=== PATIENT | female | born 1955 | race Caucasian/White ===

== ENCOUNTER 2016-05-12 09:12 | Day surgery (SDC) | payer MEDICARE ==
[2016-05-12] VITALS (10 sets, daily range): BP systolic 137–169; BP diastolic 61–75
[~2016-05-12] VITALS: Ht 152.4 cm; Wt 77.1 kg
[~2016-05-12 09:12] MED LIST: ALBU8.5H2 IH; ASP81CT GT; ATOR40TA PO; GBPN600T PO; METO-272 PO; NAPR220C11 PO; OMEP40CA36 PO; PRAV40TA PO; PRED10TA PO; TIOT18CA IH
[2016-05-12] MEDS ORDERED: NS IV 1000 ML 1,000 ML ONE (09:24)
[2016-05-12] MEDS ORDERED: LIDOCAINE 1% INJ 20 ML (XYLOCAINE) VIAL ONE (09:24)
[2016-05-12] MEDS ORDERED: HEParin (CATH LAB) 2,000 ML IV ONE (09:24)
[2016-05-12 10:27] LABS: MEAN PLATELET VOLUME 10.2 FL (7.4-10.4); RED BLOOD COUNT 4.83 10^6/uL (4.35-5.85); RED CELL DISTRIBUTION WIDTH 13.6 % (10.0-14.5); WHITE BLOOD COUNT 9.1 10^3/uL (4.3-11.0)
[2016-05-12 10:48] LABS: PROTHROMBIN TIME PATIENT 12.4 SEC (12.2-14.7)
[2016-05-12 10:52] LABS: ALANINE AMINOTRANSFERASE 12 U/L (0-55); ALBUMIN 4.1 G/DL (3.2-4.5); ANION GAP 10 MMOL/L (5-14); ASPARTATE AMINO TRANSFERASE 15 U/L (5-34); BILIRUBIN,TOTAL 0.6 MG/DL (0.1-1.0); BLOOD UREA NITROGEN 20 MG/DL (7-18); BUN/CREATININE RATIO 26; CALCIUM 9.1 MG/DL (8.5-10.1); CARBON DIOXIDE 28 MMOL/L (21-32); CHLORIDE 101 MMOL/L (98-107); CHOLESTEROL 176 MG/DL (< 200); CREATININE SERUM 0.76 MG/DL (0.60-1.30); DIRECT LDL 120 MG/DL (1-129); GFR ESTIMATED > 60; GLUCOSE 98 MG/DL (70-105); POTASSIUM 4.3 MMOL/L (3.6-5.0); SODIUM 139 MMOL/L (135-145); TRIGLYCERIDES 154 MG/DL (<150); VLDL CHOLESTEROL 31 MG/DL (5-40)
[2016-05-12] MEDS ORDERED: GABA800T2 PO (10:54)
[2016-05-12] MEDS ORDERED: ACET-2267 PO (10:54)
[2016-05-12] MEDS ORDERED: ATOR20TA66 PO (10:54)
[2016-05-12] MEDS ORDERED: DULO60CA6 PO (10:54)
[2016-05-12] MEDS ORDERED: TRAM50TA2 PO (10:54)
[2016-05-12] MEDS ORDERED: ASPI-983 PO (10:54)
[2016-05-12] MEDS ORDERED: METO-272 PO (10:54)
[2016-05-12] MEDS ORDERED: AMLO2.5T PO (10:54)
[2016-05-12] MEDS ORDERED: LEVO25TA5 PO (10:54)
[2016-05-12] MEDS ORDERED: NS IV 1000 ML 1,000 ML IV SCH ×2 (11:00→13:23)
--- NOTE | 2016-05-12 12:11 | Cardiac Procedure Note-CS/ASA ---
Pre-Procedure Note Pre-Op Procedure Note H&P Reviewed The H&P was reviewed, patient examined and no changes noted. Date H&P Reviewed: May 12, 2016 Time H&P Reviewed: 12:10 Conscious Sedation Pre-Proced Time Reviewed: 12:10 ASA Class: 3 Airway Mallampati Classification: ([facility] appropriate class) I. II. III, IV Lungs Heart ASA score ASA 1: a normal healthy patient ASA 2: a patient with a mild systemic disease (mid diabetes, controlled hypertension, obesity ASA 3: a patient with a severe systemic disease that limits activity (angina , COPD, prior Myocardial infarction) ASA 4: a patient with an incapacitating disease that is a constant threat to life (CHF, renal failure) ASA 5: a moribund patient not expected to survive 24 hrs. (ruptured aneurysm) ASA 6: a declared brain patient whose organs are being harvested. For emergent operations, add the letter E after the classification Grade 3 Sedation Plan: Analgesia, Amnesia, Plan communicated to team members, Discussed options with patient/fam, Discussed risks with patient/fam Note The patient is an appropriate candidate to undergo the planned procedure, sedation, and anesthesia. The patient immediately re-assessed prior to indication. RADHA GAVIN MD FACP FACC CCDS May 12, 2016 12:11
[2016-05-12] MEDS ORDERED: diphenhydrAMINE 50 MG/ML INJ (BENADRYL) ONE (12:16)
[2016-05-12] MEDS ORDERED: fentaNYL INJECTION 100 MCG/2 ML AMP ONE (12:16)
[2016-05-12] MEDS ORDERED: MIDAZOLAM 5 MG/5 ML (VERSED) VIAL ONE (12:16)
[2016-05-12] MEDS ORDERED: ASPI-999 PO (13:26)
--- NOTE | 2016-05-12 13:27 | Discharge Inst-Post CATH ---
Discharge Inst-CATH Post Cardiac Cath D/C Inst Follow Up/Plan F/u with Dr Draper in 1-2 weeks CARDIAC CATH DISCHARGE INSTRUCTIONS *Hold Metformin for 48 hours post heart cath. ACTIVITY * Go Home directly and rest. * Limit activity of the leg (or wrist if it was used) for 7 days including aerobics, swimming, jogging, bicycling, etc. * Restrict stair-climbing for 7 days if possible, if not, climb up with your non -cath leg, then bring together on the same step. * Avoid lifting, pushing, pulling or excessive movement of the affected extremity for 7 days. * Customary sexual activity may be resumed after 2 days-use caution not to use a position that strains or causes pain to the affected extremity. * No driving for 24 hours. * NO SMOKING. * Avoid straining for bowel movements for 7 days. * Gentle walking on level ground is allowed. * Returning to work will depend on the type of procedure and the results. Your doctor will discuss this with you. CALL YOUR DOCTOR FOR ANY OF THE FOLLOWING: *If bleeding from the puncture site occurs- Apply gentle pressure to site with clean cloth and call your doctor or EMS. * If a knot or lump forms under the skin, increases in size, or causes pain. * If bruising appears to be worsening or moving further down your leg instead of disappearing. * Temperature above 101 F. CARE OF YOUR GROIN INCISION; * Bruising or purple discoloration of the skin near the puncture site is common. * You may shower only, no bathtub bathing for 5 days. Be careful to avoid slipping as your leg may feel stiff. * If a closure device was used on your femoral artery, please see the attached guide regarding care of the device and your leg. * REMOVE the dressing from your groin the next day after your procedure in the shower. CARE OF YOUR WRIST INCISION; * Bruising or purple discoloration of the skin near the puncture site is common. * You may shower. * DO NOT submerge wrist. * Remove dressing in 24 hours. RADHA DRAPER MD [facility] CCDS May 12, 2016 13:27
--- NOTE | 2016-05-12 13:28 | Discharge Inst-Cardiology ---
Discharge Inst-Cardiac Discharge Medications New Medications: Aspirin (Aspirin) 81 Mg Tab.chew 81 MG PO DAILY #90 Ref 3 TAB Continued Medications: Acetaminophen (Tylenol Extra Strength) 500 Mg Tablet 1000 MG PO Q6H TAKES 2 (500MG) TABLETS PRN BACK PAIN TAB Albuterol (Proair Hfa) 8.5 Gm Hfa.aer.ad 2 PUFF IH Q4H PRN COUGH INHALER Amlodipine Besylate (Amlodipine Besylate) 2.5 Mg Tablet 2.5 MG PO DAILY TAB Atorvastatin Calcium (Atorvastatin Calcium) 20 Mg Tablet 20 MG PO HS TAB Duloxetine HCl (Cymbalta) 60 Mg Capsule.dr 60 MG PO BID CAP Gabapentin (Gabapentin) 800 Mg Tablet 400 MG PO HS TAKES 1/2 (800MG) TABLET TAB Levothyroxine Sodium (Levothyroxine Sodium) 25 Mcg Tablet 25 MCG PO DAILY TAB Metoprolol Succinate (Metoprolol Succinate) 50 Mg Tab.er.24h 75 MG PO BID TAKES 1 & 1/2 (50MG) TABLET TAB Omeprazole (Omeprazole) 40 Mg Capsule.dr 40 MG PO DAILY CAP Tiotropium Ramer (Spiriva) 18 Mcg Cap.w.dev 1 CAP IH DAILY EA Tramadol HCl (Tramadol HCl) 50 Mg Tablet 50 MG PO TID PRN BREAKTHROUGH PAIN TAB Discontinued Medications: Aspirin (Aspirin EC) 81 Mg Tablet. 81 MG PO HS TAB RADHA GAVIN MD FACP FAC CCDS May 12, 2016 13:28
[2016-05-12] MEDS ORDERED: PATIENT MAY USE OWN MEDS, ALL PO SCH (13:30)
--- NOTE | 2016-05-14 09:10 | CARDIAC CATHETERIZATION ---
PROCEDURE PHYSICIAN: RADHA GAVIN DATE OF PROCEDURE: 05/12/2016 CARDIAC CATHETERIZATION REPORT: Radha Jameson is a 60-year-old lady who has exertional shortness of breath, slowly progressive. She has been having intermittent chest discomfort. She also has a feeling of occasional palpitations. She has a previous history of a brief (4 beat) run of wide complex tachycardia on an event monitor study of April 2014. Echocardiography has shown at least moderate pulmonary hypertension. Given all of this data, complete heart catheterization was recommended. An informed consent was obtained. PROCEDURE: She is brought to the cardiac catheterization laboratory in a fasting state. The right groin was prepped and draped in usual sterile fashion. 1% lidocaine was used for local anesthesia. Modified Seldinger technique was used to advance a 5-Jamaican sheath in the right femoral artery and a 7-Jamaican sheath in right femoral vein. We used a 7-Jamaican Bethpage-Sydney catheter to carry out right heart catheterization and to measure oxygen saturations in the various right heart chambers. The Bethpage-Sydney catheter was then removed. We then proceeded with the left heart catheterization through the arterial sheath. We used a 5-Jamaican pigtail catheter to carry out left ventricular catheterization and left ventricular angiography. We used a 5-Jamaican JL4 catheter for left coronary angiography and 5-Jamaican JR 4 for the right coronary angiography. We used 5-Jamaican JR4 catheter for angiography of the aortocoronary graft to the left circumflex artery. We used a 5-Jamaican JUAN catheter to carry out angiography of the left internal mammary artery graft of left anterior descending artery. Following removal of diagnostic catheters, angiography of the right femoral artery was carried out through the sheath and Mynx was used to achieve arterial hemostasis and she was transferred to [facility] for manual venous sheath removal. She tolerated the procedure well. HEMODYNAMICS: 1. Pulmonary artery pressure is 51/20 with a mean of 33 mmHg. 2. Mean pulmonary wedge pressure 15 mmHg. 3. Mean right atrial pressure 15 mmHg. 4. Right ventricular pressure is 54/15. 5. Cardiac output by thermodilution is 3.07 and cardiac index by thermodilution is 1.76. 6. Pulmonary vascular resistance is 5.87 Wood units. 7. Left ventricular end diastolic pressure is 15 mmHg. 8. There was no significant pressure gradient on pullback across the aortic valve and ascending aortic pressure was 138/68 with a mean of 80 mmHg. LEFT VENTRICULAR ANGIOGRAPHY: Left ventricular angiography was carried out in the right anterior oblique projection. No regional wall motion abnormalities are seen. There does not appear to be significant mitral regurgitation. Left ventricular ejection fraction of 60 to 65%. CORONARY ANGIOGRAPHY: Diffuse coronary calcification is present. The left main coronary artery has mild mid vessel disease. Left anterior descending artery has diffuse disease. The proximal and mid portions of the left anterior descending artery have multiple stenoses of up to approximately 80%. Left circumflex artery has 50% ostial and proximal stenosis. Right coronary artery is dominant and has a widely patent stent in its midportion and has diffuse mild disease. Right coronary artery is dominant. AORTOCORONARY GRAFT ANGIOGRAPHY: A single aortocoronary graft is identified. There is known to be a radial artery graft to a high obtuse marginal or ramus intermedius. It is widely patent and does not exhibit significant disease. LEFT INTERNAL MAMMARY ARTERY GRAFT ANGIOGRAPHY: Left internal mammary artery graft angiography to the distal left anterior descending artery is widely patent and does not exhibit significant disease. CONCLUSIONS: 1. Coronary disease as detailed above. 2. Widely patent left internal mammary artery graft to the distal left anterior descending artery. 3. Widely patent aortocoronary graft (known to be radial artery graft) to a high obtuse marginal or ramus intermedius. 4. Widely patent stent in the mid right coronary artery. 5. Normal global left ventricular systolic function with an ejection fraction of 60 to 65%. 6. Mild elevation left ventricular end-diastolic pressure. 7. Pulmonary hypertension with a mean pulmonary artery pressure of 33 mmHg and pulmonary vascular resistance of 5.8 Wood units. DISCUSSION AND RECOMMENDATIONS: Based on the results of this study, we are continuing a conservative approach for coronary artery disease and a cardiac management. Close outpatient follow-up is advised. Pulmonary consultation is advised for pulmonary hypertension. Job ID: [id number] Dictated Date: 05/12/2016 13:19:00 Channeling Machine Operator Date: 05/14/2016 08:55:45 / [email or web address]
== END 2016-05-12 16:45 | disposition home or self-care (01) ==
LOC: CATH 09:12 → SURG 13:35 → CATH 16:45
PROVIDERS: ATTEND Internal Medicine Cardiovascular Disease
DX: R07.89 Other chest pain (principal); I25.10 Atherosclerotic heart disease of native coronary artery without angina pectoris; I25.84 Coronary atherosclerosis due to calcified coronary lesion; I27.2 Other secondary pulmonary hypertension; R00.0 Tachycardia, unspecified; I10 Essential (primary) hypertension; E78.5 Hyperlipidemia, unspecified; K21.9 Gastro-esophageal reflux disease without esophagitis; R73.09 Other abnormal glucose; Z79.899 Other long term (current) drug therapy; Z87.891 Personal history of nicotine dependence; Z95.1 Presence of aortocoronary bypass graft; Z95.5 Presence of coronary angioplasty implant and graft
CPT/HCPCS: 36415; 80053; 80061; 85027; 85610; 85730; 87081; 93461

== ENCOUNTER → 2016-06-17 | Outpatient (CLI) | payer MEDICARE ==
[~2016-06-17] MED LIST changes: +ACET-2267 PO; +AMLO2.5T PO; +ASPI-983 PO; +ASPI-999 PO; +ATOR20TA66 PO; +DULO60CA6 PO; +GABA800T2 PO; +LEVO25TA5 PO; +RT-ALBUTEROL SULF 2.5 MG/3 ML PRE-MIX VIAL INH ONE; +TRAM50TA2 PO
--- NOTE | 2016-06-17 14:09 | Diagnostic Imaging Report ---
EXAMINATION: PA and lateral views of the chest. INDICATION: Dyspnea. COMPARISON: 04/06/2011. FINDINGS: The lungs are hyperinflated. Sternotomy wires are seen. There is mild prominence of the interstitial markings with a chronic appearance. No focal airspace consolidation. No effusion or pneumothorax. The heart size is normal. The mediastinum and earl appear unremarkable. IMPRESSION: The lungs are hyperinflated with no focal consolidation. Dictated by: Dictated on workstation # [id number]
== END ==
LOC: RT 08:23
PROVIDERS: ATTEND Internal Medicine Critical Care Medicine
DX: R06.00 Dyspnea, unspecified (principal); I27.2 Other secondary pulmonary hypertension
CPT/HCPCS: 71020; 94060; 94640; 94726; 94729

== ENCOUNTER 2016-06-26 21:03 | Outpatient (CLI) | payer MEDICARE ==
[~2016-06-26 21:03] MED LIST changes: -RT-ALBUTEROL SULF 2.5 MG/3 ML PRE-MIX VIAL INH ONE
== END 2016-06-27 06:12 | disposition home or self-care (01) ==
LOC: SLEEP 21:03
PROVIDERS: ATTEND Internal Medicine Critical Care Medicine
DX: G47.33 Obstructive sleep apnea (adult) (pediatric) (principal); I27.2 Other secondary pulmonary hypertension; R06.00 Dyspnea, unspecified
CPT/HCPCS: 95810

== ENCOUNTER → 2017-08-12 | Outpatient (CLI) | payer MEDICARE ==
[~2017-08-12] MED LIST changes: +METO-370 PO
== END ==
LOC: CARD 12:15
PROVIDERS: ATTEND Internal Medicine Cardiovascular Disease
DX: I27.21 Secondary pulmonary arterial hypertension (principal); R06.09 Other forms of dyspnea; R00.2 Palpitations; I10 Essential (primary) hypertension; E78.5 Hyperlipidemia, unspecified; I08.1 Rheumatic disorders of both mitral and tricuspid valves
CPT/HCPCS: 93306

== ENCOUNTER 2017-08-16 14:02 | Outpatient (RCR) | payer MEDICARE ==
[~2017-08-16] VITALS: Ht 152.4 cm; Wt 76.2 kg
[2017-08-16 14:16] VITALS: BP 143/60
== END 2017-11-14 | disposition home or self-care (01) ==
LOC: PULM 14:02
PROVIDERS: ATTEND Nurse Practitioner Family
DX: J43.9 Emphysema, unspecified (principal); G47.34 Idiopathic sleep related nonobstructive alveolar hypoventilation; R06.09 Other forms of dyspnea

== ENCOUNTER → 2018-07-29 | Outpatient (CLI) | payer MEDICARE, MEDICAID ==
[~2018-07-29] MED LIST changes: -AMLO2.5T PO; +AMLO2.5T4 PO; +GABA800T10 PO; -GABA800T2 PO
[2018-07-29 07:46] LABS: BUN/CREATININE RATIO 19; GFR ESTIMATED > 60
--- NOTE | 2018-07-29 13:08 | Diagnostic Imaging Report ---
PROCEDURE: CT chest with contrast only. TECHNIQUE: Multiple contiguous axial images were obtained through the chest after administration of intravenous contrast. Auto Exposure Controls were utilized during the CT exam to meet ALARA standards for radiation dose reduction. INDICATION: Bronchitis, asthma. FINDINGS: There are no prior CT chest examinations available for comparison. The plain film examination of the chest performed on 06/17/2016 noted sternotomy wires and surgical clips and chronic pulmonary changes but failed to show any sign of an acute abnormality. On this exam, there is no defect within the pulmonary arteries to indicate a pulmonary embolus. The aorta is not abnormally dilated, and there is no sign of a dissection. The heart is mildly enlarged, and there are extensive coronary artery calcifications evident. The sternotomy wires and surgical clips noted previously are again visualized. There are emphysematous changes involving both lungs. There are also patchy alveolar/interstitial infiltrates in the right lung base, the right middle lobe, and in the right upper lobe anteriorly. These findings are probably secondary to pneumonia/atelectasis. In addition, there is a 1.3 x 2.1 cm subcarinal node. There is also a 1.2 x 1.5 cm left hilar node and a 1.2 x 1.4 cm right hilar node. A 1.3 x 1.8 cm pretracheal node is also noted. These nodes are nonspecific, and these could be related to reactive nodes as opposed to nodes involved by neoplasm. Even so, I would recommend that a short-term (4-6 week) followup CT chest exam be performed for further study. The thyroid gland was not visualized in its entirety. Where visualized, the thyroid gland is unremarkable. The sections through the upper abdomen fail to show any sign of an acute abnormality. The liver is of lower density than usually seen, and this does suggest fatty metamorphosis. There is no obvious breast mass. According to our records, the patient has not had a mammogram since 2008. If the patient has had a recent (within the last year) mammogram elsewhere, then no further imaging would be necessary. Otherwise, mammography should be obtained. The bone windows show no sign of a fracture or of a destructive lesion. IMPRESSION: 1. There are patchy alveolar/interstitial infiltrates involving the right lung base and to a lesser extent the right middle lobe. These findings are nonspecific but may be secondary to mild pneumonia/atelectasis. 2. The hilar and mediastinal adenopathy may well be secondary to reactive nodes related to the suspected pneumonia/atelectasis involving the right lung. The possibility that they are neoplastic in nature would be unlikely but cannot be entirely excluded. Recommendations as above. 3. There is no acute cardiopulmonary abnormality noted otherwise. 4. There is mild cardiomegaly, coronary artery disease, and evidence of prior cardiac surgery. 5. There is no obvious breast mass. Recommendations as above. Dictated by: Dictated on workstation # [id number]
== END ==
LOC: RAD 07:16
PROVIDERS: ATTEND Nurse Practitioner Family
DX: I25.10 Atherosclerotic heart disease of native coronary artery without angina pectoris (principal); I51.7 Cardiomegaly; R59.0 Localized enlarged lymph nodes; G47.34 Idiopathic sleep related nonobstructive alveolar hypoventilation; J30.9 Allergic rhinitis, unspecified; J40 Bronchitis, not specified as acute or chronic; J98.4 Other disorders of lung
CPT/HCPCS: 36415; 71260; 82565; 84520

== ENCOUNTER → 2018-08-30 | Outpatient (CLI) | payer MEDICARE, MEDICAID ==
[~2018-08-30] VITALS: Ht 152.4 cm; Wt 77.1 kg
[~2018-08-30] MED LIST changes: +REGADENOSON 0.4 MG/5 ML SYR (LEXISCAN) IV ONE
[2018-08-30] MEDS: CATHETER FLUSH 10 ML SYR IV PRN ×2 (07:10→09:03)
[2018-08-30 09:01] VITALS: BP 208/75
--- NOTE | 2018-08-31 13:52 | STRESS TEST ---
DATE OF SERVICE: 08/30/2018 RESTING AND POST REGADENOSON TECHNETIUM-99M TETROFOSMIN SPECT CT IMAGING ORDERING PHYSICIAN: Marielos Valiente APRN PRIMARY PHYSICIAN: BRANDEN Asif. OTHER PHYSICIAN: Dr. Rogers. CLINICAL DIAGNOSIS: Chest discomfort. Baseline images were carried out after injection of 10.7 mCi technetium-99m Tetrofosmin. This was followed by 0.4 mg regadenoson and 32.2 mCi of technetium-99m Tetrofosmin for stress imaging. The electrocardiogram showed sinus rhythm at baseline. It did not change significantly with the regadenoson infusion. The patient tolerated the procedure well and did not report symptoms. Review of images at rest and following stress indicates a small, predominantly transient anteroapical perfusion defect. Gated images show normal global left ventricular systolic function, normal regional wall motion. Left ventricular ejection fraction is calculated to be 77%. Left ventricular end diastolic volume is 48 mL. TID is absent (0.99). CONCLUSIONS: 1. The study is suggestive of a small amount of anteroapical ischemia. 2. Normal regional wall motion. 3. Normal global left ventricular systolic function with a calculated ejection fraction of 77%. Job ID: [id number] DocumentID: [id number] Dictated Date: 08/31/2018 12:48:22 [employer] Director Date: 08/31/2018 13:51:24 Dictated By: RADHA GAVIN MD, MA, FACP, FACC,
== END ==
LOC: CARD 06:45
PROVIDERS: ATTEND Nurse Practitioner Family
DX: R07.9 Chest pain, unspecified (principal); I25.10 Atherosclerotic heart disease of native coronary artery without angina pectoris; I10 Essential (primary) hypertension; E78.5 Hyperlipidemia, unspecified; I77.89 Other specified disorders of arteries and arterioles; I27.20 Pulmonary hypertension, unspecified; I08.3 Combined rheumatic disorders of mitral, aortic and tricuspid valves
CPT/HCPCS: 78452; 93017; 93306

== ENCOUNTER 2018-09-20 13:37 | Day surgery (SDC) | payer MEDICARE, MEDICAID ==
[~2018-09-20] VITALS: Ht 152.4 cm; Wt 76.7 kg
[2018-09-20] VITALS (10 sets, daily range): BP systolic 142–182; BP diastolic 48–73
[~2018-09-20 13:37] MED LIST changes: -REGADENOSON 0.4 MG/5 ML SYR (LEXISCAN) IV ONE
--- OUTSIDE RECORDS SUMMARY | 2018-09-20 13:40 | XMS REPORT ---
Author Author Migration, Doctor Organization [facility] [place] [facility] Address Unknown Phone Unavailable Care Team Providers Care Student Career Development Specialist Name Role Phone Migration, Doctor Unavailable Unavailable PROBLEMS Type Condition ICD9-CM Code CVR30-VU Code Onset Dates Condition Status SNOMED Code Problem Sciatica, left M54.32 Active 02351410 Problem Sciatica, unspecified laterality M54.30 Active 81654994 Problem Chronic obstructive pulmonary disease, unspecified COPD type J44.9 Active 92862045 Problem DDD (degenerative disc disease), lumbar M51.36 Active 69159003 Problem Sciatica, left side M54.32 Active 26567778 Problem COPD exacerbation J44.1 Active 431336960 Problem Dyspepsia and other specified disorders of function of stomach 536.8 Active 457002157 Problem Essential hypertension I10 Active 36339263 Problem Hypothyroidism, unspecified type E03.9 Active 76401153 Problem Hyperlipidemia, unspecified hyperlipidemia type E78.5 Active 34126065 Problem Atherosclerosis of [place] coronary artery of [place] heart, angina presence unspecified I25.10 Active [id number] ALLERGIES No Information ENCOUNTERS Encounter Location Date Diagnosis [place] [id number] [place] [address] [id number] July, Hypothyroidism, unspecified type E03.9 ; Hyperlipidemia, unspecified hyperlipidemia type E78.5 ; Chronic obstructive pulmonary disease, unspecified COPD type J44.9 ; Essential hypertension I10 and Non-healing skin lesion L98.[address] [id number] [id number] July, Sciatica, left side M54.32 ; Essential hypertension I10 ; Chronic obstructive pulmonary disease, unspecified COPD type J44.9 ; Hypothyroidism, unspecified type E03.9 ; Hyperlipidemia, unspecified hyperlipidemia type E78.5 ; Atherosclerosis of [place] coronary artery of [place] heart, angina presence unspecified I25.10 and DDD (degenerative disc disease), lumbar M51.36 [place] [id number] [id number] July, Sciatica, left M54.32 [facility] [id number] [place] [address], [place] [id number] Jun, COPD exacerbation J44.1 [facility] [address] [id number] [place] [id number] Jun, [facility] [address] [id number] [place] [id number] Jun, Sciatica, left M54.32 [facility] [address] [id number] [place] [id number] May, Chronic obstructive pulmonary disease, unspecified COPD type J44.9 [facility] [address] [id number] [place] [id number] May, Essential hypertension I10 [facility] [id number] [place] [address] [id number] Apr, Sciatica, left M54.32 [facility] [id number] [place] [address] [id number] Mar, Chronic obstructive pulmonary disease, unspecified COPD type J44.9 and Sciatica, left M54.32 [facility] [id number] [place] [address] [id number] Mar, COPD exacerbation J44.1 and Cough R05 [facility] [id number] [place] [address] [id number] Mar, [facility] [id number] [place] [address], [place] [id number] Mar, COPD exacerbation J44.1 ; Wheezing R06.2 ; Cough R05 and Body aches R52 [facility] [id number] [place] [address] [id number] Jan, Sciatica, left M54.32 [facility] [id number] [place] [address] [id number] Nov, Sciatica, left M54.32 [facility] [address] [id number] [place] [id number] Oct, Sciatica, left M54.32 ; Essential hypertension I10 and Chronic obstructive pulmonary disease, unspecified COPD type J44.9 [facility] [id number] [place] [address] [id number] Sep, Sciatica, left M54.32 and DDD (degenerative disc disease), lumbar M51.36 [facility] [id number] [place] [address] Aug, [facility] [id number] [place] [address] [id number] Aug, [facility] [address] [address] Aug, [facility] [id number] [place] [address] [id number] Aug, Localized swelling, mass and lump, neck R22.1 [facility] [id number] [place] [address] [id number] July, [facility] [id number] [place] [phone] July, [facility] [id number] [place] [address] [id number] July, Neck swelling R22.1 ; Lung mass R91.8 and Sciatica, left side M54.32 [facility] [id number] [place] [address] [id number] Jun, Sciatica, left side M54.32 [address] [id number] [place] [address] [id number] May, Abnormal CXR R93.8 [facility] [id number] [place] [address] [id number] May, Abnormal CXR R93.8 [facility] [id number] [place] [address] [id number] May, Abnormal CXR R93.8 [facility] [id number] [place] [phone] Apr, [facility] [id number] [place] [address] [id number] Apr, Abnormal chest xray R93.8 [facility] [id number] [place] [address] [id number] Apr, Sciatica, left side M54.32 [address] [id number] [place] [address] [id number] Mar, Community acquired pneumonia of right lung, unspecified part of lung J18.9 ; Chronic obstructive pulmonary disease, unspecified COPD type J44.9 and Abnormal CXR R93.8 [place] [id number] [place] [address] [id number] Mar, Community acquired pneumonia of right lower lobe of lung J18.1 [facility] [id number] [place] [id number] Mar, Sciatica, left side M54.32 ; Essential hypertension I10 and Community acquired pneumonia of right lung, unspecified part of lung J18.9 [address] [id number] [place] [address] [id number] Mar, Sciatica, left side M54.32 ; Essential hypertension I10 ; Chronic obstructive pulmonary disease, unspecified COPD type J44.9 and Community acquired pneumonia of right lung, unspecified part of lung J18.9 [address] [id number] [place] [address] [id number] Feb, Essential hypertension I10 and Sciatica, left M54.32 [place] [id number] [place] [address] [id number] Jan, Sciatica, left M54.32 [address] [id number] [place] [address] [id number] Dec, Sciatica, left M54.32 ; Essential hypertension I10 ; Chronic obstructive pulmonary disease, unspecified COPD type J44.9 ; Hypothyroidism, unspecified type E03.9 and Encounter for immunization Z23 [place] [id number] [place] [address] [id number] Nov, Sciatica, unspecified laterality M54.30 [address] [place] [id number] [place] [address] [id number] Oct, Hypothyroidism, unspecified type E03.9 [address] [place] [id number] [place] [address] [id number] Oct, Sciatica, unspecified laterality M54.30 and Hypothyroidism, unspecified type E03.9 [facility] [id number] [place] [address] [id number] Oct, [facility] [id number] [place] [address] [id number] Aug, Essential hypertension I10 and Sciatica, unspecified laterality M54.30 [facility] [id number] [place] [address] [id number] Aug, Sciatica, unspecified laterality M54.30 [place] [id number] [place] [address] [id number] Jun, Sciatica, unspecified laterality M54.30 ; Essential hypertension I10 and Chronic obstructive pulmonary disease, unspecified COPD type J44.9 [address] [place] [address] [id number] May, Chronic obstructive pulmonary disease, unspecified COPD type J44.9 ; Essential hypertension I10 ; Sciatica, unspecified laterality M54.30 ; Hypothyroidism, unspecified type E03.9 and Hyperlipidemia, unspecified hyperlipidemia type E78.5 [place] [id number] [place] [address] [id number] May, Essential hypertension I10 [facility] [id number] [place] [address] [id number] Apr, [place] [id number] [place] [address] [id number] Apr, Essential hypertension I10 and Atherosclerosis of [place] coronary artery of [place] heart, angina presence unspecified I25.10 [facility] [id number] [place] [address] [id number] Mar, Essential hypertension I10 and Sciatica, unspecified laterality M54.30 [address] [place] [address] [id number] Jan, [facility] [id number] [place] [address] [id number] Jan, Sciatica, unspecified laterality M54.30 ; Essential hypertension I10 ; Chronic obstructive pulmonary disease, unspecified COPD type J44.9 ; Hypothyroidism, unspecified type E03.9 and Hyperlipidemia, unspecified hyperlipidemia type E78.5 [facility] [id number] [place] [address] [id number] Dec, Sciatica, unspecified laterality M54.30 [facility] [id number] [id number] Dec, Essential hypertension I10 [facility] [id number] [place] [address] [id number] Dec, Essential hypertension I10 ; Sciatica, unspecified laterality M54.30 and Encounter for immunization Z23 [facility] [address] [id number] [address] Nov, [facility] [id number] [place] [address] [id number] Sep, Sciatica, unspecified laterality M54.30 ; Essential hypertension I10 and Chronic obstructive pulmonary disease, unspecified COPD type J44.9 [facility] [id number] [place] [address] [id number] Sep, [facility] [id number] [place] [address] [id number] July, [facility] [id number] [place] [address] [id number] Jun, Sciatica, unspecified laterality M54.30 [facility] [id number] [place] [address] [id number] May, Sciatica, unspecified laterality M54.30 [facility] [id number] [place] [address] [id number] May, [facility] [id number] [place] [address] [id number] Apr, Sciatica, unspecified laterality M54.30 [facility] [id number] [place] [address] [id number] Apr, [facility] [id number] [place] [address] [id number] Mar, Sciatica, left M54.32 [address] [id number] [place] [address] [id number] Jan, Sciatica, left M54.32 and Encounter for immunization Z23 [address] [id number] Dec, Sciatica, left side M54.32 [facility] [address] [id number] Dec, [address] [id number] [place] [address] [id number] Nov, Sciatica 724.3 [facility] [address] [id number] Nov, [address] [id number] [place] [address] [id number] Nov, Sciatica 724.3 and Visual acuity reduced 369.[address] [id number] Oct, Sciatica 724.3 and Nausea 787.02 [address] [id number] [place] [address] [id number] Oct, Coronary atherosclerosis of unspecified type of vessel, [place] or graft 414.00 [address] [id number] [place] [address] [id number] Sep, Sciatica 724.3 and Coronary atherosclerosis of unspecified type of vessel, [place] or graft 414.00 [id number] [place] [address] [id number] Sep, Coronary atherosclerosis of unspecified type of vessel, [place] or graft 414.00 and Unspecified essential hypertension 401.9 [address] [id number] [place] [address] [id number] Aug, Sciatica 724.3 ; Dyspepsia and other specified disorders of function of stomach 536.8 and Other abnormal blood chemistry 790.6 [address] [id number] [place] [address] [id number] Aug, Sciatica 724.3 ; Coronary atherosclerosis of unspecified type of vessel, [place] or graft 414.00 ; Unspecified essential hypertension 401.9 ; Palpitations 785.1 and Other abnormal blood chemistry 790.6 [facility] [id number] [place] [address] [id number] July, Sciatica 724.3 and Other abnormal blood chemistry 790.6 [facility] [id number] [place] [address] [id number] July, [facility] [id number] [place] [address] [id number] July, Hyperlipidemia 272.4 [facility] [id number] [place] [phone] Jun, [facility] [id number] [place] [phone] Jun, [facility] [id number] [place] [phone] May, [facility] [id number] [place] [address] [id number] May, [facility] [id number] [place] [address] [id number] Apr, [facility] [id number] [place] [phone] Apr, [facility] [id number] [place] [address] [id number] Apr, [facility] [id number] [place] [phone] Apr, [facility] [id number] [place] [address] [id number] Apr, [facility] [id number] [place] [phone] Apr, [facility] [id number] [place] [phone] Apr, [facility] [id number] [place] [phone] Apr, [facility] [address] [id number] [place] [id number] Apr, 2014 [facility] [address] [id number] [place] [id number] Apr, 2014 [facility] [address] [id number] [place] [id number] Apr, 2014 [facility] [place] [facility] [address] [facility] [id number], [place] [address] Apr, 2014 [facility] [address] [id number] [place] [id number] Jan, [facility] [place] [facility] [address] [facility] [id number], [place] [address] Jan, [facility] [place] [facility] [address] [id number] [address] Dec, [facility] [address] [id number][place] [id number] Dec, [facility] [address] [id number], [place] [id number] Dec, [facility] [address] [facility] [id number] [place] [id number] Dec, [facility] [place] [facility] [address]00565100[place], [place] [address] Dec, [facility] [place] [facility] [address]00565100[place], [place] [address] Dec, [facility] [place] [facility] [address] [facility] [id number], [place] [address] Nov, [facility] [address] [facility] [id number][place] [id number] Nov, [facility] [place] [facility] [address] [facility] [id number], [place] [address] Nov, [facility] [place] [facility] [address] [facility] [id number], [place] [address] Nov, [facility] [place] [facility] [address]00565100[place], [place] [address] Nov, [facility] [place] [facility] [address] [id number] [place] [address] Nov, [facility] [address] [id number] [place] [id number] Nov, [facility] [place] [facility] [address] [id number] [place] [address] Nov, [facility] [place] [facility] [address] [id number] [place] [address] Sep, [facility] [address] [id number] [place] [id number] Sep, [facility] [place] [facility] [address] [id number] [place] [address] Sep, [facility] [place] [facility] [address] [id number] [place] [address] Sep, [facility] [place] [facility] [address] [id number] [place] [address] Sep, [facility] [place] [facility] [address] [id number] [place] [address] Sep, [facility] [place] [facility] [address] [id number] [place] [address] Sep, [facility] [address] [id number] [id number] Aug, [facility] [place] [facility] [address] [id number] [place] [address] Aug, [facility] [place] [facility] [address] [id number] [place] [address] Aug, [facility] [place] [facility] [address] [id number] [place] [address] Aug, [facility] [address] [id number] [place] [id number] Aug, [facility] [place] [facility] [address] [id number] [place] [address] Aug, [facility] [address] [id number] [place] [id number] July, [facility] [place] [facility] [address] [id number] [place] [address] July, [facility] [address] [facility] [id number][place] [id number] July, [facility] [place] [facility] [address] [facility] [id number], [place] [address] July, [facility] [place] [facility] [address] [facility] [id number], [place] [address] Jun, [facility] [place] [facility] [address] [facility] [id number], [place] [address] Jun, [facility] [place] [facility] [address] [facility] [id number], [place] [address] Jun, [facility] [address] [facility] [id number], [place] [id number] Jun, [facility] [address] [facility] [id number], [place] [id number] Jun, [facility] [place] [facility] [address] [id number], [place] [address] Jun, [facility] [address] [facility] [id number], [place] [id number] Apr, [facility] [place] [facility] [address] [facility] [id number], [place] [address] Apr, [facility] [address] [facility] [id number], [place] [id number] Sep, [facility] [address] [facility] [id number], [place] [id number] May, [facility] [place] [facility] [address] [facility] [id number] [place] [address] Apr, [facility] [place] [facility] [address] [facility] [id number], [place] [address] Jan, [facility] [place] [facility] [address] [facility] [id number], [place] [address] Jan, [facility] [address] [id number][place] 714390064 Sep, [facility] [address] [id number], [place] 180787527 Sep, [facility] [address] [id number], [place] 278391887 Sep, [facility] [id number] [place] [address], [place] [address] Sep, [facility] [address] [id number], [place] [address] Sep, [facility] [address] [id number] [place] [address] Jun, [facility] [address] [id number], [place] 242125239 Jun, [facility] [address] [id number], [place] [id number] 30 May, 2011 [facility] [address] [id number], [place] [id number] May, [facility] [address] [id number], [place] 744819295 May, [facility] [address] [id number], [place] 919424698 May, [facility] [address] [id number], [place] [id number] 24 May, 2011 [facility] [address] [id number], [place] [id number] May, [facility] [address] [id number], [place] [id number] May, [facility] [address] [id number], [place] [id number] 19 May, 2011 [facility] [address] [id number] [place] [id number] 15 May, 2011 [facility] [address] [id number], [place] [id number] 14 May, 2011 [facility] [place] [facility] [address] [id number] [place] [id number] May, [facility] [address] [id number] [place] [address] May, [facility] [address] [id number] [place] [id number] Apr, [facility] [address] [id number] [place] [address] Apr, [facility] [address] [id number] [place] [id number] Mar, [facility] [id number] [place] [address], [place] [address] Feb, [facility] [address] [id number] [place] [address] Feb, [facility] [id number] [place] [address], [place] [address] Feb, [facility] [address] [id number] [place] [address] Feb, [facility] [address] [id number] [place] [address] Feb, [facility] [place] [facility] [address] [facility] [id number] [place] [address] Feb, [facility] [place] [facility] [address] [id number] [place] [address] Jan, [facility] [address] [id number] [place] [address] Feb, [facility] [address] [id number] [place] [address] Feb, [facility] [address] [id number] [place] [address] 16 Feb, 2010 [facility] [address] [id number] [place] [address] Jan, [facility] [id number] [address] Dec, [facility] [id number] [address] Dec, [facility] [address] [id number] [address] Jun, [facility] [id number] [address] Jun, [facility] [id number] [address] Feb, [facility] [id number] [place] [address] Dec, [facility] [id number] [address] July, [facility] [address] [id number] [address] Dec, IMMUNIZATIONS No Known Immunizations SOCIAL HISTORY Never Assessed REASON FOR VISIT EMR-[facility] PLAN OF CARE VITAL SIGNS MEDICATIONS No Known Medications RESULTS No Results PROCEDURES No Known procedures INSTRUCTIONS MEDICATIONS ADMINISTERED No Known Medications MEDICAL (GENERAL) HISTORY Type Description Date Medical History hypertension Medical History hyperlipidemia Medical History CAD w/ coronary stenting Medical History obesity Medical History pulmonary hypertension Medical History carotid artery narrowing Medical History COPD Surgical History partial hysterectomy 1985 Surgical History coronary artery bypass graft-double 03/2011 Surgical History heart cath 03/2011, 2013, 04/2016 Hospitalization History surgeries
--- OUTSIDE RECORDS SUMMARY | 2018-09-20 13:41 | XMS REPORT ---
Author Author Migration, Doctor Organization [facility] Address Unknown Phone Unavailable Care Team Providers Care Grinder Set Up Operator External Name Role Phone Migration, Doctor Unavailable Unavailable PROBLEMS Type Condition ICD9-CM Code [id number] Code Onset Dates Condition Status SNOMED Code Problem Sciatica, left M54.32 Active 45915363 Problem Sciatica, unspecified laterality M54.30 Active 43325812 Problem Chronic obstructive pulmonary disease, unspecified COPD type J44.9 Active 92084332 Problem DDD (degenerative disc disease), lumbar M51.36 Active 76609340 Problem Sciatica, left side M54.32 Active 33450967 Problem COPD exacerbation J44.1 Active 669638795 Problem Dyspepsia and other specified disorders of function of stomach 536.8 Active 736107471 Problem Essential hypertension I10 Active 54344951 Problem Hypothyroidism, unspecified type E03.9 Active 92236877 Problem Hyperlipidemia, unspecified hyperlipidemia type E78.5 Active 51783113 Problem Atherosclerosis of [place] coronary artery of [place] heart, angina presence unspecified I25.10 Active [id number] ALLERGIES No Information ENCOUNTERS Encounter Location Date Diagnosis [id number] [place] [address] [id number] July, Hypothyroidism, unspecified type E03.9 ; Hyperlipidemia, unspecified hyperlipidemia type E78.5 ; Chronic obstructive pulmonary disease, unspecified COPD type J44.9 ; Essential hypertension I10 and Non-healing skin lesion L98.[address] [id number] [id number] July, Sciatica, left side M54.32 ; Essential hypertension I10 ; Chronic obstructive pulmonary disease, unspecified COPD type J44.9 ; Hypothyroidism, unspecified type E03.9 ; Hyperlipidemia, unspecified hyperlipidemia type E78.5 ; Atherosclerosis of [place] coronary artery of [place] heart, angina presence unspecified I25.10 and DDD (degenerative disc disease), lumbar M51.36 [place] [id number] [id number] July, Sciatica, left M54.32 [facility] [id number] [place] [address], [place] [id number] Jun, COPD exacerbation J44.1 [facility] [address] [id number] [place] [id number] Jun, [facility] [address] [id number] [place] [id number] Jun, Sciatica, left M54.32 [facility] [address] [id number] [place] [id number] May, Chronic obstructive pulmonary disease, unspecified COPD type J44.9 [facility] [address] [id number] [place] [id number] May, Essential hypertension I10 [facility] [id number] [place] [address] [id number] Apr, Sciatica, left M54.32 [facility] [id number] [place] [address] [id number] Mar, Chronic obstructive pulmonary disease, unspecified COPD type J44.9 and Sciatica, left M54.32 [facility] [id number] [place] [address] [id number] Mar, COPD exacerbation J44.1 and Cough R05 [facility] [id number] [place] [address] [id number] Mar, [facility] [id number] [place] [address], [place] [id number] Mar, COPD exacerbation J44.1 ; Wheezing R06.2 ; Cough R05 and Body aches R52 [facility] [id number] [place] [address] [id number] Jan, Sciatica, left M54.32 [facility] [id number] [place] [address] [id number] Nov, Sciatica, left M54.32 [facility] [address] [id number] [place] [id number] Oct, Sciatica, left M54.32 ; Essential hypertension I10 and Chronic obstructive pulmonary disease, unspecified COPD type J44.9 [facility] [id number] [place] [address] [id number] Sep, Sciatica, left M54.32 and DDD (degenerative disc disease), lumbar M51.36 [facility] [place] [id number] [place] [address] Aug, [facility] [id number] [place] [address] [id number] Aug, [facility] [place] [address] [address] Aug, [facility] [id number] [place] [address] [id number] Aug, Localized swelling, mass and lump, neck R22.1 [facility] [id number] [place] [address] [id number] July, [facility] [place] [id number] [place] [address] July, [facility] [id number] [place] [address] [id number] July, Neck swelling R22.1 ; Lung mass R91.8 and Sciatica, left side M54.32 [facility] [id number] [place] [address] [id number] Jun, Sciatica, left side M54.32 [place] [id number] [place] [address] [id number] May, Abnormal CXR R93.8 [facility] [id number] [place] [address] [id number] May, Abnormal CXR R93.8 [facility] [id number] [place] [address] [id number] May, Abnormal CXR R93.8 [facility] [place] [id number] [place] [address] Apr, [facility] [id number] [place] [address] [id number] Apr, Abnormal chest xray R93.8 [facility] [id number] [place] [address] [id number] Apr, Sciatica, left side M54.32 [place] [id number] [place] [address] [id number] Mar, Community acquired pneumonia of right lung, unspecified part of lung J18.9 ; Chronic obstructive pulmonary disease, unspecified COPD type J44.9 and Abnormal CXR R93.8 [place] [id number] [place] [address] [id number] Mar, Community acquired pneumonia of right lower lobe of lung J18.1 [facility] [place] [id number] [place] [address] Mar, Sciatica, left side M54.32 ; Essential hypertension I10 and Community acquired pneumonia of right lung, unspecified part of lung J18.9 [place] [id number] [place] [address] [id number] Mar, Sciatica, left side M54.32 ; Essential hypertension I10 ; Chronic obstructive pulmonary disease, unspecified COPD type J44.9 and Community acquired pneumonia of right lung, unspecified part of lung J18.9 [place] [id number] [place] [address] [id number] Feb, Essential hypertension I10 and Sciatica, left M54.32 [place] [id number] [place] [address] [id number] Jan, Sciatica, left M54.32 [place] [id number] [place] [address] [id number] Dec, Sciatica, left M54.32 ; Essential hypertension I10 ; Chronic obstructive pulmonary disease, unspecified COPD type J44.9 ; Hypothyroidism, unspecified type E03.9 and Encounter for immunization Z23 [place] [id number] [place] [address] [id number] Nov, Sciatica, unspecified laterality M54.30 [address] [id number] [place] [address] [id number] Oct, Hypothyroidism, unspecified type E03.9 [place] [id number] [place] [address] [id number] Oct, Sciatica, unspecified laterality M54.30 and Hypothyroidism, unspecified type E03.9 [facility] [id number] [place] [address] [id number] Oct, [facility] [id number] [place] [address] [id number] Aug, Essential hypertension I10 and Sciatica, unspecified laterality M54.30 [facility] [id number] [place] [address] [id number] Aug, Sciatica, unspecified laterality M54.30 [place] [id number] [place] [address] [id number] Jun, Sciatica, unspecified laterality M54.30 ; Essential hypertension I10 and Chronic obstructive pulmonary disease, unspecified COPD type J44.9 [address] [place] [address] [id number] May, Chronic obstructive pulmonary disease, unspecified COPD type J44.9 ; Essential hypertension I10 ; Sciatica, unspecified laterality M54.30 ; Hypothyroidism, unspecified type E03.9 and Hyperlipidemia, unspecified hyperlipidemia type E78.5 [place] [id number] [place] [address] [id number] May, Essential hypertension I10 [facility] [id number] [place] [address] [id number] Apr, [place] [id number] [place] [address] [id number] Apr, Essential hypertension I10 and Atherosclerosis of [place] coronary artery of [place] heart, angina presence unspecified I25.10 [facility] [id number] [place] [address] [id number] Mar, Essential hypertension I10 and Sciatica, unspecified laterality M54.30 [address] [place] [address] [id number] Jan, [facility] [id number] [place] [address] [id number] Jan, Sciatica, unspecified laterality M54.30 ; Essential hypertension I10 ; Chronic obstructive pulmonary disease, unspecified COPD type J44.9 ; Hypothyroidism, unspecified type E03.9 and Hyperlipidemia, unspecified hyperlipidemia type E78.5 [facility] [id number] [place] [address] [id number] Dec, Sciatica, unspecified laterality M54.30 [facility] [facility] [id number] [id number] Dec, Essential hypertension I10 [facility] [id number] [place] [address] [id number] Dec, Essential hypertension I10 ; Sciatica, unspecified laterality M54.30 and Encounter for immunization Z23 [facility], [place] [address] [id number] [address] Nov, [facility] [id number] [place] [address] [id number] Sep, Sciatica, unspecified laterality M54.30 ; Essential hypertension I10 and Chronic obstructive pulmonary disease, unspecified COPD type J44.9 [facility] [id number] [place] [address] [id number] Sep, [facility] [id number] [place] [address] [id number] July, [facility] [id number] [place] [address] [id number] Jun, Sciatica, unspecified laterality M54.30 [facility] [id number] [place] [address] [id number] May, Sciatica, unspecified laterality M54.30 [facility] [id number] [place] [address] [id number] May, [facility] [id number] [place] [address] [id number] Apr, Sciatica, unspecified laterality M54.30 [facility] [id number] [place] [address] [id number] Apr, [facility] [id number] [place] [address] [id number] Mar, Sciatica, left M54.32 [place] [id number] [place] [address] [id number] Jan, Sciatica, left M54.32 and Encounter for immunization Z23 [address] [id number] Dec, Sciatica, left side M54.32 [facility] [address] [id number] Dec, [place] [id number] [place] [address] [id number] Nov, Sciatica 724.3 [facility] [address] [id number] Nov, [place] [id number] [place] [address] [id number] Nov, Sciatica 724.3 and Visual acuity reduced 369.[address] [id number] Oct, Sciatica 724.3 and Nausea 787.02 [place] [id number] [place] [address] [id number] Oct, Coronary atherosclerosis of unspecified type of vessel, [place] or graft 414.00 [place] [id number] [place] [address] [id number] Sep, Sciatica 724.3 and Coronary atherosclerosis of unspecified type of vessel, [place] or graft 414.00 [place] [id number] [place] [address] [id number] Sep, Coronary atherosclerosis of unspecified type of vessel, [place] or graft 414.00 and Unspecified essential hypertension 401.9 [place] [id number] [place] [address] [id number] Aug, Sciatica 724.3 ; Dyspepsia and other specified disorders of function of stomach 536.8 and Other abnormal blood chemistry 790.6 [place] [id number] [place] [address] [id number] Aug, Sciatica 724.3 ; Coronary atherosclerosis of unspecified type of vessel, [place] or graft 414.00 ; Unspecified essential hypertension 401.9 ; Palpitations 785.1 and Other abnormal blood chemistry 790.6 [facility] [id number] [place] [address] [id number] July, Sciatica 724.3 and Other abnormal blood chemistry 790.6 [facility] [id number] [place] [address] [id number] July, [facility] [id number] [place] [address] [id number] July, Hyperlipidemia 272.4 [facility] [place] [id number] [place] [address] Jun, [facility] [place] [id number] [place] [address] Jun, [facility] [place] [id number] [place] [phone] May, [facility] [id number] [place] [address] [id number] May, [facility] [id number] [place] [address] [id number] Apr, [facility] [place] [id number] [place] [address] Apr, [facility] [id number] [place] [address] [id number] Apr, [facility], [place] [id number] [place] [address] Apr, [facility] [id number] [place] [address] [id number] Apr, [facility] [place] [id number] [place] [address] Apr, [facility] [place] [id number] [place] [address] Apr, [facility] [place] [id number] [place] [address] Apr, [facility] [address] [id number] [place] [id number] Apr, 2014 [facility] [address] [id number] [place] [id number] Apr, 2014 [facility] [address] [id number] [place] [id number] Apr, 2014 [facility] [place] [facility] [address] [facility] [id number], [place] [address] Apr, 2014 [facility] [address] [id number] [place] [id number] Jan, [facility] [place] [facility] [address] [facility] [id number], [place] [address] Jan, [facility] [place] [facility] [address] [id number] [address] Dec, [facility] [address] [id number], [place] [id number] Dec, [facility] [address] [id number], [place] [id number] Dec, [facility] [address] [facility] [id number] [place] [id number] Dec, [facility] [place] [facility] [address] [address] Dec, [facility] [place] [facility] [address]005[place] [address] Dec, [facility] [place] [facility] [address] [facility] [id number], [place] [address] Nov, [facility] [address] [facility] [id number], [place] [id number] Nov, [facility] [place] [facility] [address] [facility] [id number], [place] [address] Nov, [facility] [place] [facility] [address] [facility] [id number], [place] [address] Nov, [facility] [place] [facility] [address]005[place] [address] Nov, [facility] [place] [facility] [address] [id number] [place] [address] Nov, [facility] [address] [id number] [place] [id number] Nov, [facility] [place] [facility] [address] [id number] [place] [address] Nov, [facility] [place] [facility] [address] [id number] [place] [address] Sep, [facility] [address] [id number] [place] [id number] Sep, [facility] [place] [facility] [address] [id number] [place] [address] Sep, [facility] [place] [facility] [address] [id number] [place] [address] Sep, [facility] [place] [facility] [address] [id number] [place] [address] Sep, [facility] [place] [facility] [address] [id number] [place] [address] Sep, [facility] [place] [facility] [address] [id number] [place] [address] Sep, [facility] [address] [id number] [id number] Aug, [facility] [place] [facility] [address] [id number] [place] [address] Aug, [facility] [place] [facility] [address] [id number] [place] [address] Aug, [facility] [place] [facility] [address] [id number] [place] [address] Aug, [facility] [address] [id number] [place] [id number] Aug, [facility] [place] [facility] [address] [id number] [place] [address] Aug, [facility] [address] [id number] [place] [id number] July, [facility] [place] [facility] [address] [id number] [place] [address] July, [facility] [address] [facility] [id number][place] [id number] July, [facility] [place] [facility] [address] [facility] [id number], [place] [address] July, [facility] [place] [facility] [address] [facility] [id number], [place] [address] Jun, [facility] [place] [facility] [address] [facility] [id number], [place] [address] Jun, [facility] [place] [facility] [address] [facility] [id number], [place] [address] Jun, [facility] [address] [facility] [id number], [place] [id number] Jun, [facility] [address] [facility] [id number], [place] [id number] Jun, [facility] [place] [facility] [address] [id number] [address] Jun, [facility] [address] [facility] [id number], [place] [id number] Apr, [facility] [place] [facility] [address] [facility] [id number], [place] [address] Apr, [facility] [address] [facility] [id number], [place] [id number] Sep, [facility] [address] [facility] [id number], [place] [id number] May, [facility] [place] [facility] [address] [facility] [id number] [place] [address] Apr, [facility] [place] [facility] [address] [facility] [id number], [place] [address] Jan, [facility] [place] [facility] [address] [facility] [id number], [place] [address] Jan, [facility] [address] [id number][place] [id number] Sep, [facility] [address] [id number], [place] [id number] Sep, [facility] [address] [id number][place] [id number] Sep, [facility] [id number] [place] [address], [place] [address] Sep, [facility] [address] [id number], [place] [address] Sep, [facility] [address] [id number] [place] [address] Jun, [facility] [address] [id number][place] [id number] Jun, [facility] [address] [id number], [place] [id number] 30 May, 2011 [facility] [address] [id number], [place] [id number] May, [facility] [address] [id number], [place] [id number] May, [facility] [address] [id number], [place] [id number] May, [facility] [address] [id number], [place] [id number] 24 May, 2011 [facility] [address] [id number], [place] [id number] May, [facility] [address] [id number], [place] [id number] May, [facility] [address] [id number], [place] [id number] 19 May, 2011 [facility] [address] [id number] [place] [id number] 15 May, 2011 [facility] [address] [id number], [place] [id number] 14 May, 2011 [facility] [place] [facility] [address] [id number] [place] [id number] May, [facility] [address] [id number] [place] [address] May, [facility] [address] [id number] [place] [id number] Apr, [facility] [address] [id number] [place] [address] Apr, [facility] [address] [id number] [place] [id number] Mar, [facility] [id number] [place] [address], [place] [address] Feb, [facility] [address] [id number] [place] [address] Feb, [facility] [address] [id number] [place] [address], [place] [address] Feb, [facility] [address] [id number] [place] [address] Feb, [facility] [address] [id number] [place] [address] Feb, [facility] [address] [facility] [id number] [place] [address] Feb, [facility] [address] [id number] [place] [address] Jan, [facility] [address] [id number] [place] [address] Feb, [facility] [address] [id number] [place] [address] Feb, [facility] [address] [id number] [place] [address] 16 Feb, 2010 [facility] [address] [id number] [place] [address] Jan, [facility] [place] [address] [id number] [address] Dec, [facility] [place] [id number] [address] Dec, [facility] [place] [address] [id number] [address] Jun, [facility] [place] [id number] [address] Jun, [facility] [place] [id number] [address] Feb, [facility] [place] [id number] [address] Dec, [facility] [place] [id number] [address] July, [facility] [place] [address] [id number] [address] Dec, IMMUNIZATIONS No Known Immunizations SOCIAL HISTORY Never Assessed REASON FOR VISIT [facility] PLAN OF CARE VITAL SIGNS MEDICATIONS No [...]
--- OUTSIDE RECORDS SUMMARY | 2018-09-20 13:41 | XMS REPORT ---
Author Author Migration, Doctor Organization [facility] Address Unknown Phone Unavailable Care Team Providers Care Radio Repairer Name Role Phone Migration, Doctor Unavailable Unavailable PROBLEMS Type Condition ICD9-CM Code GIJ50-YE Code Onset Dates Condition Status SNOMED Code Problem Sciatica, left M54.32 Active 61220836 Problem Sciatica, unspecified laterality M54.30 Active 81701954 Problem Chronic obstructive pulmonary disease, unspecified COPD type J44.9 Active 26000545 Problem DDD (degenerative disc disease), lumbar M51.36 Active 83593648 Problem Sciatica, left side M54.32 Active 10828506 Problem COPD exacerbation J44.1 Active 335850970 Problem Dyspepsia and other specified disorders of function of stomach 536.8 Active 492041503 Problem Essential hypertension I10 Active 18146255 Problem Hypothyroidism, unspecified type E03.9 Active 11269269 Problem Hyperlipidemia, unspecified hyperlipidemia type E78.5 Active 66925720 Problem Atherosclerosis of craig coronary artery of craig heart, angina presence unspecified I25.10 Active [id number] ALLERGIES No Information ENCOUNTERS Encounter Location Date Diagnosis [facility] [id number] [place] [address] [id number] Jun, Sciatica, left M54.32 [id number] [place] [address] [id number] May, Chronic obstructive pulmonary disease, unspecified COPD type J44.9 [id number] [place] [address] [id number] May, Essential hypertension I10 [id number] [place] [address] [id number] Apr, Sciatica, left M54.32 [id number] [place] [address] [id number] Mar, Chronic obstructive pulmonary disease, unspecified COPD type J44.9 and Sciatica, left M54.32 [id number] [place] [address] [id number] Mar, COPD exacerbation J44.1 and Cough R05 [address] [id number] Mar, [address] [id number] Mar, COPD exacerbation J44.1 ; Wheezing R06.2 ; Cough R05 and Body aches R52 [address] [id number] Jan, Sciatica, left M54.[address] [id number] Nov, Sciatica, left M54.[address] [id number] Oct, Sciatica, left M54.32 ; Essential hypertension I10 and Chronic obstructive pulmonary disease, unspecified COPD type J44.[address] [id number] Sep, Sciatica, left M54.32 and DDD (degenerative disc disease), lumbar M51.36 [facility] [address] [address] Aug, [id number] [place] [address] [id number] Aug, [facility] [address] [address] Aug, [address] [id number] Aug, Localized swelling, mass and lump, neck R22.[address] [id number] July, [facility] [address] [address] July, [id number] [place] [address] [id number] July, Neck swelling R22.1 ; Lung mass R91.8 and Sciatica, left side M54.32 [facility] [id number] [place] [address] [id number] Jun, Sciatica, left side M54.32 [facility] [id number] [place] [address] [id number] May, Abnormal CXR R93.8 [facility] [id number] [place] [address] [id number] May, Abnormal CXR R93.8 [facility] [id number] [place] [address] [id number] May, Abnormal CXR R93.8 [facility] [address] [address] Apr, [facility] [id number] [place] [address] [id number] Apr, Abnormal chest xray R93.8 [facility] [id number] [place] [address] [id number] Apr, Sciatica, left side M54.32 [facility] [id number] [place] [address] [id number] Mar, Community acquired pneumonia of right lung, unspecified part of lung J18.9 ; Chronic obstructive pulmonary disease, unspecified COPD type J44.9 and Abnormal CXR R93.8 [facility] [id number] [place] [address] [id number] Mar, Community acquired pneumonia of right lower lobe of lung J18.1 [facility] [id number] [place] [address] Mar, Sciatica, left side M54.32 ; Essential hypertension I10 and Community acquired pneumonia of right lung, unspecified part of lung J18.9 [facility] [id number] [place] [address] [id number] Mar, Sciatica, left side M54.32 ; Essential hypertension I10 ; Chronic obstructive pulmonary disease, unspecified COPD type J44.9 and Community acquired pneumonia of right lung, unspecified part of lung J18.9 [id number] [place] [address] [id number] Feb, Essential hypertension I10 and Sciatica, left M54.32 [facility] [id number] [place] [address] [id number] Jan, Sciatica, left M54.32 [facility] [id number] [place] [address], [place] [id number] Dec, Sciatica, left M54.32 ; Essential hypertension I10 ; Chronic obstructive pulmonary disease, unspecified COPD type J44.9 ; Hypothyroidism, unspecified type E03.9 and Encounter for immunization Z23 [facility] [id number] [place] [address], [place] [id number] Nov, Sciatica, unspecified laterality M54.30 [facility] [id number] [place] [address] [id number] Oct, Hypothyroidism, unspecified type E03.9 [place] [id number] [place] [address] [id number] Oct, Sciatica, unspecified laterality M54.30 and Hypothyroidism, unspecified type E03.9 [facility] [id number] [place] [address] [id number] Oct, [facility] [id number] [place] [address] [id number] Aug, Essential hypertension I10 and Sciatica, unspecified laterality M54.30 [id number] [place] [address] [id number] Aug, Sciatica, unspecified laterality M54.30 [facility] [id number] [place] [address] [id number] Jun, Sciatica, unspecified laterality M54.30 ; Essential hypertension I10 and Chronic obstructive pulmonary disease, unspecified COPD type J44.9 [facility] [id number] [place] [address] [id number] May, Chronic obstructive pulmonary disease, unspecified COPD type J44.9 ; Essential hypertension I10 ; Sciatica, unspecified laterality M54.30 ; Hypothyroidism, unspecified type E03.9 and Hyperlipidemia, unspecified hyperlipidemia type E78.5 [facility] [id number] [id number] May, Essential hypertension I10 [facility] [id number][place] [id number] Apr, [facility] [id number] [place] [address] [id number] Apr, Essential hypertension I10 and Atherosclerosis of craig coronary artery of craig heart, angina presence unspecified I25.10 [facility] [id number][place] [id number] Mar, Essential hypertension I10 and Sciatica, unspecified laterality M54.30 [facility] [id number] [place] [address] [id number] Jan, [facility] [id number] [place] [address] [id number] Jan, Sciatica, unspecified laterality M54.30 ; Essential hypertension I10 ; Chronic obstructive pulmonary disease, unspecified COPD type J44.9 ; Hypothyroidism, unspecified type E03.9 and Hyperlipidemia, unspecified hyperlipidemia type E78.5 [facility] [address] [id number] Dec, Sciatica, unspecified laterality M54.30 [id number] [id number] Dec, Essential hypertension I10 [address]100[place] [id number] Dec, Essential hypertension I10 ; Sciatica, unspecified laterality M54.30 and Encounter for immunization Z23 [facility] [address] [facility] [id number] [address] Nov, [address] [place] [address] [id number] Sep, Sciatica, unspecified laterality M54.30 ; Essential hypertension I10 and Chronic obstructive pulmonary disease, unspecified COPD type J44.9 [facility] [address], [place] [id number] Sep, [address] [id number] July, [facility] [place] [id number] [place] [id number] Jun, Sciatica, unspecified laterality M54.30 [facility] [place] [id number] [place] [address] [id number] May, Sciatica, unspecified laterality M54.30 [facility] [place] [id number] [place] [address] [id number] May, [facility] [place] [id number] [place] [address] [id number] Apr, Sciatica, unspecified laterality M54.30 [facility] [place] [id number] [place] [address] [id number] Apr, [facility] [place] [id number] [place] [address] [id number] Mar, Sciatica, left M54.32 [facility] [place] [id number] [place] [address] [id number] Jan, Sciatica, left M54.32 and Encounter for immunization Z23 [facility] [place] [id number] [place] [address] [id number] Dec, Sciatica, left side M54.32 [id number] [place] [address] [id number] Dec, [facility] [place] [id number] [place] [address] [id number] Nov, Sciatica 724.3 [id number] [place] [address] [id number] Nov, [facility] [place] [id number] [place] [address] [id number] Nov, Sciatica 724.3 and Visual acuity reduced 369.9 [facility] [place] [id number] [place] [address] [id number] Oct, Sciatica 724.3 and Nausea 787.02 [facility] [place] [id number] [place] [address] [id number] Oct, Coronary atherosclerosis of unspecified type of vessel, craig or graft 414.00 [address] [id number] Sep, Sciatica 724.3 and Coronary atherosclerosis of unspecified type of vessel, craig or graft 414.00 [id number], [place] [id number] Sep, Coronary atherosclerosis of unspecified type of vessel, craig or graft 414.00 and Unspecified essential hypertension 401.[address] [place] [address] [id number] Aug, Sciatica 724.3 ; Dyspepsia and other specified disorders of function of stomach 536.8 and Other abnormal blood chemistry 790.[address] [place] [address] [id number] Aug, Sciatica 724.3 ; Coronary atherosclerosis of unspecified type of vessel, craig or graft 414.00 ; Unspecified essential hypertension 401.9 ; Palpitations 785.1 and Other abnormal blood chemistry 790.6 [address] [id number] July, Sciatica 724.3 and Other abnormal blood chemistry 790.[address] [place] [address] [id number] July, [address] [place] [address] [id number] July, Hyperlipidemia 272.4 [facility] [address]00565100[place] [address] Jun, [facility] [id number] [place] [address] Jun, [facility] [id number] [place] [address] May, [facility] [address] [id number] May, [facility] [id number] [place] [address] Apr, [facility] [place] [address] [id number] [place] [id number] Apr, 2014 [facility] [place] [address] [id number] [place] [id number] Apr, 2014 [facility] [place] [facility] [address] [facility] [id number] [place] [address] Apr, 2014 [facility] [place] [address] [id number] [place] [id number] Apr, 2014 [facility] [place] [facility] [address] [facility] [id number] [place] [address] Apr, 2014 [facility] [place] [facility] [id number] [place] [address], [place] [address] Apr, 2014 [facility] [place] [facility] [address]00565100[place] [address] Apr, 2014 [facility] [place] [address] [id number], [place] [id number] Apr, 2014 [facility] [place] [address] [facility] [id number][place] [id number] Apr, 2014 [facility] [place] [address] [facility] [id number][place] [id number] Apr, 2014 [facility] [place] [facility] [address]00565100[place] [address] Apr, 2014 [facility] [place] [address] [id number][place] [id number] Jan, [facility] [place] [facility] [address]00565100[place] [address] Jan, [facility] [place] [facility] [address]00565100[place] [address] Dec, [facility] [place] [address] [id number], [place] [id number] Dec, [facility] [place] [address] [id number] [id number] Dec, [facility] [place] [id number], [place] [id number] Dec, [facility] [place] [facility] [address] [id number] [place] [address] Dec, [facility] [place] [facility] [address] [id number] [place] [address] Dec, [facility] [place] [facility] [address] [id number] [place] [address] Nov, [facility] [place] [address] [id number], [place] [id number] Nov, [facility] [place] [facility] [address] [id number] [place] [address] Nov, [facility] [place] [facility] [address] [id number] [place] [address] Nov, [facility] [place] [facility] [address] [facility] [id number] [place] [address] Nov, [facility] [place] [facility] [address] [facility] [id number] [place] [address] Nov, [facility] [place] [address] [facility] [id number], [place] [id number] Nov, [facility] [place] [facility] [address] [facility] [id number] [place] [address] Nov, [facility] [place] [facility] [address] [id number] [place] [address] Sep, [facility] [place] [address] [facility] [id number], [place] [id number] Sep, [facility] [place] [facility] [address] [id number] [place] [address] Sep, [facility] [place] [facility] [address] [id number] [place] [address] Sep, [facility] [place] [facility] [address] [id number] [place] [address] Sep, [facility] [place] [facility] [address] [id number] [place] [address] Sep, [facility] [place] [facility] [address] [id number] [place] [address] Sep, [facility] [place] [address] [id number] [place] [id number] Aug, [facility] [place] [facility] [address] [id number] [place] [address] Aug, [facility] [place] [facility] [address] [facility] [id number] [place] [address] Aug, [facility] [place] [facility] [address] [id number] [place] [address] Aug, [facility] [place] [address] [facility] [id number] [place] [id number] Aug, [facility] [place] [facility] [address] [facility] [id number] [place] [address] Aug, [facility] [place] [address] [facility] [id number] [place] [id number] July, [facility] [place] [facility] [address] [id number] [place] [address] July, [facility] [place] [address] [facility] [id number] [place] [id number] July, [facility] [place] [facility] [address] [facility] [id number] [place] [address] July, [facility] [place] [facility] [address] [facility] [id number] [place] [address] Jun, [facility] [place] [facility] [address] [id number] [place] [address] Jun, [facility] [place] [facility] [address] [id number] [place] [address] Jun, [facility] [place] [address] [id number] [place] [id number] Jun, [facility] [place] [address] [id number] [place] 725245485 Jun, [facility] [place] [facility] [address] [id number] [address] Jun, [facility] [place] [address] [id number] [place] [id number] Apr, [facility] [place] [facility] [address] [facility] [id number] [place] [address] Apr, [facility] [place] [address] [id number] [place] 068957685 Sep, [facility] [place] [address] [id number], [place] [id number] May, [facility] [place] [facility] [address] [id number] [place] [address] Apr, [facility] [place] [facility] [address] [id number] [place] [address] Jan, [facility] [place] [facility] [address] [id number] [place] [address] Jan, [facility] [place] [facility] [address]00565100[place] [id number] Sep, [facility] [place] [address] [id number], [place] [id number] Sep, [facility] [place] [facility] [address]100[place] 584485483 Sep, [facility] [place] [facility] [address] [id number] [place] [address] Sep, [facility] [place] [facility] [address] [id number] [place] [address] Sep, [facility] [place] [facility] [address] [id number] [place] [address] Jun, [facility] [place] [facility] [address] [id number] [place] 839310654 Jun, [facility] [place] [address] [id number], [place] [id number] May, [facility] [place] [facility] [address] [id number] [place] 975680387 May, [facility] [place] [address] [id number] [place] [id number] May, [facility] [place] [address] [id number] [place] [id number] May, [facility] [place] [address] [id number] [place] [id number] May, [facility] [place] [address] [id number] [place] 806249178 May, [facility] [place] [address] [id number] [place] 423086205 May, [facility] [place] [address] [id number] [place] 120307215 May, [facility] [place] [address] [id number] [place] [id number] May, [facility] [place] [address] [id number] [place] [id number] May, [facility] [id number] [place] [address] [id number] May, [facility] [place] [facility] [id number] [place] [address] May, [facility] [id number] [place] [address] [id number] Apr, [facility] [place] [facility] [id number] [place] [address] Apr, [facility] [id number] [place] [address] [id number] Mar, [facility] [place] [facility] [id number] [place] [address] Feb, [facility] [place] [facility] [id number] [place] [address] Feb, [facility] [place] [facility] [id number] [place] [address] Feb, [facility] [place] [facility] [id number] [place] [address] Feb, [facility] [address] [id number] [place] [address] Feb, [facility] [address] [id number] [place] [address] Feb, [facility] [address] [facility] [id number] [place] [address] Jan, [facility] [address] [id number] [place] [address] Feb, [facility] [address] [id number] [place] [address] Feb, [facility] [address] [facility] [id number] [place] [address] Feb, [facility] [address] [facility] [id number] [place] [address] Jan, [facility] [address] [facility] [id number] [place] [address] Dec, [facility] [address] [facility] [id number] [place] [address] Dec, [facility] [address] [facility] [id number] [place] [address] Jun, [facility] [address] [facility] [id number] [place] [address] Jun, [facility] [address] [facility] [id number] [place] [address] Feb, [facility] [address] [facility] [id number] [place] [address] Dec, [facility] [address] [facility] [id number] [place] [address] July, [facility] [address] [facility] [id number] [place] [address] Dec, IMMUNIZATIONS No Known Immunizations SOCIAL HISTORY Never Assessed REASON FOR VISIT [place] [place] CARE VITAL SIGNS MEDICATIONS Unknown Medications RESULTS No Results PROCEDURES No Known [...]
--- OUTSIDE RECORDS SUMMARY | 2018-09-20 13:42 | XMS REPORT ---
Author Author ALEXANDRO BELLE [facility] Address [address] [place] [address] Care Team Providers Care Certified Ethical Hacker Name Role Phone ALEXANDRO BELLE Unavailable PROBLEMS Type Condition ICD9-CM Code GAX42-FZ Code Onset Dates Condition Status SNOMED Code Problem Sciatica, left side M54.32 Active 16610355 Problem Sciatica, unspecified laterality M54.30 Active 32186929 Problem Sciatica, left M54.32 Active 94670024 Problem Dyspepsia and other specified disorders of function of stomach 536.8 Active 624538347 Problem DDD (degenerative disc disease), lumbar M51.36 Active 87655908 Problem Atherosclerosis of levelock coronary artery of levelock heart, angina presence unspecified I25.10 Active 3561535406476 Problem Essential hypertension I10 Active 01783664 Problem Chronic obstructive pulmonary disease, unspecified COPD type J44.9 Active 37971392 Problem Hyperlipidemia, unspecified hyperlipidemia type E78.5 Active 68867676 Problem Hypothyroidism, unspecified type E03.9 Active 07016328 ALLERGIES No Information ENCOUNTERS Encounter Location Date Diagnosis [facility] [id number] [place] [address] [id number] Jan, Sciatica, left M54.32 [place] [id number] [place] [address] [id number] Nov, Sciatica, left M54.32 [address] [place] [address] [id number] Oct, Sciatica, left M54.32 ; Essential hypertension I10 and Chronic obstructive pulmonary disease, unspecified COPD type J44.9 [place] [id number] [place] [address] [id number] Sep, Sciatica, left M54.32 and DDD (degenerative disc disease), lumbar M51.36 [facility] [id number] [place] [address] Aug, [facility] [id number] [place] [id number] Aug, [facility] [id number] [place] [address] Aug, [facility] [id number] [place] [address] [id number] Aug, Localized swelling, mass and lump, neck R22.1 [facility] [id number] [place] [address] [id number] July, [facility] [id number] [place] [address] July, [facility] [id number] [place] [address] [id number] July, Neck swelling R22.1 ; Lung mass R91.8 and Sciatica, left side M54.32 [facility] [id number] [place] [address] [id number] Jun, Sciatica, left side M54.32 [facility] [id number] [place] [address] [id number] May, Abnormal CXR R93.8 [facility] [id number] [place] [address] [id number] May, Abnormal CXR R93.8 [facility] [id number] [place] [address] [id number] May, Abnormal CXR R93.8 [facility] [address]005[address] [address] Apr, [facility] [id number] [place] [address] [id number] Apr, Abnormal chest xray R93.8 [facility] [id number] [place] [address] [id number] Apr, Sciatica, left side M54.32 [facility] [id number] [place] [id number] Mar, Community acquired pneumonia of right lung, unspecified part of lung J18.9 ; Chronic obstructive pulmonary disease, unspecified COPD type J44.9 and Abnormal CXR R93.8 [place] [id number] [place] [address] [id number] Mar, Community acquired pneumonia of right lower lobe of lung J18.1 [facility] [address]65[address] [address] Mar, Sciatica, left side M54.32 ; Essential hypertension I10 and Community acquired pneumonia of right lung, unspecified part of lung J18.9 [address] [place] [address] [id number] Mar, Sciatica, left side M54.32 ; Essential hypertension I10 ; Chronic obstructive pulmonary disease, unspecified COPD type J44.9 and Community acquired pneumonia of right lung, unspecified part of lung J18.9 [place] [id number] [place] [address] [id number] Feb, Essential hypertension I10 and Sciatica, left M54.32 [place] [id number] [place] [address] [id number] Jan, Sciatica, left M54.32 [place] [id number] [place] [address] [id number] Dec, Sciatica, left M54.32 ; Essential hypertension I10 ; Chronic obstructive pulmonary disease, unspecified COPD type J44.9 ; Hypothyroidism, unspecified type E03.9 and Encounter for immunization Z23 [address] [place] [address] [id number] Nov, Sciatica, unspecified laterality M54.30 [place] [id number] [place] [address] [id number] Oct, Hypothyroidism, unspecified type E03.9 [place] [id number] [place] [address] [id number] Oct, Sciatica, unspecified laterality M54.30 and Hypothyroidism, unspecified type E03.9 [place] [id number] [place] [address] [id number] Oct, [id number] [place] [id number] Aug, Essential hypertension I10 and Sciatica, unspecified laterality M54.30 [facility] [id number] [place] [address] [id number] Aug, Sciatica, unspecified laterality M54.30 [place] [id number] [place] [address] [id number] Jun, Sciatica, unspecified laterality M54.30 ; Essential hypertension I10 and Chronic obstructive pulmonary disease, unspecified COPD type J44.9 [facility] [id number] [place] [address] [id number] May, Chronic obstructive pulmonary disease, unspecified COPD type J44.9 ; Essential hypertension I10 ; Sciatica, unspecified laterality M54.30 ; Hypothyroidism, unspecified type E03.9 and Hyperlipidemia, unspecified hyperlipidemia type E78.5 [address] [place] [address] [id number] May, Essential hypertension I10 [facility] [id number] [place] [address] [id number] Apr, [place] [id number] [place] [address] [id number] Apr, Essential hypertension I10 and Atherosclerosis of levelock coronary artery of levelock heart, angina presence unspecified I25.10 [facility] [address] [place] [address] [id number] Mar, Essential hypertension I10 and Sciatica, unspecified laterality M54.30 [facility] [id number] [place] [id number] Jan, [facility] [id number] [place] [address] [id number] Jan, Sciatica, unspecified laterality M54.30 ; Essential hypertension I10 ; Chronic obstructive pulmonary disease, unspecified COPD type J44.9 ; Hypothyroidism, unspecified type E03.9 and Hyperlipidemia, unspecified hyperlipidemia type E78.5 [facility] [id number] [place] [address] [id number] Dec, Sciatica, unspecified laterality M54.30 [place] [id number] [facility] [address] [id number] [id number] Dec, Essential hypertension I10 [facility] [id number] [place] [address] [id number] Dec, Essential hypertension I10 ; Sciatica, unspecified laterality M54.30 and Encounter for immunization Z23 [facility] [address] [address] Nov, [place] [id number] [place] [address] [id number] Sep, Sciatica, unspecified laterality M54.30 ; Essential hypertension I10 and Chronic obstructive pulmonary disease, unspecified COPD type J44.9 [address]00565100[place] [id number] Sep, [facility] [address] [place] [address] [id number] July, [facility] [id number] [place] [address] [id number] Jun, Sciatica, unspecified laterality M54.30 [facility] [id number] [place] [id number] May, Sciatica, unspecified laterality M54.30 [address]00565100[place] [id number] May, [address]100[place] [id number] Apr, Sciatica, unspecified laterality M54.30 [facility] [address]00565100[place] [id number] Apr, [address]65100[place] [id number] Mar, Sciatica, left M54.32 [address] [place] [address] [id number] Jan, Sciatica, left M54.32 and Encounter for immunization Z23 [address]00565100[place] [id number] Dec, Sciatica, left side M54.32 [facility] [id number] [id number] Dec, [address] [place] [address] [id number] Nov, Sciatica 724.3 [facility] [id number][place] [id number] Nov, [place] [id number] [place] [address] [id number] Nov, Sciatica 724.3 and Visual acuity reduced 369.9 [place] [id number] [place] [address] [id number] Oct, Sciatica 724.3 and Nausea 787.02 [place] [id number] [place] [address] [id number] Oct, Coronary atherosclerosis of unspecified type of vessel, levelock or graft 414.00 [place] [id number] [place] [address] [id number] Sep, Sciatica 724.3 and Coronary atherosclerosis of unspecified type of vessel, levelock or graft 414.00 [place] [id number] [place] [address] [id number] Sep, Coronary atherosclerosis of unspecified type of vessel, levelock or graft 414.00 and Unspecified essential hypertension 401.9 [place] [id number] [place] [address] [id number] Aug, Sciatica 724.3 ; Dyspepsia and other specified disorders of function of stomach 536.8 and Other abnormal blood chemistry 790.6 [place] [id number] [place] [address] [id number] Aug, Sciatica 724.3 ; Coronary atherosclerosis of unspecified type of vessel, levelock or graft 414.00 ; Unspecified essential hypertension 401.9 ; Palpitations 785.1 and Other abnormal blood chemistry 790.6 [address] [place] [address] [id number] July, Sciatica 724.3 and Other abnormal blood chemistry 790.[id number] [place] [id number] July, [facility] [id number] [place] [address] [id number] July, Hyperlipidemia 272.4 [facility] [place] [facility] [address], [place] [address] Jun, [facility] [place] [address]65[address], [place] [address] Jun, [facility] [place] [address], [place] [address] May, [facility] [id number] [place] [id number] May, [facility] [place] [address]00565100[place], [place] [address] Apr, [facility] [id number] [place] [id number] Apr, [facility] [id number] [place] [id number] Apr, [facility] [place] [address]65[address], [place] [address] Apr, [facility] [id number] [place] [id number] Apr, [facility] [place] [address], [place] [address] Apr, [facility] [place] [address]65[address], [place] [address] Apr, [facility] [place] [address], [place] [address] Apr, [facility] [address] [id number] [place] [id number] Apr, [facility] [address] [id number] [place] [id number] Apr, [facility] [id number] [place] [id number] Apr, [facility] [place] [facility] [address] [facility] [id number], [place] [address] Apr, [facility] [address] [id number] [place] [id number] Jan, [facility] [place] [facility] [address] [facility] [id number] [place] [address] Jan, [facility] [place] [facility] [address] [facility] [id number], [place] [address] Dec, [facility] [address] [id number] [place] [id number] Dec, [facility] [address] [id number] [place] [id number] Dec, [facility] [address] [facility] [id number] [place] [id number] Dec, [facility] [place] [facility] [address] [facility] [id number], [place] [address] Dec, [facility] [place] [facility] [address] [facility] [id number], [place] [address] Dec, [facility] [place] [facility] [address] [facility] [id number], [place] [address] Nov, [facility] [address] [facility] [id number] [place] [id number] Nov, [facility] [place] [facility] [address] [facility] [id number], [place] [address] Nov, [facility] [place] [facility] [address] [facility] [id number], [place] [address] Nov, [facility] [place] [facility] [address] [facility] [id number], [place] [address] Nov, [facility] [place] [facility] [address] [facility] [id number], [place] [address] Nov, [facility] [address] [facility] [id number] [place] [id number] Nov, [facility] [place] [facility] [address] [id number] [place] [address] Nov, [facility] [place] [facility] [address] [id number] [place] [address] Sep, [facility] [address] [id number] [place] [id number] Sep, [facility] [place] [facility] [address] [id number] [place] [address] Sep, [facility] [place] [facility] [address] [id number] [place] [address] Sep, [facility] [place] [facility] [address] [id number] [place] [address] Sep, [facility] [place] [facility] [address] [facility] [id number] [place] [address] Sep, [facility] [place] [facility] [address] [facility] [id number] [place] [address] Sep, [facility] [address] [facility] [id number] [place] [id number] Aug, [facility] [place] [facility] [address] [facility] [id number] [place] [address] Aug, [facility] [place] [facility] [address] [facility] [id number] [place] [address] Aug, [facility] [place] [facility] [address] [facility] [id number] [place] [address] Aug, [facility] [address] [id number] [place] 896155881 Aug, [facility] [place] [facility] [address] [id number] [place] [address] Aug, [facility] [address] [id number] [place] 157826341 July, [facility] [place] [facility] [address] [id number] [place] [address] July, [facility] [address] [id number] [place] 281662640 July, [facility] [place] [facility] [address] [id number] [place] [address] July, [facility] [place] [facility] [address] [facility] [id number] [place] [address] Jun, [facility] [place] [facility] [address] [id number] [place] [address] Jun, [facility] [place] [facility] [address] [id number] [place] [address] Jun, [facility] [address] [id number] [place] [address] Jun, [facility] [address] [id number] [place] [address]39[address] Jun, [facility] [place] [facility] [address] [id number], [place] [address] Jun, [facility] [address] [id number] [place] 975345932 Apr, [facility] [place] [facility] [address] [id number], [place] [address] Apr, [facility] [address] [id number] [place] 177024052 Sep, [facility] [address] [id number] [place] 181543793 May, [facility] [place] [facility] [address]00565[address], [place] [address] Apr, [facility] [place] [facility] [address] [id number], [place] [address] Jan, [facility] [place] [facility] [address] [id number] [place] [address] Jan, [facility] [place] [facility] [address] [id number] [place] [address] Sep, [facility] [address] [id number] [place] 827577699 Sep, [facility] [place] [facility] [address] [id number], [place] [address] Sep, [facility] [address] [id number] [place] [address] Sep, [facility] [address] [id number] [place] [address] Sep, [facility] [address] [id number], [place] [address] Jun, [facility] [address] [id number], [place] 7249[address]678 Jun, [facility] [address] [id number] [place] [id number] 30 May, 2011 [facility] [address] [id number], [place] 769258694 May, [facility] [address] [id number] [place] [id number] May, [facility] [address] [id number] [place] 297667612 May, [facility] [address] [id number] [place] 222786256 24 May, 2011 [facility] [address] [id number] [place] 253834757 May, [facility] [address] [id number] [place] 440634797 May, [facility] [address] [id number] [place] 151478392 19 May, 2011 [facility] [address] [id number] [place] 114871030 15 May, 2011 [facility] [address] [id number] [place] 229749657 14 May, 2011 [facility] [place] [facility] [address] [id number], [place] 159488399 06 May, 2011 [facility] [place] [facility] [address] [id number], [place] [address] May, [facility] [address] [id number] [place] [id number] 29 Apr, 2011 [facility] [address] [id number] [place] [address] 02 Apr, 2011 [facility] [place] [facility] [address] [id number] [place] [address] Mar, [facility] [place] [facility] [address] [facility] [id number] [place] [address] 30 Feb, 2011 [facility] [place] [facility] [address] [id number] [place] [address] Feb, [facility] [address] [id number] [place] [address] Feb, [facility] [place] [facility] [address] [id number] [place] [address] Feb, [facility] [place] [facility] [address] [facility] [id number] [place] [address] Feb, [facility] [place] [facility] [address] [id number] [place] [address] Feb, [facility] [place] [facility] [address] [id number] [place] [address] Jan, [facility] [place] [facility] [address] [facility] [id number] [place] [address] Feb, [facility] [place] [facility] [address] [id number] [place] [address] 16 Feb, 2010 [facility] [place] [facility] [address] [id number] [place] [address] 16 Feb, 2010 [facility] [place] [facility] [address] [id number] [place] [address] Jan, [facility] [place] [facility] [address] [id number] [place] [address] 29 Dec, 2009 [facility] [place] [facility] [address] [id number] [place] [address] Dec, [facility] [address] [facility] [id number], [place] [address] Jun, [facility] [address] [id number], [place] [address] Jun, [facility] [address] [id number], [place] [address] Feb, [facility] [address] [id number], [place] [address] Dec, [facility] [address] [id number], [place] [address] July, [facility] [address] [id number], [place] [address] Dec, IMMUNIZATIONS No Known Immunizations SOCIAL HISTORY Never Assessed REASON FOR VISIT Controlled Med Refill PLAN OF CARE VITAL SIGNS MEDICATIONS Medication Instructions Dosage Frequency Start Date End Date Duration Status Tramadol HCl 50 mg Orally 3 times a day as needed must last 28 days 1-2 tablet July, 28 days Active RESULTS No Results PROCEDURES No Known procedures [...]
--- OUTSIDE RECORDS SUMMARY | 2018-09-20 13:42 | XMS REPORT ---
Author Author Migration, Doctor Organization [facility] Address Unknown Phone Unavailable Care Team Providers Care Intake Clerk Name Role Phone Migration, Doctor Unavailable Unavailable PROBLEMS Type Condition ICD9-CM Code KBU57-YB Code Onset Dates Condition Status SNOMED Code Problem Sciatica, left M54.32 Active 04850222 Problem Sciatica, unspecified laterality M54.30 Active 96548432 Problem Chronic obstructive pulmonary disease, unspecified COPD type J44.9 Active 25946919 Problem DDD (degenerative disc disease), lumbar M51.36 Active 26322939 Problem Sciatica, left side M54.32 Active 38778593 Problem COPD exacerbation J44.1 Active 166365635 Problem Dyspepsia and other specified disorders of function of stomach 536.8 Active 189185846 Problem Essential hypertension I10 Active 13478535 Problem Hypothyroidism, unspecified type E03.9 Active 93655307 Problem Hyperlipidemia, unspecified hyperlipidemia type E78.5 Active 14958481 Problem Atherosclerosis of kaw coronary artery of kaw heart, angina presence unspecified I25.10 Active [id number] ALLERGIES No Information ENCOUNTERS Encounter Location Date Diagnosis [facility] [id number] [place] [address] [id number] Jun, Sciatica, left M54.32 [id number] [place] [address] [id number] May, Chronic obstructive pulmonary disease, unspecified COPD type J44.9 [id number] [place] [address] [id number] May, Essential hypertension I10 [id number] [place] [address] [id number] Apr, Sciatica, left M54.32 [id number] [place] [address] [id number] Mar, Chronic obstructive pulmonary disease, unspecified COPD type J44.9 and Sciatica, left M54.32 [id number] [place] [address] [id number] Mar, COPD exacerbation J44.1 and Cough R05 [address] [id number] Mar, [address] [id number] Mar, COPD exacerbation J44.1 ; Wheezing R06.2 ; Cough R05 and Body aches R52 [address] [id number] Jan, Sciatica, left M54.[address] [id number] Nov, Sciatica, left M54.[address] [id number] Oct, Sciatica, left M54.32 ; Essential hypertension I10 and Chronic obstructive pulmonary disease, unspecified COPD type J44.[address] [id number] Sep, Sciatica, left M54.32 and DDD (degenerative disc disease), lumbar M51.36 [facility] [address] [address] Aug, [id number] [place] [address] [id number] Aug, [facility] [address] [address] Aug, [address] [id number] Aug, Localized swelling, mass and lump, neck R22.[address] [id number] July, [facility] [address] [address] July, [id number] [place] [address] [id number] July, Neck swelling R22.1 ; Lung mass R91.8 and Sciatica, left side M54.32 [facility] [id number] [place] [address] [id number] Jun, Sciatica, left side M54.32 [facility] [id number] [place] [address] [id number] May, Abnormal CXR R93.8 [facility] [id number] [place] [address] [id number] May, Abnormal CXR R93.8 [facility] [id number] [place] [address] [id number] May, Abnormal CXR R93.8 [facility] [address] [address] Apr, [facility] [id number] [place] [address] [id number] Apr, Abnormal chest xray R93.8 [facility] [id number] [place] [address] [id number] Apr, Sciatica, left side M54.32 [facility] [id number] [place] [address] [id number] Mar, Community acquired pneumonia of right lung, unspecified part of lung J18.9 ; Chronic obstructive pulmonary disease, unspecified COPD type J44.9 and Abnormal CXR R93.8 [facility] [id number] [place] [address] [id number] Mar, Community acquired pneumonia of right lower lobe of lung J18.1 [facility] [id number] [place] [address] Mar, Sciatica, left side M54.32 ; Essential hypertension I10 and Community acquired pneumonia of right lung, unspecified part of lung J18.9 [facility] [id number] [place] [address] [id number] Mar, Sciatica, left side M54.32 ; Essential hypertension I10 ; Chronic obstructive pulmonary disease, unspecified COPD type J44.9 and Community acquired pneumonia of right lung, unspecified part of lung J18.9 [id number] [place] [address] [id number] Feb, Essential hypertension I10 and Sciatica, left M54.32 [facility] [id number] [place] [address] [id number] Jan, Sciatica, left M54.32 [facility] [id number] [place] [address], [place] [id number] Dec, Sciatica, left M54.32 ; Essential hypertension I10 ; Chronic obstructive pulmonary disease, unspecified COPD type J44.9 ; Hypothyroidism, unspecified type E03.9 and Encounter for immunization Z23 [facility] [id number] [place] [address], [place] [id number] Nov, Sciatica, unspecified laterality M54.30 [facility] [id number] [place] [address] [id number] Oct, Hypothyroidism, unspecified type E03.9 [id number] [place] [address] [id number] Oct, Sciatica, unspecified laterality M54.30 and Hypothyroidism, unspecified type E03.9 [facility] [id number] [place] [address] [id number] Oct, [facility] [id number] [place] [address] [id number] Aug, Essential hypertension I10 and Sciatica, unspecified laterality M54.30 [id number] [place] [address] [id number] Aug, Sciatica, unspecified laterality M54.30 [facility] [id number] [place] [address] [id number] Jun, Sciatica, unspecified laterality M54.30 ; Essential hypertension I10 and Chronic obstructive pulmonary disease, unspecified COPD type J44.9 [facility] [id number] [place] [address] [id number] May, Chronic obstructive pulmonary disease, unspecified COPD type J44.9 ; Essential hypertension I10 ; Sciatica, unspecified laterality M54.30 ; Hypothyroidism, unspecified type E03.9 and Hyperlipidemia, unspecified hyperlipidemia type E78.5 [facility] [id number] [id number] May, Essential hypertension I10 [facility] [id number][place] [id number] Apr, [facility] [id number] [place] [address] [id number] Apr, Essential hypertension I10 and Atherosclerosis of kaw coronary artery of kaw heart, angina presence unspecified I25.10 [facility] [id number][place] [id number] Mar, Essential hypertension I10 and Sciatica, unspecified laterality M54.30 [facility] [id number] [place] [address] [id number] Jan, [facility] [id number] [place] [address] [id number] Jan, Sciatica, unspecified laterality M54.30 ; Essential hypertension I10 ; Chronic obstructive pulmonary disease, unspecified COPD type J44.9 ; Hypothyroidism, unspecified type E03.9 and Hyperlipidemia, unspecified hyperlipidemia type E78.5 [facility] [address] [id number] Dec, Sciatica, unspecified laterality M54.30 [id number] [id number] Dec, Essential hypertension I10 [address] [id number] Dec, Essential hypertension I10 ; Sciatica, unspecified laterality M54.30 and Encounter for immunization Z23 [facility] [address] [facility] [id number] [address] Nov, [id number] [place] [address] [id number] Sep, Sciatica, unspecified laterality M54.30 ; Essential hypertension I10 and Chronic obstructive pulmonary disease, unspecified COPD type J44.9 [facility] [address], [place] [id number] Sep, [address] [id number] July, [facility] [place] [id number] [place] [id number] Jun, Sciatica, unspecified laterality M54.30 [facility] [place] [id number] [place] [address] [id number] May, Sciatica, unspecified laterality M54.30 [facility] [place] [id number] [place] [address] [id number] May, [facility] [place] [id number] [place] [address] [id number] Apr, Sciatica, unspecified laterality M54.30 [facility] [place] [id number] [place] [address] [id number] Apr, [facility] [place] [id number] [place] [address] [id number] Mar, Sciatica, left M54.32 [facility] [place] [id number] [place] [address] [id number] Jan, Sciatica, left M54.32 and Encounter for [facility] Z23 [facility] [place] [id number] [place] [address] [id number] Dec, Sciatica, left side M54.32 [id number] [place] [address] [id number] Dec, [facility] [place] [id number] [place] [address] [id number] Nov, Sciatica 724.3 [id number] [place] [address] [id number] Nov, [facility] [place] [id number] [place] [address] [id number] Nov, Sciatica 724.3 and Visual acuity reduced 369.9 [facility] [place] [id number] [place] [address] [id number] Oct, Sciatica 724.3 and Nausea 787.02 [facility] [place] [id number] [place] [address] [id number] Oct, Coronary atherosclerosis of unspecified type of vessel, kaw or graft 414.00 [address], [place] [id number] Sep, Sciatica 724.3 and Coronary atherosclerosis of unspecified type of vessel, kaw or graft 414.00 [id number], [place] [id number] Sep, Coronary atherosclerosis of unspecified type of vessel, kaw or graft 414.00 and Unspecified essential hypertension 401.9 [address] [place] [address] [id number] Aug, Sciatica 724.3 ; Dyspepsia and other specified disorders of function of stomach 536.8 and Other abnormal blood chemistry 790.6 [address] [place] [address] [id number] Aug, Sciatica 724.3 ; Coronary atherosclerosis of unspecified type of vessel, kaw or graft 414.00 ; Unspecified essential hypertension 401.9 ; Palpitations 785.1 and Other abnormal blood chemistry 790.6 [address] [id number] July, Sciatica 724.3 and Other abnormal blood chemistry 790.6 [id number] [place] [address] [id number] July, [id number] [place] [address] [id number] July, Hyperlipidemia 272.4 [facility] [address]00565100[place], [place] [address] Jun, [facility] [id number] [place] [address] Jun, [facility] [id number] [place] [address] May, [facility] [address] [id number] May, [facility] [id number] [place] [address] Apr, [facility] [place] [address] [id number] [place] [id number] Apr, 2014 [facility] [place] [address] [id number] [place] [id number] Apr, 2014 [facility] [place] [facility] [address] [facility] [id number], [place] [address] Apr, 2014 [facility] [place] [address] [id number] [place] [id number] Apr, 2014 [facility] [place] [facility] [address] [facility] [id number][place] [address] Apr, 2014 [facility] [place] [facility] [address] [place] [address], [place] [address] Apr, 2014 [facility] [place] [facility] [address]00565100[place], [place] [address] Apr, 2014 [facility] [place] [address] [id number], [place] [id number] Apr, 2014 [facility] [place] [address] [facility] [id number][place] [id number] Apr, 2014 [facility] [place] [address] [facility] [id number], [place] [id number] Apr, 2014 [facility] [place] [facility] [address]00565100[place], [place] [address] Apr, 2014 [facility] [place] [address] [id number], [place] [id number] Jan, [facility] [place] [facility] [address]00565100[place], [place] [address] Jan, [facility] [place] [facility] [address]00565100[place], [place] [address] Dec, [facility] [place] [address] [id number], [place] [id number] Dec, [facility] [place] [address] [id number], [place] [id number] Dec, [facility] [place] [id number], [place] [id number] Dec, [facility] [place] [facility] [address] [id number] [place] [address] Dec, [facility] [place] [facility] [address] [id number] [place] [address] Dec, [facility] [place] [facility] [address] [id number] [place] [address] Nov, [facility] [place] [address] [id number], [place] [id number] Nov, [facility] [place] [facility] [address] [id number] [place] [address] Nov, [facility] [place] [facility] [address] [id number] [place] [address] Nov, [facility] [place] [facility] [address] [address] [facility] [id number] [place] [address] Nov, [facility] [place] [facility] [address] [facility] [id number] [place] [address] Nov, [facility] [place] [address] [facility] [id number][place] [id number] Nov, [facility] [place] [facility] [address] [facility] [id number] [place] [address] Nov, [facility] [place] [facility] [address] [id number] [place] [address] Sep, [facility] [place] [address] [facility] [id number], [place] [id number] Sep, [facility] [place] [facility] [address] [id number] [place] [address] Sep, [facility] [place] [facility] [address] [id number] [place] [address] Sep, [facility] [place] [facility] [address] [id number] [place] [address] Sep, [facility] [place] [facility] [address] [id number] [place] [address] Sep, [facility] [place] [facility] [address] [id number] [place] [address] Sep, [facility] [place] [address] [id number] [place] [id number] Aug, [facility] [place] [facility] [address] [id number] [place] [address] Aug, [facility] [place] [facility] [address] [facility] [id number] [place] [address] Aug, [facility] [place] [facility] [address] [id number] [place] [address] Aug, [facility] [place] [address] [facility] [id number] [place] [id number] Aug, [facility] [place] [facility] [address] [facility] [id number] [place] [address] Aug, [facility] [place] [address] [facility] [id number] [place] [id number] July, [facility] [place] [facility] [address] [id number] [place] [address] July, [facility] [place] [address] [facility] [id number] [place] [id number] July, [facility] [place] [facility] [address] [facility] [id number] [place] [address] July, [facility] [place] [facility] [address] [facility] [id number] [place] [address] Jun, [facility] [place] [facility] [address] [id number] [place] [address] Jun, [facility] [place] [facility] [address] [id number] [place] [address] Jun, [facility] [place] [address] [id number] [place] [id number] Jun, [facility] [place] [address] [id number] [place] [id number] Jun, [facility] [place] [facility] [address] [id number], [place] [address] Jun, [facility] [place] [address] [id number] [place] [id number] Apr, [facility] [place] [facility] [address] [facility] [id number], [place] [address] Apr, [facility] [place] [address] [id number] [place] [id number] Sep, [facility] [place] [address] [id number], [place] [id number] May, [facility] [place] [facility] [address] [id number] [place] [address] Apr, [facility] [place] [facility] [address] [id number], [place] [address] Jan, [facility] [place] [facility] [address] [id number], [place] [address] Jan, [facility] [place] [facility] [address], [place] 232[address]7916 Sep, [facility] [place] [address] [id number], [place] 089920951 Sep, [facility] [place] [facility] [address]100[place], [place] 267557118 Sep, [facility] [place] [facility] [address] [id number], [place] [address] Sep, [facility] [place] [facility] [address] [id number], [place] [address] Sep, [facility] [place] [facility] [address] [id number], [place] [address] Jun, [facility] [place] [facility] [address] [id number], [place] 413759402 Jun, [facility] [place] [address] [id number], [place] 798255282 May, [facility] [place] [facility] [address] [id number], [place] [id number] May, [facility] [place] [address] [id number] [place] 636368085 May, [facility] [place] [address] [id number] [place] 455143303 May, [facility] [place] [address] [id number] [place] 660883434 May, [facility] [place] [address] [id number] [place] 072[place]49[address] May, [facility] [place] [address] [id number] [place] 015115484 May, [facility] [place] [address] [id number] [place] 801263092 May, [facility] [place] [address] [id number] [place] 3979630[address] May, [facility] [place] [address] [id number] [place] 098768347 May, [facility] [id number] [place] [address] [id number] May, [facility] [place] [facility] [id number] [place] [address] May, [facility] [id number] [place] [address] [id number] Apr, [facility] [place] [facility] [id number] [place] [address] Apr, [facility] [id number] [place] [address] [id number] Mar, [facility] [place] [facility] [id number] [place] [address] Feb, [facility] [place] [facility] [id number] [place] [address] Feb, [facility] [place] [facility] [id number] [place] [address] Feb, [facility] [place] [facility] [id number] [place] [address] Feb, [facility] [address] [id number], [place] [address] Feb, [facility] [address] [id number], [place] [address] Feb, [facility] [address] [facility] [id number], [place] [address] Jan, [facility] [address] [id number], [place] [address] Feb, [facility] [address] [id number] [place] [address] Feb, [facility] [address] [facility] [id number][place] [address] Feb, [facility] [address] [facility] [id number], [place] [address] Jan, [facility] [address] [facility] [id number], [place] [address] Dec, [facility] [address] [facility] [id number], [place] [address] Dec, [facility] [address] [facility] [id number], [place] [address] Jun, [facility] [address] [facility] [id number][place] [address] Jun, [facility] [address] [facility] [id number], [place] [address] Feb, [facility] [address] [facility] [id number][place] [address] Dec, [facility] [address] [facility] [id number][place] [address] July, [facility] [address] [facility] [id number][place] [address] Dec, IMMUNIZATIONS No Known Immunizations SOCIAL HISTORY Never Assessed [place]ASON [place] [place] VITAL SIGNS MEDICATIONS Medication Instructions Dosage Frequency Start Date End Date Duration Status Gabapentin 600 mg 1 Tablet by Oral route 3 times per day Apr, Active Albuterol Sulfate 90 mcg/actuation 2 puffs by Inhalation route every 4 hours as needed PRN cough wheezing sob Dec, Active Omeprazole 40 mg take 1 capsule by Oral route before a meal 1 time per day Apr, Active Pravachol 80 mg 1 tablet by Oral route 1 time per day Jan, Active Aspirin 81 mg chew 1 tablet (81 mg) by oral route once daily May, Active Ibuprofen 800 mg take 1 tablet (800 mg) by oral route 3 times per day with food Apr, Active Parafon Forte DSC 500 mg 1 tablet by Oral route 2 times per day PRN Apr, Active RESULTS No Results PROCEDURES No Known [...]
--- OUTSIDE RECORDS SUMMARY | 2018-09-20 13:43 | XMS REPORT ---
Author Author ALEXANDRO BELLE [facility] Address [address] [place] [address] Care Team Providers Care Wedding Decorator Name Role Phone ALEXANDRO BELLE Unavailable PROBLEMS Type Condition ICD9-CM Code [id number] Code Onset Dates Condition Status SNOMED Code Problem Sciatica, left side M54.32 Active 64047224 Problem Sciatica, unspecified laterality M54.30 Active 80581738 Problem Sciatica, left M54.32 Active 67989470 Problem Dyspepsia and other specified disorders of function of stomach 536.8 Active 327838361 Problem DDD (degenerative disc disease), lumbar M51.36 Active 37691573 Problem Atherosclerosis of [place] coronary artery of [place] heart, angina presence unspecified I25.10 Active 5162781812183 Problem Essential hypertension I10 Active 14055949 Problem Chronic obstructive pulmonary disease, unspecified COPD type J44.9 Active 22608173 Problem Hyperlipidemia, unspecified hyperlipidemia type E78.5 Active 53862217 Problem Hypothyroidism, unspecified type E03.9 Active 87213900 ALLERGIES No Information ENCOUNTERS Encounter Location Date Diagnosis [place] [id number] [place] [address] [id number] Nov, Sciatica, left M54.[address] [id number] Oct, Sciatica, left M54.32 ; Essential hypertension I10 and Chronic obstructive pulmonary disease, unspecified COPD type J44.9 [place] [id number] [place] [address] [id number] Sep, Sciatica, left M54.32 and DDD (degenerative disc disease), lumbar M51.36 [facility] [place] [id number] [place] [address] Aug, [facility] [address] [id number] Aug, [facility] [place] [address]00565[address], [place] [address] Aug, [facility] [address] [id number] [place] [address] [id number] Aug, Localized swelling, mass and lump, neck R22.1 [facility] [id number] [place] [address] [id number] July, [facility] [place] [id number] [place] [address] July, [facility] [id number] [place] [address] [id number] July, Neck swelling R22.1 ; Lung mass R91.8 and Sciatica, left side M54.32 [facility] [id number] [place] [address] [id number] Jun, Sciatica, left side M54.32 [facility] [address] [id number] [place] [address] [id number] May, Abnormal CXR R93.8 [facility] [id number] [place] [address] [id number] May, Abnormal CXR R93.8 [facility] [id number] [place] [address] [id number] May, Abnormal CXR R93.8 [facility] [place] [address], [place] [address] Apr, [facility] [id number] [place] [address] [id number] Apr, Abnormal chest xray R93.8 [facility] [id number] [place] [address] [id number] Apr, Sciatica, left side M54.32 [facility] [id number] [place] [address] [id number] Mar, Community acquired pneumonia of right lung, unspecified part of lung J18.9 ; Chronic obstructive pulmonary disease, unspecified COPD type J44.9 and Abnormal CXR R93.8 [facility] [id number] [id number] Mar, Community acquired pneumonia of right lower lobe of lung J18.1 [facility] [place] [address] [place] [address] Mar, Sciatica, left side M54.32 ; Essential hypertension I10 and Community acquired pneumonia of right lung, unspecified part of lung J18.9 [facility] [id number] [id number] Mar, Sciatica, left side M54.32 ; Essential hypertension I10 ; Chronic obstructive pulmonary disease, unspecified COPD type J44.9 and Community acquired pneumonia of right lung, unspecified part of lung J18.9 [place] [id number][place] [id number] Feb, Essential hypertension I10 and Sciatica, left M54.32 [address]00565[address] [id number] Jan, Sciatica, left M54.32 [facility] [address] [place] [address] [id number] Dec, Sciatica, left M54.32 ; Essential hypertension I10 ; Chronic obstructive pulmonary disease, unspecified COPD type J44.9 ; Hypothyroidism, unspecified type E03.9 and Encounter for immunization Z23 [facility] [address]005[address] [id number] Nov, Sciatica, unspecified laterality M54.30 [address] [place] [address] [id number] Oct, Hypothyroidism, unspecified type E03.9 [address]00565[address] [id number] Oct, Sciatica, unspecified laterality M54.30 and Hypothyroidism, unspecified type E03.9 [address]005[address] [id number] Oct, [address] [id number] Aug, Essential hypertension I10 and Sciatica, unspecified laterality M54.30 [address] [place] [address] [id number] Aug, Sciatica, unspecified laterality M54.30 [place] [id number] [place] [address] [id number] Jun, Sciatica, unspecified laterality M54.30 ; Essential hypertension I10 and Chronic obstructive pulmonary disease, unspecified COPD type J44.9 [place] [id number] [place] [address] [id number] May, Chronic obstructive pulmonary disease, unspecified COPD type J44.9 ; Essential hypertension I10 ; Sciatica, unspecified laterality M54.30 ; Hypothyroidism, unspecified type E03.9 and Hyperlipidemia, unspecified hyperlipidemia type E78.5 [address] [place] [address] [id number] May, Essential hypertension I10 [place] [id number] [place] [address] [id number] Apr, [place] [id number] [place] [address] [id number] Apr, Essential hypertension I10 and Atherosclerosis of [place] coronary artery of [place] heart, angina presence unspecified I25.10 [place] [id number] [place] [address] [id number] Mar, Essential hypertension I10 and Sciatica, unspecified laterality M54.30 [address] [place] [address] [id number] Jan, [place] [id number] [place] [address] [id number] Jan, Sciatica, unspecified laterality M54.30 ; Essential hypertension I10 ; Chronic obstructive pulmonary disease, unspecified COPD type J44.9 ; Hypothyroidism, unspecified type E03.9 and Hyperlipidemia, unspecified hyperlipidemia type E78.5 [address] [place] [address] [id number] Dec, Sciatica, unspecified laterality M54.[address] [id number] [id number] Dec, Essential hypertension I10 [facility] [id number][place] [id number] Dec, Essential hypertension I10 ; Sciatica, unspecified laterality M54.30 and Encounter for immunization Z23 [facility] [address] [id number] [address] Nov, [facility] [id number] [place] [address] [id number] Sep, Sciatica, unspecified laterality M54.30 ; Essential hypertension I10 and Chronic obstructive pulmonary disease, unspecified COPD type J44.9 [facility] [id number] [place] [address] [id number] Sep, [facility] [address] [id number] [place] [address] [id number] July, [facility] [id number] [place] [address] [id number] Jun, Sciatica, unspecified laterality M54.30 [facility] [id number] [place] [address] [id number] May, Sciatica, unspecified laterality M54.30 [facility] [id number], [place] [id number] May, [facility] [address] [id number] [place] [address] [id number] Apr, Sciatica, unspecified laterality M54.30 [facility] [id number], [place] [id number] Apr, [facility] [place] [address] [address] [id number] [place] [address] [id number] Mar, Sciatica, left M54.32 [facility] [id number], [place] [id number] Jan, Sciatica, left M54.32 and Encounter for immunization Z23 [facility] [place] [id number], [place] [id number] Dec, Sciatica, left side M54.32 [facility] [id number][place] [id number] Dec, [facility] 120 [facility] [id number], [place] [id number] Nov, Sciatica 724.3 [facility] [address]00565100[place] [address] Nov, [place] [id number] 707426268 Nov, Sciatica 724.3 and Visual acuity reduced 369.9 [address]00565100[place], [place] [id number] Oct, Sciatica 724.3 and Nausea 787.[address] [place] [address] [id number] Oct, Coronary atherosclerosis of unspecified type of vessel, [place] or graft 414.00 [address]00565100[place] [id number] Sep, Sciatica 724.3 and Coronary atherosclerosis of unspecified type of vessel, [place] or graft 414.00 [address] [id number] Sep, Coronary atherosclerosis of unspecified type of vessel, [place] or graft 414.00 and Unspecified essential hypertension 401.9 [address]00565100[place] [id number] Aug, Sciatica 724.3 ; Dyspepsia and other specified disorders of function of stomach 536.8 and Other abnormal blood chemistry 790.6 [address]00565100[place] [id number] Aug, Sciatica 724.3 ; Coronary atherosclerosis of unspecified type of vessel, [place] or graft 414.00 ; Unspecified essential hypertension 401.9 ; Palpitations 785.1 and Other abnormal blood chemistry 790.6 [address]00565100[place] [id number] July, Sciatica 724.3 and Other abnormal blood chemistry 790.6 [place] [id number] [id number] July, [address]00565100[place], [place] [id number] July, Hyperlipidemia 272.4 [facility] [place] [facility] [address]00565100[place], [place] [address] Jun, [facility] [place] [facility] [address]00565100[place], [place] [address] Jun, [facility] [place] [facility] [address]00565100[place], [place] [address] May, [facility] [id number], [place] [id number] May, [facility] [place] [facility] [address] [place] [address] Apr, [facility] [id number], [place] [id number] Apr, [facility] [id number], [place] [id number] Apr, [facility] [place] [facility] [address]00565100[place], [place] [address] Apr, [facility] [id number], [place] [id number] Apr, [facility] [place] [facility] [address]00565100[place], [place] [address] Apr, [facility] [place] [facility] [address]00565100[place], [place] [address] Apr, [facility] [place] [facility] [address]00565100[place], [place] [address] Apr, [facility] [address] [place] [id number], [place] [id number] Apr, [facility] [id number], [place] 170272437 Apr, [facility] [address] [place] [id number], [place] [id number] Apr, [facility] [place] [facility] [address]00565100[place], [place] [address] Apr, [facility] [address] [id number] [place] [id number] Jan, [facility] [place] [facility] [address] [facility] [id number] [place] [address] Jan, [facility] [place] [facility] [address] [facility] [id number] [place] [address] Dec, [facility] [address] [id number] [place] [id number] Dec, [facility] [address] [id number] [place] [id number] Dec, [facility] [address] [id number] [place] 155722275 Dec, [facility] [place] [facility] [id number], [place] [address] Dec, [facility] [place] [facility] [address] [place] [address] Dec, [facility] [place] [facility] [address] [facility] [id number], [place] [address] Nov, [facility] [address] [facility] [id number] [place] [id number] Nov, [facility] [place] [facility] [address]00565100[place], [place] [address] Nov, [facility] [place] [facility] [address]00565100[place], [place] [address] Nov, [facility] [place] [facility] [address] [facility] [id number], [place] [address] Nov, [facility] [place] [facility] [address] [facility] [id number], [place] [address] Nov, [facility] [address] [facility] [id number], [place] [id number] Nov, [facility] [place] [facility] [address] [facility] [id number], [place] [address] Nov, [facility] [place] [facility] [address] [facility] [id number] [place] [address] Sep, [facility] [address] [facility] [id number], [place] [id number] Sep, [facility] [place] [facility] [address] [facility] [id number] [place] [address] Sep, [facility] [place] [facility] [address] [facility] [id number] [place] [address] Sep, [facility] [place] [facility] [address] [facility] [id number] [place] [address] Sep, [facility] [place] [facility] [address] [facility] [id number] [place] [address] Sep, [facility] [place] [facility] [address] [facility] [id number], [place] [address] Sep, [facility] [address] [facility] [id number], [place] [id number] Aug, [facility] [place] [facility] [address] [facility] [id number], [place] [address] Aug, [facility] [place] [facility] [address] [facility] [id number], [place] [address] Aug, [facility] [place] [facility] [address] [facility] [id number], [place] [address] Aug, [facility] [address] [facility] [id number], [place] [id number] Aug, [facility] [place] [facility] [address] [facility] [id number], [place] [address] Aug, [facility] [address] [facility] [id number], [place] 578211743 July, [facility] [place] [facility] [address] [facility] [id number], [place] [address] July, [facility] [address] [facility] [id number], [place] 100977484 July, [facility] [place] [facility] [address] [facility] [id number], [place] [address] July, [facility] [place] [facility] [address] [id number] [place] [address] Jun, [facility] [place] [facility] [address] [id number], [place] [address] Jun, [facility] [place] [facility] [address] [id number] [place] [address] Jun, [facility] [address] [id number] [place] [id number] Jun, [facility] [address] [id number] [place] 614230016 Jun, [facility] [place] [facility] [address] [id number] [place] [address] Jun, [facility] [address] [id number] [place] [id number] Apr, [facility] [place] [facility] [address] [id number], [place] [address] Apr, [facility] [address] [id number] [place] 501330177 Sep, [facility] [address] [id number] [place] [id number] May, [facility] [place] [facility] [address] [facility] [id number], [place] [address] Apr, [facility] [place] [facility] [address] [facility] [id number], [place] [address] Jan, [facility] [place] [facility] [address] [id number], [place] [address] Jan, [facility] [place] [facility] [address] [id number] [place] 284722691 Sep, [facility] [address] [id number] [place] 914644996 Sep, [facility] [place] [facility] [address] [id number] [place] 014921769 Sep, [facility] [place] [facility] [address] [id number], [place] [address] Sep, [facility] [address] [id number], [place] [address] Sep, [facility] [address] [id number], [place] [address] Jun, [facility] [address] [id number], [place] 447716842 Jun, [facility] [address] [id number], [place] [id number] May, [facility] [id number] [place] [address] [id number] May, [facility] [address] [id number], [place] 282438441 May, [facility] [address] [id number], [place] [id number] May, [facility] [id number] [place] [address] [id number] May, [facility] [address] [id number], [place] 388120194 May, [facility] [address] [id number] [place] [address] [id number] May, [facility] [address] [id number], [place] 730424236 May, [facility] [address] [id number], [place] [id number] 15 May, 2011 [facility] [address] [id number], [place] [id number] 14 May, 2011 [facility] [address] [id number], [place] [id number] May, [facility] [address] [id number], [place] [address] May, [facility] [place] [facility] [address] [id number], [place] [id number] Apr, [facility] [address] [id number] [place] [address] 02 Apr, 2011 [facility] [place] [facility] [address] [id number] [place] 926177084 Mar, [facility] [place] [facility] [address] [id number] [place] [address] Feb, [facility] [address] [id number] [place] [address] Feb, [facility] [place] [facility] [address] [id number] [place] [address] 15 Feb, 2011 [facility] [address] [id number] [place] [address], [place] [address] Feb, [facility] [address] [id number] [place] [address] Feb, [facility] [id number] [place] [address] Feb, [facility] [address] [id number] [place] [address] Jan, [facility] [address] [place] [address] Feb, [facility] [address] [place] [address] Feb, [facility] [address] [id number] [place] [address] Feb, [facility] [place] [facility] [address] [id number], [place] [address] Jan, [facility] [place] [facility] [address] [id number] [place] [address] 29 Dec, 2009 [facility] [place] [facility] [address] [facility] [id number] [place] [address] Dec, [facility] [place] [facility] [address] [place] [address] Jun, [facility] [place] [facility] [address] [facility] [id number] [place] [address] Jun, [facility] [place] [address] [facility] [id number], [place] [address] Feb, [facility] [place] [address] [facility] [id number], [place] [address] Dec, [facility] [place] [address] [facility] [id number], [place] [address] July, [facility] [place] [address] [facility] [id number], [place] [address] Dec, IMMUNIZATIONS No Known Immunizations SOCIAL HISTORY Never Assessed REASON FOR VISIT rX-Tramadol refill PLAN OF CARE VITAL SIGNS MEDICATIONS Medication Instructions Dosage Frequency Start Date End Date Duration Status Tramadol HCl 50 mg Orally 3 times a day as needed must last 28 days 1-2 tablet July, Active RESULTS No Results PROCEDURES No Known [...]
--- OUTSIDE RECORDS SUMMARY | 2018-09-20 13:43 | XMS REPORT ---
Author Author ALEXANDRO BELLE [facility] Address [address] [place] [address] Care Team Providers Care Family Engagement Specialist Name Role Phone ALEXANDRO BELLE Unavailable PROBLEMS Type Condition ICD9-CM Code HXL91-FT Code Onset Dates Condition Status SNOMED Code Problem Sciatica, left side M54.32 Active 66382766 Problem Sciatica, unspecified laterality M54.30 Active 79503425 Problem Sciatica, left M54.32 Active 93508454 Problem Dyspepsia and other specified disorders of function of stomach 536.8 Active 136646119 Problem DDD (degenerative disc disease), lumbar M51.36 Active 67304153 Problem Atherosclerosis of cous[place] coronary artery of cous[place]ta heart, angina presence unspecified I25.10 Active 6155307599563 Problem Essential hypertension I10 Active 34045326 Problem Chronic obstructive pulmonary disease, unspecified COPD type J44.9 Active 64844059 Problem Hyperlipidemia, unspecified hyperlipidemia type E78.5 Active 20277962 Problem Hypothyroidism, unspecified type E03.9 Active 82090093 ALLERGIES Substance Reaction Event Type Date Status Lisinopril cough Drug Allergy Oct, Active ENCOUNTERS Encounter Location Date Diagnosis [facility] [id number] [id number] Oct, Sciatica, left M54.32 ; Essential hypertension I10 and Chronic obstructive pulmonary disease, unspecified COPD type J44.9 [facility] [address] [id number] Sep, Sciatica, left M54.32 and DDD (degenerative disc disease), lumbar M51.36 [facility] [address]00565100[place], [place] [address] Aug, [facility] [address]005[address] [id number] Aug, [facility] [address] [id number], [place] [address] Aug, [facility] [id number] [place] [address] [id number] Aug, Localized swelling, mass and lump, neck R22.1 [facility] [id number] [place] [address] [id number] July, [facility] [address] [address] July, [facility] [id number] [place] [address] [id number] July, Neck swelling R22.1 ; Lung mass R91.8 and Sciatica, left side M54.32 [facility] [id number] [place] [address] [id number] Jun, Sciatica, left side M54.32 [facility] [id number] [place] [address] [id number] May, Abnormal CXR R93.8 [facility] [id number] [place] [address] [id number] May, Abnormal CXR R93.8 [facility] [id number] [place] [address] [id number] May, Abnormal CXR R93.8 [facility] [id number] [place] [address] Apr, [facility] [id number] [place] [address] [id number] Apr, Abnormal chest xray R93.8 [facility] [id number] [place] [address] [id number] Apr, Sciatica, left side M54.32 [facility] [id number] [place] [address] [id number] Mar, Community acquired pneumonia of right lung, unspecified part of lung J18.9 ; Chronic obstructive pulmonary disease, unspecified COPD type J44.9 and Abnormal CXR R93.8 [facility] [id number] [place] [address] [id number] Mar, Community acquired pneumonia of right lower lobe of lung J18.1 [facility] [address] [id number], [place] [address] Mar, Sciatica, left side M54.32 ; Essential hypertension I10 and Community acquired pneumonia of right lung, unspecified part of lung J18.9 [facility] [id number] [place] [address] [id number] Mar, Sciatica, left side M54.32 ; Essential hypertension I10 ; Chronic obstructive pulmonary disease, unspecified COPD type J44.9 and Community acquired pneumonia of right lung, unspecified part of lung J18.9 [id number] [place] [address] [id number] Feb, Essential hypertension I10 and Sciatica, left M54.32 [facility] [id number] [place] [address] [id number] Jan, Sciatica, left M54.32 [id number] [place] [address] [id number] Dec, Sciatica, left M54.32 ; Essential hypertension I10 ; Chronic obstructive pulmonary disease, unspecified COPD type J44.9 ; Hypothyroidism, unspecified type E03.9 and Encounter for immunization Z23 [id number] [place] [address] [id number] Nov, Sciatica, unspecified laterality M54.30 [id number] [place] [address] [id number] Oct, Hypothyroidism, unspecified type E03.9 [facility] [id number] [place] [address] [id number] Oct, Sciatica, unspecified laterality M54.30 and Hypothyroidism, unspecified type E03.9 [id number] [place] [address] [id number] Oct, [facility] [id number] [place] [address] [id number] Aug, Essential hypertension I10 and Sciatica, unspecified laterality M54.30 [id number] [place] [address] [id number] Aug, Sciatica, unspecified laterality M54.30 [address] [place] [address] [id number] Jun, Sciatica, unspecified laterality M54.30 ; Essential hypertension I10 and Chronic obstructive pulmonary disease, unspecified COPD type J44.9 [address] [place] [address] [id number] May, Chronic obstructive pulmonary disease, unspecified COPD type J44.9 ; Essential hypertension I10 ; Sciatica, unspecified laterality M54.30 ; Hypothyroidism, unspecified type E03.9 and Hyperlipidemia, unspecified hyperlipidemia type E78.5 [id number] [place] [address] [id number] May, Essential hypertension I10 [address] [place] [address] [id number] Apr, [address] [place] [address] [id number] Apr, Essential hypertension I10 and Atherosclerosis of coushatta coronary artery of cous[place]ta heart, angina presence unspecified I25.10 [address] [place] [address] [id number] Mar, Essential hypertension I10 and Sciatica, unspecified laterality M54.30 [address] [place] [address] [id number] Jan, [address] [place] [address] [id number] Jan, Sciatica, unspecified laterality M54.30 ; Essential hypertension I10 ; Chronic obstructive pulmonary disease, unspecified COPD type J44.9 ; Hypothyroidism, unspecified type E03.9 and Hyperlipidemia, unspecified hyperlipidemia type E78.5 [address] [place] [address] [id number] Dec, Sciatica, unspecified laterality M54.[address] [id number] [id number] Dec, Essential hypertension I10 [facility] [address] [place] [address] [id number] Dec, Essential hypertension I10 ; Sciatica, unspecified laterality M54.30 and Encounter for immunization Z23 [facility] [address] [id number], [place] [address] Nov, [facility] [id number] [place] [address] [id number] Sep, Sciatica, unspecified laterality M54.30 ; Essential hypertension I10 and Chronic obstructive pulmonary disease, unspecified COPD type J44.9 [facility] [id number] [place] [address] [id number] Sep, [facility] [id number] [place] [address] [id number] July, [facility] [id number] [place] [address] [id number] Jun, Sciatica, unspecified laterality M54.30 [facility] [place] [address] [place] [address] [id number] May, Sciatica, unspecified laterality M54.30 [facility] [id number] [place] [address] [id number] May, [facility] [id number] [place] [address] [id number] Apr, Sciatica, unspecified laterality M54.30 [facility] [place] [id number] [place] [address] [id number] Apr, [facility] [place] [id number] [place] [address] [id number] Mar, Sciatica, left M54.32 [facility] [id number] [place] [address] [id number] Jan, Sciatica, left M54.32 and Encounter for immunization Z23 [facility] [id number] [place] [address] [id number] Dec, Sciatica, left side M54.32 [facility] [id number] [id number] Dec, [facility] [id number] [place] [address] [id number] Nov, Sciatica 724.3 [facility] [address] [id number] [id number] Nov, [address] [place] [address] [id number] Nov, Sciatica 724.3 and Visual acuity reduced 369.9 [facility] [address] [place] [address] [id number] Oct, Sciatica 724.3 and Nausea 787.02 [address] [place] [address] [id number] Oct, Coronary atherosclerosis of unspecified type of vessel, coushatta or graft 414.00 [address] [place] [address] [id number] Sep, Sciatica 724.3 and Coronary atherosclerosis of unspecified type of vessel, cous[place]ta or graft 414.00 [address] [place] [address] [id number] Sep, Coronary atherosclerosis of unspecified type of vessel, coushatta or graft 414.00 and Unspecified essential hypertension 401.9 [address] [place] [address] [id number] Aug, Sciatica 724.3 ; Dyspepsia and other specified disorders of function of stomach 536.8 and Other abnormal blood chemistry 790.6 [address] [id number] Aug, Sciatica 724.3 ; Coronary atherosclerosis of unspecified type of vessel, coushatta or graft 414.00 ; Unspecified essential hypertension 401.9 ; Palpitations 785.1 and Other abnormal blood chemistry 790.6 [address] [place] [address] [id number] July, Sciatica 724.3 and Other abnormal blood chemistry 790.6 [id number] [id number] July, [address] [id number] July, Hyperlipidemia 272.4 [facility] [place] [facility] [address] [facility] [address] [id number], [place] [address] Jun, [facility] [place] [facility] [id number], [place] [address] Jun, [facility] [place] [facility] [address] [id number], [place] [address] May, [facility] [address] [id number] [id number] May, [facility] [place] [facility] [address] [id number], [place] [address] Apr, [facility] [address] [id number][place] [id number] Apr, [facility] [address] [id number] [id number] Apr, [facility] [place] [facility] [address], [place] [address] Apr, [facility] [address] [id number], [place] [id number] Apr, [facility] [place] [facility] [address], [place] [address] Apr, [facility] [place] [facility] [address], [place] [address] Apr, [facility] [place] [facility] [address], [place] [address] Apr, [facility] [address] [id number] [id number] Apr, [facility] [address] [id number], [place] [id number] Apr, [facility] [address] [id number], [place] [id number] Apr, [facility] [place] [facility] [id number], [place] [address] Apr, [facility] [address] [facility] [id number] [place] [id number] Jan, [facility] [place] [facility] [address] [id number] [place] [address] Jan, [facility] [place] [facility] [address] [facility] [address] [id number] [address] Dec, [facility] [address] [id number] [place] [id number] Dec, [facility] [address] [id number] [place] [id number] Dec, [facility] [address] [facility] [id number] [place] 7489[address] Dec, [facility] [place] [facility] [address] [facility] [address] [id number] [place] [address] Dec, [facility] [place] [facility] [address] [facility] [address] [id number] [place] [address] Dec, [facility] [place] [facility] [address] [facility] [address] [id number], [place] [address] Nov, [facility] [address] [facility] [id number] [place] [id number] Nov, [facility] [place] [facility] [address] [facility] [address] [id number], [place] [address] Nov, [facility] [place] [facility] [address] [facility] [address] [id number], [place] [address] Nov, [facility] [place] [facility] [address] [facility] [address] [id number], [place] [address] Nov, [facility] [place] [facility] [address] [facility] [address] [id number] [place] [address] Nov, [facility] [address] [facility] [id number][place] [id number] Nov, [facility] [place] [facility] [address] [facility] [address] [id number] [place] [address] Nov, [facility] [place] [facility] [address] [facility] [address] [id number], [place] [address] Sep, [facility] [address] [id number] [place] [id number] Sep, [facility] [place] [facility] [address] [id number] [place] [address] Sep, [facility] [place] [facility] [address] [id number] [place] [address] Sep, [facility] [place] [facility] [address] [id number] [place] [address] Sep, [facility] [place] [facility] [address] [id number] [place] [address] Sep, [facility] [place] [facility] [address] [id number] [place] [address] Sep, [facility] [address] [facility] [id number], [place] [id number] Aug, [facility] [place] [facility] [address] [id number] [place] [address] Aug, [facility] [place] [facility] [address] [id number] [place] [address] Aug, [facility] [place] [facility] [address] [id number] [place] [address] Aug, [facility] [address] [facility] [id number], [place] [id number] Aug, [facility] [place] [facility] [address] [id number], [place] [address] Aug, [facility] [address] [facility] [id number], [place] [id number] July, [facility] [place] [facility] [address] [id number] [place] [address] July, [facility] [address] [facility] [id number], [place] [id number] July, [facility] [place] [facility] [address] [id number] [place] [address] July, [facility] [place] [facility] [address] [id number], [place] [address] Jun, [facility] [place] [facility] [address] [id number] [place] [address] Jun, [facility] [place] [facility] [address] [id number] [place] [address] Jun, [facility] [address] [id number] [place] [id number] Jun, [facility] [address] [id number] [place] [id number] Jun, [facility] [place] [facility] [address] [id number] [place] [address] Jun, [facility] [address] [id number] [place] [id number] Apr, [facility] [address] [facility] [address] [id number], [place] [address] Apr, [facility] [address] [id number], [place] 464857414 Sep, [facility] [address] [id number] [place] 7396585[address] May, [facility] [place] [facility] [address] [facility] [address] [id number], [place] [address] Apr, [facility] [place] [facility] [address] [facility] [address] [id number], [place] [address] Jan, [facility] [place] [facility] [address] [id number], [place] [address] Jan, [facility] [place] [facility] [address] [id number] [place] [id number] Sep, [facility] [address] [id number] [place] [id number] Sep, [facility] [place] [facility] [address] [id number] [place] 632[place]40[address] Sep, [facility] [place] [facility] [address] [id number] [place] [address] Sep, [facility] [address] [id number], [place] [address] Sep, [facility] [address] [id number] [place] [address] Jun, [facility] [address] [id number], [place] 89[address] Jun, [facility] [address] [id number] [place] [address] 30 May, 2011 [facility] [address] [id number], [place] [id number] May, [facility] [address] [id number] [place] 687284731 May, [facility] [address] [id number] [place] 605605758 May, [facility] [address] [id number] [place] 603605631 24 May, 2011 [facility] [address] [id number] [place] 0521702[address] May, [facility] [address] [id number] [place] 9579[address] May, [facility] [address] [id number] [place] [id number] 19 May, 2011 [facility] [address] [id number], [place] 638228090 15 May, 2011 [facility] [address] [id number], [place] 121954103 14 May, 2011 [facility] [address] [id number], [place] 611976266 May, [facility] [address] [id number], [place] [address] May, [facility] [place] [facility] [address] [id number], [place] [id number] Apr, [facility] [address] [id number], [place] [address] Apr, [facility] [place] [facility] [address] [id number] [place] 201070164 Mar, [facility] [place] [facility] [address] [id number] [place] [address] 30 Feb, 2011 [facility] [place] [facility] [address] [id number] [place] [address] 23 Feb, 2011 [facility] [place] [facility] [address] [id number] [place] [address] 15 Feb, 2011 [facility] [place] [facility] [address] [id number] [place] [address] 06 Feb, 2011 [facility] [place] [facility] [address] [id number] [place] [address] Feb, [facility] [place] [facility] [address] [id number] [place] [address] Feb, [facility] [address] [id number] [place] [address] Jan, [facility] [address] [id number] [place] [address] Feb, [facility] [place] [facility] [address] [id number] [place] [address] Feb, [facility] [place] [facility] [address] [id number] [place] [address] Feb, [facility] [place] [facility] [address] [id number] [place] [address] Jan, [facility] [place] [facility] [address] [id number] [place] [address] 29 Dec, 2009 [facility] [place] [facility] [address] [id number] [place] [address] Dec, [facility] [place] [facility] [address] [id number] [place] [address] Jun, [facility] [place] [facility] [address] [id number] [place] [address] Jun, [facility] [address] [facility] [address] [id number] [place] [address] Feb, [facility] [address] [facility] [address] [id number], [place] [address] Dec, [facility] [address] [facility] [id number], [place] [address] July, [facility] [address] [id number], [place] [address] Dec, IMMUNIZATIONS No Known Immunizations SOCIAL HISTORY Never Assessed REASON FOR VISIT Naproxen is working for back pain, but she is worried that her heart doctor will not be happy that she is taking this. marnie Leger, Following up on "lump" on neck. PLAN OF CARE Activity Details Follow Up 3 Months Reason:htn VITAL SIGNS Height 60 in 2017-10-28 Weight 168.2 lbs 2017-10-28 Temperature 98.2 degrees Fahrenheit 2017-10-28 Heart Rate 78 bpm 2017-10-28 Respiratory Rate 16 2017-10-28 BMI 32.85 kg/m2 2017-10-28 Blood pressure systolic 142 mmHg 2017-10-28 Blood pressure diastolic 74 mmHg 2017-10-28 MEDICATIONS Medication Instructions Dosage Frequency Start Date End Date Duration Status Naproxen 500 mg Orally every 12 hrs 1 tablet with food or milk as needed 12h 05 Sep, 2017 Active Atorvastatin Calcium 20 mg Orally Once a day 1 tablet 24h Active Gabapentin 800 MG Orally 3 times a day 1 capsule 8h Active Tramadol HCl 50 mg Orally 3 times a day as needed must last 28 days 1-2 tablet July, Active Levothyroxine Sodium 25 MCG Orally Once a day 1 tablet on an empty stomach in the morning 24h 0 Active Cymbalta 60 mg Orally 2 times a day TAKE ONE (1) CAPSULE BY MOUTH TWICE DAILY... 12h 30 days Active Spiriva HandiHaler 18 MCG Inhalation Once a day 1 capsule 24h Active Toprol XL 50 mg Orally 2 times a day 1.5 tablet 12h Active Aspirin 81 mg chew 1 tablet (81 mg) by oral route once daily May, Active Montelukast Sodium 10 MG Orally Once a day 1 tablet in the evening 24h Active Breo Ellipta 200-25 MCG/INH Inhalation Once a day 1 puff 24h Active Amlodipine Besylate 2.5 MG Orally Once a day 1 tablet 24h Active Prilosec 40 MG TAKE ONE (1) CAPSULE BY MOUTH ONCE DAILY... Active Albuterol Sulfate 108 (90 Base) mcg/act Inhalation 4 times a day 2 puffs 6h Dec, Active RESULTS No Results PROCEDURES No Known [...]
--- OUTSIDE RECORDS SUMMARY | 2018-09-20 13:44 | XMS REPORT ---
Author Author DAHIANA BOYLE [facility] Address [address] [place] [address] Care Team Providers Care Timber Inspector Name Role Phone DAHIANA BOYLE Unavailable PROBLEMS Type Condition ICD9-CM Code HQY02-RR Code Onset Dates Condition Status SNOMED Code Problem Sciatica, left side M54.32 Active 62324435 Problem Sciatica, unspecified laterality M54.30 Active 67540661 Problem Sciatica, left M54.32 Active 75754451 Problem Dyspepsia and other specified disorders of function of stomach 536.8 Active 295812575 Problem DDD (degenerative disc disease), lumbar M51.36 Active 61314020 Problem Atherosclerosis of [place] coronary artery of [place] heart, angina presence unspecified I25.10 Active 3157556470047 Problem Essential hypertension I10 Active 66362049 Problem Chronic obstructive pulmonary disease, unspecified COPD type J44.9 Active 35653808 Problem Hyperlipidemia, unspecified hyperlipidemia type E78.5 Active 65354206 Problem Hypothyroidism, unspecified type E03.9 Active 85728130 ALLERGIES No Information ENCOUNTERS Encounter Location Date Diagnosis [facility] [id number] [place] [address] [id number] Oct, Sciatica, left M54.32 ; Essential hypertension I10 and Chronic obstructive pulmonary disease, unspecified COPD type J44.9 [facility] [id number] [place] [address] [id number] Sep, Sciatica, left M54.32 and DDD (degenerative disc disease), lumbar M51.36 [facility] [id number] [place] [address] Aug, [facility] [id number] [place] [address] [id number] Aug, [facility] [id number] [place] [address] Aug, [facility] [id number] [place] [id number] Aug, Localized swelling, mass and lump, neck R22.1 [facility] [id number] [place] [address], [place] [id number] July, [facility] [id number] [place] [address] July, [facility] [id number] [place] [address] [id number] July, Neck swelling R22.1 ; Lung mass R91.8 and Sciatica, left side M54.32 [facility] [id number] [place] [address] [id number] Jun, Sciatica, left side M54.32 [facility] [id number] [place] [address] [id number] May, Abnormal CXR R93.8 [facility] [id number] [place] [address] [id number] May, Abnormal CXR R93.8 [facility] [id number] [place] [address], [place] [id number] May, Abnormal CXR R93.8 [facility] [id number] [place] [address] Apr, [facility] [id number] [place] [address] [id number] Apr, Abnormal chest xray R93.8 [facility] [id number] [place] [address] [id number] Apr, Sciatica, left side M54.32 [facility] [id number] [place] [address] [id number] Mar, Community acquired pneumonia of right lung, unspecified part of lung J18.9 ; Chronic obstructive pulmonary disease, unspecified COPD type J44.9 and Abnormal CXR R93.8 [facility] [id number] [place] [address] [id number] Mar, Community acquired pneumonia of right lower lobe of lung J18.1 [facility] [address] [id number] [place] [address] Mar, Sciatica, left side M54.32 ; Essential hypertension I10 and Community acquired pneumonia of right lung, unspecified part of lung J18.9 [facility] [id number] [place] [id number] Mar, Sciatica, left side M54.32 ; Essential hypertension I10 ; Chronic obstructive pulmonary disease, unspecified COPD type J44.9 and Community acquired pneumonia of right lung, unspecified part of lung J18.9 [facility] [id number] [place] [address], [place] [id number] Feb, Essential hypertension I10 and Sciatica, left M54.32 [place] [id number] [place] [address] [id number] Jan, Sciatica, left M54.32 [id number] [place] [address] [id number] Dec, Sciatica, left M54.32 ; Essential hypertension I10 ; Chronic obstructive pulmonary disease, unspecified COPD type J44.9 ; Hypothyroidism, unspecified type E03.9 and Encounter for immunization Z23 [id number] [place] [address] [id number] Nov, Sciatica, unspecified laterality M54.30 [id number] [place] [address] [id number] Oct, Hypothyroidism, unspecified type E03.9 [id number] [place] [address] [id number] Oct, Sciatica, unspecified laterality M54.30 and Hypothyroidism, unspecified type E03.9 [address] [place] [address] [id number] Oct, [place] [id number] [place] [address] [id number] Aug, Essential hypertension I10 and Sciatica, unspecified laterality M54.30 [id number] [place] [address] [id number] Aug, Sciatica, unspecified laterality M54.30 [facility] [id number] [place] [address] Jun, Sciatica, unspecified laterality M54.30 ; Essential hypertension I10 and Chronic obstructive pulmonary disease, unspecified COPD type J44.9 [facility] [id number] [place] [id number] May, Chronic obstructive pulmonary disease, unspecified COPD type J44.9 ; Essential hypertension I10 ; Sciatica, unspecified laterality M54.30 ; Hypothyroidism, unspecified type E03.9 and Hyperlipidemia, unspecified hyperlipidemia type E78.5 [facility] [id number] [place] [id number] May, Essential hypertension I10 [facility] [id number] [place] [address] [id number] Apr, [facility] [id number] [place] [address] [id number] Apr, Essential hypertension I10 and Atherosclerosis of [place] coronary artery of [place] heart, angina presence unspecified I25.10 [facility] [id number] [place] [id number] Mar, Essential hypertension I10 and Sciatica, unspecified laterality M54.30 [place] [id number] [place] [address] Jan, [facility] [id number] [place] [address] Jan, Sciatica, unspecified laterality M54.30 ; Essential hypertension I10 ; Chronic obstructive pulmonary disease, unspecified COPD type J44.9 ; Hypothyroidism, unspecified type E03.9 and Hyperlipidemia, unspecified hyperlipidemia type E78.5 [facility] [address] [facility] [id number] [place] [address] Dec, Sciatica, unspecified laterality M54.[address] [id number] [place] [id number] Dec, Essential hypertension I10 [facility] [id number] [place] [id number] Dec, Essential hypertension I10 ; Sciatica, unspecified laterality M54.30 and Encounter for immunization Z23 [facility] [address]00565100[place] [address] Nov, [facility] [place] [id number] [place] [address] [id number] Sep, Sciatica, unspecified laterality M54.30 ; Essential hypertension I10 and Chronic obstructive pulmonary disease, unspecified COPD type J44.9 [facility] [place] [id number] [place] [address] [id number] Sep, [facility] [place] [id number] [place] [address] [id number] July, [facility] [place] [id number] [place] [address] [id number] Jun, Sciatica, unspecified laterality M54.30 [facility] [place] [id number] [place] [address] [id number] May, Sciatica, unspecified laterality M54.30 [facility] [place] [id number] [place] [address] [id number] May, [facility] [place] [id number] [place] [address] [id number] Apr, Sciatica, unspecified laterality M54.30 [facility] [id number] [place] [address] [id number] Apr, [facility] [id number] [place] [address] [id number] Mar, Sciatica, left M54.32 [facility] [id number] [place] [address] [id number] Jan, Sciatica, left M54.32 and Encounter for immunization Z23 [facility] [place] [id number] [place] [address] [id number] Dec, Sciatica, left side M54.32 [facility] [id number][place] [id number] Dec, [facility] [place] [id number] [place] [address] [id number] Nov, Sciatica 724.3 [facility] [address] [id number] [place] [id number] Nov, [address]005[address]100[place] [id number] Nov, Sciatica 724.3 and Visual acuity reduced 369.9 [address]00565100[place] 1956[address]188 Oct, Sciatica 724.3 and Nausea 787.02 [address]00565100[place] [address] Oct, Coronary atherosclerosis of unspecified type of vessel, [place] or graft 414.00 [address] [place] [address] [id number] Sep, Sciatica 724.3 and Coronary atherosclerosis of unspecified type of vessel, [place] or graft 414.00 [address]00565100[place] 843[address]26[address] Sep, Coronary atherosclerosis of unspecified type of vessel, [place] or graft 414.00 and Unspecified essential hypertension 401.9 [address]00565100[place] [id number] Aug, Sciatica 724.3 ; Dyspepsia and other specified disorders of function of stomach 536.8 and Other abnormal blood chemistry 790.6 [address] [id number] [id number] Aug, Sciatica 724.3 ; Coronary atherosclerosis of unspecified type of vessel, [facility] or graft 414.00 ; Unspecified essential hypertension 401.9 ; Palpitations 785.1 and Other abnormal blood chemistry 790.6 [address]00565100[place] [id number] July, Sciatica 724.3 and Other abnormal blood chemistry 790.6 [address] [id number] [id number] July, [place] [id number] [id number] July, Hyperlipidemia 272.4 [facility] [address]00565100[place], [place] [address] 14 Jun, 2014 [facility] [place] [facility] [address]00565100[place], [place] [address] Jun, [facility] [place] [facility] [address]00565100[place], [place] [address] May, [facility] [id number] [place] [id number] May, [facility] [place] [facility] [address] [place] [address] Apr, [facility] [id number] [place] [id number] Apr, [facility] [id number] [place] [address] [id number] Apr, [facility] [place] [facility] [address]00565100[place], [place] [address] Apr, [facility] [id number] [place] 7054517[address] Apr, [facility] [place] [address]00565100[place], [place] [address] Apr, [facility] [place] [facility] [address]00565100[place], [place] [address] Apr, 2014 [facility] [place] [facility] [address]00565100[place], [place] [address] Apr, 2014 [facility] [id number] [place] [id number] Apr, [facility] [address] [id number] [place] [id number] Apr, [facility] [id number] [place] 025549562 Apr, [facility] [place] [facility] [address] [id number], [place] [address] Apr, [facility] [id number] [place] [id number] Jan, [facility] [place] [facility] [address] [id number], [place] [address] Jan, [facility] [place] [facility] [address] [id number] [place] [address] Dec, [facility] [address] [id number] [place] [id number] Dec, [facility] [address] [id number] [place] 6871739[address] Dec, [facility] [address] [id number] [place] [address]6907380[address] Dec, [facility] [place] [facility] [address] [facility] [id number] [place] [address] Dec, [facility] [place] [facility] [address] [facility] [id number] [place] [address] Dec, [facility] [place] [facility] [address] [facility] [id number], [place] [address] Nov, [facility] [address] [facility] [id number] [place] [id number] Nov, [facility] [place] [facility] [address] [facility] [id number], [place] [address] Nov, [facility] [place] [facility] [address] [facility] [id number], [place] [address] Nov, [facility] [place] [facility] [address] [facility] [id number], [place] [address] Nov, [facility] [place] [facility] [address] [facility] [id number], [place] [address] Nov, [facility] [address] [facility] [id number] [place] 3[address] Nov, [facility] [place] [facility] [address] [facility] [id number], [place] [address] Nov, [facility] [place] [facility] [address] [facility] [id number], [place] [address] Sep, [facility] [address] [id number] [place] [id number] Sep, [facility] [place] [facility] [address] [id number] [place] [address] Sep, [facility] [place] [facility] [address] [facility] [id number] [place] [address] Sep, [facility] [place] [facility] [address] [facility] [id number] [place] [address] Sep, [facility] [place] [facility] [address] [facility] [id number] [place] [address] Sep, [facility] [place] [facility] [address] [facility] [id number] [place] [address] Sep, [facility] [address] [facility] [id number] [place] 264[address] Aug, [facility] [place] [facility] [address] [facility] [id number], [place] [address] Aug, [facility] [place] [facility] [address] [facility] [id number], [place] [address] Aug, [facility] [place] [facility] [address] [facility] [id number], [place] [address] Aug, [facility] [address] [facility] [id number] [place] 4166128[address] Aug, [facility] [place] [facility] [address] [facility] [id number], [place] [address] Aug, [facility] [address] [facility] [id number] [place] [id number] July, [facility] [place] [facility] [address] [facility] [id number], [place] [address] July, [facility] [address] [facility] [id number] [place] 1486[address]750 July, [facility] [place] [facility] [address] [facility] [id number], [place] [address] July, [facility] [place] [facility] [address] [facility] [id number], [place] [address] Jun, [facility] [place] [facility] [address] [id number] [place] [address] Jun, [facility] [place] [facility] [address] [id number] [place] [address] Jun, [facility] [address] [id number] [place] 964969904 Jun, [facility] [address] [id number] [place] [id number] Jun, [facility] [place] [facility] [address] [id number] [place] [address] Jun, [facility] [address] [id number] [place] 09824[address] Apr, [facility] [place] [facility] [address] [id number] [place] [address] Apr, [facility] [address] [id number] [place] 8592936[address] Sep, [facility] [address] [id number] [place] 2244199[address] May, [facility] [place] [facility] [address] [id number], [place] [address] Apr, [facility] [place] [facility] [address] [id number], [place] [address] Jan, [facility] [place] [facility] [address] [id number], [place] [address] Jan, [facility] [place] [facility] [address] [id number] [address] Sep, [facility] [address] [id number] [place] 5375374[address] Sep, [facility] [place] [facility] [address] [id number] [address] Sep, [facility] [place] [facility] [address] [id number], [place] [address] Sep, [facility] [place] [facility] [address] [id number], [place] [address] Sep, [facility] [address] [id number], [place] [address] Jun, [facility] [address] [id number], [place] 44[address]48[address] Jun, [facility] [address] [id number] [place] 313[address]25[address] 30 May, 2011 [facility] [address] [id number], [place] 997487908 May, [facility] [address] [id number] [place] 5581594[address] May, [facility] [address] [id number] [place] 1465780[address] May, [facility] [address] [id number] [place] 644855387 May, [facility] [address] [id number] [place] 745584873 May, [facility] [address] [id number] [place] [address] May, [facility] [address] [id number] [place] 564[address]75[address] 19 May, 2011 [facility] [address] [id number] [place] [id number] 15 May, 2011 [facility] [address] [id number] [place] 549050698 14 May, 2011 [facility] [address] [id number][place] [address] May, [facility] [place] [facility] [address] [id number], [place] [address] May, [facility] [address] [id number], [place] 75[address]36[address] Apr, [facility] [place] [facility] [address] [id number], [place] [address] Apr, [facility] [address] [id number], [place] 816228511 05 Mar, 2011 [facility] [address] [id number] [place] [address] 30 Feb, 2011 [facility] [place] [facility] [address] [id number] [place] [address] 23 Feb, 2011 [facility] [place] [facility] [address] [id number] [place] [address] 15 Feb, 2011 [facility] [place] [facility] [address] [id number] [place] [address] 06 Feb, 2011 [facility] [place] [facility] [address] [id number] [place] [address] Feb, [facility] [place] [facility] [address] [id number] [place] [address] Feb, [facility] [address] [id number] [place] [address] Jan, [facility] [place] [facility] [address] [id number] [place] [address] 27 Feb, 2010 [facility] [place] [facility] [address] [id number] [place] [address] 16 Feb, 2010 [facility] [place] [facility] [address] [id number] [place] [address] 16 Feb, 2010 [facility] [place] [facility] [address] [id number] [place] [address] Jan, [facility] [place] [facility] [address] [id number] [place] [address] 29 Dec, 2009 [facility] [place] [facility] [address] [id number] [place] [address] Dec, [facility] [place] [facility] [address] [id number] [place] [address] 20 Jun, 2009 [facility] [place] [facility] [address] [id number] [place] [address] 12 Jun, 2009 [facility] [place] [facility] [address] [facility] [id number] [place] [address] Feb, [facility] [address] [facility] [id number], [place] [address] Dec, [facility] [address] [facility] [id number] [place] [address] July, [facility] [address] [facility] [id number], [place] [address] Dec, IMMUNIZATIONS No Known Immunizations SOCIAL HISTORY Never Assessed REASON FOR VISIT Eye Exam PLAN OF CARE VITAL SIGNS MEDICATIONS No [...]
--- OUTSIDE RECORDS SUMMARY | 2018-09-20 13:44 | XMS REPORT ---
Author Author ALEXANDRO BELLE [facility] Address [address] [place] [address] Care Team Providers Care Interventional Technologist Name Role Phone ALEXANDRO BELLE Unavailable PROBLEMS Type Condition ICD9-CM Code AVH45-KX Code Onset Dates Condition Status SNOMED Code Problem Sciatica, left side M54.32 Active 28007980 Problem Sciatica, unspecified laterality M54.30 Active 72520746 Problem Sciatica, left M54.32 Active 78579920 Problem Dyspepsia and other specified disorders of function of stomach 536.8 Active 096906371 Problem DDD (degenerative disc disease), lumbar M51.36 Active 82865714 Problem Atherosclerosis of [place] coronary artery of [place] heart, angina presence unspecified I25.10 Active 1293806471834 Problem Essential hypertension I10 Active 56043338 Problem Chronic obstructive pulmonary disease, unspecified COPD type J44.9 Active 68194236 Problem Hyperlipidemia, unspecified hyperlipidemia type E78.5 Active 18228211 Problem Hypothyroidism, unspecified type E03.9 Active 75124426 ALLERGIES Substance Reaction Event Type Date Status Lisinopril cough Drug Allergy Sep, Active ENCOUNTERS Encounter Location Date Diagnosis [facility] [id number] [id number] Oct, Sciatica, left M54.32 ; Essential hypertension I10 and Chronic obstructive pulmonary disease, unspecified COPD type J44.9 [facility] [address] [id number] [id number] Sep, Sciatica, left M54.32 and DDD (degenerative disc disease), lumbar M51.36 [facility] [address]00565[address], [place] [address] Aug, [facility] [id number] [place] [id number] Aug, [facility] [address] [id number], [place] [address] Aug, [facility] [id number] [place] [address] [id number] Aug, Localized swelling, mass and lump, neck R22.1 [facility] [id number] [place] [address] [id number] July, [facility] [address] [address] July, [facility] [id number] [place] [address] [id number] July, Neck swelling R22.1 ; Lung mass R91.8 and Sciatica, left side M54.32 [facility] [id number] [place] [address] [id number] Jun, Sciatica, left side M54.32 [facility] [id number] [place] [address] [id number] May, Abnormal CXR R93.8 [facility] [id number] [place] [address] [id number] May, Abnormal CXR R93.8 [facility] [id number] [place] [address] [id number] May, Abnormal CXR R93.8 [facility] [id number] [place] [address] Apr, [facility] [id number] [place] [address] [id number] Apr, Abnormal chest xray R93.8 [facility] [id number] [place] [address] [id number] Apr, Sciatica, left side M54.32 [facility] [id number] [place] [address] [id number] Mar, Community acquired pneumonia of right lung, unspecified part of lung J18.9 ; Chronic obstructive pulmonary disease, unspecified COPD type J44.9 and Abnormal CXR R93.8 [facility] [id number] [place] [address] [id number] Mar, Community acquired pneumonia of right lower lobe of lung J18.1 [facility] [address] [id number] [address] Mar, Sciatica, left side M54.32 ; Essential hypertension I10 and Community acquired pneumonia of right lung, unspecified part of lung J18.9 [facility] [id number] [place] [address] [id number] Mar, Sciatica, left side M54.32 ; Essential hypertension I10 ; Chronic obstructive pulmonary disease, unspecified COPD type J44.9 and Community acquired pneumonia of right lung, unspecified part of lung J18.9 [id number] [place] [address] [id number] Feb, Essential hypertension I10 and Sciatica, left M54.32 [facility] [id number] [place] [address] [id number] Jan, Sciatica, left M54.32 [id number] [place] [address] [id number] Dec, Sciatica, left M54.32 ; Essential hypertension I10 ; Chronic obstructive pulmonary disease, unspecified COPD type J44.9 ; Hypothyroidism, unspecified type E03.9 and Encounter for immunization Z23 [id number] [place] [address] [id number] Nov, Sciatica, unspecified laterality M54.30 [id number] [place] [address] [id number] Oct, Hypothyroidism, unspecified type E03.9 [facility] [id number] [place] [address] [id number] Oct, Sciatica, unspecified laterality M54.30 and Hypothyroidism, unspecified type E03.9 [id number] [place] [address] [id number] Oct, [facility] [id number] [place] [address] [id number] Aug, Essential hypertension I10 and Sciatica, unspecified laterality M54.30 [id number] [place] [address] [id number] Aug, Sciatica, unspecified laterality M54.30 [address] [place] [address] [id number] Jun, Sciatica, unspecified laterality M54.30 ; Essential hypertension I10 and Chronic obstructive pulmonary disease, unspecified COPD type J44.9 [address] [place] [address] [id number] May, Chronic obstructive pulmonary disease, unspecified COPD type J44.9 ; Essential hypertension I10 ; Sciatica, unspecified laterality M54.30 ; Hypothyroidism, unspecified type E03.9 and Hyperlipidemia, unspecified hyperlipidemia type E78.5 [id number] [place] [address] [id number] May, Essential hypertension I10 [address] [place] [address] [id number] Apr, [id number] [place] [address] [id number] Apr, Essential hypertension I10 and Atherosclerosis of [place] coronary artery of [place] heart, angina presence unspecified I25.[address] [place] [address] [id number] Mar, Essential hypertension I10 and Sciatica, unspecified laterality M54.30 [address] [place] [address] [id number] Jan, [id number] [place] [address] [id number] Jan, Sciatica, unspecified laterality M54.30 ; Essential hypertension I10 ; Chronic obstructive pulmonary disease, unspecified COPD type J44.9 ; Hypothyroidism, unspecified type E03.9 and Hyperlipidemia, unspecified hyperlipidemia type E78.5 [address] [place] [address] [id number] Dec, Sciatica, unspecified laterality M54.[address] [id number] [place] [id number] Dec, Essential hypertension I10 [facility] [address] [place] [address] [id number] Dec, Essential hypertension I10 ; Sciatica, unspecified laterality M54.30 and Encounter for immunization Z23 [facility] [address] [id number], [place] [address] Nov, [facility] [place] [id number] [place] [address] [id number] Sep, Sciatica, unspecified laterality M54.30 ; Essential hypertension I10 and Chronic obstructive pulmonary disease, unspecified COPD type J44.9 [facility] [place] [id number] [place] [address] [id number] Sep, [facility] [place] [id number] [place] [address] [id number] July, [facility] [place] [id number] [place] [address] [id number] Jun, Sciatica, unspecified laterality M54.30 [facility] [place] [id number] [place] [address] [id number] May, Sciatica, unspecified laterality M54.30 [facility] [place] [id number] [place] [address] [id number] May, [facility] [place] [id number] [place] [address] [id number] Apr, Sciatica, unspecified laterality M54.30 [facility] [place] [id number] [place] [address] [id number] Apr, [facility] [place] [id number] [place] [address] [id number] Mar, Sciatica, left M54.32 [facility] [place] [id number] [place] [address] [id number] Jan, Sciatica, left M54.32 and Encounter for immunization Z23 [facility] [place] [id number] [place] [address] [id number] Dec, Sciatica, left side M54.32 [facility] [id number] [id number] Dec, [facility] [place] [id number] [place] [address] [id number] Nov, Sciatica 724.3 [facility] [address] [id number] [id number] Nov, [address] [place] [address] [id number] Nov, Sciatica 724.3 and Visual acuity reduced 369.9 [facility] [address] [place] [address] [id number] Oct, Sciatica 724.3 and Nausea 787.[address] [place] [address] [id number] Oct, Coronary atherosclerosis of unspecified type of vessel, [place] or graft 414.00 [address] [place] [address] [id number] Sep, Sciatica 724.3 and Coronary atherosclerosis of unspecified type of vessel, [place] or graft 414.00 [address] [place] [address] [id number] Sep, Coronary atherosclerosis of unspecified type of vessel, [place] or graft 414.00 and Unspecified essential hypertension 401.[address] [place] [address] [id number] Aug, Sciatica 724.3 ; Dyspepsia and other specified disorders of function of stomach 536.8 and Other abnormal blood chemistry 790.6 [address] [id number] Aug, Sciatica 724.3 ; Coronary atherosclerosis of unspecified type of vessel, [place] or graft 414.00 ; Unspecified essential hypertension 401.9 ; Palpitations 785.1 and Other abnormal blood chemistry 790.6 [address] [place] [address] [id number] July, Sciatica 724.3 and Other abnormal blood chemistry 790.6 [id number] [id number] July, [address] [id number] July, Hyperlipidemia 272.4 [facility] [place] [facility] [address] [facility] [id number], [place] [address] Jun, [facility] [place] [facility] [address] [id number] [address] Jun, [facility] [place] [facility] [address] [id number], [place] [address] May, [facility] [address] [id number] [place] [id number] May, [facility] [place] [facility] [address] [id number], [place] [address] Apr, [facility] [address] [id number] [place]ILL[place] [id number] Apr, [facility] [address] [id number] [place] [id number] Apr, [facility] [place] [facility] [address], [place] [address] Apr, [facility] [address] [id number] [place] [id number] Apr, [facility] [place] [facility] [address], [place] [address] Apr, [facility] [place] [facility] [address], [place] [address] Apr, [facility] [place] [facility] [address], [place] [address] Apr, [facility] [address] [id number] [place] [id number] Apr, [facility] [address] [id number] [place]ILL[place] [id number] Apr, [facility] [address] [id number] [place]ILL[place] [id number] Apr, [facility] [place] [facility] [address] [id number], [place] [address] Apr, [facility] [address] [facility] [id number] [place] [id number] Jan, [facility] [place] [facility] [address] [id number] [place] [address] Jan, [facility] [place] [facility] [address] [facility] [id number] [place] [address] Dec, [facility] [address] [id number] [place] [id number] Dec, [facility] [address] [id number] [place] [id number] Dec, [facility] [address] [facility] [id number] [place] [id number] Dec, [facility] [place] [facility] [address] [facility] [id number] [place] [address] Dec, [facility] [place] [facility] [address] [facility] [id number] [place] [address] Dec, [facility] [place] [facility] [address] [facility] [id number][place] [address] Nov, [facility] [address] [facility] [id number] [place] [id number] Nov, [facility] [place] [facility] [address] [facility] [id number], [place] [address] Nov, [facility] [place] [facility] [address] [facility] [id number], [place] [address] Nov, [facility] [place] [facility] [address] [facility] [id number], [place] [address] Nov, [facility] [place] [facility] [address] [facility] [id number] [place] [address] Nov, [facility] [address] [facility] [id number] [place] [id number] Nov, [facility] [place] [facility] [address] [facility] [id number] [place] [address] Nov, [facility] [place] [facility] [address] [facility] [id number], [place] [address] Sep, [facility] [address] [id number] [place] [id number] Sep, [facility] [place] [facility] [address] [id number] [place] [address] Sep, [facility] [place] [facility] [address] [id number] [place] [address] Sep, [facility] [place] [facility] [address] [id number] [place] [address] Sep, [facility] [place] [facility] [address] [id number] [place] [address] Sep, [facility] [place] [facility] [address] [id number] [place] [address] Sep, [facility] [place] [address] [facility] [id number] [place]ILL[place] [id number] Aug, [facility] [place] [facility] [address] [id number] [place] [address] Aug, [facility] [place] [facility] [address] [id number] [place] [address] Aug, [facility] [place] [facility] [address] [id number] [place] [address] Aug, [facility] [address] [facility] [id number] [place] [id number] Aug, [facility] [place] [facility] [address] [id number], [place] [address] Aug, [facility] [address] [facility] [id number] [place]ILL[place] [id number] July, [facility] [place] [facility] [address] [id number] [place] [address] July, [facility] [address] [facility] [id number] [place]ILL[place] [id number] July, [facility] [place] [facility] [address] [id number] [place] [address] July, [facility] [place] [facility] [address] [id number], [place] [address] Jun, [facility] [place] [facility] [address] [id number] [place] [address] Jun, [facility] [place] [facility] [address] [id number] [place] [address] Jun, [facility] [address] [id number] [place] [id number] Jun, [facility] [address] [id number] [place] [id number] Jun, [facility] [place] [facility] [address] [id number] [place] [address] Jun, [facility] [address] [id number] [place] [id number] Apr, [facility] [address] [facility] [id number], [place] [address] Apr, [facility] [address] [id number] [place]ILL[place] [id number] Sep, [facility] [address] [id number] [place] [id number] May, [facility] [place] [facility] [address] [facility] [id number], [place] [address] Apr, [facility] [place] [facility] [address] [facility] [id number], [place] [address] Jan, [facility] [place] [facility] [address] [id number], [place] [address] Jan, [facility] [place] [facility] [address] [id number] [place] [id number] Sep, [facility] [address] [id number] [place] [id number] Sep, [facility] [place] [facility] [address] [id number] [place] [id number] Sep, [facility] [place] [facility] [address] [id number] [place] [address] Sep, [facility] [address] [id number], [place] [address] Sep, [facility] [address] [id number] [place] [address] Jun, [facility] [address] [id number], [place] [id number] Jun, [facility] [address] [id number] [place] [id number] 30 May, 2011 [facility] [address] [id number], [place] [id number] May, [facility] [address] [id number] [place] [id number] May, [facility] [address] [id number] [place] [id number] May, [facility] [address] [id number] [place] [id number] 24 May, 2011 [facility] [address] [id number] [place] [id number] May, [facility] [address] [id number] [place] [id number] May, [facility] [address] [id number] [place] [id number] 19 May, 2011 [facility] [address] [id number] [place]ILL[place] [id number] 15 May, 2011 [facility] [address] [id number] [place]ILL[place] [id number] 14 May, 2011 [facility] [address] [id number], [place] 7108[address]32 May, [facility] [address] [id number], [place] [address] May, [facility] [place] [facility] [address] [id number], [place] [id number] Apr, [facility] [address] [id number], [place] [address] Apr, [facility] [place] [facility] [address] [id number] [place] [id number] Mar, [facility] [place] [facility] [address] [id number] [place] [address] 30 Feb, 2011 [facility] [place] [facility] [address] [id number] [place] [address] 23 Feb, 2011 [facility] [place] [facility] [address] [id number] [place] [address] 15 Feb, 2011 [facility] [place] [facility] [address] [id number] [place] [address] 06 Feb, 2011 [facility] [place] [facility] [address] [id number] [place] [address] Feb, [facility] [place] [facility] [address] [id number] [place] [address] Feb, [facility] [address] [id number] [place] [address] Jan, [facility] [address] [id number] [place] [address] Feb, [facility] [place] [facility] [address] [id number] [place] [address] Feb, [facility] [place] [facility] [address] [id number] [place] [address] Feb, [facility] [place] [facility] [address] [id number] [place] [address] Jan, [facility] [place] [facility] [address] [id number] [place] [address] 29 Dec, 2009 [facility] [place] [facility] [address] [id number] [place] [address] Dec, [facility] [place] [facility] [address] [id number] [place] [address] Jun, [facility] [place] [facility] [address] [id number] [place] [address] Jun, [facility] [address] [facility] [id number], [place] [address] Feb, [facility] [address] [facility] [id number], [place] [address] Dec, [facility] [address] [facility] [id number], [place] [address] July, [facility] [address] [facility] [id number], [place] [address] Dec, IMMUNIZATIONS No Known Immunizations SOCIAL HISTORY Never Assessed REASON FOR VISIT Ultrasound f/u Brent [facility] PLAN OF CARE Activity Details Follow Up 4 Weeks Reason:back pain VITAL SIGNS Height 60 in 2017-09-30 Weight 171.4 lbs 2017-09-30 Temperature 97.6 degrees Fahrenheit 2017-09-30 Heart Rate 80 bpm 2017-09-30 Respiratory Rate 16 2017-09-30 BMI 33.47 kg/m2 2017-09-30 Blood pressure systolic 138 mmHg 2017-09-30 Blood pressure diastolic 72 mmHg 2017-09-30 MEDICATIONS Medication Instructions Dosage Frequency Start Date End Date Duration Status Cymbalta 60 mg Orally 2 times a day TAKE ONE (1) CAPSULE BY MOUTH TWICE DAILY... 12h 30 days Active Levothyroxine Sodium 25 MCG Orally Once a day 1 tablet on an empty stomach in the morning 24h 0 Active Aspirin 81 mg chew 1 tablet (81 mg) by oral route once daily May, Active Naproxen 500 mg Orally every 12 hrs 1 tablet with food or milk as needed 12h Sep, Active Gabapentin 800 MG Orally 3 times a day 1 capsule 8h Active Spiriva HandiHaler 18 MCG Inhalation Once a day 1 capsule 24h Active Prilosec 40 MG TAKE ONE (1) CAPSULE BY MOUTH ONCE DAILY... Active Atorvastatin Calcium 20 mg Orally Once a day 1 tablet 24h Active Amlodipine Besylate 2.5 MG Orally Once a day 1 tablet 24h Active Toprol XL 50 mg Orally 2 times a day 1.5 tablet 12h Active Albuterol Sulfate 108 (90 Base) mcg/act Inhalation 4 times a day 2 puffs 6h Dec, Active Montelukast Sodium 10 MG Orally Once a day 1 tablet in the evening 24h Active Tramadol HCl 50 mg Orally 3 times a day as needed must last 28 days 1-2 tablet July, Active Breo Ellipta 200-25 MCG/INH Inhalation Once a day 1 puff 24h Active RESULTS No Results PROCEDURES No Known [...]
--- OUTSIDE RECORDS SUMMARY | 2018-09-20 13:44 | XMS REPORT ---
Author Author ALEXANDRO BELLE [facility] Address [address] [place] [address] Care Team Providers Care Applied Behavior Science Specialist Name Role Phone ALEXANDRO BELLE Unavailable PROBLEMS Type Condition ICD9-CM Code FLA46-QE Code Onset Dates Condition Status SNOMED Code Problem Sciatica, left side M54.32 Active 97222981 Problem Sciatica, unspecified laterality M54.30 Active 70014814 Problem Sciatica, left M54.32 Active 49518503 Problem Dyspepsia and other specified disorders of function of stomach 536.8 Active 194597016 Problem DDD (degenerative disc disease), lumbar M51.36 Active 59163059 Problem Atherosclerosis of lower sioux coronary artery of lower sioux heart, angina presence unspecified I25.10 Active 5361793824568 Problem Essential hypertension I10 Active 86223085 Problem Chronic obstructive pulmonary disease, unspecified COPD type J44.9 Active 34253393 Problem Hyperlipidemia, unspecified hyperlipidemia type E78.5 Active 32192443 Problem Hypothyroidism, unspecified type E03.9 Active 65289789 ALLERGIES No Information ENCOUNTERS Encounter Location Date Diagnosis [facility] [id number] [place] [address] [id number] Oct, Sciatica, left M54.32 ; Essential hypertension I10 and Chronic obstructive pulmonary disease, unspecified COPD type J44.9 [facility] [id number] [place] [address] [id number] Sep, Sciatica, left M54.32 and DDD (degenerative disc disease), lumbar M51.36 [address] [id number] [place] [address] Aug, [facility] [id number] [place] [address] [id number], [facility] [id number] [place] [address] Aug, [facility] [id number] [id number] Aug, Localized swelling, mass and lump, neck R22.1 [facility] [id number] [place] [address] [id number] July, [facility] [id number] [place] [address] July, [facility] [id number] [place] [address] [id number] July, Neck swelling R22.1 ; Lung mass R91.8 and Sciatica, left side M54.32 [facility] [id number] [place] [address] [id number] Jun, Sciatica, left side M54.32 [facility] [id number] [place] [address] [id number] May, Abnormal CXR R93.8 [facility] [id number] [place] [address] [id number] May, Abnormal CXR R93.8 [facility] [id number] [place] [address] [id number] May, Abnormal CXR R93.8 [facility] [id number] [place] [address] Apr, [facility] [id number] [place] [address] [id number] Apr, Abnormal chest xray R93.8 [facility] [id number] [place] [address] [id number] Apr, Sciatica, left side M54.32 [facility] [id number] [place] [address] [id number] Mar, Community acquired pneumonia of right lung, unspecified part of lung J18.9 ; Chronic obstructive pulmonary disease, unspecified COPD type J44.9 and Abnormal CXR R93.8 [facility] [id number][place] [id number] Mar, Community acquired pneumonia of right lower lobe of lung J18.1 [facility] [address]005[address]100[place] [address] Mar, Sciatica, left side M54.32 ; Essential hypertension I10 and Community acquired pneumonia of right lung, unspecified part of lung J18.9 [facility] [id number], [place] [id number] Mar, Sciatica, left side M54.32 ; Essential hypertension I10 ; Chronic obstructive pulmonary disease, unspecified COPD type J44.9 and Community acquired pneumonia of right lung, unspecified part of lung J18.9 [facility] [id number] [place] [address], [place] [id number] Feb, Essential hypertension I10 and Sciatica, left M54.32 [facility] [id number] [place] [address] [id number] Jan, Sciatica, left M54.32 [id number] [place] [address] [id number] Dec, Sciatica, left M54.32 ; Essential hypertension I10 ; Chronic obstructive pulmonary disease, unspecified COPD type J44.9 ; Hypothyroidism, unspecified type E03.9 and Encounter for immunization Z23 [address] [id number] [place] [address] [id number] Nov, Sciatica, unspecified laterality M54.30 [address] [address] [place] [address] [id number] Oct, Hypothyroidism, unspecified type E03.9 [place] [address] [place] [address] [id number] Oct, Sciatica, unspecified laterality M54.30 and Hypothyroidism, unspecified type E03.[address] [place] [address] [id number] Oct, [place] [address] [place] [address] [id number] Aug, Essential hypertension I10 and Sciatica, unspecified laterality M54.30 [address] [address] [place] [address] [id number] Aug, Sciatica, unspecified laterality M54.30 [facility] [id number], [place] [id number] Jun, Sciatica, unspecified laterality M54.30 ; Essential hypertension I10 and Chronic obstructive pulmonary disease, unspecified COPD type J44.9 [facility] [id number], [place] [id number] May, Chronic obstructive pulmonary disease, unspecified COPD type J44.9 ; Essential hypertension I10 ; Sciatica, unspecified laterality M54.30 ; Hypothyroidism, unspecified type E03.9 and Hyperlipidemia, unspecified hyperlipidemia type E78.5 [facility] [id number] [place] [address] [id number] May, Essential hypertension I10 [facility] [id number] [place] [address] [id number] Apr, [facility] [id number] [place] [address] [id number] Apr, Essential hypertension I10 and Atherosclerosis of lower sioux coronary artery of lower sioux heart, angina presence unspecified I25.10 [facility] [id number], [place] [id number] Mar, Essential hypertension I10 and Sciatica, unspecified laterality M54.30 [place] [id number], [place] [id number] Jan, [facility] [id number], [place] [id number] Jan, Sciatica, unspecified laterality M54.30 ; Essential hypertension I10 ; Chronic obstructive pulmonary disease, unspecified COPD type J44.9 ; Hypothyroidism, unspecified type E03.9 and Hyperlipidemia, unspecified hyperlipidemia type E78.5 [facility] [address] [facility] [id number][place] [id number] Dec, Sciatica, unspecified laterality M54.[address] [id number] [id number] Dec, Essential hypertension I10 [facility] [id number], [place] [id number] Dec, Essential hypertension I10 ; Sciatica, unspecified laterality M54.30 and Encounter for immunization Z23 [facility] [address]005[address]100[place] [address] Nov, [place] [id number] [place] [address] [id number] Sep, Sciatica, unspecified laterality M54.30 ; Essential hypertension I10 and Chronic obstructive pulmonary disease, unspecified COPD type J44.9 [facility] [id number] [place] [address] [id number] Sep, [facility] [id number] [place] [address] [id number] July, [facility] [id number] [place] [address] [id number] Jun, Sciatica, unspecified laterality M54.30 [facility] [id number] [place] [address] [id number] May, Sciatica, unspecified laterality M54.30 [facility] [id number] [place] [address] [id number] May, [facility] [id number] [place] [address] [id number] Apr, Sciatica, unspecified laterality M54.30 [facility] [id number] [place] [address] [id number] Apr, [place] [id number] [place] [address] [id number] Mar, Sciatica, left M54.32 [place] [id number], [place] [id number] Jan, Encounter for immunization Z23 and Sciatica, left M54.32 [facility] [id number], [place] [id number] Dec, Sciatica, left side M54.32 Karen [place] [address]00565100[place] [id number] Dec, [facility] [id number], [place] [id number] Nov, Sciatica 724.3 [facility] [place] [address] [id number], [place] [id number] Nov, [facility] [place] [id number], [place] [id number] Nov, Sciatica 724.3 and Visual acuity reduced 369.9 [facility] [address]00565100[place] [id number] Oct, Sciatica 724.3 and Nausea 787.02 [address]00565100[place] [id number] Oct, Coronary atherosclerosis of unspecified type of vessel, lower sioux or graft 414.[address] [place] [address] [id number] Sep, Sciatica 724.3 and Coronary atherosclerosis of unspecified type of vessel, lower sioux or graft 414.[address] [place] [address] [id number] Sep, Coronary atherosclerosis of unspecified type of vessel, lower sioux or graft 414.00 and Unspecified essential hypertension 401.9 [address]00565100[place] [id number] Aug, Sciatica 724.3 ; Dyspepsia and other specified disorders of function of stomach 536.8 and Other abnormal blood chemistry 790.6 [address]00565100[place] [id number] Aug, Sciatica 724.3 ; Coronary atherosclerosis of unspecified type of vessel, lower sioux or graft 414.00 ; Unspecified essential hypertension 401.9 ; Palpitations 785.1 and Other abnormal blood chemistry 790.6 [address]00565100[place], [place] [id number] July, Sciatica 724.3 and Other abnormal blood chemistry 790.6 [place] [id number] [id number] July, [place] [id number] [id number] July, Hyperlipidemia 272.4 [facility] [address] [id number] [address] 14 Jun, 2014 [facility] [place] [facility] [address] [facility] [id number] [place] [address] Jun, [facility] [place] [facility] [address] [id number] [address] May, [facility] [address] [id number], [place] [id number] May, [facility] [place] [facility] [address] [id number] [address] Apr, [facility] [address] [facility] [id number], [place] [id number] Apr, [facility] [id number] [place] [address] [id number] Apr, [facility] [place] [facility] [address]00565100[place] [address] Apr, [facility] [id number], [place] [id number] Apr, [facility] [place] [facility] [address]005[address]100[place] [address] Apr, [facility] [place] [facility] [address]005[address]100[place] [address] Apr, 2014 [facility] [place] [facility] [address]00565100[place] [address] Apr, 2014 [facility] [address] [id number], [place] [id number] Apr, [facility] [address] [id number], [place] 945626431 Apr, [facility] [id number], [place] [id number] Apr, [facility] [place] [facility] [address] [id number] [address] Apr, [facility] [id number], [place] [id number] Jan, [facility] [place] [facility] [address] [id number] [place] [address] Jan, [facility] [place] [facility] [address] [id number] [place] [address] Dec, [facility] [address] [id number] [place] [id number] Dec, [facility] [address] [id number] [place] [id number] Dec, [facility] [address] [id number] [place] [id number] Dec, [facility] [place] [facility] [address] [facility] [id number] [place] [address] Dec, [facility] [place] [facility] [address] [facility] [id number] [place] [address] Dec, [facility] [place] [facility] [address] [facility] [id number] [place] [address] Nov, [facility] [address] [facility] [id number], [place] 078808055 Nov, [facility] [place] [facility] [address] [facility] [id number] [address] Nov, [facility] [place] [facility] [address] [facility] [id number] [place] [address] Nov, [facility] [place] [facility] [address] [facility] [id number] [address] Nov, [facility] [place] [facility] [address] [facility] [id number] [address] Nov, [facility] [address] [facility] [id number], [place] [id number] Nov, [facility] [place] [facility] [address] [facility] [id number] [place] [address] Nov, [facility] [place] [facility] [address] [facility] [id number] [address] Sep, [facility] [address] [id number] [place] [id number] Sep, [facility] [place] [facility] [address] [id number] [place] [address] Sep, [facility] [place] [facility] [address] [facility] [id number] [place] [address] Sep, [facility] [place] [facility] [address] [id number] [place] [address] Sep, [facility] [place] [facility] [address] [facility] [id number] [place] [address] Sep, [facility] [place] [facility] [address] [id number] [place] [address] Sep, [facility] [address] [facility] [id number], [place] [id number] Aug, [facility] [place] [facility] [address] [facility] [id number] [place] [address] Aug, [facility] [place] [facility] [address] [facility] [id number] [place] [address] Aug, [facility] [place] [facility] [address] [facility] [id number] [address] Aug, [facility] [address] [facility] [id number], [place] [id number] Aug, [facility] [place] [facility] [address] [facility] [id number] [place] [address] Aug, [facility] [address] [facility] [id number], [place] [id number] July, [facility] [place] [facility] [address] [facility] [id number] [place] [address] July, [facility] [address] [facility] [id number], [place] [id number] July, [facility] [place] [facility] [address] [id number] [place] [address] July, [facility] [place] [facility] [address] [facility] [id number] [place] [address] Jun, [facility] [place] [facility] [address] [id number] [place] [address] Jun, [facility] [place] [facility] [address] [id number] [place] [address] Jun, [facility] [address] [id number] [place] [id number] Jun, [facility] [address] [id number] [place] [id number] Jun, [facility] [place] [facility] [address] [id number] [place] [address] Jun, [facility] [address] [id number] [place] [id number] Apr, [facility] [place] [facility] [address] [id number] [place] [address] Apr, [facility] [address] [id number] [place] 366065582 Sep, [facility] [address] [id number] [place] 613751405 May, [facility] [place] [facility] [address] [id number] [place] [address] Apr, [facility] [place] [facility] [address] [id number] [place] [address] Jan, [facility] [place] [facility] [address] [id number] [place] [address] Jan, [facility] [place] [facility] [address] [id number] 534828883 Sep, [facility] [address] [id number] [place] 333171104 Sep, [facility] [place] [facility] [address] [id number], [place] 8[address] Sep, [facility] [place] [facility] [address] [id number] [place] [address] Sep, [facility] [place] [facility] [address] [id number] [place] [address] Sep, [facility] [address] [id number] [place] [address] Jun, [facility] [place] [facility] [address] [id number] [place] [id number] Jun, [facility] [address] [id number] [place] [id number] 30 May, 2011 [facility] [address] [id number] [place] [id number] May, [facility] [address] [id number] [place] 913280300 May, [facility] [address] [id number] [place] [id number] May, [facility] [address] [id number] [place] 398350342 May, [facility] [address] [id number] [place] 754500400 May, [facility] [address] [id number] [place] 202254298 May, [facility] [address] [id number] [place] 556162404 19 May, 2011 [facility] [address] [id number], [place] [id number] 15 May, 2011 [facility] [address] [id number], [place] [id number] 14 May, 2011 [facility] [place] [facility] [address] [id number] [place] 420573986 May, [facility] [place] [facility] [address] [id number] [place] [address] May, [facility] [place] [facility] [address] [id number] [place] [id number] Apr, [facility] [place] [facility] [address] [id number] [place] [address] Apr, [facility] [address] [id number] [place] [id number] 05 Mar, 2011 [facility] [address] [id number] [place] [address] 30 Feb, 2011 [facility] [place] [facility] [address] [id number] [place] [address] 23 Feb, 2011 [facility] [place] [facility] [address] [id number] [place] [address] 15 Feb, 2011 [facility] [place] [facility] [address] [id number] [place] [address] 06 Feb, 2011 [facility] [place] [facility] [address] [id number] [place] [address] Feb, [facility] [place] [facility] [address] [id number] [place] [address] Feb, [facility] [place] [facility] [address] [id number] [place] [address] Jan, [facility] [place] [facility] [address] [id number] [place] [address] 27 Feb, 2010 [facility] [place] [facility] [address] [id number] [place] [address] 16 Feb, 2010 [facility] [place] [facility] [address] [id number] [place] [address] 16 Feb, 2010 [facility] [place] [facility] [address] [id number] [place] [address] Jan, [facility] [place] [facility] [address] [id number] [place] [address] 29 Dec, 2009 [facility] [place] [facility] [address] [id number] [place] [address] Dec, [facility] [place] [facility] [address] [id number] [place] [address] Jun, [facility] [place] [facility] [address] [id number] [place] [address] 12 Jun, 2009 [facility] [place] [facility] [address] [facility] [id number] [place] [address] Feb, [facility] [address] [facility] [id number] [place] [address] Dec, [facility] [address] [facility] [id number] [place] [address] July, [facility] [address] [facility] [id number] [place] [address] Dec, IMMUNIZATIONS No Known Immunizations SOCIAL HISTORY Never Assessed REASON FOR VISIT ultrasound results PLAN OF CARE VITAL SIGNS MEDICATIONS No [...]
--- OUTSIDE RECORDS SUMMARY | 2018-09-20 13:45 | XMS REPORT ---
Author Author ALEXANDRO BLELE [facility] Address [address] [place] [address] Care Team Providers Care Butcherette Name Role Phone ALEXANDRO BELLE Unavailable PROBLEMS Type Condition ICD9-CM Code [id number] Code Onset Dates Condition Status SNOMED Code Problem Sciatica, left side M54.32 Active 60266043 Problem Sciatica, unspecified laterality M54.30 Active 87972585 Problem Sciatica, left M54.32 Active 79770725 Problem Dyspepsia and other specified disorders of function of stomach 536.8 Active 830641645 Problem DDD (degenerative disc disease), lumbar M51.36 Active 89768928 Problem Atherosclerosis of chehal[place] coronary artery of [place] heart, angina presence unspecified I25.10 Active 0880775537149 Problem Essential hypertension I10 Active 10925201 Problem Chronic obstructive pulmonary disease, unspecified COPD type J44.9 Active 69005966 Problem Hyperlipidemia, unspecified hyperlipidemia type E78.5 Active 34180491 Problem Hypothyroidism, unspecified type E03.9 Active 00507075 ALLERGIES No Information ENCOUNTERS Encounter Location Date Diagnosis [facility] [id number] [place] [address] [id number] Oct, Sciatica, left M54.32 ; Essential hypertension I10 and Chronic obstructive pulmonary disease, unspecified COPD type J44.9 [facility] [id number] [place] [address] [id number] Sep, Sciatica, left M54.32 and DDD (degenerative disc disease), lumbar M51.36 [place] [id number] [place] [address] Aug, [facility] [id number] [place] [address] [id number] Aug, [facility] [id number] [place] [address] Aug, [facility] [id number], [place] [id number] Aug, Localized swelling, mass and lump, neck R22.1 [facility] [id number] [place] [address] [id number] July, [facility] [id number] [place] [address] July, [facility] [id number] [place] [address] [id number] July, Neck swelling R22.1 ; Lung mass R91.8 and Sciatica, left side M54.32 [facility] [id number] [place] [address] [id number] Jun, Sciatica, left side M54.32 [facility] [id number] [place] [address] [id number] May, Abnormal CXR R93.8 [facility] [id number] [place] [address] [id number] May, Abnormal CXR R93.8 [facility] [id number] [place] [address] [id number] May, Abnormal CXR R93.8 [facility] [id number] [place] [address] Apr, [facility] [id number] [place] [address] [id number] Apr, Abnormal chest xray R93.8 [facility] [id number] [place] [address] [id number] Apr, Sciatica, left side M54.32 [facility] [id number] [place] [address] [id number] Mar, Community acquired pneumonia of right lung, unspecified part of lung J18.9 ; Chronic obstructive pulmonary disease, unspecified COPD type J44.9 and Abnormal CXR R93.8 [facility] [id number], [place] [id number] Mar, Community acquired pneumonia of right lower lobe of lung J18.1 [facility] [address]005[address]100[place] [address] Mar, Sciatica, left side M54.32 ; Essential hypertension I10 and Community acquired pneumonia of right lung, unspecified part of lung J18.9 [facility] [id number], [place] [id number] Mar, Sciatica, left side M54.32 ; Essential hypertension I10 ; Chronic obstructive pulmonary disease, unspecified COPD type J44.9 and Community acquired pneumonia of right lung, unspecified part of lung J18.9 [facility] [id number] [place] [address], [place] [id number] Feb, Essential hypertension I10 and Sciatica, left M54.32 [facility] [id number] [place] [address] [id number] Jan, Sciatica, left M54.32 [place] [id number] [place] [address] [id number] Dec, Sciatica, left M54.32 ; Essential hypertension I10 ; Chronic obstructive pulmonary disease, unspecified COPD type J44.9 ; Hypothyroidism, unspecified type E03.9 and Encounter for immunization Z23 [place] [id number] [place] [address] [id number] Nov, Sciatica, unspecified laterality M54.30 [place] [id number] [place] [address] [id number] Oct, Hypothyroidism, unspecified type E03.9 [place] [id number] [place] [address] [id number] Oct, Sciatica, unspecified laterality M54.30 and Hypothyroidism, unspecified type E03.9 [address] [place] [address] [id number] Oct, [place] [id number] [place] [address] [id number] Aug, Essential hypertension I10 and Sciatica, unspecified laterality M54.30 [place] [id number] [place] [address] [id number] Aug, Sciatica, unspecified laterality M54.30 [facility] [id number], [place] [id number] Jun, Sciatica, unspecified laterality M54.30 ; Essential hypertension I10 and Chronic obstructive pulmonary disease, unspecified COPD type J44.9 [facility] [id number], [place] [id number] May, Chronic obstructive pulmonary disease, unspecified COPD type J44.9 ; Essential hypertension I10 ; Sciatica, unspecified laterality M54.30 ; Hypothyroidism, unspecified type E03.9 and Hyperlipidemia, unspecified hyperlipidemia type E78.5 [facility] [id number] [place] [address] [id number] May, Essential hypertension I10 [facility] [id number] [place] [address] [id number] Apr, [facility] [id number] [place] [address] [id number] Apr, Essential hypertension I10 and Atherosclerosis of chehalis coronary artery of chehalis heart, angina presence unspecified I25.10 [facility] [id number], [place] [id number] Mar, Essential hypertension I10 and Sciatica, unspecified laterality M54.30 [place] [id number], [place] [id number] Jan, [facility] [id number], [place] [id number] Jan, Sciatica, unspecified laterality M54.30 ; Essential hypertension I10 ; Chronic obstructive pulmonary disease, unspecified COPD type J44.9 ; Hypothyroidism, unspecified type E03.9 and Hyperlipidemia, unspecified hyperlipidemia type E78.5 [facility] [address] [facility] [id number][place] [id number] Dec, Sciatica, unspecified laterality M54.[address] [id number] [id number] Dec, Essential hypertension I10 [facility] [id number], [place] [id number] Dec, Essential hypertension I10 ; Sciatica, unspecified laterality M54.30 and Encounter for immunization Z23 [facility] [address]00565100[place], [place] [address] Nov, [place] [id number] [place] [address] [id number] Sep, Sciatica, unspecified laterality M54.30 ; Essential hypertension I10 and Chronic obstructive pulmonary disease, unspecified COPD type J44.9 [facility] [id number] [place] [address] [id number] Sep, [facility] [id number] [place] [address] [id number] July, [facility] [id number] [place] [address] [id number] Jun, Sciatica, unspecified laterality M54.30 [facility] [id number] [place] [address] [id number] May, Sciatica, unspecified laterality M54.30 [facility] [id number] [place] [address] [id number] May, [facility] [id number] [place] [address] [id number] Apr, Sciatica, unspecified laterality M54.30 [facility] [id number] [place] [address] [id number] Apr, [place] [id number] [place] [address] [id number] Mar, Sciatica, left M54.32 [place] [id number], [place] [id number] Jan, Encounter for immunization Z23 and Sciatica, left M54.32 [facility] [id number], [place] [id number] Dec, Sciatica, left side M54.32 Karen [facility] [address]00565100[place] [id number] Dec, [facility] [id number], [place] [id number] Nov, Sciatica 724.3 [facility] [address] [id number] [id number] Nov, [facility] [place] [id number], [place] [id number] Nov, Sciatica 724.3 and Visual acuity reduced 369.9 [facility] [place] [address]00565100[place], [place] [id number] Oct, Sciatica 724.3 and Nausea 787.02 [address]00565100[place], [place] [id number] Oct, Coronary atherosclerosis of unspecified type of vessel, chehalis or graft 414.00 [address] [place] [address] [id number] Sep, Sciatica 724.3 and Coronary atherosclerosis of unspecified type of vessel, che[place] or graft 414.00 [address] [place] [address] [id number] Sep, Coronary atherosclerosis of unspecified type of vessel, chehalis or graft 414.00 and Unspecified essential hypertension 401.9 [address]00565100[place], [place] [id number] Aug, Sciatica 724.3 ; Dyspepsia and other specified disorders of function of stomach 536.8 and Other abnormal blood chemistry 790.6 [address]00565100[place], [place] [id number] Aug, Sciatica 724.3 ; Coronary atherosclerosis of unspecified type of vessel, chehalis or graft 414.00 ; Unspecified essential hypertension 401.9 ; Palpitations 785.1 and Other abnormal blood chemistry 790.6 [address]00565100[place], [place] [id number] July, Sciatica 724.3 and Other abnormal blood chemistry 790.6 [place] [id number] [id number] July, [place] [id number] [id number] July, Hyperlipidemia 272.4 [facility] [address] [id number], [place] [address] 14 Jun, 2014 [facility] [place] [facility] [address] [facility] [facility] [id number], [place] [address] Jun, [facility] [place] [facility] [address] [id number], [place] [address] May, [facility] [address] [address] [id number], [place] [id number] May, [facility] [place] [facility] [address] [id number], [place] [address] Apr, [facility] [address] [facility] [id number], [place] [id number] Apr, [facility] [id number] [place] [address] [id number] Apr, [facility] [place] [facility] [address]00565100[place], [place] [address] Apr, [facility] [id number], [place] [id number] Apr, [facility] [place] [facility] [address]00565100[place], [place] [address] Apr, [facility] [place] [facility] [address]00565100[place], [place] [address] Apr, 2014 [facility] [place] [facility] [address]00565100[place], [place] [address] Apr, 2014 [facility] [address] [id number], [place] [id number] Apr, [facility] [address] [id number], [place] 766294569 Apr, [facility] [id number], [place] [id number] Apr, [facility] [place] [facility] [address] [id number], [place] [address] Apr, [facility] [id number], [place] [id number] Jan, [facility] [place] [facility] [address] [id number], [place] [address] Jan, [facility] [place] [facility] [address] [id number] [place] [address] Dec, [facility] [place] [address] [id number] [place] [id number] Dec, [facility] [address] [id number] [place] 862[address] Dec, [facility] [place] [address] [id number] [place] 823703907 Dec, [facility] [place] [facility] [address] [facility] [facility] [id number] [place] [address] Dec, [facility] [place] [facility] [address] [facility] [id number], [place] [address] Dec, [facility] [place] [facility] [address] [facility] [id number][place] [address] Nov, [facility] [address] [facility] [id number], [place] [id number] Nov, [facility] [place] [facility] [address] [facility] [id number], [place] [address] Nov, [facility] [place] [facility] [address] [facility] [id number], [place] [address] Nov, [facility] [place] [facility] [address] [facility] [id number], [place] [address] Nov, [facility] [place] [facility] [address] [facility] [id number], [place] [address] Nov, [facility] [address] [facility] [id number], [place] [id number] Nov, [facility] [place] [facility] [address] [id number], [place] [address] Nov, [facility] [place] [facility] [address] [id number], [place] [address] Sep, [facility] [address] [id number] [place] [id number] Sep, [facility] [place] [facility] [address] [id number] [place] [address] Sep, [facility] [place] [facility] [address] [facility] [id number] [place] [address] Sep, [facility] [place] [facility] [address] [id number] [place] [address] Sep, [facility] [place] [facility] [address] [facility] [id number] [place] [address] Sep, [facility] [place] [facility] [address] [id number] [place] [address] Sep, [facility] [address] [facility] [id number], [place] [id number] Aug, [facility] [place] [facility] [address] [facility] [id number], [place] [address] Aug, [facility] [place] [facility] [address] [facility] [id number], [place] [address] Aug, [facility] [place] [facility] [address] [id number], [place] [address] Aug, [facility] [address] [facility] [id number], [place] 457783190 Aug, [facility] [place] [facility] [address] [id number], [place] [address] Aug, [facility] [address] [facility] [id number], [place] 052173399 July, [facility] [place] [facility] [address] [facility] [id number], [place] [address] July, [facility] [place] 120 [facility] [id number], [place] [id number] July, [facility] [place] [facility] [address] [id number] [place] [address] July, [facility] [place] [facility] [address] [facility] [id number], [place] [address] Jun, [facility] [place] [facility] [address] [id number] [place] [address] Jun, [facility] [place] [facility] [address] [id number] [place] [address] Jun, [facility] [address] [id number] [place] [id number] Jun, [facility] [address] [id number] [place] 021793587 Jun, [facility] [place] [facility] [address] [id number] [place] [address] Jun, [facility] [address] [id number] [place] 015575011 Apr, [facility] [place] [facility] [address] [id number] [place] [address] Apr, [facility] [address] [id number] [place] 235367772 Sep, [facility] [address] [id number] [place] 653627120 May, [facility] [place] [facility] [address] [id number] [place] [address] Apr, [facility] [place] [facility] [address] [id number], [place] [address] Jan, [facility] [place] [facility] [address] [id number], [place] [address] Jan, [facility] [place] [facility] [address] [id number], [place] 594650779 Sep, [facility] [address] [id number] [place] 014788983 Sep, [facility] [place] [facility] [id number] 018137895 Sep, [facility] [place] [facility] [address] [id number] [place] [address] Sep, [facility] [place] [facility] [address] [id number], [place] [address] Sep, [facility] [address] [id number], [place] [address] Jun, [facility] [place] [facility] [address] [id number], [place] 598065936 Jun, [facility] [address] [id number] [place] [id number] 30 May, 2011 [facility] [address] [id number], [place] 335211196 May, [facility] [address] [id number] [place] 451832013 May, [facility] [address] [id number] [place] 572092594 May, [facility] [address] [id number] [place] 052260289 May, [facility] [address] [id number] [place] 472700081 May, [facility] [address] [id number] [place] 637396898 May, [facility] [address] [id number] [place] [id number] 19 May, 2011 [facility] [address] [id number], [place] 821167864 15 May, 2011 [facility] [address] [id number], [place] 6213[address]185 14 May, 2011 [facility] [place] [facility] [address] [id number], [place] 985184472 May, [facility] [place] [facility] [address] [id number], [place] [address] May, [facility] [place] [facility] [address] [id number], [place] 523881306 Apr, [facility] [place] [facility] [address] [id number], [place] [address] Apr, [facility] [address] [id number], [place] [id number] 05 Mar, 2011 [facility] [address] [id number] [place] [address] 30 Feb, 2011 [facility] [place] [facility] [address] [id number] [place] [address] 23 Feb, 2011 [facility] [place] [facility] [address] [id number] [place] [address] 15 Feb, 2011 [facility] [place] [facility] [address] [id number] [place] [address] 06 Feb, 2011 [facility] [place] [facility] [address] [id number] [place] [address] Feb, [facility] [place] [facility] [address] [id number] [place] [address] Feb, [facility] [place] [facility] [address] [id number] [place] [address] Jan, [facility] [place] [facility] [address] [id number] [place] [address] 27 Feb, 2010 [facility] [place] [facility] [address] [id number] [place] [address] 16 Feb, 2010 [facility] [place] [facility] [address] [id number] [place] [address] 16 Feb, 2010 [facility] [place] [facility] [address] [id number] [place] [address] Jan, [facility] [place] [facility] [address] [id number] [place] [address] 29 Dec, 2009 [facility] [place] [facility] [address] [id number] [place] [address] Dec, [facility] [place] [facility] [address] [id number] [place] [address] Jun, [facility] [place] [facility] [address] [id number] [place] [address] 12 Jun, 2009 [facility] [place] [facility] [address] [facility] [id number] [place] [address] Feb, [facility] [address] [facility] [facility] [id number] [place] [address] Dec, [facility] [address] [facility] [id number] [place] [address] July, [facility] [address] [facility] [facility] [id number] [place] [address] Dec, IMMUNIZATIONS No Known Immunizations SOCIAL HISTORY Never Assessed REASON FOR VISIT Spiriva may need to be changed due to insruance PLAN OF CARE VITAL SIGNS MEDICATIONS No [...]
--- OUTSIDE RECORDS SUMMARY | 2018-09-20 13:45 | XMS REPORT ---
Author Author ALEXANDRO BELLE [facility] Address [address] [place] [address] Care Team Providers Care Coil Former Name Role Phone ALEXANDRO BELLE Unavailable PROBLEMS Type Condition ICD9-CM Code ZTU68-LE Code Onset Dates Condition Status SNOMED Code Problem Sciatica, left side M54.32 Active 55450912 Problem Sciatica, unspecified laterality M54.30 Active 63031085 Problem Sciatica, left M54.32 Active 70204498 Problem Dyspepsia and other specified disorders of function of stomach 536.8 Active 771526135 Problem DDD (degenerative disc disease), lumbar M51.36 Active 16251973 Problem Atherosclerosis of [place] coronary artery of [place] heart, angina presence unspecified I25.10 Active 7994930079699 Problem Essential hypertension I10 Active 37824962 Problem Chronic obstructive pulmonary disease, unspecified COPD type J44.9 Active 71123266 Problem Hyperlipidemia, unspecified hyperlipidemia type E78.5 Active 18584876 Problem Hypothyroidism, unspecified type E03.9 Active 19665488 ALLERGIES Substance Reaction Event Type Date Status Lisinopril cough Drug Allergy Aug, Active ENCOUNTERS Encounter Location Date Diagnosis [facility] [id number] [id number] Oct, Sciatica, left M54.32 ; Essential hypertension I10 and Chronic obstructive pulmonary disease, unspecified COPD type J44.9 [facility] [address] [id number] [id number] Sep, Sciatica, left M54.32 and DDD (degenerative disc disease), lumbar M51.36 [facility] [address], [place] [address] Aug, [facility] [id number] [id number] Aug, [facility] [address] [id number], [place] [address] Aug, [facility] [id number] [place] [address] [id number] Aug, Localized swelling, mass and lump, neck R22.1 [facility] [id number] [place] [address] [id number] July, [facility] [address] [address] July, [facility] [id number] [place] [address] [id number] July, Neck swelling R22.1 ; Lung mass R91.8 and Sciatica, left side M54.32 [facility] [id number] [place] [address] [id number] Jun, Sciatica, left side M54.32 [facility] [id number] [place] [address] [id number] May, Abnormal CXR R93.8 [facility] [id number] [place] [address] [id number] May, Abnormal CXR R93.8 [facility] [id number] [place] [address] [id number] May, Abnormal CXR R93.8 [facility] [address] [place] [address] Apr, [facility] [id number] [place] [address] [id number] Apr, Abnormal chest xray R93.8 [facility] [id number] [place] [address] [id number] Apr, Sciatica, left side M54.32 [facility] [id number] [place] [address] [id number] Mar, Community acquired pneumonia of right lung, unspecified part of lung J18.9 ; Chronic obstructive pulmonary disease, unspecified COPD type J44.9 and Abnormal CXR R93.8 [facility] [id number] [place] [address] [id number] Mar, Community acquired pneumonia of right lower lobe of lung J18.1 [facility] [address] [id number], [place] [address] Mar, Sciatica, left side M54.32 ; Essential hypertension I10 and Community acquired pneumonia of right lung, unspecified part of lung J18.9 [facility] [id number] [place] [address] [id number] Mar, Sciatica, left side M54.32 ; Essential hypertension I10 ; Chronic obstructive pulmonary disease, unspecified COPD type J44.9 and Community acquired pneumonia of right lung, unspecified part of lung J18.9 [id number] [place] [address] [id number] Feb, Essential hypertension I10 and Sciatica, left M54.32 [facility] [id number] [place] [address] [id number] Jan, Sciatica, left M54.32 [id number] [place] [address] [id number] Dec, Sciatica, left M54.32 ; Essential hypertension I10 ; Chronic obstructive pulmonary disease, unspecified COPD type J44.9 ; Hypothyroidism, unspecified type E03.9 and Encounter for immunization Z23 [id number] [place] [address] [id number] Nov, Sciatica, unspecified laterality M54.30 [id number] [place] [address] [id number] Oct, Hypothyroidism, unspecified type E03.9 [facility] [id number] [place] [address] [id number] Oct, Sciatica, unspecified laterality M54.30 and Hypothyroidism, unspecified type E03.9 [id number] [place] [address] [id number] Oct, [facility] [id number] [place] [address] [id number] Aug, Essential hypertension I10 and Sciatica, unspecified laterality M54.30 [id number] [place] [address] [id number] Aug, Sciatica, unspecified laterality M54.30 [address] [place] [address] [id number] Jun, Sciatica, unspecified laterality M54.30 ; Essential hypertension I10 and Chronic obstructive pulmonary disease, unspecified COPD type J44.9 [address] [place] [address] [id number] May, Chronic obstructive pulmonary disease, unspecified COPD type J44.9 ; Essential hypertension I10 ; Sciatica, unspecified laterality M54.30 ; Hypothyroidism, unspecified type E03.9 and Hyperlipidemia, unspecified hyperlipidemia type E78.5 [id number] [place] [address] [id number] May, Essential hypertension I10 [address] [place] [address] [id number] Apr, [address] [place] [address] [id number] Apr, Essential hypertension I10 and Atherosclerosis of [place] coronary artery of [place] heart, angina presence unspecified I25.10 [address] [place] [address] [id number] Mar, Essential hypertension I10 and Sciatica, unspecified laterality M54.30 [address] [place] [address] [id number] Jan, [address] [place] [address] [id number] Jan, Sciatica, unspecified laterality M54.30 ; Essential hypertension I10 ; Chronic obstructive pulmonary disease, unspecified COPD type J44.9 ; Hypothyroidism, unspecified type E03.9 and Hyperlipidemia, unspecified hyperlipidemia type E78.5 [address] [place] [address] [id number] Dec, Sciatica, unspecified laterality M54.[address] [id number] [id number] Dec, Essential hypertension I10 [facility] [address] [place] [address] [id number] Dec, Essential hypertension I10 ; Sciatica, unspecified laterality M54.30 and Encounter for immunization Z23 [facility] [address] [id number], [place] [address] Nov, [facility] [id number] [place] [address] [id number] Sep, Sciatica, unspecified laterality M54.30 ; Essential hypertension I10 and Chronic obstructive pulmonary disease, unspecified COPD type J44.9 [facility] [id number] [place] [address] [id number] Sep, [facility] [id number] [place] [address] [id number] July, [facility] [id number] [place] [address] [id number] Jun, Sciatica, unspecified laterality M54.30 [address] [id number] [place] [address] [id number] May, Sciatica, unspecified laterality M54.30 [facility] [id number] [place] [address] [id number] May, [facility] [id number] [place] [address] [id number] Apr, Sciatica, unspecified laterality M54.30 [facility] [id number] [place] [address] [id number] Apr, [place] [id number] [place] [address] [id number] Mar, Sciatica, left M54.32 [facility] [id number] [place] [address] [id number] Jan, Encounter for immunization Z23 and Sciatica, left M54.32 [id number] [place] [address] [id number] Dec, Sciatica, left side M54.32 [facility] [id number] [id number] Dec, [facility] [id number] [place] [address] [id number] Nov, Sciatica 724.3 [facility] [address] [id number] [id number] Nov, [address] [place] [address] [id number] Nov, Sciatica 724.3 and Visual acuity reduced 369.9 [facility] [address] [place] [address] [id number] Oct, Sciatica 724.3 and Nausea 787.[address] [place] [address] [id number] Oct, Coronary atherosclerosis of unspecified type of vessel, [place] or graft 414.[address] [place] [address] [id number] Sep, Sciatica 724.3 and Coronary atherosclerosis of unspecified type of vessel, [place] or graft 414.00 [address] [place] [address] [id number] Sep, Coronary atherosclerosis of unspecified type of vessel, [place] or graft 414.00 and Unspecified essential hypertension 401.[address] [place] [address] [id number] Aug, Sciatica 724.3 ; Dyspepsia and other specified disorders of function of stomach 536.8 and Other abnormal blood chemistry 790.6 [address] [id number] Aug, Sciatica 724.3 ; Coronary atherosclerosis of unspecified type of vessel, [place] or graft 414.00 ; Unspecified essential hypertension 401.9 ; Palpitations 785.1 and Other abnormal blood chemistry 790.[address] [place] [address] [id number] July, Sciatica 724.3 and Other abnormal blood chemistry 790.6 [id number] [id number] July, [address] [id number] July, Hyperlipidemia 272.4 [facility] [place] [facility] [address] [facility] [id number], [place] [address] Jun, [facility] [place] [facility] [id number], [place] [address] Jun, [facility] [place] [facility] [id number], [place] [address] May, [facility] [address] [id number][place] [id number] May, [facility] [place] [facility] [address] [id number], [place] [address] Apr, [facility] [address] [id number][place] [id number] Apr, [facility] [address] [id number] [id number] Apr, [facility] [place] [facility] [address], [place] [address] Apr, [facility] [address] [id number] [id number] Apr, [facility] [place] [facility] [address], [place] [address] Apr, [facility] [place] [facility] [address], [place] [address] Apr, [facility] [place] [facility] [address], [place] [address] Apr, [facility] [address] [id number], [place] [id number] Apr, [facility] [address] [id number], [place] [id number] Apr, [facility] [address] [id number][place] [id number] Apr, [facility] [place] [facility] [address] [id number], [place] [address] Apr, [facility] [address] [facility] [id number] [place] [id number] Jan, [facility] [place] [facility] [address] [id number] [place] [address] Jan, [facility] [place] [facility] [address] [facility] [id number] [place] [address] Dec, [facility] [address] [id number] [place] [id number] Dec, [facility] [address] [id number] [place] [id number] Dec, [facility] [address] [facility] [id number] [place] [id number] Dec, [facility] [place] [facility] [address] [facility] [id number] [place] [address] Dec, [facility] [place] [facility] [address] [facility] [id number] [place] [address] Dec, [facility] [place] [facility] [address] [facility] [id number], [place] [address] Nov, [facility] [address] [facility] [id number] [place] [id number] Nov, [facility] [place] [facility] [address] [facility] [id number], [place] [address] Nov, [facility] [place] [facility] [address] [facility] [id number], [place] [address] Nov, [facility] [place] [facility] [address] [facility] [id number], [place] [address] Nov, [facility] [place] [facility] [address] [facility] [id number] [place] [address] Nov, [facility] [address] [facility] [id number][place] [id number] Nov, [facility] [place] [facility] [address] [facility] [id number] [place] [address] Nov, [facility] [place] [facility] [address] [facility] [id number], [place] [address] Sep, [facility] [address] [id number] [place] [id number] Sep, [facility] [place] [facility] [address] [id number] [place] [address] Sep, [facility] [place] [facility] [address] [id number] [place] [address] Sep, [facility] [place] [facility] [address] [id number] [place] [address] Sep, [facility] [place] [facility] [address] [id number] [place] [address] Sep, [facility] [place] [facility] [address] [id number] [place] [address] Sep, [facility] [address] [facility] [id number][place] [id number] Aug, [facility] [place] [facility] [address] [id number] [place] [address] Aug, [facility] [place] [facility] [address] [id number] [place] [address] Aug, [facility] [place] [facility] [address] [id number] [place] [address] Aug, [facility] [address] [facility] [id number], [place] 2009[address] Aug, [facility] [place] [facility] [address] [id number], [place] [address] Aug, [facility] [address] [facility] [id number], [place] [id number] July, [facility] [place] [facility] [address] [id number] [place] [address] July, [facility] [address] [facility] [id number][place] [address] July, [facility] [place] [facility] [address] [id number] [place] [address] July, [facility] [place] [facility] [address] [id number], [place] [address] Jun, [facility] [place] [facility] [address] [id number] [place] [address] Jun, [facility] [place] [facility] [address] [id number] [place] [address] Jun, [facility] [address] [id number] [place] [id number] Jun, [facility] [address] [id number] [place] [id number] Jun, [facility] [place] [facility] [address] [id number] [place] [address] Jun, [facility] [address] [id number] [place] [id number] Apr, [facility] [address] [facility] [id number], [place] [address] Apr, [facility] [address] [id number], [place] [id number] Sep, [facility] [address] [id number] [place] [id number] May, [facility] [place] [facility] [address] [facility] [id number], [place] [address] Apr, [facility] [place] [facility] [address] [facility] [id number], [place] [address] Jan, [facility] [place] [facility] [address] [id number], [place] [address] Jan, [facility] [place] [facility] [address] [id number] [place] [address] Sep, [facility] [address] [id number] [place] [id number] Sep, [facility] [place] [facility] [address] [id number] [place] [id number] Sep, [facility] [place] [facility] [address] [id number] [place] [address] Sep, [facility] [address] [id number], [place] [address] Sep, [facility] [address] [id number] [place] [address] Jun, [facility] [address] [id number], [place] [id number] Jun, [facility] [address] [id number] [place] [id number] 30 May, 2011 [facility] [address] [id number], [place] [address] May, [facility] [address] [id number] [place] [id number] May, [facility] [address] [id number] [place] [id number] May, [facility] [address] [id number] [place] [id number] 24 May, 2011 [facility] [address] [id number] [place] [id number] May, [facility] [address] [id number] [place] [id number] May, [facility] [address] [id number] [place] [id number] 19 May, 2011 [facility] [address] [id number], [place] [id number] 15 May, 2011 [facility] [address] [id number], [place] [id number] 14 May, 2011 [facility] [address] [id number], [place] [address] May, [facility] [address] [id number], [place] [address] May, [facility] [place] [facility] [address] [id number], [place] 0834[address]171 Apr, [facility] [address] [id number], [place] [address] Apr, [facility] [place] [facility] [address] [id number] [place] [id number] Mar, [facility] [place] [facility] [address] [id number] [place] [address] 30 Feb, 2011 [facility] [place] [facility] [address] [id number] [place] [address] 23 Feb, 2011 [facility] [place] [facility] [address] [id number] [place] [address] 15 Feb, 2011 [facility] [place] [facility] [address] [id number] [place] [address] 06 Feb, 2011 [facility] [place] [facility] [address] [id number] [place] [address] Feb, [facility] [place] [facility] [address] [id number] [place] [address] Feb, [facility] [address] [id number] [place] [address] Jan, [facility] [address] [id number] [place] [address] Feb, [facility] [place] [facility] [address] [id number] [place] [address] Feb, [facility] [place] [facility] [address] [id number] [place] [address] Feb, [facility] [place] [facility] [address] [id number] [place] [address] Jan, [facility] [place] [facility] [address] [id number] [place] [address] 29 Dec, 2009 [facility] [place] [facility] [address] [id number] [place] [address] Dec, [facility] [place] [facility] [address] [id number] [place] [address] Jun, [facility] [place] [facility] [address] [id number] [place] [address] Jun, [facility] [address] [facility] [id number], [place] [address] Feb, [facility] [address] [facility] [id number], [place] [address] Dec, [facility] [address] [facility] [id number][place] [address] July, [facility] [address] [facility] [id number], [place] [address] Dec, IMMUNIZATIONS No Known Immunizations SOCIAL HISTORY Never Assessed REASON FOR VISIT CHM- PET scan f/u Brent [facility] PLAN OF CARE Activity Details Follow Up prn after us Reason:neck swelling VITAL SIGNS Height 60 in 2017-09-01 Weight 168 lbs 2017-09-01 Temperature 98.3 degrees Fahrenheit 2017-09-01 Heart Rate 68 bpm 2017-09-01 Respiratory Rate 16 2017-09-01 BMI 32.81 kg/m2 2017-09-01 Blood pressure systolic 120 mmHg 2017-09-01 Blood pressure diastolic 68 mmHg 2017-09-01 MEDICATIONS Medication Instructions Dosage Frequency Start Date End Date Duration Status Aspirin 81 mg chew 1 tablet (81 mg) by oral route once daily May, Active Toprol XL 50 mg Orally 2 times a day 1.5 tablet 12h Active Atorvastatin Calcium 20 mg Orally Once a day 1 tablet 24h Active Montelukast Sodium 10 MG Orally Once a day 1 tablet in the evening 24h Active Levothyroxine Sodium 25 MCG Orally Once a day 1 tablet on an empty stomach in the morning 24h 0 Active Cymbalta 60 mg Orally 2 times a day TAKE ONE (1) CAPSULE BY MOUTH TWICE DAILY... 12h 30 days Active Celebrex 200 mg Orally Once a day 1 capsule 24h Active Albuterol Sulfate 108 (90 Base) mcg/act Inhalation 4 times a day 2 puffs 6h Dec, Active Spiriva HandiHaler 18 MCG Inhalation Once a day 1 capsule 24h Active Breo Ellipta 200-25 MCG/INH Inhalation Once a day 1 puff 24h Active Gabapentin 800 MG Orally 3 times a day 1 capsule 8h Active Amlodipine Besylate 2.5 MG Orally Once a day 1 tablet 24h Active Prilosec 40 MG TAKE ONE (1) CAPSULE BY MOUTH ONCE DAILY... Active Tramadol HCl 50 mg Orally 3 times a day as needed must last 28 days 1-2 tablet July, Active RESULTS Name Result Date Reference Range Ultrasound : Neck 2017-09-13 PROCEDURES No Known procedures INSTRUCTIONS MEDICATIONS ADMINISTERED [...]
--- OUTSIDE RECORDS SUMMARY | 2018-09-20 13:46 | XMS REPORT ---
Author Author ALEXANDRO BELLE [facility] Address [address] [place] [address] Care Team Providers Care Sustainable Agriculture Specialist Name Role Phone ALEXANDRO BELLE Unavailable PROBLEMS Type Condition ICD9-CM Code CDL87-XO Code Onset Dates Condition Status SNOMED Code Problem Sciatica, left side M54.32 Active 11482032 Problem Sciatica, unspecified laterality M54.30 Active 78592739 Problem Sciatica, left M54.32 Active 63309990 Problem Dyspepsia and other specified disorders of function of stomach 536.8 Active 465939156 Problem DDD (degenerative disc disease), lumbar M51.36 Active 67505799 Problem Atherosclerosis of [place] coronary artery of [place] heart, angina presence unspecified I25.10 Active 1858136532078 Problem Essential hypertension I10 Active 98234732 Problem Chronic obstructive pulmonary disease, unspecified COPD type J44.9 Active 48737308 Problem Hyperlipidemia, unspecified hyperlipidemia type E78.5 Active 19387995 Problem Hypothyroidism, unspecified type E03.9 Active 34857544 ALLERGIES No Information ENCOUNTERS Encounter Location Date Diagnosis [facility] [id number] [place] [address] [id number] Oct, Sciatica, left M54.32 ; Essential hypertension I10 and Chronic obstructive pulmonary disease, unspecified COPD type J44.9 [facility] [id number] [place] [address] [id number] Sep, Sciatica, left M54.32 and DDD (degenerative disc disease), lumbar M51.36 [place] [id number] [place] [address] Aug, [facility] [id number] [place] [address] [id number] Aug, [facility] [id number] [place] [address] Aug, [facility] [id number], [place] [id number] Aug, Localized swelling, mass and lump, neck R22.1 [facility] [id number] [place] [address] [id number] July, [facility] [id number] [place] [address] July, [facility] [id number] [place] [address] [id number] July, Neck swelling R22.1 ; Lung mass R91.8 and Sciatica, left side M54.32 [facility] [id number] [place] [address] [id number] Jun, Sciatica, left side M54.32 [facility] [id number] [place] [address] [id number] May, Abnormal CXR R93.8 [facility] [id number] [place] [address] [id number] May, Abnormal CXR R93.8 [facility] [id number] [place] [address] [id number] May, Abnormal CXR R93.8 [facility] [id number] [place] [address] Apr, [facility] [id number] [place] [address] [id number] Apr, Abnormal chest xray R93.8 [facility] [id number] [place] [address] [id number] Apr, Sciatica, left side M54.32 [facility] [id number] [place] [address] [id number] Mar, Community acquired pneumonia of right lung, unspecified part of lung J18.9 ; Chronic obstructive pulmonary disease, unspecified COPD type J44.9 and Abnormal CXR R93.8 [facility] [id number][place] [id number] Mar, Community acquired pneumonia of right lower lobe of lung J18.1 [facility] [address]005[address] [address] Mar, Sciatica, left side M54.32 ; Essential hypertension I10 and Community acquired pneumonia of right lung, unspecified part of lung J18.9 [facility] [id number], [place] [id number] Mar, Sciatica, left side M54.32 ; Essential hypertension I10 ; Chronic obstructive pulmonary disease, unspecified COPD type J44.9 and Community acquired pneumonia of right lung, unspecified part of lung J18.9 [facility] [id number] [place] [address], [place] [id number] Feb, Essential hypertension I10 and Sciatica, left M54.32 [facility] [id number] [place] [address] [id number] Jan, Sciatica, left M54.32 [address] [place] [id number] [place] [address] [id number] Dec, Sciatica, left M54.32 ; Essential hypertension I10 ; Chronic obstructive pulmonary disease, unspecified COPD type J44.9 ; Hypothyroidism, unspecified type E03.9 and Encounter for immunization Z23 [place] [id number] [place] [address] [id number] Nov, Sciatica, unspecified laterality M54.30 [address] [id number] [place] [address] [id number] Oct, Hypothyroidism, unspecified type E03.9 [place] [id number] [place] [address] [id number] Oct, Sciatica, unspecified laterality M54.30 and Hypothyroidism, unspecified type E03.9 [address] [place] [address] [id number] Oct, [place] [id number] [place] [address] [id number] Aug, Essential hypertension I10 and Sciatica, unspecified laterality M54.30 [place] [id number] [place] [address] [id number] Aug, Sciatica, unspecified laterality M54.30 [facility] [id number], [place] [id number] Jun, Sciatica, unspecified laterality M54.30 ; Essential hypertension I10 and Chronic obstructive pulmonary disease, unspecified COPD type J44.9 [facility] [id number], [place] [id number] May, Chronic obstructive pulmonary disease, unspecified COPD type J44.9 ; Essential hypertension I10 ; Sciatica, unspecified laterality M54.30 ; Hypothyroidism, unspecified type E03.9 and Hyperlipidemia, unspecified hyperlipidemia type E78.5 [facility] [id number] [place] [address] [id number] May, Essential hypertension I10 [facility] [id number] [place] [address] [id number] Apr, [facility] [id number] [place] [address] [id number] Apr, Essential hypertension I10 and Atherosclerosis of [place] coronary artery of [place] heart, angina presence unspecified I25.10 [facility] [id number], [place] [id number] Mar, Essential hypertension I10 and Sciatica, unspecified laterality M54.30 [place] [id number], [place] [id number] Jan, [facility] [id number], [place] [id number] Jan, Sciatica, unspecified laterality M54.30 ; Essential hypertension I10 ; Chronic obstructive pulmonary disease, unspecified COPD type J44.9 ; Hypothyroidism, unspecified type E03.9 and Hyperlipidemia, unspecified hyperlipidemia type E78.5 [facility] [address] [facility] [id number], [place] [id number] Dec, Sciatica, unspecified laterality M54.[address] [id number] [id number] Dec, Essential hypertension I10 [facility] [id number], [place] [id number] Dec, Essential hypertension I10 ; Sciatica, unspecified laterality M54.30 and Encounter for immunization Z23 [facility] [address]00565100[place] [address] Nov, [facility] [id number] [place] [address] [id number] Sep, Sciatica, unspecified laterality M54.30 ; Essential hypertension I10 and Chronic obstructive pulmonary disease, unspecified COPD type J44.9 [facility] [id number] [place] [address] [id number] Sep, [facility] [id number] [place] [address] [id number] July, [facility] [id number] [place] [address] [id number] Jun, Sciatica, unspecified laterality M54.30 [facility] [id number] [place] [address] [id number] May, Sciatica, unspecified laterality M54.30 [facility] [id number] [place] [address] [id number] May, [facility] [id number] [place] [address] [id number] Apr, Sciatica, unspecified laterality M54.30 [facility] [id number], [place] [id number] Apr, [facility] [id number], [place] [id number] Mar, Sciatica, left M54.32 [facility] [id number], [place] [id number] Jan, Sciatica, left M54.32 and Encounter for immunization Z23 [facility] [id number] [place] [address] [id number] Dec, Sciatica, left side M54.32 [facility] [id number][place] [id number] Dec, [facility] [id number], [place] [id number] Nov, Sciatica 724.3 [facility] [address] [id number], [place] [id number] Nov, [facility] [place] [id number], [place] [id number] Nov, Sciatica 724.3 and Visual acuity reduced 369.9 [facility] [address]00565100[place] [id number] Oct, Sciatica 724.3 and Nausea 787.02 [address]00565100[place], [place] [id number] Oct, Coronary atherosclerosis of unspecified type of vessel, point [place] or graft 414.[address] [place] [address] [id number] Sep, Sciatica 724.3 and Coronary atherosclerosis of unspecified type of vessel, point [place] or graft 414.00 [address] [place] [address] [id number] Sep, Coronary atherosclerosis of unspecified type of vessel, point [place] or graft 414.00 and Unspecified essential hypertension 401.9 [address]00565100[place], [place] [id number] Aug, Sciatica 724.3 ; Dyspepsia and other specified disorders of function of stomach 536.8 and Other abnormal blood chemistry 790.6 [address]00565100[place], [place] 9[address] Aug, Sciatica 724.3 ; Coronary atherosclerosis of unspecified type of vessel, [place] or graft 414.00 ; Unspecified essential hypertension 401.9 ; Palpitations 785.1 and Other abnormal blood chemistry 790.6 [address]00565100[place], [place] [address]47[address] July, Sciatica 724.3 and Other abnormal blood chemistry 790.6 [place] [id number] [id number] July, [place] [id number] 13355[address]35 July, Hyperlipidemia 272.4 [facility] [address] [id number], [place] [address] 14 Jun, 2014 [facility] [place] [facility] [address] [facility] [id number] [address] Jun, [facility] [place] [facility] [address] [id number], [place] [address] May, [facility] [address] [id number], [place] [id number] May, [facility] [place] [facility] [address] [id number], [place] [address] Apr, [facility] [address] [facility] [id number], [place] 979348031 Apr, [facility] [id number] [place] [address] [id number] Apr, [facility] [place] [facility] [address]00565100[place], [place] [address] Apr, [facility] [id number], [place] [id number] Apr, [facility] [place] [facility] [address]00565100[place], [place] [address] Apr, [facility] [place] [facility] [address]00565100[place], [place] [address] Apr, 2014 [facility] [place] [facility] [address]00565100[place], [place] [address] Apr, 2014 [facility] [address] [id number], [place] [id number] Apr, [facility] [address] [id number], [place] [id number] Apr, [facility] [id number], [place] [id number] Apr, [facility] [place] [facility] [address] [id number], [place] [address] Apr, [facility] [id number], [place] [id number] Jan, [facility] [place] [facility] [address] [id number], [place] [address] Jan, [facility] [place] [facility] [address] [id number] [place] [address] Dec, [facility] [address] [id number] [place] [id number] Dec, [facility] [address] [id number] [place] [id number] Dec, [facility] [address] [id number] [place] [id number] Dec, [facility] [place] [facility] [address] [facility] [id number] [place] [address] Dec, [facility] [place] [facility] [address] [facility] [id number][place] [address] Dec, [facility] [place] [facility] [address] [facility] [id number][place] [address] Nov, [facility] [address] [facility] [id number], [place] [id number] Nov, [facility] [place] [facility] [address] [facility] [id number], [place] [address] Nov, [facility] [place] [facility] [address] [facility] [id number][place] [address] Nov, [facility] [place] [facility] [address] [facility] [id number][place] [address] Nov, [facility] [place] [facility] [address] [facility] [id number], [place] [address] Nov, [facility] [address] [facility] [id number], [place] [id number] Nov, [facility] [place] [facility] [address] [facility] [id number][place] [address] Nov, [facility] [place] [facility] [address] [facility] [id number][place] [address] Sep, [facility] [address] [id number] [place] [id number] Sep, [facility] [place] [facility] [address] [id number] [place] [address] Sep, [facility] [place] [facility] [address] [facility] [id number] [place] [address] Sep, [facility] [place] [facility] [address] [id number] [place] [address] Sep, [facility] [place] [facility] [address] [facility] [id number] [place] [address] Sep, [facility] [place] [facility] [address] [id number] [place] [address] Sep, [facility] [address] [facility] [id number], [place] 608103952 Aug, [facility] [place] [facility] [address] [facility] [id number], [place] [address] Aug, [facility] [place] [facility] [address] [facility] [id number][place] [address] Aug, [facility] [place] [facility] [address] [facility] [id number], [place] [address] Aug, [facility] [address] [facility] [id number], [place] [id number] Aug, [facility] [place] [facility] [address] [facility] [id number], [place] [address] Aug, [facility] [address] [facility] [id number], [place] 874600024 July, [facility] [place] [facility] [address] [facility] [id number], [place] [address] July, [facility] [address] [facility] [id number], [place] [id number] July, [facility] [place] [facility] [address] [id number] [place] [address] July, [facility] [place] [facility] [address] [facility] [id number][place] [address] Jun, [facility] [place] [facility] [address] [id number] [place] [address] Jun, [facility] [place] [facility] [address] [id number] [place] [address] Jun, [facility] [address] [id number] [place] [id number] Jun, [facility] [address] [id number] [place] [id number] Jun, [facility] [place] [facility] [address] [id number] [place] [address] Jun, [facility] [address] [id number] [place] 895949535 Apr, [facility] [place] [facility] [address] [id number] [place] [address] Apr, [facility] [address] [id number] [place] 787631634 Sep, [facility] [address] [id number] [place] [id number] May, [facility] [place] [facility] [address] [id number] [place] [address] Apr, [facility] [place] [facility] [address] [id number], [place] [address] Jan, [facility] [place] [facility] [address] [id number], [place] [address] Jan, [facility] [place] [facility] [address] [id number] 22[address]3428 Sep, [facility] [address] [id number] [place] 507119825 Sep, [facility] [place] [facility] [address] [id number] [place] [id number] Sep, [facility] [place] [facility] [address] [id number] [place] [address] Sep, [facility] [place] [facility] [address] [id number], [place] [address] Sep, [facility] [address] [id number], [place] [address] Jun, [facility] [place] [facility] [address] [id number], [place] 936761825 Jun, [facility] [address] [id number] [place] [id number] 30 May, 2011 [facility] [address] [id number], [place] 441178707 May, [facility] [address] [id number] [place] [id number] May, [facility] [address] [id number] [place] [id number] May, [facility] [address] [id number] [place] [id number] May, [facility] [address] [id number] [place] [id number] May, [facility] [address] [id number] [place] [id number] May, [facility] [address] [id number] [place] [id number] 19 May, 2011 [facility] [address] [id number], [place] [id number] 15 May, 2011 [facility] [address] [id number], [place] [id number] 14 May, 2011 [facility] [place] [facility] [address] [id number], [place] 546907244 May, [facility] [place] [facility] [address] [id number], [place] [address] May, [facility] [place] [facility] [address] [id number], [place] 546429470 Apr, [facility] [place] [facility] [address] [id number][place] [address] Apr, [facility] [address] [id number], [place] [id number] 05 Mar, 2011 [facility] [address] [id number] [place] [address] 30 Feb, 2011 [facility] [place] [facility] [address] [id number] [place] [address] 23 Feb, 2011 [facility] [place] [facility] [address] [id number] [place] [address] 15 Feb, 2011 [facility] [place] [facility] [address] [id number] [place] [address] 06 Feb, 2011 [facility] [place] [facility] [address] [id number] [place] [address] Feb, [facility] [place] [facility] [address] [id number] [place] [address] Feb, [facility] [place] [facility] [address] [id number] [place] [address] Jan, [facility] [place] [facility] [address] [id number] [place] [address] 27 Feb, 2010 [facility] [place] [facility] [address] [id number] [place] [address] 16 Feb, 2010 [facility] [place] [facility] [address] [id number] [place] [address] 16 Feb, 2010 [facility] [place] [facility] [address] [id number] [place] [address] Jan, [facility] [place] [facility] [address] [id number] [place] [address] 29 Dec, 2009 [facility] [place] [facility] [address] [id number] [place] [address] Dec, [facility] [place] [facility] [address] [id number] [place] [address] Jun, [facility] [place] [facility] [address] [id number] [place] [address] 12 Jun, 2009 [facility] [place] [facility] [address] [facility] [id number] [place] [address] Feb, [facility] [address] [facility] [id number] [place] [address] Dec, [facility] [address] [facility] [id number] [place] [address] July, [facility] [address] [facility] [id number] [place] [address] Dec, IMMUNIZATIONS No Known Immunizations SOCIAL HISTORY Never Assessed REASON FOR VISIT Requests return call PLAN OF CARE VITAL SIGNS MEDICATIONS No [...]
--- OUTSIDE RECORDS SUMMARY | 2018-09-20 13:46 | XMS REPORT ---
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, angina presence unspecified I25.10 Active 2276910364262 Problem Essential hypertension I10 Active 08540257 Problem Chronic obstructive pulmonary disease, unspecified COPD type J44.9 Active 32632849 Problem Hyperlipidemia, unspecified hyperlipidemia type E78.5 Active 42024500 Problem Hypothyroidism, unspecified type E03.9 Active 56984687 ALLERGIES No Information ENCOUNTERS Encounter Location Date Diagnosis [facility] [id number] [place] [address] [id number] Oct, Sciatica, left M54.32 ; Essential hypertension I10 and Chronic obstructive pulmonary disease, unspecified COPD type J44.9 [facility] [id number] [place] [address] [id number] Sep, Sciatica, left M54.32 and DDD (degenerative disc disease), lumbar M51.36 [place] [id number] [place] [address] Aug, [facility] [id number] [place] [address] [id number] Aug, [facility] [id number] [place] [address] Aug, [facility] [id number] [place] [id number] Aug, Localized swelling, mass and lump, neck R22.1 [facility] [id number] [place] [address] [id number] July, [facility] [id number] [place] [address] July, [facility] [id number] [place] [address] [id number] July, Neck swelling R22.1 ; Lung mass R91.8 and Sciatica, left side M54.32 [facility] [id number] [place] [address] [id number] Jun, Sciatica, left side M54.32 [facility] [id number] [place] [address] [id number] May, Abnormal CXR R93.8 [facility] [id number] [place] [address] [id number] May, Abnormal CXR R93.8 [facility] [id number] [place] [address] [id number] May, Abnormal CXR R93.8 [facility] [id number] [place] [address] Apr, [facility] [id number] [place] [address] [id number] Apr, Abnormal chest xray R93.8 [facility] [id number] [place] [address] [id number] Apr, Sciatica, left side M54.32 [facility] [id number] [place] [address] [id number] Mar, Community acquired pneumonia of right lung, unspecified part of lung J18.9 ; Chronic obstructive pulmonary disease, unspecified COPD type J44.9 and Abnormal CXR R93.8 [facility] [id number] [place] [id number] Mar, Community acquired pneumonia of right lower lobe of lung J18.1 [facility] [address] [address] Mar, Sciatica, left side M54.32 ; Essential hypertension I10 and Community acquired pneumonia of right lung, unspecified part of lung J18.9 [facility] [id number] AIR [place] [id number] Mar, Sciatica, left side M54.32 ; Essential hypertension I10 ; Chronic obstructive pulmonary disease, unspecified COPD type J44.9 and Community acquired pneumonia of right lung, unspecified part of lung J18.9 [facility] [id number] [place] [address], [place] [id number] Feb, Essential hypertension I10 and Sciatica, left M54.32 [facility] [id number] [place] [address] [id number] Jan, Sciatica, left M54.32 [id number] [place] [address] [id number] Dec, Sciatica, left M54.32 ; Essential hypertension I10 ; Chronic obstructive pulmonary disease, unspecified COPD type J44.9 ; Hypothyroidism, unspecified type E03.9 and Encounter for immunization Z23 [id number] [place] [address] [id number] Nov, Sciatica, unspecified laterality M54.30 [address] [id number] [place] [address] [id number] Oct, Hypothyroidism, unspecified type E03.9 [address] [id number] [place] [address] [id number] Oct, Sciatica, unspecified laterality M54.30 and Hypothyroidism, unspecified type E03.9 [address] [place] [address] [id number] Oct, [place] [id number] [place] [address] [id number] Aug, Essential hypertension I10 and Sciatica, unspecified laterality M54.30 [id number] [place] [address] [id number] Aug, Sciatica, unspecified laterality M54.30 [facility] [id number] AIR [place] [id number] Jun, Sciatica, unspecified laterality M54.30 ; Essential hypertension I10 and Chronic obstructive pulmonary disease, unspecified COPD type J44.9 [facility] [id number] AIR [place] [id number] May, Chronic obstructive pulmonary disease, unspecified COPD type J44.9 ; Essential hypertension I10 ; Sciatica, unspecified laterality M54.30 ; Hypothyroidism, unspecified type E03.9 and Hyperlipidemia, unspecified hyperlipidemia type E78.5 [facility] [id number] [place] [address] [id number] May, Essential hypertension I10 [facility] [id number] [place] [address] [id number] Apr, [facility] [id number] [place] [address] [id number] Apr, Essential hypertension I10 and Atherosclerosis 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 heart, angina presence unspecified I25.10 [facility] [id number] AIR [place] [id number] Mar, Essential hypertension I10 and Sciatica, unspecified laterality M54.30 [place] [id number] AIR [place] [id number] Jan, [facility] [id number] [place] [id number] Jan, Sciatica, unspecified laterality M54.30 ; Essential hypertension I10 ; Chronic obstructive pulmonary disease, unspecified COPD type J44.9 ; Hypothyroidism, unspecified type E03.9 and Hyperlipidemia, unspecified hyperlipidemia type E78.5 [facility] [address] [facility] [id number] [place] [id number] Dec, Sciatica, unspecified laterality M54.[address] [id number] [id number] Dec, Essential hypertension I10 [facility] [id number] [place] [id number] Dec, Essential hypertension I10 ; Sciatica, unspecified laterality M54.30 and Encounter for immunization Z23 [facility] [place] [address] [address] Nov, [facility] [place] [id number] [place] [address] [id number] Sep, Sciatica, unspecified laterality M54.30 ; Essential hypertension I10 and Chronic obstructive pulmonary disease, unspecified COPD type J44.9 [facility] [place] [id number] [place] [address] [id number] Sep, [facility] [id number] [place] [address] [id number] July, [facility] [id number] [place] [address] [id number] Jun, Sciatica, unspecified laterality M54.30 [facility] [id number] [place] [address] [id number] May, Sciatica, unspecified laterality M54.30 [facility] [id number] [place] [address] [id number] May, [facility] [id number] [place] [address] [id number] Apr, Sciatica, unspecified laterality M54.30 [facility] [place] [id number] [place] [id number] Apr, [facility] [place] [id number] AIR [place] [id number] Mar, Sciatica, left M54.32 [facility] [place] [id number] [place] [id number] Jan, Sciatica, left M54.32 and Encounter for immunization Z23 [facility] [id number] [place] [address] [id number] Dec, Sciatica, left side M54.32 [facility] [id number] [place] [id number] Dec, [facility] [id number] AIR [place] [id number] Nov, Sciatica 724.3 [facility] [address] [id number] [place] [id number] Nov, [facility] [place] [id number] [place] [id number] Nov, Sciatica 724.3 and Visual acuity reduced 369.9 [facility] [place] [address]00565100[place] [id number] Oct, Sciatica 724.3 and Nausea 787.02 [address]00565100[place] [id number] Oct, Coronary atherosclerosis of unspecified type of vessel, standing rock or graft 414.00 [address] [place] [address] [id number] Sep, Sciatica 724.3 and Coronary atherosclerosis of unspecified type of vessel, standing rock or graft 414.00 [address] [place] [address] [id number] Sep, Coronary atherosclerosis of unspecified type of vessel, standing rock or graft 414.00 and Unspecified essential hypertension 401.9 [address]00565100[place] [id number] Aug, Sciatica 724.3 ; Dyspepsia and other specified disorders of function of stomach 536.8 and Other abnormal blood chemistry 790.6 [address]00565100[place] 697[address] Aug, Sciatica 724.3 ; Coronary atherosclerosis of unspecified type of vessel, standing rock or graft 414.00 ; Unspecified essential hypertension 401.9 ; Palpitations 785.1 and Other abnormal blood chemistry 790.6 [address]00565100[place] [id number] July, Sciatica 724.3 and Other abnormal blood chemistry 790.6 [place] [id number] [id number] July, [place] [id number] [id number] July, Hyperlipidemia 272.4 [facility] [id number], [place] [address] 14 Jun, 2014 [facility] [place] [facility] [address] [facility] [id number], [place] [address] Jun, [facility] [place] [facility] [address] [id number], [place] [address] May, [facility] [address] [id number] [place] [id number] May, [facility] [place] [facility] [address] [id number], [place] [address] Apr, [facility] [address] [facility] [id number] AIR [place] [id number] Apr, [facility] [id number] [place] [address] [id number] Apr, [facility] [place] [facility] [address]00565100[place], [place] [address] Apr, [facility] [id number] AIR [place] [id number] Apr, [facility] [place] [facility] [address]100[place], [place] [address] Apr, [facility] [place] [facility] [address]100[place], [place] [address] Apr, 2014 [facility] [place] [facility] [address]100[place], [place] [address] Apr, 2014 [facility] [address] [id number] [place] [id number] Apr, [facility] [address] [id number] [place] [address] Apr, [facility] [id number] [place] [address]498[address] Apr, [facility] [place] [facility] [address] [id number], [place] [address] Apr, [facility] [id number] [place] [id number] Jan, [facility] [place] [facility] [address] [id number], [place] [address] Jan, [facility] [place] [facility] [address] [id number] [place] [address] Dec, [facility] [address] [id number] [place] [id number] Dec, [facility] [address] [id number] [place] [id number] Dec, [facility] [address] [id number] [place] [id number] Dec, [facility] [place] [facility] [address] [facility] [id number] [place] [address] Dec, [facility] [place] [facility] [address] [facility] [id number], [place] [address] Dec, [facility] [place] [facility] [address] [facility] [id number], [place] [address] Nov, [facility] [address] [facility] [id number] AIR [place] [id number] Nov, [facility] [place] [facility] [address] [facility] [id number], [place] [address] Nov, [facility] [place] [facility] [address] [facility] [id number], [place] [address] Nov, [facility] [place] [facility] [address] [facility] [id number], [place] [address] Nov, [facility] [place] [facility] [address] [facility] [id number], [place] [address] Nov, [facility] [address] [facility] [id number] [place] 693802[address] Nov, [facility] [place] [facility] [address] [facility] [id number], [place] [address] Nov, [facility] [place] [facility] [address] [facility] [id number], [place] [address] Sep, [facility] [address] [id number] [place] [address] Sep, [facility] [place] [facility] [address] [id number] [place] [address] Sep, [facility] [place] [facility] [address] [facility] [id number] [place] [address] Sep, [facility] [place] [facility] [address] [id number] [place] [address] Sep, [facility] [place] [facility] [address] [facility] [id number] [place] [address] Sep, [facility] [place] [facility] [address] [id number] [place] [address] Sep, [facility] [address] [facility] [id number] [place] [id number] Aug, [facility] [place] [facility] [address] [facility] [id number], [place] [address] Aug, [facility] [place] [facility] [address] [facility] [id number], [place] [address] Aug, [facility] [place] [facility] [address] [facility] [id number], [place] [address] Aug, [facility] [address] [facility] [id number] [place] [address]3333[address] Aug, [facility] [place] [facility] [address] [facility] [id number], [place] [address] Aug, [facility] [address] [facility] [id number] [place] 067217885 July, [facility] [place] [facility] [address] [facility] [id number], [place] [address] July, [facility] [address] [facility] [id number] [place] [id number] July, [facility] [place] [facility] [address] [id number] [address] July, [facility] [place] [facility] [address] [facility] [id number], [place] [address] Jun, [facility] [place] [facility] [address] [id number] [place] [address] Jun, [facility] [place] [facility] [address] [id number] [place] [address] Jun, [facility] [address] [id number] [place] 6025[address] Jun, [facility] [address] [id number] [place] 8052569[address] Jun, [facility] [place] [facility] [address] [id number] [place] [address] Jun, [facility] [address] [id number] [place] 8064[address]338 Apr, [facility] [place] [facility] [address] [id number] [place] [address] Apr, [facility] [address] [id number] [place] 980784[address] Sep, [facility] [address] [id number] [place] 49[address] May, [facility] [place] [facility] [address] [id number] [place] [address] Apr, [facility] [place] [facility] [address] [id number], [place] [address] Jan, [facility] [place] [facility] [address] [id number], [place] [address] Jan, [facility] [place] [facility] [address] [id number], [place] [address]16[address] Sep, [facility] [address] [id number] [place] 16[address] Sep, [facility] [place] [facility] [address] [id number] [place] [address]697 Sep, [facility] [place] [facility] [address] [id number] [place] [address] Sep, [facility] [place] [facility] [address] [id number], [place] [address] Sep, [facility] [address] [id number], [place] [address] Jun, [facility] [place] [facility] [address] [id number], [place] 539[address]859 Jun, [facility] [address] [id number] [place] [id number] 30 May, 2011 [facility] [address] [id number], [place] 7[address] May, [facility] [address] [id number] [place] 30[address]389 May, [facility] [address] [id number] [place] [address] May, [facility] [address] [id number] [place] 174[address]59[address] May, [facility] [address] [id number] [place] 0072560[address] May, [facility] [address] [id number] [place] 259148194 May, [facility] [address] [id number] [place] [address] 19 May, 2011 [facility] [address] [id number] [place] 610066879 15 May, 2011 [facility] [address] [id number] [place] 733463747 14 May, 2011 [facility] [place] [facility] [address] [id number], [place] 47[address]505[address] May, [facility] [place] [facility] [address] [id number], [place] [address] May, [facility] [place] [facility] [address] [id number], [place] 804711257 Apr, [facility] [place] [facility] [address] [id number], [place] [address] Apr, [facility] [address] [id number], [place] [id number] 05 Mar, 2011 [facility] [address] [id number] [place] [address] 30 Feb, 2011 [facility] [place] [facility] [address] [id number] [place] [address] 23 Feb, 2011 [facility] [place] [facility] [address] [id number] [place] [address] 15 Feb, 2011 [facility] [place] [facility] [address] [id number] [place] [address] 06 Feb, 2011 [facility] [place] [facility] [address] [id number] [place] [address] Feb, [facility] [place] [facility] [address] [id number] [place] [address] Feb, [facility] [place] [facility] [address] [id number] [place] [address] Jan, [facility] [place] [facility] [address] [id number] [place] [address] 27 Feb, 2010 [facility] [place] [facility] [address] [id number] [place] [address] 16 Feb, 2010 [facility] [place] [facility] [address] [id number] [place] [address] 16 Feb, 2010 [facility] [place] [facility] [address] [id number] [place] [address] Jan, [facility] [place] [facility] [address] [id number] [place] [address] 29 Dec, 2009 [facility] [place] [facility] [address] [id number] [place] [address] Dec, [facility] [place] [facility] [address] [id number] [place] [address] Jun, [facility] [place] [facility] [address] [id number] [place] [address] 12 Jun, 2009 [facility] [place] [facility] [address] [facility] [id number] [place] [address] Feb, [facility] [address] [facility] [id number] [place] [address] Dec, [facility] [address] [facility] [id number] [place] [address] July, [facility] [address] [facility] [id number] [place] [address] Dec, IMMUNIZATIONS No Known Immunizations SOCIAL HISTORY Never Assessed REASON FOR VISIT PA Pet Scan PLAN OF CARE VITAL SIGNS MEDICATIONS No [...]
--- OUTSIDE RECORDS SUMMARY | 2018-09-20 13:47 | XMS REPORT ---
Author Author ALEXANDRO BELLE [facility] Address [address] [place] [address] Care Team Providers Care Field Service Analyst Name Role Phone ALEXANDRO BELLE Unavailable PROBLEMS Type Condition ICD9-CM Code PSO46-IV Code Onset Dates Condition Status SNOMED Code Problem Sciatica, left side M54.32 Active 49528765 Problem Sciatica, unspecified laterality M54.30 Active 65588885 Problem Sciatica, left M54.32 Active 52530301 Problem Dyspepsia and other specified disorders of function of stomach 536.8 Active 564139404 Problem DDD (degenerative disc disease), lumbar M51.36 Active 57155655 Problem Atherosclerosis of shoalwater coronary artery of shoalwater heart, angina presence unspecified I25.10 Active 3561233790135 Problem Essential hypertension I10 Active 89983397 Problem Chronic obstructive pulmonary disease, unspecified COPD type J44.9 Active 15434474 Problem Hyperlipidemia, unspecified hyperlipidemia type E78.5 Active 59355322 Problem Hypothyroidism, unspecified type E03.9 Active 55592079 ALLERGIES No Information ENCOUNTERS Encounter Location Date Diagnosis [facility] [id number] [place] [id number] Oct, [address] [id number] Sep, Sciatica, left M54.32 and DDD (degenerative disc disease), lumbar M51.36 [facility] [id number] [place] [address] Aug, [address] [id number] Aug, [facility] [id number] [place] [address] Aug, [id number] [place] [address] [id number] Aug, Localized swelling, mass and lump, neck R22.1 [facility] [id number] [place] [address] [id number] July, [facility] [id number] [place] [address] July, [facility] [id number] [place] [address] [id number] July, Neck swelling R22.1 ; Lung mass R91.8 and Sciatica, left side M54.32 [facility] [id number] [place] [address] [id number] Jun, Sciatica, left side M54.32 [facility] [address] [id number] May, Abnormal CXR R93.8 [facility] [id number] [place] [address] [id number] May, Abnormal CXR R93.8 [facility] [id number] [place] [address] [id number] May, Abnormal CXR R93.8 [facility] [id number] [place] [address] Apr, [facility] [id number] [place] [address] [id number] Apr, Abnormal chest xray R93.8 [id number] [place] [address] [id number] Apr, Sciatica, left side M54.32 [facility] [id number] [place] [address] [id number] Mar, Community acquired pneumonia of right lung, unspecified part of lung J18.9 ; Chronic obstructive pulmonary disease, unspecified COPD type J44.9 and Abnormal CXR R93.8 [facility] [id number] [place] [address] [id number] Mar, Community acquired pneumonia of right lower lobe of lung J18.1 [facility] [id number] [place] [address] Mar, Sciatica, left side M54.32 ; Essential hypertension I10 and Community acquired pneumonia of right lung, unspecified part of lung J18.9 [facility] [id number] [place] [address], [place] [id number] Mar, Sciatica, left side M54.32 ; Essential hypertension I10 ; Chronic obstructive pulmonary disease, unspecified COPD type J44.9 and Community acquired pneumonia of right lung, unspecified part of lung J18.9 [facility] [id number] [place] [address], [place] [id number] Feb, Essential hypertension I10 and Sciatica, left M54.32 [facility] [id number] [place] [address], [place] [id number] Jan, Sciatica, left M54.32 [facility] [id number] [place] [address], [place] [id number] Dec, Sciatica, left M54.32 ; Essential hypertension I10 ; Chronic obstructive pulmonary disease, unspecified COPD type J44.9 ; Hypothyroidism, unspecified type E03.9 and Encounter for immunization Z23 [facility] [id number] [place] [address], [place] [id number] Nov, Sciatica, unspecified laterality M54.30 [facility] [id number] [place] [address], [place] [id number] Oct, Hypothyroidism, unspecified type E03.9 [facility] [id number] [place] [address], [place] [id number] Oct, Sciatica, unspecified laterality M54.30 and Hypothyroidism, unspecified type E03.9 [facility] [id number] [place] [address], [place] [id number] Oct, [facility] [id number] [place] [address], [place] [id number] Aug, Essential hypertension I10 and Sciatica, unspecified laterality M54.30 [facility] [id number] [place] [address], [place] [id number] Aug, Sciatica, unspecified laterality M54.30 [facility] [id number] [place] [address], [place] [id number] Jun, Sciatica, unspecified laterality M54.30 ; Essential hypertension I10 and Chronic obstructive pulmonary disease, unspecified COPD type J44.9 [address] [place] [address] [id number] May, Chronic obstructive pulmonary disease, unspecified COPD type J44.9 ; Essential hypertension I10 ; Sciatica, unspecified laterality M54.30 ; Hypothyroidism, unspecified type E03.9 and Hyperlipidemia, unspecified hyperlipidemia type E78.5 [facility] [id number] [id number] May, Essential hypertension I10 [facility] [address] [place] [address] [id number] Apr, [id number] [place] [address] [id number] Apr, Essential hypertension I10 and Atherosclerosis of shoalwater coronary artery of shoalwater heart, angina presence unspecified I25.10 [facility] [address] [place] [address] [id number] Mar, Essential hypertension I10 and Sciatica, unspecified laterality M54.30 [facility] [address] [id number] Jan, [id number] [place] [address] [id number] Jan, Sciatica, unspecified laterality M54.30 ; Essential hypertension I10 ; Chronic obstructive pulmonary disease, unspecified COPD type J44.9 ; Hypothyroidism, unspecified type E03.9 and Hyperlipidemia, unspecified hyperlipidemia type E78.5 [facility] [address] [id number] Dec, Sciatica, unspecified laterality M54.30 [facility] [address] [id number] Dec, Essential hypertension I10 [facility] [address] [id number] Dec, Essential hypertension I10 ; Sciatica, unspecified laterality M54.30 and Encounter for immunization Z23 [facility] [address] [address] Nov, [facility] [id number] [place] [address] [id number] Sep, Sciatica, unspecified laterality M54.30 ; Essential hypertension I10 and Chronic obstructive pulmonary disease, unspecified COPD type J44.9 [facility] [id number] [place] [address] [id number] Sep, [facility] [address] [id number] July, [facility] [id number] [place] [address] [id number] Jun, Sciatica, unspecified laterality M54.30 [facility] [id number] [place] [address] [id number] May, Sciatica, unspecified laterality M54.30 [facility] [id number] [place] [address] [id number] May, [facility] [id number] [place] [address] [id number] Apr, Sciatica, unspecified laterality M54.30 [facility] [id number] [place] [address] [id number] Apr, [facility] [id number] [place] [address] [id number] Mar, Sciatica, left M54.32 [facility] [id number] [place] [address] [id number] Jan, Sciatica, left M54.32 and Encounter for immunization Z23 [facility] [id number] [place] [address] [id number] Dec, Sciatica, left side M54.32 [facility] [id number] [place] [address] [id number] Dec, [facility] [id number] [place] [address] [id number] Nov, Sciatica 724.3 [facility] [id number] [place] [address] [id number] Nov, [address] [id number] Nov, Sciatica 724.3 and Visual acuity reduced 369.9 [address] [id number] Oct, Sciatica 724.3 and Nausea 787.[address] [place] [address] [id number] Oct, Coronary atherosclerosis of unspecified type of vessel, shoalwater or graft 414.[address] [place] [address] [id number] Sep, Sciatica 724.3 and Coronary atherosclerosis of unspecified type of vessel, shoalwater or graft 414.00 [id number] [place] [address] [id number] Sep, Coronary atherosclerosis of unspecified type of vessel, shoalwater or graft 414.00 and Unspecified essential hypertension 401.[address] [place] [address] [id number] Aug, Sciatica 724.3 ; Dyspepsia and other specified disorders of function of stomach 536.8 and Other abnormal blood chemistry 790.[address] [place] [address] [id number] Aug, Sciatica 724.3 ; Coronary atherosclerosis of unspecified type of vessel, shoalwater or graft 414.00 ; Unspecified essential hypertension 401.9 ; Palpitations 785.1 and Other abnormal blood chemistry 790.6 [address] [id number] July, Sciatica 724.3 and Other abnormal blood chemistry 790.6 [id number] [place] [address] [id number] July, [address] [place] [address] [id number] July, Hyperlipidemia 272.4 [facility] [address] [place] [address] Jun, [facility] [address] [address] Jun, [facility] [place] [facility] [address] [facility] [id number] [address] May, [facility] [address] [facility] [id number] [id number] May, [facility] [place] [facility] [address] [address] Apr, [facility] [address] [facility] [id number][place] [id number] Apr, [facility] [address] [facility] [id number][place] [id number] Apr, [facility] [place] [facility] [id number] [address] Apr, [facility] [id number] [id number] Apr, [facility] [place] [facility] [address]005[address] [address] Apr, [facility] [place] [facility] [address] [address] Apr, [facility] [place] [facility] [address] [address] Apr, [facility] [address] [id number] [id number] Apr, [facility] [address] [id number] [id number] Apr, [facility] [address] [facility] [id number][place] [id number] Apr, [facility] [place] [facility] [address] [address] Apr, [facility] [address] [id number] [id number] Jan, [facility] [place] [facility] [address]00565[address] [address] Jan, [facility] [place] [facility] [address] [id number] [place] [address] Dec, [facility] [address] [id number] [place] [id number] Dec, [facility] [address] [id number] [place] [id number] Dec, [facility] [address] [id number] [place] [id number] Dec, [facility] [place] [facility] [address] [facility] [id number] [place] [address] Dec, [facility] [place] [facility] [address] [facility] [id number] [place] [address] Dec, [facility] [place] [facility] [address] [facility] [id number] [place] [address] Nov, [facility] [address] [facility] [id number] [place] [id number] Nov, [facility] [place] [facility] [address] [facility] [id number] [place] [address] Nov, [facility] [place] [facility] [address] [facility] [id number] [place] [address] Nov, [facility] [place] [facility] [address] [facility] [id number] [address] Nov, [facility] [place] [facility] [address] [facility] [id number] [place] [address] Nov, [facility] [address] [facility] [id number][place] [id number] Nov, [facility] [place] [facility] [address] [facility] [id number] [place] [address] Nov, [facility] [place] [facility] [address] [facility] [id number] [place] [address] Sep, [facility] [address] [facility] [id number] [place] [id number] Sep, [facility] [place] [facility] [address] [facility] [id number] [place] [address] Sep, [facility] [place] [facility] [address] [id number] [place] [address] Sep, [facility] [place] [facility] [address] [facility] [id number] [address] Sep, [facility] [place] [facility] [address] [facility] [id number] [place] [address] Sep, [facility] [place] [facility] [address] [facility] [id number] [place] [address] Sep, [facility] [address] [facility] [id number], [place] [id number] Aug, [facility] [place] [facility] [address] [facility] [id number] [place] [address] Aug, [facility] [place] [facility] [address] [facility] [id number] [place] [address] Aug, [facility] [place] [facility] [address] [facility] [id number] [address] Aug, [facility] [address] [facility] [id number], [place] [id number] Aug, [facility] [place] [facility] [address] [facility] [id number] [place] [address] Aug, [facility] [address] [facility] [id number], [place] [id number] July, [facility] [place] [facility] [address] [facility] [id number] [place] [address] July, [facility] [address] [facility] [id number], [place] 856118919 July, [facility] [place] [facility] [address] [facility] [id number] [place] [address] July, [facility] [place] [facility] [address] [facility] [id number] [place] [address] Jun, [facility] [place] [facility] [address] [facility] [id number] [address] Jun, [facility] [place] [facility] [address] [id number] [place] [address] Jun, [facility] [address] [id number] [place] [id number] Jun, [facility] [address] [id number] [place] 096334856 Jun, [facility] [place] [facility] [address] [id number] [place] [address] Jun, [facility] [address] [id number] [place] 8335[address] Apr, [facility] [place] [facility] [address] [id number] [place] [address] Apr, [facility] [address] [id number] [place] [id number] Sep, [facility] [address] [id number] [place] [id number] May, [facility] [place] [facility] [address] [id number] [place] [address] Apr, [facility] [place] [facility] [address] [place] [address] Jan, [facility] [place] [facility] [address] [id number] [address] Jan, [facility] [place] [facility] [address]005[address] 180389547 Sep, [facility] [address] [id number] [place] [id number] Sep, [facility] [place] [facility] [address] [id number] 7337[address] Sep, [facility] [place] [facility] [address] [id number] [place] [address] Sep, [facility] [place] [facility] [address] [id number] [place] [address] Sep, [facility] [place] [facility] [address] [id number] [place] [address] Jun, [facility] [address] [id number] [place] 145209151 Jun, [facility] [address] [id number] [place] [id number] 30 May, 2011 [facility] [address] [id number] [place] [id number] May, [facility] [address] [id number] [place] 1366103[address] May, [facility] [address] [id number] [place] 056203842 May, [facility] [address] [id number] [place] 006684579 24 May, 2011 [facility] [address] [id number] [place] [id number] May, [facility] [address] [id number] [place] 014500193 May, [facility] [address] [id number] [place] [id number] 19 May, 2011 [facility] [address] [id number] [place] [id number] 15 May, 2011 [facility] [address] [id number] [place] [id number] 14 May, 2011 [facility] [address] [id number] [place] 723624318 May, [facility] [address] [id number] [place] [address] May, [facility] [address] [id number] [place] [id number] Apr, [facility] [address] [id number] [place] [address] Apr, [facility] [address] [id number] [place] [id number] Mar, [facility] [address] [id number] [place] [address] 30 Feb, 2011 [facility] [address] [id number] [place] [address] 23 Feb, 2011 [facility] [place] [facility] [address] [id number] [place] [address] 15 Feb, 2011 [facility] [address] [id number] [place] [address] 06 Feb, 2011 [facility] [place] [facility] [address] [id number] [place] [address] 02 Feb, 2011 [facility] [place] [facility] [address] [id number] [place] [address] Feb, [facility] [place] [facility] [address] [id number] [place] [address] Jan, [facility] [address] [id number] [place] [address] 27 Feb, 2010 [facility] [place] [facility] [address] [id number] [place] [address] 16 Feb, 2010 [facility] [place] [facility] [address] [id number] [place] [address] 16 Feb, 2010 [facility] [place] [facility] [address] [facility] [id number] [place] [address] Jan, [facility] [place] [facility] [address] [id number] [place] [address] 29 Dec, 2009 [facility] [place] [facility] [address] [id number] [place] [address] Dec, [facility] [place] [facility] [address] [id number] [place] [address] 20 Jun, 2009 [facility] [place] [facility] [address] [id number] [place] [address] 12 Jun, 2009 [facility] [place] [facility] [address] [facility] [id number] [place] [address] 07 Feb, 2009 [facility] [place] [facility] [address] [facility] [id number] [place] [address] Dec, [facility] [address] [facility] [id number] [address] July, [facility] [address] [facility] [id number] [place] [address] Dec, IMMUNIZATIONS No Known Immunizations SOCIAL HISTORY Never Assessed REASON FOR VISIT RX-Tramadol refill PLAN OF CARE VITAL SIGNS MEDICATIONS [...]
--- OUTSIDE RECORDS SUMMARY | 2018-09-20 13:47 | XMS REPORT ---
Author Author ALEXANDRO BELLE [facility] Address [address] [place] [address] Care Team Providers Care Glass Belt Sander Name Role Phone ALEXANDRO BELLE Unavailable PROBLEMS Type Condition ICD9-CM Code QPH92-WE Code Onset Dates Condition Status SNOMED Code Problem Sciatica, left side M54.32 Active 78083151 Problem Sciatica, unspecified laterality M54.30 Active 51884046 Problem Sciatica, left M54.32 Active 49059832 Problem Dyspepsia and other specified disorders of function of stomach 536.8 Active 731014176 Problem DDD (degenerative disc disease), lumbar M51.36 Active 31997576 Problem Atherosclerosis of [place] coronary artery of [place] heart, angina presence unspecified I25.10 Active 5432338731027 Problem Essential hypertension I10 Active 67803450 Problem Chronic obstructive pulmonary disease, unspecified COPD type J44.9 Active 01063461 Problem Hyperlipidemia, unspecified hyperlipidemia type E78.5 Active 33096851 Problem Hypothyroidism, unspecified type E03.9 Active 06695175 ALLERGIES Substance Reaction Event Type Date Status Lisinopril cough Drug Allergy July, Active ENCOUNTERS Encounter Location Date Diagnosis [facility] [id number] [id number] Oct, Sciatica, left M54.32 ; Essential hypertension I10 and Chronic obstructive pulmonary disease, unspecified COPD type J44.9 [facility] [address] [id number] [id number] Sep, Sciatica, left M54.32 and DDD (degenerative disc disease), lumbar M51.36 [facility] [address]00565[address], [place] [address] Aug, [facility] [address]005[address] [id number] Aug, [facility] [address] [id number], [place] [address] Aug, [facility] [id number] [place] [address] [id number] Aug, Localized swelling, mass and lump, neck R22.1 [facility] [id number] [place] [address] [id number] July, [facility] [address] [address] July, [facility] [id number] [place] [address] [id number] July, Neck swelling R22.1 ; Lung mass R91.8 and Sciatica, left side M54.32 [facility] [id number] [place] [address] [id number] Jun, Sciatica, left side M54.32 [facility] [id number] [place] [address] [id number] May, Abnormal CXR R93.8 [facility] [id number] [place] [address] [id number] May, Abnormal CXR R93.8 [facility] [id number] [place] [address] [id number] May, Abnormal CXR R93.8 [facility] [id number] [place] [address] Apr, [facility] [id number] [place] [address] [id number] Apr, Abnormal chest xray R93.8 [facility] [id number] [place] [address] [id number] Apr, Sciatica, left side M54.32 [facility] [id number] [place] [address] [id number] Mar, Community acquired pneumonia of right lung, unspecified part of lung J18.9 ; Chronic obstructive pulmonary disease, unspecified COPD type J44.9 and Abnormal CXR R93.8 [facility] [id number] [place] [address] [id number] Mar, Community acquired pneumonia of right lower lobe of lung J18.1 [facility] [address] [id number], [place] [address] Mar, Sciatica, left side M54.32 ; Essential hypertension I10 and Community acquired pneumonia of right lung, unspecified part of lung J18.9 [facility] [id number] [place] [address] [id number] Mar, Sciatica, left side M54.32 ; Essential hypertension I10 ; Chronic obstructive pulmonary disease, unspecified COPD type J44.9 and Community acquired pneumonia of right lung, unspecified part of lung J18.9 [id number] [place] [address] [id number] Feb, Essential hypertension I10 and Sciatica, left M54.32 [facility] [id number] [place] [address] [id number] Jan, Sciatica, left M54.32 [id number] [place] [address] [id number] Dec, Sciatica, left M54.32 ; Essential hypertension I10 ; Chronic obstructive pulmonary disease, unspecified COPD type J44.9 ; Hypothyroidism, unspecified type E03.9 and Encounter for immunization Z23 [id number] [place] [address] [id number] Nov, Sciatica, unspecified laterality M54.30 [id number] [place] [address] [id number] Oct, Hypothyroidism, unspecified type E03.9 [facility] [id number] [place] [address] [id number] Oct, Sciatica, unspecified laterality M54.30 and Hypothyroidism, unspecified type E03.9 [id number] [place] [address] [id number] Oct, [facility] [id number] [place] [address] [id number] Aug, Essential hypertension I10 and Sciatica, unspecified laterality M54.30 [id number] [place] [address] [id number] Aug, Sciatica, unspecified laterality M54.30 [address] [place] [address] [id number] Jun, Sciatica, unspecified laterality M54.30 ; Essential hypertension I10 and Chronic obstructive pulmonary disease, unspecified COPD type J44.9 [address] [place] [address] [id number] May, Chronic obstructive pulmonary disease, unspecified COPD type J44.9 ; Essential hypertension I10 ; Sciatica, unspecified laterality M54.30 ; Hypothyroidism, unspecified type E03.9 and Hyperlipidemia, unspecified hyperlipidemia type E78.5 [id number] [place] [address] [id number] May, Essential hypertension I10 [address] [place] [address] [id number] Apr, [address] [id number] [place] [address] [id number] Apr, Essential hypertension I10 and Atherosclerosis of [place] coronary artery of [place] heart, angina presence unspecified I25.10 [address] [place] [address] [id number] Mar, Essential hypertension I10 and Sciatica, unspecified laterality M54.30 [address] [place] [address] [id number] Jan, [id number] [place] [address] [id number] Jan, Sciatica, unspecified laterality M54.30 ; Essential hypertension I10 ; Chronic obstructive pulmonary disease, unspecified COPD type J44.9 ; Hypothyroidism, unspecified type E03.9 and Hyperlipidemia, unspecified hyperlipidemia type E78.5 [address] [place] [address] [id number] Dec, Sciatica, unspecified laterality M54.[address] [id number] [id number] Dec, Essential hypertension I10 [facility] [address] [place] [address] [id number] Dec, Essential hypertension I10 ; Sciatica, unspecified laterality M54.30 and Encounter for immunization Z23 [facility] [address] [id number], [place] [address] Nov, [facility] [id number] [place] [address] [id number] Sep, Sciatica, unspecified laterality M54.30 ; Essential hypertension I10 and Chronic obstructive pulmonary disease, unspecified COPD type J44.9 [facility] [id number] [place] [address] [id number] Sep, [facility] [id number] [place] [address] [id number] July, [facility] [id number] [place] [address] [id number] Jun, Sciatica, unspecified laterality M54.30 [place] [id number] [place] [address] [id number] May, Sciatica, unspecified laterality M54.30 [facility] [id number] [place] [address] [id number] May, [facility] [id number] [place] [address] [id number] Apr, Sciatica, unspecified laterality M54.30 [facility] [id number] [place] [address] [id number] Apr, [place] [id number] [place] [address] [id number] Mar, Sciatica, left M54.32 [facility] [id number] [place] [address] [id number] Jan, Encounter for immunization Z23 and Sciatica, left M54.32 [id number] [place] [address] [id number] Dec, Sciatica, left side M54.32 [facility] [id number] [id number] Dec, [facility] [id number] [place] [address] [id number] Nov, Sciatica 724.3 [facility] [address] [id number] [id number] Nov, [address] [place] [address] [id number] Nov, Sciatica 724.3 and Visual acuity reduced 369.9 [facility] [address] [place] [address] [id number] Oct, Sciatica 724.3 and Nausea 787.02 [address] [place] [address] [id number] Oct, Coronary atherosclerosis of unspecified type of vessel, [place] or graft 414.00 [address] [place] [address] [id number] Sep, Sciatica 724.3 and Coronary atherosclerosis of unspecified type of vessel, [place] or graft 414.00 [address] [place] [address] [id number] Sep, Coronary atherosclerosis of unspecified type of vessel, [place] or graft 414.00 and Unspecified essential hypertension 401.9 [address] [place] [address] [id number] Aug, Sciatica 724.3 ; Dyspepsia and other specified disorders of function of stomach 536.8 and Other abnormal blood chemistry 790.6 [address] [id number] Aug, Sciatica 724.3 ; Coronary atherosclerosis of unspecified type of vessel, [place] or graft 414.00 ; Unspecified essential hypertension 401.9 ; Palpitations 785.1 and Other abnormal blood chemistry 790.6 [address] [place] [address] [id number] July, Sciatica 724.3 and Other abnormal blood chemistry 790.6 [id number] [id number] July, [address] [id number] July, Hyperlipidemia 272.4 [facility] [place] [facility] [address] [facility] [id number], [place] [address] Jun, [facility] [place] [facility] [address] [id number], [place] [address] Jun, [facility] [place] [facility] [address] [id number], [place] [address] May, [facility] [address] [id number] [id number] May, [facility] [place] [facility] [address] [id number], [place] [address] Apr, [facility] [address] [id number] [id number] Apr, [facility] [address] [id number] [id number] Apr, [facility] [place] [facility] [address]00565100[place], [place] [address] Apr, [facility] [address] [id number] [id number] Apr, [facility] [place] [facility] [address]00565100[place], [place] [address] Apr, [facility] [place] [facility] [address]00565100[place], [place] [address] Apr, [facility] [place] [facility] [address]00565100[place], [place] [address] Apr, [facility] [address] [id number] [id number] Apr, [facility] [address] [id number] [id number] Apr, [facility] [address] [id number] [id number] Apr, [facility] [place] [facility] [address] [id number], [place] [address] Apr, [facility] [address] [facility] [id number] [place] [id number] Jan, [facility] [place] [facility] [address] [id number] [place] [address] Jan, [facility] [place] [facility] [address] [facility] [id number] [place] [address] Dec, [facility] [address] [id number] [place] [id number] Dec, [facility] [address] [id number] [place] [id number] Dec, [facility] [address] [facility] [id number] [place] [id number] Dec, [facility] [place] [facility] [address] [facility] [id number] [place] [address] Dec, [facility] [place] [facility] [address] [facility] [id number] [place] [address] Dec, [facility] [place] [facility] [address] [facility] [id number], [place] [address] Nov, [facility] [address] [facility] [id number] [place] [id number] Nov, [facility] [place] [facility] [address] [facility] [id number], [place] [address] Nov, [facility] [place] [facility] [address] [facility] [id number], [place] [address] Nov, [facility] [place] [facility] [address] [facility] [id number], [place] [address] Nov, [facility] [place] [facility] [address] [facility] [id number] [place] [address] Nov, [facility] [address] [facility] [id number] [id number] Nov, [facility] [place] [facility] [address] [facility] [id number] [place] [address] Nov, [facility] [place] [facility] [address] [facility] [id number], [place] [address] Sep, [facility] [address] [id number] [place] [id number] Sep, [facility] [place] [facility] [address] [id number] [place] [address] Sep, [facility] [place] [facility] [address] [id number] [place] [address] Sep, [facility] [place] [facility] [address] [id number] [place] [address] Sep, [facility] [place] [facility] [address] [id number] [place] [address] Sep, [facility] [place] [facility] [address] [id number] [place] [address] Sep, [facility] [address] [facility] [id number] [id number] Aug, [facility] [place] [facility] [address] [id number] [place] [address] Aug, [facility] [place] [facility] [address] [id number] [place] [address] Aug, [facility] [place] [facility] [address] [id number] [place] [address] Aug, [facility] [address] [facility] [id number] [place] [id number] Aug, [facility] [place] [facility] [address] [id number], [place] [address] Aug, [facility] [address] [facility] [id number] [place] [id number] July, [facility] [place] [facility] [address] [id number] [place] [address] July, [facility] [address] [facility] [id number] [place] [id number] July, [facility] [place] [facility] [address] [id number] [place] [address] July, [facility] [place] [facility] [address] [id number], [place] [address] Jun, [facility] [place] [facility] [address] [id number] [place] [address] Jun, [facility] [place] [facility] [address] [id number] [place] [address] Jun, [facility] [address] [id number] [place] [id number] Jun, [facility] [address] [id number] [place] [id number] Jun, [facility] [place] [facility] [address] [id number] [place] [address] Jun, [facility] [address] [id number] [place] [id number] Apr, [facility] [address] [facility] [id number], [place] [address] Apr, [facility] [address] [id number] [id number] Sep, [facility] [address] [id number] [place] [id number] May, [facility] [place] [facility] [address] [facility] [id number], [place] [address] Apr, [facility] [place] [facility] [address] [facility] [id number], [place] [address] Jan, [facility] [place] [facility] [address] [id number], [place] [address] Jan, [facility] [place] [facility] [address] [id number] [place] [id number] Sep, [facility] [address] [id number] [place] [id number] Sep, [facility] [place] [facility] [address] [id number] [place] [id number] Sep, [facility] [place] [facility] [address] [id number] [place] [address] Sep, [facility] [address] [id number], [place] [address] Sep, [facility] [address] [id number] [place] [address] Jun, [facility] [address] [id number], [place] [id number] Jun, [facility] [address] [id number] [place] [id number] 30 May, 2011 [facility] [address] [id number], [place] [id number] May, [facility] [address] [id number] [place] [id number] May, [facility] [address] [id number] [place] [id number] May, [facility] [address] [id number] [place] [id number] 24 May, 2011 [facility] [address] [id number] [place] [id number] May, [facility] [address] [id number] [place] [id number] May, [facility] [address] [id number] [place] [id number] 19 May, 2011 [facility] [address] [id number] [id number] 15 May, 2011 [facility] [address] [id number] [place] [id number] 14 May, 2011 [facility] [address] [id number], [place] [id number] May, [facility] [address] [id number], [place] [address] May, [facility] [place] [facility] [address] [id number], [place] [id number] Apr, [facility] [address] [id number], [place] [address] Apr, [facility] [place] [facility] [address] [id number] [place] [id number] Mar, [facility] [place] [facility] [address] [id number] [place] [address] 30 Feb, 2011 [facility] [place] [facility] [address] [id number] [place] [address] 23 Feb, 2011 [facility] [place] [facility] [address] [id number] [place] [address] 15 Feb, 2011 [facility] [place] [facility] [address] [id number] [place] [address] 06 Feb, 2011 [facility] [place] [facility] [address] [id number] [place] [address] Feb, [facility] [place] [facility] [address] [id number] [place] [address] Feb, [facility] [address] [id number] [place] [address] Jan, [facility] [address] [id number] [place] [address] Feb, [facility] [place] [facility] [address] [id number] [place] [address] Feb, [facility] [place] [facility] [address] [id number] [place] [address] Feb, [facility] [place] [facility] [address] [id number] [place] [address] Jan, [facility] [place] [facility] [address] [id number] [place] [address] 29 Dec, 2009 [facility] [place] [facility] [address] [id number] [place] [address] Dec, [facility] [place] [facility] [address] [id number] [place] [address] Jun, [facility] [place] [facility] [address] [id number] [place] [address] Jun, [facility] [address] [facility] [id number], [place] [address] Feb, [facility] [address] [facility] [id number], [place] [address] Dec, [facility] [address] [facility] [id number], [place] [address] July, [facility] [address] [facility] [id number], [place] [address] Dec, IMMUNIZATIONS No Known Immunizations SOCIAL HISTORY Never Assessed REASON FOR VISIT Swelling(neck) on right side, wants CT of lung results---DON jean baptiste PLAN OF CARE Activity Details Follow Up prn Reason:after pet scan VITAL SIGNS Height 60 in 2017-08-17 Weight 170.2 lbs 2017-08-17 Temperature 98.2 degrees Fahrenheit 2017-08-17 Heart Rate 68 bpm 2017-08-17 Respiratory Rate 18 2017-08-17 BMI 33.24 kg/m2 2017-08-17 Blood pressure systolic 112 mmHg 2017-08-17 Blood pressure diastolic 64 mmHg 2017-08-17 MEDICATIONS Medication Instructions Dosage Frequency Start Date End Date Duration Status Celebrex 200 mg Orally Once a day 1 capsule 24h Active Toprol XL 50 mg Orally 2 times a day 1.5 tablet 12h Active Aspirin 81 mg chew 1 tablet (81 mg) by oral route once daily May, Active Amlodipine Besylate 2.5 MG Orally Once a day 1 tablet 24h Active Atorvastatin Calcium 20 mg Orally Once a day 1 tablet 24h Active Prilosec 40 MG TAKE ONE (1) CAPSULE BY MOUTH ONCE DAILY... Active Spiriva HandiHaler 18 MCG Inhalation Once a day 1 capsule 24h Active Montelukast Sodium 10 MG Orally Once a day 1 tablet in the evening 24h Active Albuterol Sulfate 108 (90 Base) mcg/act Inhalation 4 times a day 2 puffs 6h Dec, Active Levothyroxine Sodium 25 MCG Orally Once a day 1 tablet on an empty stomach in the morning 24h 0 Active Gabapentin 800 MG Orally 3 times a day 1 capsule 8h Active Lipitor 20 MG TAKE ONE (1) TABLET BY MOUTH ONCE DAILY. Active Omeprazole 40 MG TAKE ONE (1) CAPSULE BY MOUTH ONCE DAILY... Active Tramadol HCl 50 mg Orally 3 times a day as needed must last 28 days 1-2 tablet July, Active Breo Ellipta 200-25 MCG/INH Inhalation Once a day 1 puff 24h Active Cymbalta 60 mg Orally 2 times a day TAKE ONE (1) CAPSULE BY MOUTH TWICE DAILY... 12h 30 days Active Norvasc 2.5 MG TAKE ONE (1) TABLET BY MOUTH ONCE DAILY. Active RESULTS Name Result Date Reference Range PET Scan, LTD Area 2017-08-25 PROCEDURES No Known procedures INSTRUCTIONS MEDICATIONS ADMINISTERED [...]
--- OUTSIDE RECORDS SUMMARY | 2018-09-20 13:48 | XMS REPORT ---
Author Author ALEXANDRO BELLE [facility], [place] eClinicalWorks Address Unknown Phone Unavailable Care Team Providers Care Government Relations Manager Name Role Phone ALEXANDRO BELLE CP Unavailable Allergies, Adverse Reactions, Alerts Substance Reaction Event Type N.K.D.A. Info Not Available Non Drug Allergy Problems Problem Type Condition Code Onset Dates Condition Status Problem Elevated blood pressure reading without diagnosis of hypertension 796.2 Active Problem Chronic airway obstruction, not elsewhere classified 496 Active Problem Coronary atherosclerosis of unspecified type of vessel, minto or graft 414.00 Active Problem Sciatica, left side M54.32 Active Problem Nausea 787.02 Active Problem Sciatica, left M54.32 Active Problem Acute upper respiratory infections of unspecified site 465.9 Active Problem Heartburn 787.1 Active Problem Sciatica 724.3 Active Problem Palpitations 785.1 Active Assessment Encounter for immunization Z23 Active Assessment Sciatica, left M54.32 Active Problem Unspecified essential hypertension 401.9 Active Problem Chest pain, unspecified 786.50 Active Problem Other abnormal blood chemistry 790.6 Active Problem Acute bronchitis 466.0 Active Problem Dyspepsia and other specified disorders of function of stomach 536.8 Active Problem Other abnormal glucose 790.29 Active Medications Medication Code System Code Instructions Start Date End Date Status Dosage Albuterol Sulfate [facility] [address]-42 90 mcg/actuation Jan 17, 2014 2 puffs by Inhalation route every 4 hours as needed PRN cough wheezing sob Naproxen Sodium [facility] [address]-26 550 MG Orally Twice a day Jan 01, 2015 1 tablet Toprol XL [facility] [address]-47 50 MG Orally 2 times a day 1 tablet Omeprazole [facility] [address]-83 40 MG Orally Once a day September 18, 2014 1 capsule Aspirin [facility] [address]-36 81 mg June 10, 2011 chew 1 tablet (81 mg) by oral route once daily Tramadol HCl [facility] [address]-99 50 MG Orally 3 times a day as needed must last 1 m August 21, 2014 1 tablet as needed Cymbalta [facility] [address]-33 60 MG Orally Twice a day Nov 29, 2014 1 capsule Spiriva HandiHaler [facility] [address]-03 18 MCG Inhalation Once a day 1 capsule Flonase [facility] [address]-45 50 MCG/ACT Nasally Once a day Nov 29, 2014 1 spray in each nostril Procedures Procedure Coding System Code Date FLUARIX QUAD (3 & UP)-[facility]-2014 CPT-4 90217 Jan 31, 2015 SINGLE IMMUNIZATION ADMIN CPT-4 31525 Jan 31, 2015 Office Visit, Est Pt., Level 3 CPT-4 26972 Jan 31, 2015 Vital Signs Date/Time: Jan 31, 2015 Temperature 97.4 F Weight 162 lbs Height 60 in BMI 31.64 Index Blood Pressure Diastolic 70 mmHg Blood Pressure Systolic 124 mmHg Cardiac Monitoring Heart Rate 72 bpm Results No Known Results Immunizations Vaccine Administration Date FLUARIX QUAD (3 & UP)-[employer]-2014Jan 31, 2015 Summary Purpose eClinicalWorks Submission
--- OUTSIDE RECORDS SUMMARY | 2018-09-20 13:48 | XMS REPORT ---
Author Author ALEXANDRO BELLE [facility] Address [address] [place] [address] Care Team Providers Care Geotechnical Intern Name Role Phone ALEXANDRO BELLE Unavailable PROBLEMS Type Condition ICD9-CM Code VRS80-OC Code Onset Dates Condition Status SNOMED Code Problem Sciatica, left side M54.32 Active 74640044 Problem Sciatica, unspecified laterality M54.30 Active 14325834 Problem Sciatica, left M54.32 Active 20631757 Problem Dyspepsia and other specified disorders of function of stomach 536.8 Active 074939612 Problem DDD (degenerative disc disease), lumbar M51.36 Active 58105221 Problem Atherosclerosis of [place] coronary artery of [place] heart, angina presence unspecified I25.10 Active 0291766708487 Problem Essential hypertension I10 Active 38819368 Problem Chronic obstructive pulmonary disease, unspecified COPD type J44.9 Active 03909614 Problem Hyperlipidemia, unspecified hyperlipidemia type E78.5 Active 08259427 Problem Hypothyroidism, unspecified type E03.9 Active 65364104 ALLERGIES No Information ENCOUNTERS Encounter Location Date Diagnosis [facility] [id number] [place] [id number] Oct, [address] [id number] Sep, Sciatica, left M54.32 and DDD (degenerative disc disease), lumbar M51.36 [facility] [id number] [place] [address] Aug, [address] [id number] Aug, [facility] [id number] [place] [address] Aug, [id number] [place] [address] [id number] Aug, Localized swelling, mass and lump, neck R22.1 [facility] [id number] [place] [address] [id number] July, [facility] [id number] [place] [address] July, [facility] [id number] [place] [address] [id number] July, Neck swelling R22.1 ; Lung mass R91.8 and Sciatica, left side M54.32 [facility] [id number] [place] [address] [id number] Jun, Sciatica, left side M54.32 [facility] [address] [id number] May, Abnormal CXR R93.8 [facility] [id number] [place] [address] [id number] May, Abnormal CXR R93.8 [facility] [id number] [place] [address] [id number] May, Abnormal CXR R93.8 [facility] [id number] [place] [address] Apr, [facility] [id number] [place] [address] [id number] Apr, Abnormal chest xray R93.8 [id number] [place] [address] [id number] Apr, Sciatica, left side M54.32 [facility] [id number] [place] [address] [id number] Mar, Community acquired pneumonia of right lung, unspecified part of lung J18.9 ; Chronic obstructive pulmonary disease, unspecified COPD type J44.9 and Abnormal CXR R93.8 [facility] [id number] [place] [address] [id number] Mar, Community acquired pneumonia of right lower lobe of lung J18.1 [facility] [id number] [place] [address] Mar, Sciatica, left side M54.32 ; Essential hypertension I10 and Community acquired pneumonia of right lung, unspecified part of lung J18.9 [facility] [id number] [place] [address], [place] [id number] Mar, Sciatica, left side M54.32 ; Essential hypertension I10 ; Chronic obstructive pulmonary disease, unspecified COPD type J44.9 and Community acquired pneumonia of right lung, unspecified part of lung J18.9 [facility] [id number] [place] [address], [place] [id number] Feb, Essential hypertension I10 and Sciatica, left M54.32 [facility] [id number] [place] [address], [place] [id number] Jan, Sciatica, left M54.32 [facility] [id number] [place] [address], [place] [id number] Dec, Sciatica, left M54.32 ; Essential hypertension I10 ; Chronic obstructive pulmonary disease, unspecified COPD type J44.9 ; Hypothyroidism, unspecified type E03.9 and Encounter for immunization Z23 [facility] [id number] [place] [address], [place] [id number] Nov, Sciatica, unspecified laterality M54.30 [facility] [id number] [place] [address], [place] [id number] Oct, Hypothyroidism, unspecified type E03.9 [facility] [id number] [place] [address], [place] [id number] Oct, Sciatica, unspecified laterality M54.30 and Hypothyroidism, unspecified type E03.9 [facility] [id number] [place] [address], [place] [id number] Oct, [facility] [id number] [place] [address], [place] [id number] Aug, Essential hypertension I10 and Sciatica, unspecified laterality M54.30 [facility] [id number] [place] [address], [place] [id number] Aug, Sciatica, unspecified laterality M54.30 [facility] [id number] [place] [address], [place] [id number] Jun, Sciatica, unspecified laterality M54.30 ; Essential hypertension I10 and Chronic obstructive pulmonary disease, unspecified COPD type J44.9 [address] [place] [address] [id number] May, Chronic obstructive pulmonary disease, unspecified COPD type J44.9 ; Essential hypertension I10 ; Sciatica, unspecified laterality M54.30 ; Hypothyroidism, unspecified type E03.9 and Hyperlipidemia, unspecified hyperlipidemia type E78.5 [facility] [id number] [id number] May, Essential hypertension I10 [facility] [address] [place] [address] [id number] Apr, [id number] [place] [address] [id number] Apr, Essential hypertension I10 and Atherosclerosis of egegik coronary artery of egegik heart, angina presence unspecified I25.10 [facility] [address] [place] [address] [id number] Mar, Essential hypertension I10 and Sciatica, unspecified laterality M54.30 [facility] [address] [id number] Jan, [id number] [place] [address] [id number] Jan, Sciatica, unspecified laterality M54.30 ; Essential hypertension I10 ; Chronic obstructive pulmonary disease, unspecified COPD type J44.9 ; Hypothyroidism, unspecified type E03.9 and Hyperlipidemia, unspecified hyperlipidemia type E78.5 [facility] [address] [id number] Dec, Sciatica, unspecified laterality M54.30 [facility] [id number] [id number] Dec, Essential hypertension I10 [facility] [address] [id number] Dec, Essential hypertension I10 ; Sciatica, unspecified laterality M54.30 and Encounter for immunization Z23 [facility] [address], [place] [address] Nov, [facility] [id number] [place] [address] [id number] Sep, Sciatica, unspecified laterality M54.30 ; Essential hypertension I10 and Chronic obstructive pulmonary disease, unspecified COPD type J44.9 [facility] [id number] [place] [address] [id number] Sep, [facility] [address] [id number] July, [facility] [id number] [place] [address] [id number] Jun, Sciatica, unspecified laterality M54.30 [facility] [id number] [place] [address] [id number] May, Sciatica, unspecified laterality M54.30 [facility] [id number] [place] [address] [id number] May, [facility] [id number] [place] [address] [id number] Apr, Sciatica, unspecified laterality M54.30 [facility] [id number] [place] [address] [id number] Apr, [facility] [id number] [place] [address] [id number] Mar, Sciatica, left M54.32 [facility] [id number] [place] [address] [id number] Jan, Sciatica, left M54.32 and Encounter for immunization Z23 [facility] [id number] [place] [address] [id number] Dec, Sciatica, left side M54.32 [facility] [id number] [place] [address] [id number] Dec, [facility] [id number] [place] [address] [id number] Nov, Sciatica 724.3 [facility] [id number] [place] [address] [id number] Nov, [address] [id number] Nov, Sciatica 724.3 and Visual acuity reduced 369.9 [address] [id number] Oct, Sciatica 724.3 and Nausea 787.02 [address] [place] [address] [id number] Oct, Coronary atherosclerosis of unspecified type of vessel, e[place] or graft 414.00 [address] [place] [address] [id number] Sep, Sciatica 724.3 and Coronary atherosclerosis of unspecified type of vessel, [place] or graft 414.00 [id number] [place] [address] [id number] Sep, Coronary atherosclerosis of unspecified type of vessel, e[place] or graft 414.00 and Unspecified essential hypertension 401.9 [address] [place] [address] [id number] Aug, Sciatica 724.3 ; Dyspepsia and other specified disorders of function of stomach 536.8 and Other abnormal blood chemistry 790.6 [address] [place] [address] [id number] Aug, Sciatica 724.3 ; Coronary atherosclerosis of unspecified type of vessel, [place] or graft 414.00 ; Unspecified essential hypertension 401.9 ; Palpitations 785.1 and Other abnormal blood chemistry 790.6 [address] [id number] July, Sciatica 724.3 and Other abnormal blood chemistry 790.6 [id number] [place] [address] [id number] July, [address] [place] [address] [id number] July, Hyperlipidemia 272.4 [facility] [address] [place] [address] Jun, [facility] [address], [place] [address] Jun, [facility] [place] [facility] [address] [facility] [id number], [place] [address] May, [facility] [address] [facility] [id number] [id number] May, [facility] [place] [facility] [address], [place] [address] Apr, [facility] [address] [facility] [id number][place] [id number] Apr, [facility] [address] [facility] [id number][place] [id number] Apr, [facility] [place] [facility] [address] [id number], [place] [address] Apr, [facility] [id number] [id number] Apr, [facility] [place] [facility] [address], [place] [address] Apr, [facility] [place] [facility] [address], [place] [address] Apr, [facility] [place] [facility] [address], [place] [address] Apr, [facility] [address] [id number] [id number] Apr, [facility] [address] [id number] [id number] Apr, [facility] [address] [facility] [id number] [id number] Apr, [facility] [place] [facility] [address], [place] [address] Apr, [facility] [address] [id number] [id number] Jan, [facility] [place] [facility] [address], [place] [address] Jan, [facility] [place] [facility] [address] [id number] [place] [address] Dec, [facility] [address] [id number] [place] [id number] Dec, [facility] [address] [id number] [place] [id number] Dec, [facility] [address] [id number] [place] [id number] Dec, [facility] [place] [facility] [address] [facility] [id number] [place] [address] Dec, [facility] [place] [facility] [address] [facility] [id number] [place] [address] Dec, [facility] [place] [facility] [address] [facility] [id number] [place] [address] Nov, [facility] [address] [facility] [id number] [place] [id number] Nov, [facility] [place] [facility] [address] [facility] [id number] [place] [address] Nov, [facility] [place] [facility] [address] [facility] [id number] [place] [address] Nov, [facility] [place] [facility] [address] [facility] [id number], [place] [address] Nov, [facility] [place] [facility] [address] [facility] [id number] [place] [address] Nov, [facility] [address] [facility] [id number][place] [id number] Nov, [facility] [place] [facility] [address] [facility] [id number] [place] [address] Nov, [facility] [place] [facility] [address] [facility] [id number] [place] [address] Sep, [facility] [address] [facility] [id number] [place] [id number] Sep, [facility] [place] [facility] [address] [facility] [id number], [place] [address] Sep, [facility] [place] [facility] [address] [id number] [place] [address] Sep, [facility] [place] [facility] [address] [facility] [id number], [place] [address] Sep, [facility] [place] [facility] [address] [facility] [id number], [place] [address] Sep, [facility] [place] [facility] [address] [facility] [id number] [place] [address] Sep, [facility] [address] [facility] [id number][place] [id number] Aug, [facility] [place] [facility] [address] [facility] [id number], [place] [address] Aug, [facility] [place] [facility] [address] [facility] [id number], [place] [address] Aug, [facility] [place] [facility] [address] [facility] [id number], [place] [address] Aug, [facility] [address] [facility] [id number], [place] [id number] Aug, [facility] [place] [facility] [address] [facility] [id number], [place] [address] Aug, [facility] [address] [facility] [id number][place] [id number] July, [facility] [place] [facility] [address] [facility] [id number], [place] [address] July, [facility] [address] [facility] [id number], [place] [id number] July, [facility] [place] [facility] [address] [facility] [id number], [place] [address] July, [facility] [place] [facility] [address] [facility] [id number], [place] [address] Jun, [facility] [place] [facility] [address] [facility] [id number], [place] [address] Jun, [facility] [place] [facility] [address] [id number] [place] [address] Jun, [facility] [address] [id number] [place] [id number] Jun, [facility] [address] [id number] [place] [id number] Jun, [facility] [place] [facility] [address] [id number] [place] [address] Jun, [facility] [address] [id number] [place] [id number] Apr, [facility] [place] [facility] [address] [id number] [place] [address] Apr, [facility] [address] [id number] [place] [id number] Sep, [facility] [address] [id number] [place] [id number] May, [facility] [place] [facility] [address] [id number] [place] [address] Apr, [facility] [place] [facility] [address] [address] Jan, [facility] [place] [facility] [address] [id number], [place] [address] Jan, [facility] [place] [facility] [address], [place] [id number] Sep, [facility] [address] [id number] [place] [id number] Sep, [facility] [place] [facility] [id number] [id number] Sep, [facility] [place] [facility] [address] [id number] [place] [address] Sep, [facility] [place] [facility] [address] [id number], [place] [address] Sep, [facility] [place] [facility] [address] [id number], [place] [address] Jun, [facility] [address] [id number], [place] [id number] Jun, [facility] [address] [id number] [place] [id number] 30 May, 2011 [facility] [address] [id number], [place] [id number] May, [facility] [address] [id number] [place] [id number] May, [facility] [address] [id number] [place] [id number] May, [facility] [address] [id number] [place] [id number] 24 May, 2011 [facility] [address] [id number] [place] [id number] May, [facility] [address] [id number] [place] [id number] May, [facility] [address] [id number] [place] [id number] 19 May, 2011 [facility] [address] [id number] [place] [id number] 15 May, 2011 [facility] [address] [id number] [place] [id number] 14 May, 2011 [facility] [address] [id number], [place] [id number] May, [facility] [address] [id number], [place] [address] May, [facility] [address] [id number], [place] 077844213 Apr, [facility] [address] [id number], [place] [address] Apr, [facility] [address] [id number], [place] [id number] Mar, [facility] [address] [id number] [place] [address] 30 Feb, 2011 [facility] [address] [id number] [place] [address] 23 Feb, 2011 [facility] [place] [facility] [address] [id number] [place] [address] 15 Feb, 2011 [facility] [address] [id number] [place] [address] 06 Feb, 2011 [facility] [place] [facility] [address] [id number] [place] [address] 02 Feb, 2011 [facility] [place] [facility] [address] [id number] [place] [address] Feb, [facility] [place] [facility] [address] [id number] [place] [address] Jan, [facility] [address] [id number] [place] [address] 27 Feb, 2010 [facility] [place] [facility] [address] [id number] [place] [address] 16 Feb, 2010 [facility] [place] [facility] [address] [id number] [place] [address] 16 Feb, 2010 [facility] [place] [facility] [address] [facility] [id number] [place] [address] Jan, [facility] [place] [facility] [address] [id number] [place] [address] 29 Dec, 2009 [facility] [place] [facility] [address] [id number] [place] [address] Dec, [facility] [place] [facility] [address] [id number] [place] [address] 20 Jun, 2009 [facility] [place] [facility] [address] [id number] [place] [address] 12 Jun, 2009 [facility] [place] [facility] [address] [facility] [id number] [place] [address] 07 Feb, 2009 [facility] [place] [facility] [address] [facility] [id number] [place] [address] Dec, [facility] [address] [facility] [id number], [place] [address] July, [facility] [address] [facility] [id number] [place] [address] Dec, IMMUNIZATIONS No Known Immunizations SOCIAL HISTORY Never Assessed REASON FOR VISIT lab Haile [facility] PLAN OF CARE Activity Details Pending Test CREATININE, SERUM VITAL SIGNS MEDICATIONS Unknown Medications RESULTS No Results PROCEDURES Procedure Date Ordered Result Body Site BASIC METABOLIC PANEL May 31, 2017 ASSAY OF CREATININE May 31, 2017 VENIPUNCT, ROUTINE* May 31, 2017 INSTRUCTIONS MEDICATIONS ADMINISTERED No Known Medications MEDICAL [...]
--- OUTSIDE RECORDS SUMMARY | 2018-09-20 13:48 | XMS REPORT ---
Author Author ALEXANDRO BELLE [facility] Address [address] [place] [address] Care Team Providers Care Desk Monitor Name Role Phone ALEXANDRO BELLE Unavailable PROBLEMS Type Condition ICD9-CM Code CZH17-ZU Code Onset Dates Condition Status SNOMED Code Problem Sciatica, left side M54.32 Active 65321710 Problem Sciatica, unspecified laterality M54.30 Active 12550091 Problem Sciatica, left M54.32 Active 07433640 Problem Dyspepsia and other specified disorders of function of stomach 536.8 Active 341197500 Problem DDD (degenerative disc disease), lumbar M51.36 Active 18848091 Problem Atherosclerosis of [place] coronary artery of [place] heart, angina presence unspecified I25.10 Active 6403461273069 Problem Essential hypertension I10 Active 75871871 Problem Chronic obstructive pulmonary disease, unspecified COPD type J44.9 Active 53586796 Problem Hyperlipidemia, unspecified hyperlipidemia type E78.5 Active 81701498 Problem Hypothyroidism, unspecified type E03.9 Active 54274391 ALLERGIES No Information ENCOUNTERS Encounter Location Date Diagnosis [facility] [id number] [place] [id number] Oct, [address] [id number] Sep, Sciatica, left M54.32 and DDD (degenerative disc disease), lumbar M51.36 [facility] [id number] [place] [address] Aug, [address] [id number] Aug, [facility] [id number] [place] [address] Aug, [id number] [place] [address] [id number] Aug, Localized swelling, mass and lump, neck R22.1 [facility] [id number] [place] [address] [id number] July, [facility] [id number] [place] [address] July, [facility] [id number] [place] [address] [id number] July, Neck swelling R22.1 ; Lung mass R91.8 and Sciatica, left side M54.32 [facility] [id number] [place] [address] [id number] Jun, Sciatica, left side M54.32 [facility] [address] [id number] May, Abnormal CXR R93.8 [facility] [id number] [place] [address] [id number] May, Abnormal CXR R93.8 [facility] [id number] [place] [address] [id number] May, Abnormal CXR R93.8 [facility] [id number] [place] [address] Apr, [facility] [id number] [place] [address] [id number] Apr, Abnormal chest xray R93.8 [id number] [place] [address] [id number] Apr, Sciatica, left side M54.32 [facility] [id number] [place] [address] [id number] Mar, Community acquired pneumonia of right lung, unspecified part of lung J18.9 ; Chronic obstructive pulmonary disease, unspecified COPD type J44.9 and Abnormal CXR R93.8 [facility] [id number] [place] [address] [id number] Mar, Community acquired pneumonia of right lower lobe of lung J18.1 [facility] [id number] [place] [address] Mar, Sciatica, left side M54.32 ; Essential hypertension I10 and Community acquired pneumonia of right lung, unspecified part of lung J18.9 [facility] [place] [id number] [place] [address], [place] [id number] Mar, Sciatica, left side M54.32 ; Essential hypertension I10 ; Chronic obstructive pulmonary disease, unspecified COPD type J44.9 and Community acquired pneumonia of right lung, unspecified part of lung J18.9 [facility] [place] [id number] [place] [address], [place] [id number] Feb, Essential hypertension I10 and Sciatica, left M54.32 [facility] [place] [id number] [place] [address], [place] [id number] Jan, Sciatica, left M54.32 [facility] [place] [id number] [place] [address], [place] [phone] Dec, Sciatica, left M54.32 ; Essential hypertension I10 ; Chronic obstructive pulmonary disease, unspecified COPD type J44.9 ; Hypothyroidism, unspecified type E03.9 and Encounter for immunization Z23 [facility] [id number] [place] [address], [place] [id number] Nov, Sciatica, unspecified laterality M54.30 [facility] [place] [id number] [place] [address], [place] [id number] Oct, Hypothyroidism, unspecified type E03.9 [facility] [id number] [place] [address], [place] [id number] Oct, Sciatica, unspecified laterality M54.30 and Hypothyroidism, unspecified type E03.9 [facility] [place] [id number] [place] [address], [place] [id number] Oct, [facility] [place] [id number] [place] [address], [place] [id number] Aug, Essential hypertension I10 and Sciatica, unspecified laterality M54.30 [facility] [place] [id number] [place] [address], [place] [id number] Aug, Sciatica, unspecified laterality M54.30 [facility] [place] [id number] [place] [address], [place] [phone] Jun, Sciatica, unspecified laterality M54.30 ; Essential hypertension I10 and Chronic obstructive pulmonary disease, unspecified COPD type J44.9 [address] [place] [address] [id number] May, Chronic obstructive pulmonary disease, unspecified COPD type J44.9 ; Essential hypertension I10 ; Sciatica, unspecified laterality M54.30 ; Hypothyroidism, unspecified type E03.9 and Hyperlipidemia, unspecified hyperlipidemia type E78.5 [facility] [id number] [id number] May, Essential hypertension I10 [facility] [address] [place] [address] [id number] Apr, [id number] [place] [address] [id number] Apr, Essential hypertension I10 and Atherosclerosis of [place] coronary artery of [place] heart, angina presence unspecified I25.10 [facility] [address] [place] [address] [id number] Mar, Essential hypertension I10 and Sciatica, unspecified laterality M54.30 [facility] [address] [id number] Jan, [id number] [place] [address] [id number] Jan, Sciatica, unspecified laterality M54.30 ; Essential hypertension I10 ; Chronic obstructive pulmonary disease, unspecified COPD type J44.9 ; Hypothyroidism, unspecified type E03.9 and Hyperlipidemia, unspecified hyperlipidemia type E78.5 [facility] [address] [id number] Dec, Sciatica, unspecified laterality M54.30 [facility] [place] [address] [id number] Dec, Essential hypertension I10 [facility] [address] [id number] Dec, Essential hypertension I10 ; Sciatica, unspecified laterality M54.30 and Encounter for immunization Z23 [facility] [address]005[address], [place] [address] Nov, [facility] [place] [id number] [place] [address] [id number] Sep, Sciatica, unspecified laterality M54.30 ; Essential hypertension I10 and Chronic obstructive pulmonary disease, unspecified COPD type J44.9 [facility] [place] [id number] [place] [address] [id number] Sep, [facility] [place] [address] [id number] July, [facility] [id number] [place] [address] [id number] Jun, Sciatica, unspecified laterality M54.30 [facility] [place] [id number] [place] [address] [id number] May, Sciatica, unspecified laterality M54.30 [facility] [place] [id number] [place] [address] [id number] May, [facility] [place] [id number] [place] [address] [id number] Apr, Sciatica, unspecified laterality M54.30 [facility] [place] [id number] [place] [address] [id number] Apr, [facility] [place] [id number] [place] [address] [id number] Mar, Sciatica, left M54.32 [facility] [address] [id number] [place] [address] [id number] Jan, Encounter for immunization Z23 and Sciatica, left M54.32 [facility] [place] [id number] [place] [address] [id number] Dec, Sciatica, left side M54.32 [facility] [id number] [place] [address] [id number] Dec, [facility] [place] [id number] [place] [address] [id number] Nov, [facility]24.3 [facility] [id number] [place] [address] [id number] Nov, [address] [id number] Nov, Sciatica 724.3 and Visual acuity reduced 369.9 [address] [id number] Oct, Sciatica 724.3 and Nausea 787.02 [address] [place] [address] [id number] Oct, Coronary atherosclerosis of unspecified type of vessel, [place] or graft 414.00 [address] [place] [address] [id number] Sep, Sciatica 724.3 and Coronary atherosclerosis of unspecified type of vessel, [place] or graft 414.00 [id number] [place] [address] [id number] Sep, Coronary atherosclerosis of unspecified type of vessel, [place] or graft 414.00 and Unspecified essential hypertension 401.9 [address] [place] [address] [id number] Aug, Sciatica 724.3 ; Dyspepsia and other specified disorders of function of stomach 536.8 and Other abnormal blood chemistry 790.6 [address] [place] [address] [id number] Aug, Sciatica 724.3 ; Coronary atherosclerosis of unspecified type of vessel, [place] or graft 414.00 ; Unspecified essential hypertension 401.9 ; Palpitations 785.1 and Other abnormal blood chemistry 790.6 [address] [id number] July, Sciatica 724.3 and Other abnormal blood chemistry 790.6 [address] [id number] [place] [address] [id number] July, [address] [place] [address] [id number] July, Hyperlipidemia 272.4 [facility] [id number] [place] [address] Jun, [facility] [address]00565[address], [place] [address] Jun, [facility] [place] [facility] [address] [facility] [id number], [place] [address] May, [facility] [address] [facility] [id number] [place] [id number] May, [facility] [place] [facility] [address]00565100[place], [place] [address] Apr, [facility] [address] [facility] [id number] [place] [id number] Apr, [facility] [address] [facility] [id number] [place] [id number] Apr, [facility] [place] [facility] [address] [id number] [address] Apr, [facility] [id number] [place] [id number] Apr, [facility] [place] [facility] [address]65[address], [place] [address] Apr, [facility] [place] [facility] [address]65[address], [place] [address] Apr, [facility] [place] [facility] [address]65[address], [place] [address] Apr, [facility] [address] [id number] [place] [id number] Apr, [facility] [address] [id number] [place] [id number] Apr, [facility] [address] [facility] [id number] [place]REEK[place] [id number] Apr, [facility] [place] [facility] [address]00565100[place], [place] [address] Apr, [facility] [address] [id number] [place] [id number] Jan, [facility] [place] [facility] [address]65100[place], [place] [address] Jan, [facility] [place] [facility] [address] [id number] [place] [address] Dec, [facility] [address] [id number] [place] [id number] Dec, [facility] [address] [id number] [place] [id number] Dec, [facility] [address] [id number] [place] [id number] Dec, [facility] [place] [facility] [address] [facility] [id number] [place] [address] Dec, [facility] [place] [facility] [address] [facility] [id number] [place] [address] Dec, [facility] [place] [facility] [address] [facility] [id number] [place] [address] Nov, [facility] [address] [facility] [id number] [place] [id number] Nov, [facility] [place] [facility] [address] [facility] [id number] [place] [address] Nov, [facility] [place] [facility] [address] [facility] [id number] [place] [address] Nov, [facility] [place] [facility] [address] [facility] [id number], [place] [address] Nov, [facility] [place] [facility] [address] [facility] [id number] [place] [address] Nov, [facility] [address] [facility] [id number] [place]REEK[place] [id number] Nov, [facility] [place] [facility] [address] [facility] [id number] [place] [address] Nov, [facility] [place] [facility] [address] [facility] [id number] [place] [address] Sep, [facility] [address] [facility] [id number] [place] [id number] Sep, [facility] [place] [facility] [address] [facility] [id number], [place] [address] Sep, [facility] [place] [facility] [address] [id number] [place] [address] Sep, [facility] [place] [facility] [address] [facility] [id number], [place] [address] Sep, [facility] [place] [facility] [address] [facility] [id number], [place] [address] Sep, [facility] [place] [facility] [address] [facility] [id number] [place] [address] Sep, [facility] [address] [facility] [id number] [place]REEK[place] [id number] Aug, [facility] [place] [facility] [address] [facility] [id number], [place] [address] Aug, [facility] [place] [facility] [address] [facility] [id number], [place] [address] Aug, [facility] [place] [facility] [address] [facility] [id number], [place] [address] Aug, [facility] [address] [facility] [id number] [place] [id number] Aug, [facility] [place] [facility] [address] [facility] [id number], [place] [address] Aug, [facility] [address] [facility] [id number] [place] [address] July, [facility] [place] [facility] [address] [facility] [id number], [place] [address] July, [facility] [address] [facility] [id number] [place] [id number] July, [facility] [place] [facility] [address] [facility] [id number], [place] [address] July, [facility] [place] [facility] [address] [facility] [id number], [place] [address] Jun, [facility] [place] [facility] [address] [facility] [id number], [place] [address] Jun, [facility] [place] [facility] [address] [id number] [place] [address] Jun, [facility] [address] [id number] [place] [id number] Jun, [facility] [address] [id number] [place] 510038682 Jun, [facility] [place] [facility] [address] [id number] [place] [address] Jun, [facility] [address] [id number] [place] [id number] Apr, [facility] [place] [facility] [address] [id number] [place] [address] Apr, [facility] [address] [id number] [place] [id number] Sep, [facility] [address] [id number] [place] [id number] May, [facility] [place] [facility] [address] [id number] [place] [address] Apr, [facility] [place] [facility] [address] [address] Jan, [facility] [place] [facility] [address] [id number], [place] [address] Jan, [facility] [place] [facility] [address]005[address] [id number] Sep, [facility] [address] [id number] [place] [id number] Sep, [facility] [place] [facility] [id number] 15[address]18[address] Sep, [facility] [place] [facility] [address] [id number] [place] [address] Sep, [facility] [place] [facility] [address] [id number], [place] [address] Sep, [facility] [place] [facility] [address] [id number], [place] [address] Jun, [facility] [address] [id number], [place] [id number] Jun, [facility] [address] [id number] [place] [id number] 30 May, 2011 [facility] [address] [id number], [place] 840585955 May, [facility] [address] [id number] [place] [id number] May, [facility] [address] [id number] [place] 140284009 May, [facility] [address] [id number] [place] 848459006 24 May, 2011 [facility] [address] [id number] [place] 867251749 May, [facility] [address] [id number] [place] 305786602 May, [facility] [address] [id number] [place] [id number] 19 May, 2011 [facility] [address] [id number] [place] [id number] 15 May, 2011 [facility] [address] [id number] [place] [id number] 14 May, 2011 [facility] [address] [id number], [place] [id number] May, [facility] [address] [id number], [place] [address] May, [facility] [address] [id number], [place] 750058996 Apr, [facility] [address] [id number], [place] [address] Apr, [facility] [address] [id number], [place] 948125725 Mar, [facility] [address] [id number] [place] [address] 30 Feb, 2011 [facility] [address] [id number] [place] [address] 23 Feb, 2011 [facility] [place] [facility] [address] [id number] [place] [address] 15 Feb, 2011 [facility] [address] [id number] [place] [address] 06 Feb, 2011 [facility] [place] [facility] [address] [id number] [place] [address] 02 Feb, 2011 [facility] [place] [facility] [address] [id number] [place] [address] Feb, [facility] [place] [facility] [address] [id number] [place] [address] Jan, [facility] [address] [id number] [place] [address] 27 Feb, 2010 [facility] [place] [facility] [address] [id number] [place] [address] 16 Feb, 2010 [facility] [place] [facility] [address] [id number] [place] [address] 16 Feb, 2010 [facility] [place] [facility] [address] [facility] [id number] [place] [address] Jan, [facility] [place] [facility] [address] [id number] [place] [address] 29 Dec, 2009 [facility] [place] [facility] [address] [id number] [place] [address] Dec, [facility] [place] [facility] [address] [id number] [place] [address] 20 Jun, 2009 [facility] [place] [facility] [address] [id number] [place] [address] 12 Jun, 2009 [facility] [place] [facility] [address] [facility] [id number] [place] [address] 07 Feb, 2009 [facility] [place] [facility] [address] [facility] [id number] [place] [address] Dec, [facility] [address] [facility] [id number], [place] [address] July, [facility] [address] [facility] [id number] [place] [address] Dec, IMMUNIZATIONS No Known Immunizations SOCIAL HISTORY Never Assessed REASON FOR VISIT 06/02/17-new order PLAN OF CARE VITAL SIGNS MEDICATIONS Unknown Medications RESULTS Name Result Date Reference Range CT Scan : Chest w/o Contrast PROCEDURES No Known procedures INSTRUCTIONS MEDICATIONS ADMINISTERED [...]
--- OUTSIDE RECORDS SUMMARY | 2018-09-20 13:48 | XMS REPORT ---
Author Author ALEXANDRO BELLE [facility] eClinicalWorks Address Unknown Phone Unavailable Care Team Providers Care [employer] Shearer Name Role Phone ALEXANDRO BELLE CP Unavailable Allergies, Adverse Reactions, Alerts Substance Reaction Event Type N.K.D.A. Info Not Available Non Drug Allergy Problems Problem Type Condition ICD-9 Code Onset Dates Condition Status Problem Acute bronchitis 466.0 Active Problem Elevated blood pressure reading without diagnosis of hypertension 796.2 Active Problem Other abnormal glucose 790.29 Active Problem Sciatica 724.3 Active Problem Palpitations 785.1 Active Problem Nausea 787.02 Active Problem Chronic airway obstruction, not elsewhere classified 496 Active Problem Coronary atherosclerosis of unspecified type of vessel, [place] or graft 414.00 Active Problem Acute upper respiratory infections of unspecified site 465.9 Active Problem Heartburn 787.1 Active Problem Other abnormal blood chemistry 790.6 Active Problem Dyspepsia and other specified disorders of function of stomach 536.8 Active Assessment Visual acuity reduced 369.9 Active Problem Unspecified essential hypertension 401.9 Active Assessment Sciatica 724.3 Active Problem Chest pain, unspecified 786.50 Active Medications Medication Code System Code Instructions Start Date End Date Status Dosage Cymbalta [facility] [address]-40 30 MG Orally Twice a day Nov 29, 2014 1 capsule Lipitor [facility] [address]-95 20 MG Orally Once a day 1 tablet Spiriva HandiHaler [facility] [address]-54 18 MCG Inhalation Once a day 1 capsule Aspirin [facility] [address]-61 81 mg June 10, 2011 chew 1 tablet (81 mg) by oral route once daily Parafon Forte DSC [facility] [address]-84 500 MG Orally Once a day at Nov 15, 2014 1 tablet Tramadol HCl [facility] [address]-26 50 MG Orally 3 times a day as needed August 21, 2014 1 tablet as needed Albuterol Sulfate [facility] [address]-93 90 mcg/actuation Jan 17, 2014 2 puffs by Inhalation route every 4 hours as needed PRN cough wheezing sob Toprol XL [facility] [address]-61 50 MG Orally 2 times a day 1 tablet Omeprazole [facility] [address]-03 40 MG Orally Once a day September 18, 2014 1 capsule Gabapentin [facility] [address]-19 600 MG Orally Three times a day 1 tab am /noon 2 tab hs October 18, 2014 1-2 tablet Procedures Procedure Coding System Code Date Office Visit, Est Pt., Level 3 CPT-4 53510 Nov 29, 2014 VISUAL ACUITY SCREEN CPT-4 47635 Nov 29, 2014 Vital Signs Date/Time: Nov 29, 2014 Temperature 98.2 F Weight 164 lbs Height 60 in BMI 32.03 Index Blood Pressure Diastolic 76 mmHg Blood Pressure Systolic 126 mmHg Cardiac Monitoring Heart Rate 66 bpm Results No Known Results Summary Purpose eClinicalWorks Submission
--- OUTSIDE RECORDS SUMMARY | 2018-09-20 13:49 | XMS REPORT ---
Author Author ALEXANDRO BELLE [facility] eClinicalWorks Address Unknown Phone Unavailable Care Team Providers Care [employer] Name Role Phone ALEXANDRO BELLE CP Unavailable [...] Coronary atherosclerosis of unspecified type of vessel, [place] or graft 414.00 Active Problem Acute upper respiratory infections of unspecified site 465.9 Active Problem Heartburn 787.1 Active Problem Other abnormal blood chemistry 790.6 Active Problem Dyspepsia and other specified disorders of function of stomach 536.8 Active Assessment Nausea 787.02 Active Problem Unspecified essential hypertension 401.9 Active Assessment Sciatica 724.3 Active Problem Chest pain, unspecified 786.50 Active Medications Medication Code System Code Instructions Start Date End Date Status Dosage Albuterol Sulfate [facility] [address]-71 90 mcg/actuation Jan 17, 2014 2 puffs by Inhalation route every 4 hours as needed PRN cough wheezing sob Toprol XL [facility] [address]-78 50 MG Orally 2 times a day 1 tablet Parafon Forte DSC [facility] [address]-04 500 MG Orally Once a day at hs Nov 15, 2014 1 tablet Aspirin [facility] [address]-24 81 mg June 10, 2011 chew 1 tablet (81 mg) by oral route once daily Omeprazole [facility] [address]-33 40 MG Orally Once a day September 18, 2014 1 capsule Spiriva HandiHaler [facility] [address]-69 18 MCG Inhalation Once a day 1 capsule Gabapentin [facility] [address]-71 600 MG Orally Three times a day 1 tab am /noon 2 tab hs October 18, 2014 1-2 tablet Tramadol HCl [facility] [address]-52 50 MG Orally 3 times a day as needed August 21, 2014 1 tablet as needed Lipitor [facility] [address]-84 20 MG Orally Once a day 1 tablet Procedures Procedure Coding System Code Date Office Visit, Est Pt., Level 3 CPT-4 45714 Nov 15, 2014 Vital Signs Date/Time: Nov 15, 2014 Cardiac Monitoring Heart Rate 68 bpm Weight 168 lbs Height 60 in BMI 32.81 Index Blood Pressure Diastolic 68 mmHg Blood Pressure Systolic 124 mmHg Results No Known Results Summary Purpose eClinicalWorks Submission
--- OUTSIDE RECORDS SUMMARY | 2018-09-20 13:49 | XMS REPORT ---
Author Author ALEXANDRO BELLE [facility] Address [address] [place] [address] Care Team Providers Care Intervention Teacher Name Role Phone ALEXANDRO BELLE Unavailable PROBLEMS Type Condition ICD9-CM Code UIL98-UN Code Onset Dates Condition Status SNOMED Code Problem Dyspepsia and other specified disorders of function of stomach 536.8 Active 537183436 Problem Sciatica, left M54.32 Active 96929473 Problem Sciatica, left side M54.32 Active 44571588 Problem Atherosclerosis of [place] coronary artery of [place] heart, angina presence unspecified I25.10 Active 0204956127223 Problem Hyperlipidemia, unspecified hyperlipidemia type E78.5 Active 17604240 Problem Chronic obstructive pulmonary disease, unspecified COPD type J44.9 Active 81766493 Problem Sciatica, unspecified laterality M54.30 Active 77712307 Problem Hypothyroidism, unspecified type E03.9 Active 39319030 Problem Essential hypertension I10 Active 61247248 ALLERGIES No Information ENCOUNTERS Encounter Location Date Diagnosis [facility] [address] [address] Aug, [address] [id number] Aug, Localized swelling, mass and lump, neck R22.[address] [id number] July, [facility] [address] [address] July, [address] [id number] July, Neck swelling R22.1 ; Lung mass R91.8 and Sciatica, left side M54.[address] [id number] Jun, Sciatica, left side M54.32 [facility] [id number][place] [id number] May, Abnormal CXR R93.8 [facility] [id number] [place] [address] [id number] May, Abnormal CXR R93.8 [facility] [id number] [place] [address] [id number] May, Abnormal CXR R93.8 [facility] [id number] [place] [address] Apr, [facility] [id number] [place] [address] [id number] Apr, Abnormal chest xray R93.8 [facility] [id number] [place] [address] [id number] Apr, Sciatica, left side M54.32 [place] [id number] [place] [address] [id number] Mar, Community acquired pneumonia of right lung, unspecified part of lung J18.9 ; Chronic obstructive pulmonary disease, unspecified COPD type J44.9 and Abnormal CXR R93.8 [facility] [id number] [place] [address] [id number] Mar, Community acquired pneumonia of right lower lobe of lung J18.1 [place] [id number] [place] [address] Mar, Sciatica, left side M54.32 ; Essential hypertension I10 and Community acquired pneumonia of right lung, unspecified part of lung J18.9 [facility] [address] [id number] [id number] Mar, Sciatica, left side M54.32 ; Essential hypertension I10 ; Chronic obstructive pulmonary disease, unspecified COPD type J44.9 and Community acquired pneumonia of right lung, unspecified part of lung J18.9 [facility] [id number], [place] [id number] Feb, Essential hypertension I10 and Sciatica, left M54.32 [facility] [place] [id number] [place] [id number] 14 Jan, 2017 Sciatica, left M54.32 [facility] [place] [id number] [place] [address], [place] [id number] Dec, Sciatica, left M54.32 ; Essential hypertension I10 ; Chronic obstructive pulmonary disease, unspecified COPD type J44.9 ; Hypothyroidism, unspecified type E03.9 and Encounter for immunization Z23 [facility] [id number] [place] [address], [place] [id number] Nov, Sciatica, unspecified laterality M54.30 [facility] [place] [id number] [place] [address], [place] [id number] Oct, Hypothyroidism, unspecified type E03.9 [facility] [id number] [place] [address], [place] [id number] Oct, Sciatica, unspecified laterality M54.30 and Hypothyroidism, unspecified type E03.9 [facility] [id number] [place] [address] [id number] Oct, [facility] [place] [id number] [place] [address], [place] [id number] Aug, Essential hypertension I10 and Sciatica, unspecified laterality M54.30 [facility] [id number] [place] [id number] Aug, Sciatica, unspecified laterality M54.30 [place] [id number] [place] [address] [id number] Jun, Sciatica, unspecified laterality M54.30 ; Essential hypertension I10 and Chronic obstructive pulmonary disease, unspecified COPD type J44.9 [facility] [id number] [place] [address] [id number] May, Chronic obstructive pulmonary disease, unspecified COPD type J44.9 ; Essential hypertension I10 ; Sciatica, unspecified laterality M54.30 ; Hypothyroidism, unspecified type E03.9 and Hyperlipidemia, unspecified hyperlipidemia type E78.5 [facility] [place] [id number] [place] [address] [id number] May, Essential hypertension I10 [facility] [address] [id number] [id number] Apr, [facility] [id number] [place] [address] [id number] Apr, Essential hypertension I10 and Atherosclerosis of [place] coronary artery of [place] heart, angina presence unspecified I25.10 [facility] [address] [id number] Mar, Essential hypertension I10 and Sciatica, unspecified laterality M54.30 [address] [place] [address] [id number] Jan, [place] [id number] [place] [address] [id number] Jan, Sciatica, unspecified laterality M54.30 ; Essential hypertension I10 ; Chronic obstructive pulmonary disease, unspecified COPD type J44.9 ; Hypothyroidism, unspecified type E03.9 and Hyperlipidemia, unspecified hyperlipidemia type E78.5 [address] [place] [address] [id number] Dec, Sciatica, unspecified laterality M54.30 [address]00565[address] [id number] Dec, Essential hypertension I10 [address] [place] [address] [id number] Dec, Essential hypertension I10 ; Sciatica, unspecified laterality M54.30 and Encounter for immunization Z23 [facility] [address]00565100[place], [place] [address] Nov, [address] [place] [address] [id number] Sep, Sciatica, unspecified laterality M54.30 ; Essential hypertension I10 and Chronic obstructive pulmonary disease, unspecified COPD type J44.9 [address] [place] [address] [id number] Sep, [address] [place] [address] [id number] July, [place] [id number] [place] [address] [id number] Jun, Sciatica, unspecified laterality M54.30 [facility] [place] [id number] [id number] May, Sciatica, unspecified laterality M54.30 [facility] [place] [id number] [place] [address] [id number] May, [facility] [place] [id number] [place] [address] [id number] Apr, Sciatica, unspecified laterality M54.30 [facility] [place] [id number] [place] [address] [id number] Apr, [facility] [place] [id number] [place] [address] [id number] Mar, Sciatica, left M54.32 [facility] [place] [id number] [place] [address] [id number] Jan, Encounter for immunization Z23 and Sciatica, left M54.32 [facility] [place] [id number] [place] [address] [id number] Dec, Sciatica, left side M54.32 [facility] [id number] [place] [address] [id number] Dec, [facility] [place] [id number] [place] [address] [id number] Nov, Sciatica 724.3 [facility] [id number] [place] [address] [id number] Nov, [facility] [address] [place] [address] [id number] Nov, Sciatica 724.3 and Visual acuity reduced 369.9 [facility] [address] [place] [address] [id number] Oct, Sciatica 724.3 and Nausea 787.02 [facility] [place] [id number] [place] [address] [id number] Oct, Coronary atherosclerosis of unspecified type of vessel, [place] or graft 414.00 [facility] [place] [address] [place] [address] [id number] Sep, Sciatica 724.3 and Coronary atherosclerosis of unspecified type of vessel, [place] or graft 414.00 [address] [id number] Sep, Coronary atherosclerosis of unspecified type of vessel, [place] or graft 414.00 and Unspecified essential hypertension 401.9 [address] [id number] Aug, Sciatica 724.3 ; Dyspepsia and other specified disorders of function of stomach 536.8 and Other abnormal blood chemistry 790.6 [address] [place] [address] [id number] Aug, Sciatica 724.3 ; Coronary atherosclerosis of unspecified type of vessel, [place] or graft 414.00 ; Unspecified essential hypertension 401.9 ; Palpitations 785.1 and Other abnormal blood chemistry 790.6 [place] [id number] [place] [address] [id number] July, Sciatica 724.3 and Other abnormal blood chemistry 790.6 [address] [place] [address] [id number] July, [place] [id number] [place] [address] [id number] July, Hyperlipidemia 272.4 [facility] [id number] [place] [address] Jun, [facility] [id number] [place] [address] Jun, [facility] [id number] [place] [address] May, [address] [place] [address] [id number] May, [facility] [id number] [place] [address] Apr, [address] [place] [address] [id number] Apr, [place] [id number] Apr, 2014 [facility] [place] [facility] [address] [facility] [id number], [place] [address] Apr, 2014 [facility] [place] [address] [facility] [id number] [place] [id number] Apr, 2014 [facility] [place] [facility] [address] [facility] [id number], [place] [address] Apr, 2014 [facility] [place] [facility] [address] [facility] [id number], [place] [address] Apr, 2014 [facility] [place] [facility] [address] [facility] [id number], [place] [address] Apr, 2014 [facility] [place] [address] [facility] [id number], [place] [id number] Apr, 2014 [facility] [place] [address] [facility] [id number], [place] [id number] Apr, 2014 [facility] [place] [address] [facility] [id number], [place] [id number] Apr, 2014 [facility] [place] [facility] [address] [facility] [id number], [place] [address] Apr, 2014 [facility] [place] [address] [facility] [id number], [place] [id number] Jan, [facility] [place] [facility] [address] [facility] [id number], [place] [address] Jan, [facility] [place] [facility] [address] [facility] [id number], [place] [address] Dec, [facility] [place] [address] [facility] [id number], [place] [id number] Dec, [facility] [place] [address] [facility] [id number], [place] [id number] Dec, [facility] [place] [address] [facility] [id number], [place] [id number] Dec, [facility] [place] [facility] [address] [id number], [place] [address] Dec, [facility] [place] [facility] [address] [id number] [place] [address] Dec, [facility] [place] [facility] [address] [id number] [place] [address] Nov, [facility] [place] [address] [facility] [id number] [place] [id number] Nov, [facility] [place] [facility] [address] [id number] [place] [address] Nov, [facility] [place] [facility] [address] [id number] [place] [address] Nov, [facility] [place] [facility] [address] [id number] [place] [address] Nov, [facility] [place] [facility] [address] [id number] [place] [address] Nov, [facility] [place] [address] [facility] [id number][place] [id number] Nov, [facility] [place] [facility] [address] [id number] [place] [address] Nov, [facility] [place] [facility] [address] [id number] [place] [address] Sep, [facility] [place] [address] [facility] [id number], [place] [id number] Sep, [facility] [place] [facility] [address] [id number] [place] [address] Sep, [facility] [place] [facility] [address] [id number] [place] [address] Sep, [facility] [place] [facility] [address] [id number] [place] [address] Sep, [facility] [place] [facility] [address] [id number] [place] [address] Sep, [facility] [place] [facility] [address] [id number] [place] [address] Sep, [facility] [place] [address] [facility] [id number] [place] [id number] Aug, [facility] [place] [facility] [address] [facility] [id number] [place] [address] Aug, [facility] [place] [facility] [address] [facility] [id number] [place] [address] Aug, [facility] [place] [facility] [address] [facility] [id number] [place] [address] Aug, [facility] [place] [address] [facility] [id number] [place] [id number] Aug, [facility] [place] [facility] [address] [facility] [id number] [place] [address] Aug, [facility] [place] [address] [facility] [id number] [place] [id number] July, [facility] [place] [facility] [address] [facility] [id number], [place] [address] July, [facility] [place] [address] [facility] [id number], [place] [id number] July, [facility] [place] [facility] [address] [facility] [id number] [place] [address] July, [facility] [place] [facility] [address] [facility] [id number], [place] [address] Jun, [facility] [place] [facility] [address] [facility] [id number], [place] [address] Jun, [facility] [place] [facility] [address] [facility] [id number], [place] [address] Jun, [facility] [place] [address] [facility] [id number] [place] [id number] Jun, [facility] [place] [address] [facility] [id number] [place] [id number] Jun, [facility] [place] [facility] [address] [facility] [id number] [place] [address] Jun, [facility] [place] [address] [facility] [id number] [place] 2385635[address] Apr, [facility] [address] [id number], [place] [address] Apr, [facility] [place] [address] [id number], [place] [id number] Sep, [facility] [place] [address] [id number], [place] [id number] May, [facility] [address] [id number], [place] [address] Apr, [facility] [address] [id number] [place] [address] Jan, [facility] [place] [facility] [address] [id number] [place] [address] Jan, [facility] [address] [id number], [place] 955539288 Sep, [facility] [place] [address] [id number], [place] [id number] Sep, [facility] [address] [id number], [place] [id number] Sep, [facility] [place] [facility] [address] [id number], [place] [address] Sep, [facility] [address] [id number], [place] [address] Sep, [facility] [place] [facility] [address] [id number], [place] [address] Jun, [facility] [place] [facility] [address] [id number], [place] [id number] Jun, [facility] [place] [address] [id number], [place] [id number] May, [facility] [place] [facility] [address] [id number], [place] [id number] May, [facility] [place] [address] [id number], [place] [id number] May, [facility] [place] [address] [id number] [place] [id number] 27 May, 2011 [facility] [place] [address] [id number] [place] [id number] 24 May, 2011 [facility] [place] [address] [id number] [place] [id number] May, [facility] [place] [address] [id number] [place] [id number] May, [facility] [place] [address] [id number] [place] [id number] 19 May, 2011 [facility] [place] [address] [id number] [place] [id number] 15 May, 2011 [facility] [place] [address] [id number] [place] [id number] May, [facility] [place] [facility] [address]00565100[place], [place] [id number] May, [facility] [place] [facility] [address]005[address]100[place], [place] [address] May, [facility] [place] [facility] [address]00565100[place], [place] [id number] Apr, [facility] [place] [facility] [id number] [place] [address] Apr, [facility] [place] [facility] [address]005[address]100[place], [place] [address]87[address]156 Mar, [facility] [place] [facility] [address]00565100[place], [place] [address] Feb, [facility] [place] [facility] [address]00565100[place], [place] [address] Feb, [facility] [place] [facility] [id number] [place] [address] Feb, [facility] [place] [facility] [address]005[address]100[place], [place] [address] Feb, [facility] [place] [facility] [address]00565100[place], [place] [address] Feb, [facility] [place] [facility] [address] [facility] [id number], [place] [address] Feb, [facility] [address] [facility] [id number], [place] [address] Jan, [facility] [address] [facility] [id number], [place] [address] Feb, [facility] [address] [facility] [id number], [place] [address] Feb, [facility] [address] [facility] [id number], [place] [address] Feb, [facility] [address] [facility] [id number], [place] [address] Jan, [facility] [address] [facility] [id number], [place] [address] Dec, [facility] [address], [place] [address] Dec, [facility] [address]00565100[place], [place] [address] Jun, [facility] [address]100[place], [place] [address] Jun, [facility] [address] [id number], [place] [address] Feb, [facility] [address] [id number], [place] [address] Dec, [facility] [address] [id number], [place] [address] July, [facility] [address] [id number], [place] [address] Dec, IMMUNIZATIONS No Known Immunizations SOCIAL HISTORY Never Assessed REASON FOR VISIT med refills PLAN OF CARE VITAL SIGNS MEDICATIONS Medication Instructions Dosage Frequency Start Date End Date Duration Status Celebrex 200 mg Orally Once a day 1 capsule 24h Active Toprol XL 50 mg Orally 2 times a day 1.5 tablet 12h Active RESULTS No Results PROCEDURES No Known [...]
--- OUTSIDE RECORDS SUMMARY | 2018-09-20 13:49 | XMS REPORT ---
Author Author ALEXANDRO BELLE Organization [employer] Address Unknown Phone Unavailable Care Team Providers Care [employer] Manager Architect Name Role Phone ALEXANDRO BELLE CP Unavailable Allergies No Known Allergies Problems Problem Type Condition ICD-9 Code Onset Dates Condition Status Problem Acute bronchitis 466.0 Active Problem Elevated blood pressure reading without diagnosis of hypertension 796.2 Active Problem Other abnormal glucose 790.29 Active Problem Sciatica 724.3 Active Problem Palpitations 785.1 Active Problem Nausea 787.02 Active Problem Chronic airway obstruction, not elsewhere classified 496 Active Problem Coronary atherosclerosis of unspecified type of vessel, redding or graft 414.00 Active Problem Acute upper respiratory infections of unspecified site 465.9 Active Problem Heartburn 787.1 Active Problem Other abnormal blood chemistry 790.6 Active Problem Dyspepsia and other specified disorders of function of stomach 536.8 Active Problem Unspecified essential hypertension 401.9 Active Problem Chest pain, unspecified 786.50 Active Medications Medication Code System Code Instructions Start Date End Date Status Dosage Flonase [facility] [address]-19 50 MCG/ACT Nasally Once a day Nov 29, 2014 1 spray in each nostril Augmentin [facility] [address]-44 875-125 MG Orally every 12 hrs Nov 29, 2014 Dec 09, 2014 1 tablet Results No Known Results Summary Purpose [employer] Submission
--- OUTSIDE RECORDS SUMMARY | 2018-09-20 13:49 | XMS REPORT ---
Author Author ALEXANDRO BELLE Organization [employer] Address Unknown Phone Unavailable Care Team Providers Care Rn Ent Name Role Phone ALEXANDRO BELLE CP Unavailable Allergies No Known Allergies Problems Problem Type Condition Code Onset Dates Condition Status Problem Unspecified essential hypertension 401.9 Active Problem Coronary atherosclerosis of unspecified type of vessel, port gamble or graft 414.00 Active Problem Other abnormal glucose 790.29 Active Assessment Essential hypertension I10 Active Problem Dyspepsia and other specified disorders of function of stomach 536.8 Active Problem Chronic obstructive pulmonary disease, unspecified COPD type J44.9 Active Problem Sciatica, unspecified laterality M54.30 Active Problem Essential hypertension I10 Active Problem Palpitations 785.1 Active Problem Chronic airway obstruction, not elsewhere classified 496 Active Problem Sciatica, left M54.32 Active Problem Sciatica, left side M54.32 Active Medications No Known Medications Procedures Procedure Coding System Code Date VENIPUNCT, ROUTINE* CPT-4 58398 Jan 15, 2016 LAB NOT BILLED BY [facility] CPT-4 NOBLL Jan 15, 2016 Results Name Result Date Reference Range Unit Abnormality Flag ROUTINE VENIPUNCTURE Summary Purpose [employer] Submission
--- OUTSIDE RECORDS SUMMARY | 2018-09-20 13:49 | XMS REPORT ---
Author Author ALEXANDRO BELLE Organization [employer] Address Unknown Phone Unavailable Care Team Providers Care Aoc Operations Intelligence Chief Name Role Phone ALEXANDRO BELLE CP Unavailable Allergies No Known Allergies Problems Problem Type Condition Code Onset Dates Condition Status Problem Unspecified essential hypertension 401.9 Active Problem Coronary atherosclerosis of unspecified type of vessel, [place] or graft 414.00 Active Problem Other abnormal glucose 790.29 Active Assessment Sciatica, unspecified laterality M54.30 Active Problem Dyspepsia and other specified disorders of function of stomach 536.8 Active Problem Chronic obstructive pulmonary disease, unspecified COPD type J44.9 Active Problem Sciatica, unspecified laterality M54.30 Active Problem Essential hypertension I10 Active Problem Palpitations 785.1 Active Problem Chronic airway obstruction, not elsewhere classified 496 Active Problem Sciatica, left M54.32 Active Problem Sciatica, left side M54.32 Active Medications No Known Medications Results No Known Results Summary Purpose [employer] Submission
--- OUTSIDE RECORDS SUMMARY | 2018-09-20 13:49 | XMS REPORT ---
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 Army Helicopter Pilot Name Role Phone ALEXANDRO BELLE Unavailable PROBLEMS Type Condition ICD9-CM Code DFW51-VU Code Onset Dates Condition Status SNOMED Code Problem Dyspepsia and other specified disorders of function of stomach 536.8 Active 586493157 Problem Sciatica, left M54.32 Active 84906474 Problem Sciatica, left side M54.32 Active 66366938 Problem Atherosclerosis of [place] coronary artery of [place] heart, angina presence unspecified I25.10 Active 4331276425019 Problem Hyperlipidemia, unspecified hyperlipidemia type E78.5 Active 62576021 Problem Chronic obstructive pulmonary disease, unspecified COPD type J44.9 Active 27612689 Problem Sciatica, unspecified laterality M54.30 Active 65801350 Problem Hypothyroidism, unspecified type E03.9 Active 45285700 Problem Essential hypertension I10 Active 81698528 ALLERGIES Unknown Allergies SOCIAL HISTORY No smoking Hx information available PLAN OF CARE VITAL SIGNS MEDICATIONS Medication Instructions Dosage Frequency Start Date End Date Duration Status Tramadol HCl 50 mg Orally 3 times a day as needed must last 1 m. 1 tablet July, Active RESULTS No Results PROCEDURES No Known procedures IMMUNIZATIONS No Known Immunizations
--- OUTSIDE RECORDS SUMMARY | 2018-09-20 13:50 | XMS REPORT ---
Author Author ALEXANDRO BELLE 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.8 Active 835989171 Problem Sciatica, left M54.32 Active 99758091 Problem Sciatica, left side M54.32 Active 36289612 Problem Atherosclerosis of [place] coronary artery of [place] heart, angina presence unspecified I25.10 Active 6694002769563 Problem Hyperlipidemia, unspecified hyperlipidemia type E78.5 Active 27607929 Problem Chronic obstructive pulmonary disease, unspecified COPD type J44.9 Active 86488758 Problem Sciatica, unspecified laterality M54.30 Active 25027699 Problem Hypothyroidism, unspecified type E03.9 Active 06332397 Problem Essential hypertension I10 Active 03224175 ALLERGIES No Information ENCOUNTERS Encounter Location Date Diagnosis [facility] [address] [address] Aug, [address] [id number] Aug, Localized swelling, mass and lump, neck R22.[address] [id number] July, [facility] [address] [address] July, [address] [id number] July, Neck swelling R22.1 ; Lung mass R91.8 and Sciatica, left side M54.[address] [id number] Jun, Sciatica, left side M54.32 [facility] [id number] [id number] May, Abnormal CXR R93.8 [facility] [id number] [place] [address] [id number] May, Abnormal CXR R93.8 [facility] [id number] [place] [address] [id number] May, Abnormal CXR R93.8 [facility] [id number] [place] [address] Apr, [facility] [id number] [place] [address] [id number] Apr, Abnormal chest xray R93.8 [facility] [id number] [place] [address] [id number] Apr, Sciatica, left side M54.32 [place] [id number] [place] [address] [id number] Mar, Community acquired pneumonia of right lung, unspecified part of lung J18.9 ; Chronic obstructive pulmonary disease, unspecified COPD type J44.9 and Abnormal CXR R93.8 [facility] [id number] [place] [address] [id number] Mar, Community acquired pneumonia of right lower lobe of lung J18.1 [place] [id number] [place] [address] Mar, Sciatica, left side M54.32 ; Essential hypertension I10 and Community acquired pneumonia of right lung, unspecified part of lung J18.9 [facility] [address] [id number] [id number] Mar, Sciatica, left side M54.32 ; Essential hypertension I10 ; Chronic obstructive pulmonary disease, unspecified COPD type J44.9 and Community acquired pneumonia of right lung, unspecified part of lung J18.9 [facility] [id number][place] [id number] Feb, Essential hypertension I10 and Sciatica, left M54.32 [facility] [id number] [place] [id number] 14 Jan, 2017 Sciatica, left M54.32 [facility] [place] [id number] [place] [address], [place] [id number] Dec, Sciatica, left M54.32 ; Essential hypertension I10 ; Chronic obstructive pulmonary disease, unspecified COPD type J44.9 ; Hypothyroidism, unspecified type E03.9 and Encounter for immunization Z23 [facility] [id number] [place] [address], [place] [id number] Nov, Sciatica, unspecified laterality M54.30 [facility] [place] [id number] [place] [address], [place] [id number] Oct, Hypothyroidism, unspecified type E03.9 [facility] [id number] [place] [address], [place] [id number] Oct, Sciatica, unspecified laterality M54.30 and Hypothyroidism, unspecified type E03.9 [facility] [id number] [place] [address] [id number] Oct, [facility] [place] [id number] [place] [address], [place] [id number] Aug, Essential hypertension I10 and Sciatica, unspecified laterality M54.30 [facility] [id number] [place] [id number] Aug, Sciatica, unspecified laterality M54.30 [place] [id number] [place] [address] [id number] Jun, Sciatica, unspecified laterality M54.30 ; Essential hypertension I10 and Chronic obstructive pulmonary disease, unspecified COPD type J44.9 [facility] [id number] [place] [address] [id number] May, Chronic obstructive pulmonary disease, unspecified COPD type J44.9 ; Essential hypertension I10 ; Sciatica, unspecified laterality M54.30 ; Hypothyroidism, unspecified type E03.9 and Hyperlipidemia, unspecified hyperlipidemia type E78.5 [facility] [place] [id number] [place] [address] [id number] May, Essential hypertension I10 [facility] [address] [id number] [id number] Apr, [facility] [id number] [place] [address] [id number] Apr, Essential hypertension I10 and Atherosclerosis of [place] coronary artery of [place] heart, angina presence unspecified I25.10 [facility] [address] [id number] Mar, Essential hypertension I10 and Sciatica, unspecified laterality M54.30 [address] [place] [address] [id number] Jan, [place] [id number] [place] [address] [id number] Jan, Sciatica, unspecified laterality M54.30 ; Essential hypertension I10 ; Chronic obstructive pulmonary disease, unspecified COPD type J44.9 ; Hypothyroidism, unspecified type E03.9 and Hyperlipidemia, unspecified hyperlipidemia type E78.5 [address] [place] [address] [id number] Dec, Sciatica, unspecified laterality M54.30 [address] [id number] Dec, Essential hypertension I10 [address] [place] [address] [id number] Dec, Essential hypertension I10 ; Sciatica, unspecified laterality M54.30 and Encounter for immunization Z23 [facility] [address]005[address], [place] [address] Nov, [address] [place] [address] [id number] Sep, Sciatica, unspecified laterality M54.30 ; Essential hypertension I10 and Chronic obstructive pulmonary disease, unspecified COPD type J44.9 [address] [place] [address] [id number] Sep, [address] [place] [address] [id number] July, [place] [id number] [place] [address] [id number] Jun, Sciatica, unspecified laterality M54.30 [facility] [place] [address]005[address]100[place] [id number] May, Sciatica, unspecified laterality M54.30 [facility] [place] [id number] [place] [address] [id number] May, [facility] [place] [id number] [place] [address] [id number] Apr, Sciatica, unspecified laterality M54.30 [facility] [place] [id number] [place] [address] [id number] Apr, [facility] [place] [address] [id number] [place] [address] [id number] Mar, Sciatica, left M54.32 [facility] [place] [address] [id number] [place] [address] [id number] Jan, Sciatica, left M54.32 and Encounter for immunization Z23 [facility] [id number] [place] [address] [id number] Dec, Sciatica, left side M54.32 [facility] [id number] [place] [address] [id number] Dec, [facility] [place] [address] [id number] [place] [address] [id number] Nov, Sciatica 724.3 [place] [id number] [place] [address] [id number] Nov, [facility] [address] [place] [address] [id number] Nov, Sciatica 724.3 and Visual acuity reduced 369.9 [facility] [place] [id number] [place] [address] [id number] Oct, Sciatica 724.3 and Nausea 787.02 [facility] [place] [id number] [place] [address] [id number] Oct, Coronary atherosclerosis of unspecified type of vessel, [place] or graft 414.00 [address] [id number] [place] [address] [id number] Sep, Sciatica 724.3 and Coronary atherosclerosis of unspecified type of vessel, [place] or graft 414.00 [address]100[place] [id number] Sep, Coronary atherosclerosis of unspecified type of vessel, [place] or graft 414.00 and Unspecified essential hypertension 401.9 [address]00565100[place], [place] [id number] Aug, Sciatica 724.3 ; Dyspepsia and other specified disorders of function of stomach 536.8 and Other abnormal blood chemistry 790.6 [address] [place] [address] [id number] Aug, Sciatica 724.3 ; Coronary atherosclerosis of unspecified type of vessel, [place] or graft 414.00 ; Unspecified essential hypertension 401.9 ; Palpitations 785.1 and Other abnormal blood chemistry 790.6 [id number] [place] [address] [id number] July, Sciatica 724.3 and Other abnormal blood chemistry 790.6 [address] [place] [address] [id number] July, [place] [id number] [place] [address] [id number] July, Hyperlipidemia 272.4 [facility] [id number] [place] [address] Jun, [facility] [id number] [place] [address] Jun, [facility] [id number] [place] [address] May, [address] [place] [address] [id number] May, [facility] [id number] [place] [address] Apr, [address] [place] [address] [id number] Apr, [place] [id number] [id number] Apr, 2014 [facility] [place] [facility] [address] [facility] [id number] [address] Apr, 2014 [facility] [place] [address] [facility] [id number] [place] [id number] Apr, 2014 [facility] [place] [facility] [address] [facility] [id number][place] [address] Apr, 2014 [facility] [place] [facility] [address] [facility] [id number][place] [address] Apr, 2014 [facility] [place] [facility] [address] [facility] [id number][place] [address] Apr, 2014 [facility] [place] [address] [facility] [id number], [place] [id number] Apr, 2014 [facility] [place] [address] [facility] [id number], [place] [id number] Apr, 2014 [facility] [place] [address] [facility] [id number], [place] [id number] Apr, 2014 [facility] [place] [facility] [address] [facility] [id number][place] [address] Apr, 2014 [facility] [place] [address] [facility] [id number][place] [id number] Jan, [facility] [place] [facility] [address] [facility] [id number][place] [address] Jan, [facility] [place] [facility] [address] [facility] [id number][place] [address] Dec, [facility] [place] [address] [facility] [id number], [place] [id number] Dec, [facility] [place] [address] [facility] [id number], [place] [id number] Dec, [facility] [place] [address] [facility] [id number], [place] [id number] Dec, [facility] [place] [facility] [address] [id number], [place] [address] Dec, [facility] [place] [facility] [address] [id number] [place] [address] Dec, [facility] [place] [facility] [address] [id number] [place] [address] Nov, [facility] [place] [address] [facility] [id number] [place] [id number] Nov, [facility] [place] [facility] [address] [id number] [place] [address] Nov, [facility] [place] [facility] [address] [id number] [place] [address] Nov, [facility] [place] [facility] [address] [id number] [place] [address] Nov, [facility] [place] [facility] [address] [id number] [place] [address] Nov, [facility] [place] [address] [facility] [id number], [place] [id number] Nov, [facility] [place] [facility] [address] [id number] [place] [address] Nov, [facility] [place] [facility] [address] [id number] [place] [address] Sep, [facility] [place] [address] [facility] [id number], [place] [id number] Sep, [facility] [place] [facility] [address] [id number] [place] [address] Sep, [facility] [place] [facility] [address] [id number] [place] [address] Sep, [facility] [place] [facility] [address] [id number] [place] [address] Sep, [facility] [place] [facility] [address] [id number] [place] [address] Sep, [facility] [place] [facility] [address] [id number] [place] [address] Sep, [facility] [place] [address] [facility] [id number] [place] [id number] Aug, [facility] [place] [facility] [address] [facility] [id number] [place] [address] Aug, [facility] [place] [facility] [address] [facility] [id number] [place] [address] Aug, [facility] [place] [facility] [address] [facility] [id number] [place] [address] Aug, [facility] [place] [address] [facility] [id number] [place] [id number] Aug, [facility] [place] [facility] [address] [facility] [id number] [place] [address] Aug, [facility] [place] [address] [facility] [id number] [place] [id number] July, [facility] [place] [facility] [address] [facility] [id number], [place] [address] July, [facility] [place] [address] [facility] [id number], [place] 585507229 July, [facility] [place] [facility] [address] [facility] [id number] [place] [address] July, [facility] [place] [facility] [address] [facility] [id number][place] [address] Jun, [facility] [place] [facility] [address] [facility] [id number][place] [address] Jun, [facility] [place] [facility] [address] [facility] [id number], [place] [address] Jun, [facility] [place] [address] [facility] [id number] [place] 4[address] Jun, [facility] [place] [address] [facility] [id number] [place] [id number] Jun, [facility] [place] [facility] [address] [facility] [id number] [place] [address] Jun, [facility] [place] [address] [facility] [id number] [place] [address] Apr, [facility] [address] [id number], [place] [address] Apr, [facility] [place] [address] [id number], [place] 785096466 Sep, [facility] [place] [address] [id number], [place] [id number] May, [facility] [address] [id number], [place] [address] Apr, [facility] [address] [id number] [place] [address] Jan, [facility] [place] [facility] [address] [id number] [place] [address] Jan, [facility] [address] [id number][place] 15[address]644 Sep, [facility] [place] [address] [id number], [place] 05[address]35[address] Sep, [facility] [address] [id number], [place] 65[address]312[address] Sep, [facility] [place] [facility] [address] [id number], [place] [address] Sep, [facility] [address] [id number], [place] [address] Sep, [facility] [place] [facility] [address] [id number], [place] [address] Jun, [facility] [place] [facility] [address] [id number], [place] [id number] Jun, [facility] [place] [address] [id number], [place] 450566404 May, [facility] [place] [facility] [address] [id number], [place] 077296744 May, [facility] [place] [address] [id number], [place] 803365345 May, [facility] [place] [address] [id number] [place] [id number] 27 May, 2011 [facility] [place] [address] [id number] [place] [id number] 24 May, 2011 [facility] [place] [address] [id number] [place] [id number] May, [facility] [place] [address] [id number] [place] 0278998[address] May, [facility] [place] [address] [id number] [place] [id number] 19 May, 2011 [facility] [place] [address] [id number] [place] [id number] 15 May, 2011 [facility] [place] [address] [id number] [place] 969486233 May, [facility] [place] [facility] [address], [place] [id number] May, [facility] [place] [facility] [address], [place] [address] May, [facility] [place] [facility] [address], [place] [address] Apr, [facility] [place] [facility] [id number] [place] [address] Apr, [facility] [place] [facility] [address], [place] [address] Mar, [facility] [place] [facility] [address]005[address], [place] [address] Feb, [facility] [place] [facility] [address]005[address]100[place], [place] [address] Feb, [facility] [place] [facility] [id number] [place] [address] Feb, [facility] [place] [facility] [address]005[address]100[place], [place] [address] Feb, [facility] [place] [facility] [address], [place] [address] Feb, [facility] [place] [facility] [address] [facility] [id number], [place] [address] Feb, [facility] [address] [facility] [id number], [place] [address] Jan, [facility] [address] [facility] [id number], [place] [address] Feb, [facility] [address] [facility] [id number], [place] [address] Feb, [facility] [address] [facility] [id number], [place] [address] Feb, [facility] [address]00565100[place] [address] Jan, [facility] [address] [id number] [address] Dec, [facility] [address]00565100[place] [address] Dec, [facility] [address]00565100[place] [address] Jun, [facility] [address] [address] Jun, [facility] [address] [id number] [address] Feb, [facility] [address] [id number] [address] Dec, [facility] [address] [id number], [place] [address] July, [facility] [address] [id number], [place] [address] Dec, IMMUNIZATIONS No Known Immunizations SOCIAL HISTORY Never Assessed REASON FOR VISIT Refill request PLAN OF CARE VITAL SIGNS MEDICATIONS Medication Instructions Dosage Frequency Start Date End Date Duration Status Gabapentin 800 MG Orally 3 times a day 1 capsule 8h Active Levaquin 500 mg Orally Once a day 1 tablet 24h Mar, 10 day(s) Active Medrol (Felipe) 4 MG as directed Mar, Active Cymbalta 60 mg Orally 2 times a day TAKE ONE (1) CAPSULE BY MOUTH TWICE DAILY... 12h 30 days Active Levothyroxine Sodium 25 MCG Orally Once a day 1 tablet on an empty stomach in the morning 24h 0 Active RESULTS No Results PROCEDURES No Known [...]
--- OUTSIDE RECORDS SUMMARY | 2018-09-20 13:50 | XMS REPORT ---
Author Author ALEXANDRO BELLE [facility] Address [address] [place] [address] Care Team Providers Care Program Analyst Name Role Phone ALEXANDRO BELLE Unavailable PROBLEMS Type Condition ICD9-CM Code [id number] Code Onset Dates Condition Status SNOMED Code Problem Dyspepsia and other specified disorders of function of stomach 536.8 Active 250790377 Problem Sciatica, left M54.32 Active 71689474 Problem Sciatica, left side M54.32 Active 89968519 Problem Atherosclerosis of swinom[place] coronary artery of swinom[place] heart, angina presence unspecified I25.10 Active 0816831267514 Problem Hyperlipidemia, unspecified hyperlipidemia type E78.5 Active 99560505 Problem Chronic obstructive pulmonary disease, unspecified COPD type J44.9 Active 39627472 Problem Sciatica, unspecified laterality M54.30 Active 19711122 Problem Hypothyroidism, unspecified type E03.9 Active 32149757 Problem Essential hypertension I10 Active 70053691 ALLERGIES No Information ENCOUNTERS Encounter Location Date Diagnosis [facility] [id number] [place] [address] [id number] Jun, Sciatica, left side M54.32 [facility] [id number] [place] [address] [id number] May, Abnormal CXR R93.8 [facility] [id number] [place] [address] [id number] May, Abnormal CXR R93.8 [facility] [id number] [place] [address] [id number] May, Abnormal CXR R93.8 [facility] [address], [place] [address] Apr, [facility] [id number] [place] [address] [id number] Apr, Abnormal chest xray R93.8 [address] [place] [address] [id number] Apr, Sciatica, left side M54.32 [address] [id number] [place] [address] [id number] Mar, Community acquired pneumonia of right lung, unspecified part of lung J18.9 ; Chronic obstructive pulmonary disease, unspecified COPD type J44.9 and Abnormal CXR R93.8 [id number] [place] [address] [id number] Mar, Community acquired pneumonia of right lower lobe of lung J18.1 [facility] [id number] [place] [address] Mar, Sciatica, left side M54.32 ; Essential hypertension I10 and Community acquired pneumonia of right lung, unspecified part of lung J18.9 [id number] [place] [address] [id number] Mar, Sciatica, left side M54.32 ; Essential hypertension I10 ; Chronic obstructive pulmonary disease, unspecified COPD type J44.9 and Community acquired pneumonia of right lung, unspecified part of lung J18.9 [id number] [place] [address] [id number] Feb, Essential hypertension I10 and Sciatica, left M54.32 [id number] [place] [address] [id number] Jan, Sciatica, left M54.32 [id number] [place] [address] [id number] Dec, Sciatica, left M54.32 ; Essential hypertension I10 ; Chronic obstructive pulmonary disease, unspecified COPD type J44.9 ; Hypothyroidism, unspecified type E03.9 and Encounter for immunization Z23 [id number] [place] [address] [id number] Nov, Sciatica, unspecified laterality M54.30 [id number] [place] [address] [id number] Oct, Hypothyroidism, unspecified type E03.9 [address] [id number] [place] [address] [id number] Oct, Sciatica, unspecified laterality M54.30 and Hypothyroidism, unspecified type E03.9 [facility] [id number] [place] [address] [id number] Oct, [facility] [id number] [place] [address] [id number] Aug, Essential hypertension I10 and Sciatica, unspecified laterality M54.30 [facility] [id number] [place] [address] [id number] Aug, Sciatica, unspecified laterality M54.30 [facility] [id number] [place] [address] [id number] Jun, Sciatica, unspecified laterality M54.30 ; Essential hypertension I10 and Chronic obstructive pulmonary disease, unspecified COPD type J44.9 [facility] [id number] [place] [address] [id number] May, Chronic obstructive pulmonary disease, unspecified COPD type J44.9 ; Essential hypertension I10 ; Sciatica, unspecified laterality M54.30 ; Hypothyroidism, unspecified type E03.9 and Hyperlipidemia, unspecified hyperlipidemia type E78.5 [facility] [id number] [place] [address] [id number] May, Essential hypertension I10 [facility] [id number] [place] [address] [id number] Apr, [facility] [id number] [place] [address] [id number] Apr, Essential hypertension I10 and Atherosclerosis of swinom[place] coronary artery of swinomish heart, angina presence unspecified I25.10 [facility] [id number] [place] [address] [id number] Mar, Essential hypertension I10 and Sciatica, unspecified laterality M54.30 [facility] [id number] [place] [address] [id number] Jan, [facility] [id number] [place] [address] [id number] Jan, Sciatica, unspecified laterality M54.30 ; Essential hypertension I10 ; Chronic obstructive pulmonary disease, unspecified COPD type J44.9 ; Hypothyroidism, unspecified type E03.9 and Hyperlipidemia, unspecified hyperlipidemia type E78.5 [facility] [id number] [place] [address] [id number] Dec, Sciatica, unspecified laterality M54.30 [facility] [address] [facility] [id number] [id number] Dec, Essential hypertension I10 [facility] [id number] [place] [address] [id number] Dec, Essential hypertension I10 ; Sciatica, unspecified laterality M54.30 and Encounter for immunization Z23 [facility] [id number] [address] Nov, [facility] [id number] [place] [address] [id number] Sep, Sciatica, unspecified laterality M54.30 ; Essential hypertension I10 and Chronic obstructive pulmonary disease, unspecified COPD type J44.9 [facility] [id number] [place] [address] [id number] Sep, [facility] [address] [place] [address] [id number] July, [facility] [address] [place] [address] [id number] Jun, Sciatica, unspecified laterality M54.30 [facility] [address] [place] [address] [id number] May, Sciatica, unspecified laterality M54.30 [facility] [address] [place] [address] [id number] May, [facility] [address] [place] [address] [id number] Apr, Sciatica, unspecified laterality M54.30 [facility] [address] [place] [address] [id number] Apr, [facility] [id number] [place] [address] [id number] Mar, Sciatica, left M54.32 [id number] [place] [address] [id number] Jan, Sciatica, left M54.32 and Encounter for immunization Z23 [address] [id number] Dec, Sciatica, left side M54.32 [place] [address] [id number] Dec, [address] [id number] Nov, Sciatica 724.3 [place] [address] [id number] Nov, [address] [id number] Nov, Sciatica 724.3 and Visual acuity reduced 369.[address] [id number] Oct, Sciatica 724.3 and Nausea 787.[address] [id number] Oct, Coronary atherosclerosis of unspecified type of vessel, swinom[place] or graft 414.00 [id number] [place] [address] [id number] Sep, Sciatica 724.3 and Coronary atherosclerosis of unspecified type of vessel, sw[place] or graft 414.[address] [id number] Sep, Coronary atherosclerosis of unspecified type of vessel, sw[place] or graft 414.00 and Unspecified essential hypertension 401.9 [id number] [place] [address] [id number] Aug, Sciatica 724.3 ; Dyspepsia and other specified disorders of function of stomach 536.8 and Other abnormal blood chemistry 790.6 [address] [id number] [place] [address] [id number] Aug, Sciatica 724.3 ; Coronary atherosclerosis of unspecified type of vessel, swin[place] or graft 414.00 ; Unspecified essential hypertension 401.9 ; Palpitations 785.1 and Other abnormal blood chemistry 790.6 [facility] [place] [place] [id number] [place] [address] [id number] July, Sciatica 724.3 and Other abnormal blood chemistry 790.6 [facility] [place] [id number] [place] [address] [id number] July, [facility] [place] [place] [id number] [place] [address] [id number] July, Hyperlipidemia 272.4 [facility] [id number] [place] [address] Jun, [facility] [id number] [place] [address] Jun, [facility] [id number] [place] [address] May, [facility] [id number] [place] [address] [id number] May, [facility] [place] [id number] [place] [address] [id number] Apr, [facility] [id number] [place] [address] Apr, [facility] [id number] [place] [address] [id number] Apr, [facility] [id number] [place] [address] Apr, [facility] [address] [place] [address] [id number] Apr, [facility] [id number] [place] [address] Apr, [facility] [id number] [place] [address] Apr, [facility] [id number] [place] [address] Apr, [facility] [address] [id number] [place] [id number] Apr, 2014 [facility] [address] [id number] [place] [id number] Apr, 2014 [facility] [address] [id number] [place] [id number] Apr, [facility] [place] [facility] [address] [facility] [id number], [place] [address] Apr, 2014 [facility] [address] [id number] [place] [id number] Jan, [facility] [place] [facility] [address], [place] [address] Jan, [facility] [place] [facility] [address], [place] [address] Dec, [facility] [address] [id number][place] [id number] Dec, [facility] [address] [facility] [id number][place] [id number] Dec, [facility] [address] [facility] [id number][place] [id number] Dec, [facility] [place] [facility] [address], [place] [address] Dec, [facility] [place] [facility] [address], [place] [address] Dec, [facility] [place] [facility] [address], [place] [address] Nov, [facility] [address] [facility] [id number][place] [address] Nov, [facility] [place] [facility] [address] [facility] [id number], [place] [address] Nov, [facility] [place] [facility] [address] [facility] [id number], [place] [address] Nov, [facility] [place] [facility] [address], [place] [address] Nov, [facility] [place] [facility] [address] [id number] [place] [address] Nov, [facility] [address] [id number] [place] [id number] Nov, [facility] [place] [facility] [address] [id number] [place] [address] Nov, [facility] [place] [facility] [address] [id number] [place] [address] Sep, [facility] [address] [facility] [id number] [place] [id number] Sep, [facility] [place] [facility] [address] [id number] [place] [address] Sep, [facility] [place] [facility] [address] [facility] [id number] [place] [address] Sep, [facility] [place] [facility] [address] [id number] [place] [address] Sep, [facility] [place] [facility] [address] [id number] [place] [address] Sep, [facility] [place] [facility] [address] [id number] [place] [address] Sep, [facility] [address] [facility] [id number] [place] [id number] Aug, [facility] [place] [facility] [address] [id number], [place] [address] Aug, [facility] [place] [facility] [address] [id number], [place] [address] Aug, [facility] [place] [facility] [address] [id number] [place] [address] Aug, [facility] [address] [facility] [id number] [place] [id number] Aug, [facility] [place] [facility] [address] [id number] [place] [address] Aug, [facility] [address] [facility] [id number] [place] [id number] July, [facility] [address] [facility] [id number], [place] [address] July, [facility] [address] [facility] [id number][place] [id number] July, [facility] [place] [facility] [address], [place] [address] July, [facility] [place] [facility] [address] [facility] [id number], [place] [address] Jun, [facility] [place] [facility] [address], [place] [address] Jun, [facility] [place] [facility] [address], [place] [address] Jun, [facility] [id number][place] [address] Jun, [facility] [address] [id number] [id number] Jun, [facility] [place] [facility] [address], [place] [address] Jun, [facility] [address] [id number] [address] Apr, [facility] [place] [facility] [address], [place] [address] Apr, [facility] [address] [facility] [id number][place] [id number] Sep, [facility] [address] [facility] [id number][place] [address] May, [facility] [place] [facility] [address] [facility] [id number], [place] [address] Apr, [facility] [place] [facility] [address], [place] [address] Jan, [facility] [place] [facility] [address], [place] [address] Jan, [facility] [place] [facility] [address] [id number], [place] [address] Sep, [facility] [address] [id number][place] [address] Sep, [facility] [address] [id number], [place] [address] Sep, [facility] [address] [id number], [place] [address] Sep, [facility] [address] [id number] [place] [address] Sep, [facility] [address] [id number] [place] [address] Jun, [facility] [address] [id number], [place] [address] Jun, [facility] [address] [id number][place] [address] 30 May, 2011 [facility] [address] [id number][place] [address] May, [facility] [address] [id number], [place] 813[address]83 May, [facility] [address] [id number][place] [address] May, [facility] [address] [id number][place] [id number] 24 May, 2011 [facility] [address] [id number], [place] 705874[address] May, [facility] [address] [id number], [place] 374[address] May, [facility] [address] [id number], [place] [id number] 19 May, 2011 [facility] [address] [id number] [place] [address] 15 May, 2011 [facility] [address] [id number][place] [id number] 14 May, 2011 [facility] [place] [facility] [address] [id number] [place] [address] May, [facility] [address] [id number] [place] [address] May, [facility] [place] [facility] [address] [id number] [place] [id number] Apr, [facility] [address] [id number] [place] [address] Apr, [facility] [place] [facility] [address] [id number] [place] [id number] Mar, [facility] [address] [id number] [place] [address] Feb, [facility] [address] [id number] [place] [address] Feb, [facility] [address] [id number] [place] [address] Feb, [facility] [address] [id number] [place] [address] Feb, [facility] [address] [id number] [place] [address] Feb, [facility] [address] [facility] [id number] [place] [address] Feb, [facility] [address] [id number] [place] [address] Jan, [facility] [place] [facility] [address] [id number] [place] [address] Feb, [facility] [place] [facility] [address] [id number] [place] [address] Feb, [facility] [place] [facility] [address] [id number] [place] [address] Feb, [facility] [place] [facility] [address] [id number] [place] [address] Jan, [facility] [id number], [place] [address] Dec, [facility] [address], [place] [address] Dec, [facility] [address], [place] [address] Jun, [facility] [address], [place] [address] Jun, [facility] [address], [place] [address] Feb, [facility] [address], [place] [address] Dec, [facility] [address], [place] [address] July, [facility] [address], [place] [address] Dec, IMMUNIZATIONS No Known Immunizations SOCIAL HISTORY [...]
--- OUTSIDE RECORDS SUMMARY | 2018-09-20 13:50 | XMS REPORT ---
Author Author ALEXANDRO BELLE [facility] Address [address] [place] [address] Care Team Providers Care Supervisor Production Managing Name Role Phone ALEXANDRO BELLE Unavailable PROBLEMS Type Condition ICD9-CM Code EIB25-YQ Code Onset Dates Condition Status SNOMED Code Problem Dyspepsia and other specified disorders of function of stomach 536.8 Active 827548729 Problem Sciatica, left M54.32 Active 06798964 Problem Sciatica, left side M54.32 Active 10329488 Problem Atherosclerosis of chilkat coronary artery of chilkat heart, angina presence unspecified I25.10 Active 1901157817592 Problem Hyperlipidemia, unspecified hyperlipidemia type E78.5 Active 66493051 Problem Chronic obstructive pulmonary disease, unspecified COPD type J44.9 Active 27357818 Problem Sciatica, unspecified laterality M54.30 Active 93339291 Problem Hypothyroidism, unspecified type E03.9 Active 94900219 Problem Essential hypertension I10 Active 34425377 ALLERGIES Substance Reaction Event Type Date Status N.K.D.A. Unknown Non Drug Allergy Mar, Unknown SOCIAL HISTORY No smoking Hx information available PLAN OF CARE Activity Details Follow Up 4 Weeks Reason:htn VITAL SIGNS Height 60 in 2016-03-31 Weight 166.8 lbs 2016-03-31 Temperature 99.0 degrees Fahrenheit 2016-03-31 Heart Rate 62 bpm 2016-03-31 Respiratory Rate 18 2016-03-31 BMI 32.57 kg/m2 2016-03-31 Blood pressure systolic 132 mmHg 2016-03-31 Blood pressure diastolic 68 mmHg 2016-03-31 MEDICATIONS Medication Instructions Dosage Frequency Start Date End Date Duration Status Toprol XL 50 mg Orally 2 times a day 1.5 tablet 12h Active Gabapentin 800 MG Orally 3 times a day 1 capsule 8h 12 Mar, 2015 Active Omeprazole 40 MG TAKE ONE (1) CAPSULE BY MOUTH ONCE DAILY... Active Spiriva HandiHaler 18 MCG Inhalation Once a day 1 capsule 24h Active Aspirin 81 mg chew 1 tablet (81 mg) by oral route once daily May, Active Naproxen Sodium 550 MG Orally Twice a day, 1 tablet Dec, Active Tramadol HCl 50 mg Orally 3 times a day as needed must last 1 m. 1 tablet July, Active Atorvastatin Calcium 20 mg Orally Once a day 1 tablet 24h Jan, Active Cymbalta 60 mg Orally Twice a day 1 capsule 12h Nov, Active Levothyroxine Sodium 25 MCG Orally Once a day 1 tablet on an empty stomach in the morning 24h Jan, Active Albuterol Sulfate 90 mcg/actuation 2 puffs by Inhalation route every 4 hours as needed PRN cough wheezing sob Dec, Active RESULTS No Results PROCEDURES Procedure Date Ordered Related Diagnosis Body Site [facility] VISIT ESTABLISHED PATIENT Mar 31, 2016 Office Visit, Est Pt., Level 3 Mar 31, 2016 IMMUNIZATIONS No Known Immunizations
--- OUTSIDE RECORDS SUMMARY | 2018-09-20 13:51 | XMS REPORT ---
Author Author ALEXANDRO BELLE Organization [employer] Address Unknown Phone Unavailable Care Team Providers Care Rn Compliance Name Role Phone ALEXANDRO BELLE CP Unavailable Allergies No Known Allergies Problems Problem Type Condition Code Onset Dates Condition Status Problem Coronary atherosclerosis of unspecified type of vessel, [place] or graft 414.00 Active Problem Heartburn 787.1 Active Problem Chronic airway obstruction, not elsewhere classified 496 Active Problem Sciatica, left M54.32 Active Problem Sciatica, left side M54.32 Active Problem Sciatica, unspecified laterality M54.30 Active Problem Palpitations 785.1 Active Problem Acute upper respiratory infections of unspecified site 465.9 Active Problem Nausea 787.02 Active Problem Sciatica 724.3 Active Problem Other abnormal blood chemistry 790.6 Active Problem Chest pain, unspecified 786.50 Active Problem Acute bronchitis 466.0 Active Problem Dyspepsia and other specified disorders of function of stomach 536.8 Active Problem Other abnormal glucose 790.29 Active Problem Unspecified essential hypertension 401.9 Active Problem Elevated blood pressure reading without diagnosis of hypertension 796.2 Active Medications Medication Code System Code Instructions Start Date End Date Status Dosage Naproxen Sodium [facility] [place] [address]-03 550 MG Orally Twice a day, NEEDS APPT BEFORE ANY FURTHER REFILLS Jan 01, 2015 1 tablet Tramadol HCl [facility] [place] [address]-55 50 mg Orally 3 times a day as needed must last 1 m. NEEDS APPT BEFORE ANY FURTHER REFILLS August 21, 2014 1 tablet Results No Known Results Summary Purpose [employer] Submission
--- OUTSIDE RECORDS SUMMARY | 2018-09-20 13:51 | XMS REPORT ---
Author Author ALEXANDRO BELLE [facility] Address [address] [place] [address] Care Team Providers Care Metal Tank Erector Name Role Phone ALEXANDRO BELLE Unavailable PROBLEMS Type Condition ICD9-CM Code LHE72-BD Code Onset Dates Condition Status SNOMED Code Problem Dyspepsia and other specified disorders of function of stomach 536.8 Active 748182571 Problem Sciatica, left M54.32 Active 27299893 Problem Sciatica, left side M54.32 Active 44576291 Problem Atherosclerosis of washoe coronary artery of washoe heart, angina presence unspecified I25.10 Active 6583980174399 Problem Hyperlipidemia, unspecified hyperlipidemia type E78.5 Active 84911717 Problem Chronic obstructive pulmonary disease, unspecified COPD type J44.9 Active 71998042 Problem Sciatica, unspecified laterality M54.30 Active 18675250 Problem Hypothyroidism, unspecified type E03.9 Active 93954185 Problem Essential hypertension I10 Active 81914190 ALLERGIES No Information ENCOUNTERS Encounter Location Date Diagnosis [address] [address] [id number] [place] [address] [id number] May, Abnormal CXR R93.8 [facility] [id number] [place] [address] [id number] May, Abnormal CXR R93.8 [id number] [place] [address] [id number] May, Abnormal CXR R93.8 [facility] [id number] [place] [address] Apr, [address] [id number] [place] [address] [id number] Apr, Abnormal chest xray R93.8 [address] [id number] [place] [address] [id number] Apr, Sciatica, left side M54.32 [address]005[address]100[place] [id number] Mar, Community acquired pneumonia of right lung, unspecified part of lung J18.9 ; Chronic obstructive pulmonary disease, unspecified COPD type J44.9 and Abnormal CXR R93.8 [address] [place] [address] [id number] Mar, Community acquired pneumonia of right lower lobe of lung J18.1 [facility] [id number] [address] Mar, Sciatica, left side M54.32 ; Essential hypertension I10 and Community acquired pneumonia of right lung, unspecified part of lung J18.9 [address] [id number] [place] [address] [id number] Mar, Sciatica, left side M54.32 ; Essential hypertension I10 ; Chronic obstructive pulmonary disease, unspecified COPD type J44.9 and Community acquired pneumonia of right lung, unspecified part of lung J18.9 [address] [place] [id number] [place] [address] [id number] Feb, Essential hypertension I10 and Sciatica, left M54.32 [address] [place] [id number] [place] [address] [id number] Jan, Sciatica, left M54.32 [address] [id number] [place] [address] [id number] Dec, Sciatica, left M54.32 ; Essential hypertension I10 ; Chronic obstructive pulmonary disease, unspecified COPD type J44.9 ; Hypothyroidism, unspecified type E03.9 and Encounter for immunization Z23 [address] [place] [address] [id number] Nov, Sciatica, unspecified laterality M54.30 [address] [place] [id number] [place] [address] [id number] Oct, Hypothyroidism, unspecified type E03.9 [address] [place] [address] [id number] Oct, Sciatica, unspecified laterality M54.30 and Hypothyroidism, unspecified type E03.9 [facility] [id number] [id number] Oct, [facility] [id number] [place] [address] [id number] Aug, Essential hypertension I10 and Sciatica, unspecified laterality M54.30 [facility] [id number] [place] [address] [id number] Aug, Sciatica, unspecified laterality M54.30 [place] [id number] [place] [address] [id number] Jun, Sciatica, unspecified laterality M54.30 ; Essential hypertension I10 and Chronic obstructive pulmonary disease, unspecified COPD type J44.9 [place] [id number] [place] [address] [id number] May, Chronic obstructive pulmonary disease, unspecified COPD type J44.9 ; Essential hypertension I10 ; Sciatica, unspecified laterality M54.30 ; Hypothyroidism, unspecified type E03.9 and Hyperlipidemia, unspecified hyperlipidemia type E78.5 [facility] [id number] [place] [address] [id number] May, Essential hypertension I10 [address] [id number] [place] [address] [id number] Apr, [address] [id number] [place] [address] [id number] Apr, Essential hypertension I10 and Atherosclerosis of washoe coronary artery of washoe heart, angina presence unspecified I25.10 [address] [place] [address] [id number] Mar, Essential hypertension I10 and Sciatica, unspecified laterality M54.30 [address] [place] [address] [id number] Jan, [address] [place] [id number] [place] [address] [id number] Jan, Sciatica, unspecified laterality M54.30 ; Essential hypertension I10 ; Chronic obstructive pulmonary disease, unspecified COPD type J44.9 ; Hypothyroidism, unspecified type E03.9 and Hyperlipidemia, unspecified hyperlipidemia type E78.5 [facility] [id number] [id number] Dec, Sciatica, unspecified laterality M54.30 [facility] [place] [id number], [place] [id number] Dec, Essential hypertension I10 [facility] [place] [id number] [id number] Dec, Essential hypertension I10 ; Sciatica, unspecified laterality M54.30 and Encounter for immunization Z23 [facility] [address] [address] Nov, [facility] [id number] [place] [address] [id number] Sep, Sciatica, unspecified laterality M54.30 ; Essential hypertension I10 and Chronic obstructive pulmonary disease, unspecified COPD type J44.9 [facility] [id number] [place] [id number] Sep, [facility] [place] [id number] [place] [address] [id number] July, [facility] [id number] [place] [id number] Jun, Sciatica, unspecified laterality M54.30 [facility] [place] [id number] [place] [id number] May, Sciatica, unspecified laterality M54.30 [facility] [address]005[address]100[place] [id number] May, [facility] [place] [id number] [place] [address] [id number] Apr, Sciatica, unspecified laterality M54.30 [facility] [place] [id number] [id number] Apr, [facility] [id number] [place] [address] [id number] Mar, Sciatica, left M54.32 [facility] [address] [id number] Jan, Encounter for immunization Z23 and Sciatica, left M54.32 [address]100[place] [id number] Dec, Sciatica, left side M54.32 [address]00565100[place] [id number] Dec, [place] [id number] [place] [address] [id number] Nov, Sciatica 724.[address] [place] [address] [id number] Nov, [place] [id number] [place] [address] [id number] Nov, Sciatica 724.3 and Visual acuity reduced 369.9 [address] [place] [id number] [place] [address] [id number] Oct, Sciatica 724.3 and Nausea 787.02 [address] [address] [place] [address] [id number] Oct, Coronary atherosclerosis of unspecified type of vessel, washoe or graft 414.00 [address] [address] [place] [address] [id number] Sep, Sciatica 724.3 and Coronary atherosclerosis of unspecified type of vessel, washoe or graft 414.00 [place] [address] [place] [address] [id number] Sep, Coronary atherosclerosis of unspecified type of vessel, washoe or graft 414.00 and Unspecified essential hypertension 401.9 [address] [id number] [place] [address] [id number] Aug, Sciatica 724.3 ; Dyspepsia and other specified disorders of function of stomach 536.8 and Other abnormal blood chemistry 790.6 [place] [id number] [place] [address] [id number] Aug, Sciatica 724.3 ; Coronary atherosclerosis of unspecified type of vessel, washoe or graft 414.00 ; Unspecified essential hypertension 401.9 ; Palpitations 785.1 and Other abnormal blood chemistry 790.6 [place] [id number] [id number] July, Sciatica 724.3 and Other abnormal blood chemistry 790.6 [facility] [place] [id number] [place] [address] [id number] July, [facility] [place] [id number] [place] [address] [id number] July, Hyperlipidemia 272.4 [facility] [id number] [place] [address] Jun, [facility] [id number] [place] [address] Jun, [facility] [id number] [place] [address] May, [facility] [id number] [place] [id number] May, [facility] [id number] [place] [address] Apr, [facility] [id number] [place] [id number] Apr, [facility] [id number] [place] [address] [id number] Apr, [facility] [address]100[place] [address] Apr, [facility] [id number] [id number] Apr, [facility] [address] [address] Apr, [facility] [address] [place] [address] Apr, [facility] [place] [facility] [address]100[place] [address] Apr, [facility] [id number] [place] [id number] Apr, [facility] [place] [address] [id number] [id number] Apr, 2014 [facility] [place] [address] [id number] [place] [id number] Apr, 2014 [facility] [place] [facility] [address] [facility] [id number], [place] [address] Apr, 2014 [facility] [place] [address] [facility] [id number] [place] [id number] Jan, [facility] [place] [facility] [address] [facility] [id number], [place] [address] Jan, [facility] [place] [facility] [address] [facility] [id number] [place] [address] Dec, [facility] [place] [address] [facility] [id number] [place] [id number] Dec, [facility] [place] [address] [facility] [id number] [place] [id number] Dec, [facility] [place] [address] [facility] [id number] [place] [id number] Dec, [facility] [place] [facility] [address] [facility] [id number] [address] Dec, [facility] [place] [facility] [address], [place] [address] Dec, [facility] [place] [facility] [address] [facility] [id number], [place] [address] Nov, [facility] [place] [address] [facility] [id number] [place] [id number] Nov, [facility] [place] [facility] [address] [facility] [id number], [place] [address] Nov, [facility] [place] [facility] [address] [facility] [id number] [place] [address] Nov, [facility] [place] [facility] [address] [facility] [id number] [address] Nov, [facility] [place] [facility] [address]005[address]100[place] [address] Nov, [facility] [place] [address] [id number] [place] [id number] Nov, [facility] [place] [facility] [address] [id number] [place] [address] Nov, [facility] [place] [facility] [address] [id number] [place] [address] Sep, [facility] [place] [address] [id number] [place] [id number] Sep, [facility] [place] [facility] [address] [id number] [place] [address] Sep, [facility] [place] [facility] [address] [id number] [place] [address] Sep, [facility] [place] [facility] [address] [facility] [id number] [place] [address] Sep, [facility] [place] [facility] [address] [facility] [id number] [place] [address] Sep, [facility] [place] [facility] [address] [facility] [id number] [place] [address] Sep, [facility] [place] [address] [facility] [id number] [place] [id number] Aug, [facility] [place] [facility] [address] [facility] [id number] [place] [address] Aug, [facility] [place] [facility] [address] [facility] [id number] [place] [address] Aug, [facility] [place] [facility] [address] [facility] [id number] [place] [address] Aug, [facility] [place] [address] [id number] [place] [id number] Aug, [facility] [place] [facility] [address] [id number] [place] [address] Aug, [facility] [place] [address] [facility] [id number] [place] [id number] July, [facility] [place] [facility] [address] [facility] [id number] [place] [address] July, [facility] [address] [facility] [id number] [place] [id number] July, [facility] [place] [facility] [id number] [address] July, [facility] [place] [facility] [address] [id number] [place] [address] Jun, [facility] [place] [facility] [address] [facility] [id number] [place] [address] Jun, [facility] [place] [facility] [address] [facility] [id number] [place] [address] Jun, [facility] [address] [facility] [id number] [place] [id number] Jun, [facility] [place] [address] [id number] [place] [id number] Jun, [facility] [place] [facility] [id number] [address] Jun, [facility] [place] [address] [facility] [id number] [place] [id number] Apr, [facility] [place] [facility] [address]005[address]100[place], [place] [address] Apr, [facility] [place] [address] [id number] [id number] Sep, [facility] [address] [facility] [id number] [place] [id number] May, [facility] [place] [facility] [address] [id number] [address] Apr, [facility] [place] [facility] [address] [place] [address] Jan, [facility] [place] [facility] [address] [facility] [id number] [place] [address] Jan, [facility] [place] [facility] [id number] [id number] Sep, [facility] [place] [address] [id number] [place] [address] Sep, [facility] [address] [id number] [id number] Sep, [facility] [place] [facility] [address] [id number] [place] [address] Sep, [facility] [id number] [place] [address], [place] [address] Sep, [facility] [address] [id number] [place] [address] Jun, [facility] [address] [id number] [id number] Jun, [facility] [place] [address] [id number] [place] [id number] May, [facility] [address] [id number] [address] May, [facility] [place] [address] [id number] [place] [id number] May, [facility] [place] [address] [id number] [place] [address] May, [facility] [place] [address] [id number] [place] [id number] 24 May, 2011 [facility] [place] [address] [id number] [place] [address] May, [facility] [address] [id number] [place] [id number] May, [facility] [address] [id number] [place] [id number] 19 May, 2011 [facility] [place] [address] [id number] [place] [id number] 15 May, 2011 [facility] [address] [id number] [place] [id number] 14 May, 2011 [facility] [address] [id number][place] [id number] 06 May, 2011 [facility] [address] [id number] [place] [address] May, [facility] [address] [id number] [place] [id number] Apr, [facility] [address] [id number] [place] [address] Apr, [facility] [address] [id number] [place] [id number] Mar, [facility] [address] [id number] [place] [address] Feb, [facility] [address] [id number] [place] [address] Feb, [facility] [address] [id number] [place] [address] Feb, [facility] [address] [facility] [id number] [place] [address] Feb, [facility] [address] [facility] [id number] [place] [address] Feb, [facility] [address] [facility] [id number] [place] [address] Feb, [facility] [address] [facility] [id number] [place] [address] Jan, [facility] [address] [id number] [place] [address] Feb, [facility] [address] [id number] [place] [address] Feb, [facility] [address] [id number] [place] [address] Feb, [facility] [address] [facility] [id number] [place] [address] Jan, [facility] [address] [id number] [place] [address] Dec, [facility] [address] [id number] [address] Dec, [facility] [address] [id number] [address] Jun, [facility] [address] [id number] [address] Jun, [facility] [address]100[place] [address] Feb, [facility] [address] [id number] [address] Dec, [facility] [address]100[place], [place] [address] July, [facility] [address]00565100[place], [place] [address] Dec, IMMUNIZATIONS No Known Immunizations SOCIAL HISTORY Never Assessed REASON FOR VISIT med refills PLAN OF CARE VITAL SIGNS MEDICATIONS Medication Instructions Dosage Frequency Start Date End Date Duration Status Tramadol HCl 50 mg Orally 3 times a day as needed must last 1 m. 1 tablet July, Active Levothyroxine Sodium 25 MCG Orally Once a day 1 tablet on an empty stomach in the morning 24h Jan, Active RESULTS No Results PROCEDURES No Known procedures INSTRUCTIONS MEDICATIONS ADMINISTERED No Known Medications MEDICAL (GENERAL) HISTORY Type Description Date Medical History hypertension Medical History hyperlipidemia Medical History CAD w/ coronary stenting Medical History obesity Medical History pulmonary hypertension Medical History carotid artery narrowing Medical History COPD Surgical History partial hysterectomy 1986 Surgical History coronary artery bypass graft-double 03/2011 Surgical History heart cath 03/2011, 2013, 04/2016 Hospitalization History surgeries
--- OUTSIDE RECORDS SUMMARY | 2018-09-20 13:51 | XMS REPORT ---
Author Author ALEXANDRO BELLE [facility] Address [address] [place] [address] Care Team Providers Care Hide Cooking Operator Name Role Phone ALEXANDRO BELLE Unavailable PROBLEMS Type Condition ICD9-CM Code [id number] Code Onset Dates Condition Status SNOMED Code Problem Dyspepsia and other specified disorders of function of stomach 536.8 Active 897709648 Problem Sciatica, left M54.32 Active 48016627 Problem Sciatica, left side M54.32 Active 04564919 Problem Atherosclerosis of mcgrath coronary artery of mcgrath heart, angina presence unspecified I25.10 Active 1611649669069 Problem Hyperlipidemia, unspecified hyperlipidemia type E78.5 Active 38810454 Problem Chronic obstructive pulmonary disease, unspecified COPD type J44.9 Active 58814898 Problem Sciatica, unspecified laterality M54.30 Active 70660654 Problem Hypothyroidism, unspecified type E03.9 Active 15396978 Problem Essential hypertension I10 Active 15875144 ALLERGIES Substance Reaction Event Type Date Status Lisinopril cough Drug Allergy May, Active SOCIAL HISTORY Never Assessed PLAN OF CARE Activity Details Follow Up 4 Weeks Reason:copd VITAL SIGNS Height 60 in 2016-06-10 Weight 167.8 lbs 2016-06-10 Temperature 98.0 degrees Fahrenheit 2016-06-10 Heart Rate 63 bpm 2016-06-10 Respiratory Rate 18 2016-06-10 BMI 32.77 kg/m2 2016-06-10 Blood pressure systolic 128 mmHg 2016-06-10 Blood pressure diastolic 66 mmHg 2016-06-10 MEDICATIONS Medication Instructions Dosage Frequency Start Date End Date Duration Status Spiriva HandiHaler 18 MCG Inhalation Once a day 1 capsule 24h Active Celebrex 200 mg Orally Once a day 1 capsule with food 24h May, Active Cymbalta 60 mg Orally Twice a day 1 capsule 12h Nov, Active Gabapentin 800 MG Orally 3 times a day 1 capsule 8h Mar, Active Albuterol Sulfate 90 mcg/actuation Inhalation 4 times a day 2 puffs 6h Dec, Active Amlodipine Besylate 2.5 MG Orally Once a day 1 tablet 24h Active Tylenol Extra Strength 500 MG Orally every 6 hrs 2 tablets as needed 6h Active Aspirin 81 mg chew 1 tablet (81 mg) by oral route once daily May, Active Omeprazole 40 MG TAKE ONE (1) CAPSULE BY MOUTH ONCE DAILY... Active Atorvastatin Calcium 20 mg Orally Once a day 1 tablet 24h Jan, Active Levothyroxine Sodium 25 MCG Orally Once a day 1 tablet on an empty stomach in the morning 24h Jan, Active Tramadol HCl 50 mg Orally 3 times a day as needed must last 1 m. 1 tablet July, Active Toprol XL 50 mg Orally 2 times a day 1.5 tablet 12h Active RESULTS No Results PROCEDURES Procedure Date Ordered Result Body Site [facility] VISIT ESTABLISHED PATIENT June 10, 2016 IMMUNIZATIONS No Known Immunizations MEDICAL (GENERAL) HISTORY Type Description Date Medical History hypertension Medical History hyperlipidemia Medical History CAD w/ coronary stenting Medical History obesity Medical History pulmonary hypertension Medical History carotid artery narrowing Surgical History partial hysterectomy 1985 Surgical History coronary artery bypass graft-double 03/2011 Surgical History heart cath 03/2011, 2013, 04/2016 Hospitalization History surgeries
--- OUTSIDE RECORDS SUMMARY | 2018-09-20 13:51 | XMS REPORT ---
Author Author ALEXANDRO BELLE [facility] Address [address] [place] [address] Care Team Providers Care Regulatory Compliance Officer Name Role Phone ALEXANDRO BELLE Unavailable PROBLEMS Type Condition ICD9-CM Code CYX55-TX Code Onset Dates Condition Status SNOMED Code Problem Dyspepsia and other specified disorders of function of stomach 536.8 Active 650187211 Problem Sciatica, left M54.32 Active 54087888 Problem Sciatica, left side M54.32 Active 08876004 Problem Atherosclerosis of [place] coronary artery of [place] heart, angina presence unspecified I25.10 Active 4831195926912 Problem Hyperlipidemia, unspecified hyperlipidemia type E78.5 Active 73110176 Problem Chronic obstructive pulmonary disease, unspecified COPD type J44.9 Active 13318813 Problem Sciatica, unspecified laterality M54.30 Active 82225943 Problem Hypothyroidism, unspecified type E03.9 Active 43338378 Problem Essential hypertension I10 Active 53365977 ALLERGIES Substance Reaction Event Type Date Status Lisinopril cough Drug Allergy Jun, Active SOCIAL HISTORY Never Assessed PLAN OF CARE Activity Details Follow Up 2 Months Reason:htn VITAL SIGNS Height 60 in 2016-07-17 Weight 166.4 lbs 2016-07-17 Temperature 98.0 degrees Fahrenheit 2016-07-17 Heart Rate 60 bpm 2016-07-17 Respiratory Rate 18 2016-07-17 Oximetry 97 % 2016-07-17 BMI 32.49 kg/m2 2016-07-17 Blood pressure systolic 122 mmHg 2016-07-17 Blood pressure diastolic 64 mmHg 2016-07-17 MEDICATIONS Medication Instructions Dosage Frequency Start Date End Date Duration Status Tramadol HCl 50 mg Orally 3 times a day as needed must last 1 m. 1 tablet July, Active Amlodipine Besylate 2.5 MG Orally Once a day 1 tablet 24h Active Levothyroxine Sodium 25 MCG Orally Once a day 1 tablet on an empty stomach in the morning 24h Jan, Active Cymbalta 60 mg Orally Twice a day 1 capsule 12h Nov, Active Gabapentin 800 MG 1 capsule 3 times a day Orally Active Breo Ellipta 200-25 MCG/INH Inhalation Once a day 1 puff 24h Active Mucinex 600 MG Orally every 12 hrs 1 tablet as needed 12h Active Spiriva HandiHaler 18 MCG Inhalation Once a day 1 capsule 24h Active Toprol XL 50 mg Orally 2 times a day 1.5 tablet 12h Active Albuterol Sulfate 90 mcg/actuation Inhalation 4 times a day 2 puffs 6h Dec, Active Tylenol Extra Strength 500 MG Orally every 6 hrs 2 tablets as needed 6h Active PredniSONE 10 MG (21) Active Atorvastatin Calcium 20 mg Orally Once a day 1 tablet 24h Jan, Active Aspirin 81 mg chew 1 tablet (81 mg) by oral route once daily May, Active Celebrex 200 mg Orally Once a day 1 capsule with food 24h Active Omeprazole 40 MG TAKE ONE (1) CAPSULE BY MOUTH ONCE DAILY... Active Montelukast Sodium 10 MG Orally Once a day 1 tablet in the evening 24h Active RESULTS No Results PROCEDURES Procedure Date Ordered Result Body Site MEASURE BLOOD OXYGEN LEVEL July 17, 2016 [facility] VISIT ESTABLISHED PATIENT July 17, 2016 IMMUNIZATIONS No Known Immunizations MEDICAL (GENERAL) [...]
--- OUTSIDE RECORDS SUMMARY | 2018-09-20 13:51 | XMS REPORT ---
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 Active 129308665 Problem Sciatica, left M54.32 Active 65058024 Problem Sciatica, left side M54.32 Active 34746006 Problem Atherosclerosis of [place] coronary artery of [place] heart, angina presence unspecified I25.10 Active 3323498561092 Problem Hyperlipidemia, unspecified hyperlipidemia type E78.5 Active 68442936 Problem Chronic obstructive pulmonary disease, unspecified COPD type J44.9 Active 65719403 Problem Sciatica, unspecified laterality M54.30 Active 27078385 Problem Hypothyroidism, unspecified type E03.9 Active 12054289 Problem Essential hypertension I10 Active 75017499 ALLERGIES No Information ENCOUNTERS Encounter Location Date Diagnosis [facility] [id number] [place] [address] [id number] Jun, Sciatica, left side M54.32 [facility] [id number] [place] [address] [id number] May, Abnormal CXR R93.8 [facility] [id number] [place] [address] [id number] May, Abnormal CXR R93.8 [facility] [id number] [place] [address] [id number] May, Abnormal CXR R93.8 [facility] [address]005[address], [place] [address] Apr, [facility] [id number] [place] [address] [id number] Apr, Abnormal chest xray R93.8 [id number] [place] [address] [id number] Apr, Sciatica, left side M54.32 [id number] [place] [address] [id number] Mar, Community acquired pneumonia of right lung, unspecified part of lung J18.9 ; Chronic obstructive pulmonary disease, unspecified COPD type J44.9 and Abnormal CXR R93.8 [id number] [place] [address] [id number] Mar, Community acquired pneumonia of right lower lobe of lung J18.1 [facility] [id number] [place] [address] Mar, Sciatica, left side M54.32 ; Essential hypertension I10 and Community acquired pneumonia of right lung, unspecified part of lung J18.9 [address] [id number] [place] [address] [id number] Mar, Sciatica, left side M54.32 ; Essential hypertension I10 ; Chronic obstructive pulmonary disease, unspecified COPD type J44.9 and Community acquired pneumonia of right lung, unspecified part of lung J18.9 [id number] [place] [address] [id number] Feb, Essential hypertension I10 and Sciatica, left M54.32 [address] [place] [id number] [place] [address] [id number] Jan, Sciatica, left M54.32 [address] [id number] [place] [address] [id number] Dec, Sciatica, left M54.32 ; Essential hypertension I10 ; Chronic obstructive pulmonary disease, unspecified COPD type J44.9 ; Hypothyroidism, unspecified type E03.9 and Encounter for immunization Z23 [address] [id number] [place] [address] [id number] Nov, Sciatica, unspecified laterality M54.30 [id number] [place] [address] [id number] Oct, Hypothyroidism, unspecified type E03.9 [id number] [place] [address] [id number] Oct, Sciatica, unspecified laterality M54.30 and Hypothyroidism, unspecified type E03.9 [facility] [id number] [place] [address] [id number] Oct, [facility] [id number] [place] [address] [id number] Aug, Essential hypertension I10 and Sciatica, unspecified laterality M54.30 [facility] [id number] [place] [address] [id number] Aug, Sciatica, unspecified laterality M54.30 [facility] [id number] [place] [address] [id number] Jun, Sciatica, unspecified laterality M54.30 ; Essential hypertension I10 and Chronic obstructive pulmonary disease, unspecified COPD type J44.9 [facility] [id number] [place] [address] [id number] May, Chronic obstructive pulmonary disease, unspecified COPD type J44.9 ; Essential hypertension I10 ; Sciatica, unspecified laterality M54.30 ; Hypothyroidism, unspecified type E03.9 and Hyperlipidemia, unspecified hyperlipidemia type E78.5 [facility] [id number] [place] [address] [id number] May, Essential hypertension I10 [facility] [id number] [place] [address] [id number] Apr, [facility] [id number] [place] [address] [id number] Apr, Essential hypertension I10 and Atherosclerosis of [place] coronary artery of [place] heart, angina presence unspecified I25.10 [facility] [id number] [place] [address] [id number] Mar, Essential hypertension I10 and Sciatica, unspecified laterality M54.30 [facility] [id number] [place] [address] [id number] Jan, [facility] [id number] [place] [address] [id number] Jan, Sciatica, unspecified laterality M54.30 ; Essential hypertension I10 ; Chronic obstructive pulmonary disease, unspecified COPD type J44.9 ; Hypothyroidism, unspecified type E03.9 and Hyperlipidemia, unspecified hyperlipidemia type E78.5 [facility] [id number] [place] [address] [id number] Dec, Sciatica, unspecified laterality M54.30 [facility] [place] [id number] [facility] [id number] [id number] Dec, Essential hypertension I10 [facility] [id number] [place] [address] [id number] Dec, Essential hypertension I10 ; Sciatica, unspecified laterality M54.30 and Encounter for immunization Z23 [facility] [id number] [address] Nov, [facility] [id number] [place] [address] [id number] Sep, Sciatica, unspecified laterality M54.30 ; Essential hypertension I10 and Chronic obstructive pulmonary disease, unspecified COPD type J44.9 [facility] [id number] [place] [address] [id number] Sep, [facility] [id number] [place] [address] [id number] July, [facility] [id number] [place] [address] [id number] Jun, Sciatica, unspecified laterality M54.30 [facility] [id number] [place] [address] [id number] May, Sciatica, unspecified laterality M54.30 [facility] [id number] [place] [address] [id number] May, [facility] [id number] [place] [address] [id number] Apr, Sciatica, unspecified laterality M54.30 [facility] [id number] [place] [address] [id number] Apr, [facility] [id number] [place] [address] [id number] Mar, Sciatica, left M54.32 [address] [id number] [place] [address] [id number] Jan, Sciatica, left M54.32 and Encounter for immunization Z23 [address] [id number] Dec, Sciatica, left side M54.32 [place] [address] [id number] Dec, [address] [id number] Nov, Sciatica 724.3 [place] [address] [id number] Nov, [address] [id number] Nov, Sciatica 724.3 and Visual acuity reduced 369.[address] [id number] Oct, Sciatica 724.3 and Nausea 787.[address] [id number] Oct, Coronary atherosclerosis of unspecified type of vessel, [place] or graft 414.00 [place] [id number] [place] [address] [id number] Sep, Sciatica 724.3 and Coronary atherosclerosis of unspecified type of vessel, [place] or graft 414.[address] [id number] Sep, Coronary atherosclerosis of unspecified type of vessel, [place] or graft 414.00 and Unspecified essential hypertension 401.9 [place] [id number] [place] [address] [id number] Aug, Sciatica 724.3 ; Dyspepsia and other specified disorders of function of stomach 536.8 and Other abnormal blood chemistry 790.6 [place] [id number] [place] [address] [id number] Aug, Sciatica 724.3 ; Coronary atherosclerosis of unspecified type of vessel, [place] or graft 414.00 ; Unspecified essential hypertension 401.9 ; Palpitations 785.1 and Other abnormal blood chemistry 790.[address] [facility] [id number] [place] [address] [id number] July, Sciatica 724.3 and Other abnormal blood chemistry 790.6 [facility] [id number] [place] [address] [id number] July, [facility] [id number] [place] [address] [id number] July, Hyperlipidemia 272.4 [facility] [id number] [place] [address] Jun, [facility] [address] [address] Jun, [facility] [id number] [place] [address] May, [facility] [id number] [place] [address] [id number] May, [facility] [id number] [place] [address] Apr, [facility] [id number] [place] [address] [id number] Apr, [facility] [address] [place] [address] [id number] Apr, [facility] [id number] [place] [address] Apr, [facility] [id number] [place] [address] [id number] Apr, [facility] [id number] [place] [phone] Apr, [facility] [id number] [place] [address] Apr, [facility] [id number] [place] [address] Apr, [facility] [address] [id number] [place] [id number] Apr, 2014 [facility] [address] [id number] [place] [id number] Apr, 2014 [facility] [address] [id number] [place] [id number] Apr, [facility] [place] [facility] [address] [facility] [id number] [address] Apr, 2014 [facility] [address] [id number] [place] [id number] Jan, [facility] [place] [facility] [address], [place] [address] Jan, [facility] [place] [facility] [address], [place] [address] Dec, [facility] [address] [id number] [place] [id number] Dec, [facility] [address] [facility] [id number] [place] [id number] Dec, [facility] [address] [facility] [id number] [place] [id number] Dec, [facility] [place] [facility] [address], [place] [address] Dec, [facility] [place] [facility] [address], [place] [address] Dec, [facility] [place] [facility] [address], [place] [address] Nov, [facility] [address] [facility] [id number] [place] [id number] Nov, [facility] [place] [facility] [address] [facility] [id number], [place] [address] Nov, [facility] [place] [facility] [address] [facility] [id number], [place] [address] Nov, [facility] [place] [facility] [address], [place] [address] Nov, [facility] [place] [facility] [address] [id number] [place] [address] Nov, [facility] [address] [id number] [place] [id number] Nov, [facility] [place] [facility] [address] [id number] [place] [address] Nov, [facility] [place] [facility] [address] [id number] [place] [address] Sep, [facility] [address] [facility] [id number] [place] [id number] Sep, [facility] [place] [facility] [address] [id number] [place] [address] Sep, [facility] [place] [facility] [address] [facility] [id number] [place] [address] Sep, [facility] [place] [facility] [address] [id number] [place] [address] Sep, [facility] [place] [facility] [address] [id number] [place] [address] Sep, [facility] [place] [facility] [address] [id number] [place] [address] Sep, [facility] [address] [facility] [id number] [place] [id number] Aug, [facility] [place] [facility] [address] [id number], [place] [address] Aug, [facility] [place] [facility] [address] [id number], [place] [address] Aug, [facility] [place] [facility] [address] [id number] [place] [address] Aug, [facility] [address] [facility] [id number] [place] [id number] Aug, [facility] [place] [facility] [address] [id number] [place] [address] Aug, [facility] [address] [facility] [id number] [place] [id number] July, [facility] [address] [facility] [id number], [place] [address] July, [facility] [address] [facility] [id number] [place] [id number] July, [facility] [place] [facility] [address], [place] [address] July, [facility] [place] [facility] [address] [facility] [id number], [place] [address] Jun, [facility] [place] [facility] [address], [place] [address] Jun, [facility] [place] [facility] [address], [place] [address] Jun, [facility] [id number] [place] [id number] Jun, [facility] [address] [id number] [id number] Jun, [facility] [place] [facility] [address], [place] [address] Jun, [facility] [address] [id number] [id number] Apr, [facility] [place] [facility] [address], [place] [address] Apr, [facility] [address] [facility] [id number] [place] [id number] Sep, [facility] [address] [facility] [id number] [place] [id number] May, [facility] [place] [facility] [address] [facility] [id number], [place] [address] Apr, [facility] [place] [facility] [address], [place] [address] Jan, [facility] [place] [facility] [address], [place] [address] Jan, [facility] [place] [facility] [address] [id number] [id number] Sep, [facility] [address] [id number] [place] [id number] Sep, [facility] [address] [id number] [address] Sep, [facility] [address] [id number], [place] [address] Sep, [facility] [address] [id number] [place] [address] Sep, [facility] [address] [id number] [place] [address] Jun, [facility] [address] [id number] [id number] Jun, [facility] [address] [id number] [place] [id number] 30 May, 2011 [facility] [address] [id number][place] [id number] May, [facility] [address] [id number] [place] [id number] May, [facility] [address] [id number] [place] [address] May, [facility] [address] [id number] [place] [id number] 24 May, 2011 [facility] [address] [id number] [place] [address] May, [facility] [address] [id number] [place] [id number] May, [facility] [address] [id number] [place] [id number] 19 May, 2011 [facility] [address] [id number] [place] [id number] 15 May, 2011 [facility] [address] [id number] [place] [id number] 14 May, 2011 [facility] [place] [facility] [address] [id number] [place] [id number] May, [facility] [address] [id number] [place] [address] May, [facility] [place] [facility] [address] [id number] [place] [id number] Apr, [facility] [address] [id number] [place] [address] Apr, [facility] [place] [facility] [address] [id number] [place] [id number] Mar, [facility] [address] [id number] [place] [address] Feb, [facility] [address] [id number] [place] [address] Feb, [facility] [address] [id number] [place] [address] Feb, [facility] [address] [id number] [place] [address] Feb, [facility] [address] [id number] [place] [address] Feb, [facility] [address] [facility] [id number] [place] [address] Feb, [facility] [address] [id number] [place] [address] Jan, [facility] [place] [facility] [address] [id number] [place] [address] Feb, [facility] [place] [facility] [address] [id number] [place] [address] Feb, [facility] [place] [facility] [address] [id number] [place] [address] Feb, [facility] [place] [facility] [address] [id number] [place] [address] Jan, [facility] [id number], [place] [address] Dec, [facility] [address]65100[place], [place] [address] Dec, [facility] [address], [place] [address] Jun, [facility] [address], [place] [address] Jun, [facility] [address], [place] [address] Feb, [facility] [address], [place] [address] Dec, [facility] [address]100[place], [place] [address] July, [facility] [address], [place] [address] Dec, IMMUNIZATIONS No Known Immunizations SOCIAL HISTORY Never Assessed REASON FOR VISIT med refill PLAN OF CARE VITAL SIGNS MEDICATIONS Medication Instructions Dosage Frequency Start Date End Date Duration Status Levothyroxine Sodium 25 MCG Orally Once a day 1 tablet on an empty stomach in the morning 24h Jan, 0 days Active RESULTS No Results PROCEDURES No [...]
--- OUTSIDE RECORDS SUMMARY | 2018-09-20 13:51 | XMS REPORT ---
Author Author ALEXANDRO BELLE Organization [employer] Address Unknown Phone Unavailable Care Team Providers Care Internet Programmer Name Role Phone ALEXANDRO BELLE CP Unavailable Allergies No Known Allergies Problems Problem Type Condition Code Onset Dates Condition Status Problem Coronary atherosclerosis of unspecified type of vessel, nez perce or graft 414.00 Active Problem Palpitations 785.1 Active Problem Chronic airway obstruction, not elsewhere classified 496 Active Problem Hyperlipidemia, unspecified hyperlipidemia type E78.5 Active Problem Essential hypertension I10 Active Problem Hypothyroidism, unspecified type E03.9 Active Problem Sciatica, left M54.32 Active Problem Sciatica, left side M54.32 Active Problem Chronic obstructive pulmonary disease, unspecified COPD type J44.9 Active Problem Sciatica, unspecified laterality M54.30 Active Problem Dyspepsia and other specified disorders of function of stomach 536.8 Active Problem Unspecified essential hypertension 401.9 Active Problem Other abnormal glucose 790.29 Active Medications Medication Code System Code Instructions Start Date End Date Status Dosage Tramadol HCl [facility] [address]-36 50 mg Orally 3 times a day as needed must last 1 m. August 21, 2014 1 tablet Results No Known Results Summary Purpose [employer] Submission
--- OUTSIDE RECORDS SUMMARY | 2018-09-20 13:52 | XMS REPORT ---
Author Author ALEXANDRO BELLE [facility] Address [address] [place] [address] Care Team Providers Care Glove Finisher Name Role Phone ALEXANDRO BELLE Unavailable PROBLEMS Type Condition ICD9-CM Code PCV80-BV Code Onset Dates Condition Status SNOMED Code Problem Dyspepsia and other specified disorders of function of stomach 536.8 Active 070291781 Problem Sciatica, left M54.32 Active 82943546 Problem Sciatica, left side M54.32 Active 33698763 Problem Atherosclerosis of [place] coronary artery of [place] heart, angina presence unspecified I25.10 Active 9506781447743 Problem Hyperlipidemia, unspecified hyperlipidemia type E78.5 Active 49720454 Problem Chronic obstructive pulmonary disease, unspecified COPD type J44.9 Active 19932527 Problem Sciatica, unspecified laterality M54.30 Active 92917801 Problem Hypothyroidism, unspecified type E03.9 Active 57575232 Problem Essential hypertension I10 Active 30121001 ALLERGIES No Information ENCOUNTERS Encounter Location Date Diagnosis [place] [id number] [place] [address] [id number] May, Abnormal CXR R93.8 [facility] [id number] [place] [address] [id number] May, Abnormal CXR R93.8 [address] [place] [id number] [place] [address] [id number] May, Abnormal CXR R93.8 [facility] [place] [address] [place] [address] Apr, [place] [id number] [place] [address] [id number] Apr, Abnormal chest xray R93.8 [address] [place] [id number] [place] [address] [id number] Apr, Sciatica, left side M54.32 [address] [id number] Mar, Community acquired pneumonia of right lung, unspecified part of lung J18.9 ; Chronic obstructive pulmonary disease, unspecified COPD type J44.9 and Abnormal CXR R93.8 [address] [place] [address] [id number] Mar, Community acquired pneumonia of right lower lobe of lung J18.1 [facility] [place] [id number] [address] Mar, Sciatica, left side M54.32 ; Essential hypertension I10 and Community acquired pneumonia of right lung, unspecified part of lung J18.9 [address] [place] [id number] [place] [address] [id number] Mar, Sciatica, left side M54.32 ; Essential hypertension I10 ; Chronic obstructive pulmonary disease, unspecified COPD type J44.9 and Community acquired pneumonia of right lung, unspecified part of lung J18.9 [address] [place] [id number] [place] [address] [id number] Feb, Essential hypertension I10 and Sciatica, left M54.32 [address] [place] [id number] [place] [address] [id number] Jan, Sciatica, left M54.32 [address] [place] [id number] [place] [address] [id number] Dec, Sciatica, left M54.32 ; Essential hypertension I10 ; Chronic obstructive pulmonary disease, unspecified COPD type J44.9 ; Hypothyroidism, unspecified type E03.9 and Encounter for immunization Z23 [address] [place] [address] [id number] Nov, Sciatica, unspecified laterality M54.30 [place] [place] [id number] [place] [address] [id number] Oct, Hypothyroidism, unspecified type E03.9 [address] [place] [address] [id number] Oct, Sciatica, unspecified laterality M54.30 and Hypothyroidism, unspecified type E03.9 [facility] [id number] [id number] Oct, [facility] [id number] [place] [address] [id number] Aug, Essential hypertension I10 and Sciatica, unspecified laterality M54.30 [facility] [id number] [place] [address] [id number] Aug, Sciatica, unspecified laterality M54.30 [place] [id number] [place] [address] [id number] Jun, Sciatica, unspecified laterality M54.30 ; Essential hypertension I10 and Chronic obstructive pulmonary disease, unspecified COPD type J44.9 [place] [id number] [place] [address] [id number] May, Chronic obstructive pulmonary disease, unspecified COPD type J44.9 ; Essential hypertension I10 ; Sciatica, unspecified laterality M54.30 ; Hypothyroidism, unspecified type E03.9 and Hyperlipidemia, unspecified hyperlipidemia type E78.5 [facility] [id number] [place] [address] [id number] May, Essential hypertension I10 [address] [id number] [place] [address] [id number] Apr, [place] [id number] [place] [address] [id number] Apr, Essential hypertension I10 and Atherosclerosis of [place] coronary artery of [place] heart, angina presence unspecified I25.10 [address] [place] [address] [id number] Mar, Essential hypertension I10 and Sciatica, unspecified laterality M54.30 [address] [place] [address] [id number] Jan, [address] [place] [id number] [place] [address] [id number] Jan, Sciatica, unspecified laterality M54.30 ; Essential hypertension I10 ; Chronic obstructive pulmonary disease, unspecified COPD type J44.9 ; Hypothyroidism, unspecified type E03.9 and Hyperlipidemia, unspecified hyperlipidemia type E78.5 [facility] [id number] [place] [id number] Dec, Sciatica, unspecified laterality M54.30 [facility] [place] [address] [place] [id number] Dec, Essential hypertension I10 [facility] [place] [id number] [place] [id number] Dec, Essential hypertension I10 ; Sciatica, unspecified laterality M54.30 and Encounter for immunization Z23 [facility] [place] [address] [address] Nov, [facility] [id number] [place] [address] [id number] Sep, Sciatica, unspecified laterality M54.30 ; Essential hypertension I10 and Chronic obstructive pulmonary disease, unspecified COPD type J44.9 [facility] [id number] [place] [id number] Sep, [facility] [place] [id number] [place] [address] [id number] July, [facility] [id number] [place] [id number] Jun, Sciatica, unspecified laterality M54.30 [facility] [place] [id number] [place] [id number] May, Sciatica, unspecified laterality M54.30 [facility] [address] [id number] May, [facility] [place] [id number] [place] [address] [id number] Apr, Sciatica, unspecified laterality M54.30 [facility] [place] [id number] [place] [id number] Apr, [facility] [id number] [place] [address] [id number] Mar, Sciatica, left M54.32 [facility] [address] [id number] Jan, Encounter for immunization Z23 and Sciatica, left M54.32 [address] [id number] Dec, Sciatica, left side M54.32 [address] [id number] Dec, [place] [id number] [place] [address] [id number] Nov, Sciatica 724.[address] [place] [address] [id number] Nov, [place] [id number] [place] [address] [id number] Nov, Sciatica 724.3 and Visual acuity reduced 369.9 [place] [address] [place] [address] [id number] Oct, Sciatica 724.3 and Nausea 787.02 [place] [id number] [place] [address] [id number] Oct, Coronary atherosclerosis of unspecified type of vessel, [place] or graft 414.00 [place] [id number] [place] [address] [id number] Sep, Sciatica 724.3 and Coronary atherosclerosis of unspecified type of vessel, [place] or graft 414.00 [place] [address] [place] [address] [id number] Sep, Coronary atherosclerosis of unspecified type of vessel, [place] or graft 414.00 and Unspecified essential hypertension 401.9 [place] [address] [place] [address] [id number] Aug, Sciatica 724.3 ; Dyspepsia and other specified disorders of function of stomach 536.8 and Other abnormal blood chemistry 790.6 [place] [id number] [place] [address] [id number] Aug, Sciatica 724.3 ; Coronary atherosclerosis of unspecified type of vessel, [place] or graft 414.00 ; Unspecified essential hypertension 401.9 ; Palpitations 785.1 and Other abnormal blood chemistry 790.6 [place] [id number] [id number] July, Sciatica 724.3 and Other abnormal blood chemistry 790.6 [facility] [id number] [place] [address] [id number] July, [facility] [place] [place] [id number] [place] [address] [id number] July, Hyperlipidemia 272.4 [facility] [id number] [place] [address] Jun, [facility] [id number] [place] [address] Jun, [facility] [id number] [place] [address] May, [facility] [place] [id number] [place] [id number] May, [facility] [id number] [place] [address] Apr, [facility] [place] [id number] [place] [id number] Apr, [facility] [place] [id number] [place] [address] [id number] Apr, [facility] [address]00565100[place], [place] [address] Apr, [facility] [place] [id number] [place] [id number] Apr, [facility] [address]00565100[place], [place] [address] Apr, [facility] [address] [place] [address] Apr, [facility] [place] [facility] [address]00565100[place], [place] [address] Apr, [facility] [id number] [place] [id number] Apr, [facility] [address] [id number] [id number] Apr, 2014 [facility] [address] [id number] [place] [id number] Apr, 2014 [facility] [place] [facility] [address] [facility] [id number], [place] [address] Apr, 2014 [facility] [address] [facility] [id number] [place] [id number] Jan, [facility] [place] [facility] [address] [facility] [id number], [place] [address] Jan, [facility] [place] [facility] [address] [facility] [id number] [place] [address] Dec, [facility] [address] [facility] [id number] [place] [id number] Dec, [facility] [address] [facility] [id number] [place] [id number] Dec, [facility] [address] [facility] [id number] [place] [id number] Dec, [facility] [place] [facility] [address] [facility] [id number], [place] [address] Dec, [facility] [place] [facility] [address]00565100[place], [place] [address] Dec, [facility] [place] [facility] [address] [facility] [id number], [place] [address] Nov, [facility] [address] [facility] [id number] [place] [id number] Nov, [facility] [place] [facility] [address] [facility] [id number], [place] [address] Nov, [facility] [place] [facility] [address] [facility] [id number] [place] [address] Nov, [facility] [place] [facility] [address] [facility] [id number], [place] [address] Nov, [facility] [place] [facility] [address]00565100[place], [place] [address] Nov, [facility] [address] [id number] [place] [id number] Nov, [facility] [place] [facility] [address] [id number] [place] [address] Nov, [facility] [place] [facility] [address] [id number] [place] [address] Sep, [facility] [address] [id number] [place] [id number] Sep, [facility] [place] [facility] [address] [id number] [place] [address] Sep, [facility] [place] [facility] [address] [id number] [place] [address] Sep, [facility] [place] [facility] [address] [facility] [id number] [place] [address] Sep, [facility] [place] [facility] [address] [facility] [id number] [place] [address] Sep, [facility] [place] [facility] [address] [facility] [id number] [place] [address] Sep, [facility] [address] [facility] [id number] [place] [id number] Aug, [facility] [place] [facility] [address] [facility] [id number] [place] [address] Aug, [facility] [place] [facility] [address] [facility] [id number] [place] [address] Aug, [facility] [place] [facility] [address] [facility] [id number] [place] [address] Aug, [facility] [address] [id number] [place] [id number] Aug, [facility] [place] [facility] [address] [id number] [place] [address] Aug, [facility] [address] [facility] [id number] [place] [id number] July, [facility] [place] [facility] [address] [facility] [id number] [place] [address] July, [facility] [address] [facility] [id number] [place] [id number] July, [facility] [place] [facility] [id number] [address] July, [facility] [place] [facility] [address] [id number] [address] Jun, [facility] [place] [facility] [address] [facility] [id number] [place] [address] Jun, [facility] [place] [facility] [address] [facility] [id number] [place] [address] Jun, [facility] [address] [facility] [id number] [place] 509651348 Jun, [facility] [address] [id number] [place] [id number] Jun, [facility] [place] [facility] [address] [id number] [address] Jun, [facility] [address] [facility] [id number] [place] [id number] Apr, [facility] [place] [facility] [address]005[address]100[place], [place] [address] Apr, [facility] [address] [id number] [place] [id number] Sep, [facility] [address] [facility] [id number] [place] [id number] May, [facility] [place] [facility] [address] [id number], [place] [address] Apr, [facility] [place] [facility] [address] [address] Jan, [facility] [place] [facility] [address] [facility] [id number] [place] [address] Jan, [facility] [place] [facility] [address] [id number] [id number] Sep, [facility] [address] [id number] [place] 2140765[address] Sep, [facility] [address] [id number] [address] Sep, [facility] [place] [facility] [address] [id number] [place] [address] Sep, [facility] [address] [id number] [place] [address], [place] [address] Sep, [facility] [address] [id number] [place] [address] Jun, [facility] [address] [id number] [address] Jun, [facility] [address] [id number] [place] [id number] May, [facility] [address] [id number][place] [id number] May, [facility] [address] [id number] [place] 4956[address] May, [facility] [address] [id number] [place] 885595[address] May, [facility] [address] [id number] [place] [id number] 24 May, 2011 [facility] [address] [id number] [place] 342685265 May, [facility] [address] [id number] [place] 1562[address]597 May, [facility] [address] [id number] [place] [id number] 19 May, 2011 [facility] [address] [id number] [place] 148110125 15 May, 2011 [facility] [address] [id number] [place] [id number] 14 May, 2011 [facility] [address] [id number][place] [id number] 06 May, 2011 [facility] [address] [id number] [place] [address] May, [facility] [address] [id number] [place] [id number] Apr, [facility] [address] [id number] [place] [address] Apr, [facility] [address] [id number] [place] [id number] Mar, [facility] [address] [id number] [place] [address] Feb, [facility] [address] [id number] [place] [address] Feb, [facility] [address] [id number] [place] [address] Feb, [facility] [address] [facility] [id number] [place] [address] Feb, [facility] [address] [facility] [id number] [place] [address] Feb, [facility] [address] [facility] [id number] [place] [address] Feb, [facility] [address] [facility] [id number] [place] [address] Jan, [facility] [address] [id number] [place] [address] Feb, [facility] [address] [id number] [place] [address] Feb, [facility] [address] [id number] [place] [address] Feb, [facility] [address] [facility] [id number] [place] [address] Jan, [facility] [address] [id number] [place] [address] Dec, [facility] [place] [address] [id number], [place] [address] Dec, [facility] [place] [address] [id number], [place] [address] Jun, [facility] [place] [address] [id number], [place] [address] Jun, [facility] [place] [address]00565100[place], [place] [address] Feb, [facility] [place] [address] [id number], [place] [address] Dec, [facility] [place] [address] [id number], [place] [address] July, [facility] [place] [address] [id number] [address] Dec, IMMUNIZATIONS No Known Immunizations SOCIAL HISTORY Never Assessed REASON FOR VISIT med refills PLAN OF CARE VITAL SIGNS MEDICATIONS Unknown [...]
--- OUTSIDE RECORDS SUMMARY | 2018-09-20 13:52 | XMS REPORT ---
Author Author ALEXANDRO BELLE [facility] eClinicalWorks Address Unknown Phone Unavailable Care Team Providers Care Preprint Analyst Name Role Phone ALEXANDRO BELLE CP Unavailable Allergies, Adverse Reactions, Alerts Substance Reaction Event Type N.K.D.A. Info Not Available Non Drug Allergy Problems Problem Type Condition Code Onset Dates Condition Status Problem Coronary atherosclerosis of unspecified type of vessel, [place] or graft 414.00 Active Problem Heartburn 787.1 Active Problem Chronic airway obstruction, not elsewhere classified 496 Active Problem Sciatica, left M54.32 Active Problem Sciatica, left side M54.32 Active Problem Sciatica, unspecified laterality M54.30 Active Problem Palpitations 785.1 Active Problem Acute upper respiratory infections of unspecified site 465.9 Active Problem Nausea 787.02 Active Problem Sciatica 724.3 Active Assessment Sciatica, unspecified laterality M54.30 Active Problem Other abnormal blood chemistry 790.6 [...] Instructions Start Date End Date Status Dosage Toprol XL [facility] [address]-88 50 MG Orally 2 times a day 1 tablet Cymbalta [facility] [address]-09 60 mg Orally Twice a day Nov 29, 2014 1 capsule Albuterol Sulfate [facility] [address]-78 90 mcg/actuation Jan 17, 2014 2 puffs by Inhalation route every 4 hours as needed PRN cough wheezing sob Tramadol HCl [facility] [address]-61 50 mg Orally 3 times a day as needed must last 1 m August 21, 2014 1 tablet as needed Omeprazole [facility] [address]-38 40 MG Orally Once a day September 18, 2014 1 capsule Spiriva HandiHaler [facility] [address]-62 18 MCG Inhalation Once a day 1 capsule Gabapentin [facility] [address]-70 600 MG Orally 3 times a day Apr 09, 2015 1 capsule Naproxen Sodium [facility] [address]-50 550 MG Orally Twice a day Jan 01, 2015 1 tablet Aspirin [facility] [address]-61 81 mg June 10, 2011 chew 1 tablet (81 mg) by oral route once daily Procedures Procedure Coding System Code Date Office Visit, Est Pt., Level 3 CPT-4 84098 July 25, 2015 Vital Signs Date/Time: July 25, 2015 Temperature 98.1 F Weight 161.7 lbs Height 60 in BMI 31.58 Index Blood Pressure Diastolic 80 mmHg Blood Pressure Systolic 152 mmHg Cardiac Monitoring Heart Rate 76 bpm Results No Known Results Summary Purpose eClinicalWorks Submission
--- OUTSIDE RECORDS SUMMARY | 2018-09-20 13:52 | XMS REPORT ---
Author Author ALEXANDRO BELLE [facility] Address [address] [place] [address] Care Team Providers Care Brine Maker Name Role Phone ALEXANDRO BELLE Unavailable PROBLEMS Type Condition ICD9-CM Code YFO98-RF Code Onset Dates Condition Status SNOMED Code Problem Dyspepsia and other specified disorders of function of stomach 536.8 Active 817889380 Problem Sciatica, left M54.32 Active 77086484 Problem Sciatica, left side M54.32 Active 86002011 Problem Atherosclerosis of [place] coronary artery of [place] heart, angina presence unspecified I25.10 Active 9635361391184 Problem Hyperlipidemia, unspecified hyperlipidemia type E78.5 Active 54771484 Problem Chronic obstructive pulmonary disease, unspecified COPD type J44.9 Active 84940113 Problem Sciatica, unspecified laterality M54.30 Active 62914046 Problem Hypothyroidism, unspecified type E03.9 Active 07067446 Problem Essential hypertension I10 Active 31850240 ALLERGIES No Information ENCOUNTERS Encounter Location Date Diagnosis [id number] [place] [address] [id number] May, Abnormal CXR R93.8 [facility] [id number] [place] [address] [id number] May, Abnormal CXR R93.8 [id number] [place] [address] [id number] May, Abnormal CXR R93.8 [facility] [id number] [place] [address] Apr, [id number] [place] [address] [id number] Apr, Abnormal chest xray R93.8 [id number] [place] [address] [id number] Apr, Sciatica, left side M54.32 [address] [id number] Mar, Community acquired pneumonia of right lung, unspecified part of lung J18.9 ; Chronic obstructive pulmonary disease, unspecified COPD type J44.9 and Abnormal CXR R93.8 [address] [place] [address] [id number] Mar, Community acquired pneumonia of right lower lobe of lung J18.1 [facility] [id number] [address] Mar, Sciatica, left side M54.32 ; Essential hypertension I10 and Community acquired pneumonia of right lung, unspecified part of lung J18.9 [id number] [place] [address] [id number] Mar, Sciatica, left side M54.32 ; Essential hypertension I10 ; Chronic obstructive pulmonary disease, unspecified COPD type J44.9 and Community acquired pneumonia of right lung, unspecified part of lung J18.9 [id number] [place] [address] [id number] Feb, Essential hypertension I10 and Sciatica, left M54.32 [address] [id number] [place] [address] [id number] Jan, Sciatica, left M54.32 [address] [id number] [place] [address] [id number] Dec, Sciatica, left M54.32 ; Essential hypertension I10 ; Chronic obstructive pulmonary disease, unspecified COPD type J44.9 ; Hypothyroidism, unspecified type E03.9 and Encounter for immunization Z23 [address] [place] [address] [id number] Nov, Sciatica, unspecified laterality M54.30 [id number] [place] [address] [id number] Oct, Hypothyroidism, unspecified type E03.9 [address] [place] [address] [id number] Oct, Sciatica, unspecified laterality M54.30 and Hypothyroidism, unspecified type E03.9 [facility] [id number] [id number] Oct, [facility] [id number] [place] [address] [id number] Aug, Essential hypertension I10 and Sciatica, unspecified laterality M54.30 [facility] [id number] [place] [address] [id number] Aug, Sciatica, unspecified laterality M54.30 [place] [id number] [place] [address] [id number] Jun, Sciatica, unspecified laterality M54.30 ; Essential hypertension I10 and Chronic obstructive pulmonary disease, unspecified COPD type J44.9 [place] [id number] [place] [address] [id number] May, Chronic obstructive pulmonary disease, unspecified COPD type J44.9 ; Essential hypertension I10 ; Sciatica, unspecified laterality M54.30 ; Hypothyroidism, unspecified type E03.9 and Hyperlipidemia, unspecified hyperlipidemia type E78.5 [facility] [id number] [place] [address] [id number] May, Essential hypertension I10 [id number] [place] [address] [id number] Apr, [id number] [place] [address] [id number] Apr, Essential hypertension I10 and Atherosclerosis of [place] coronary artery of [place] heart, angina presence unspecified I25.10 [address] [place] [address] [id number] Mar, Essential hypertension I10 and Sciatica, unspecified laterality M54.30 [address] [place] [address] [id number] Jan, [id number] [place] [address] [id number] Jan, Sciatica, unspecified laterality M54.30 ; Essential hypertension I10 ; Chronic obstructive pulmonary disease, unspecified COPD type J44.9 ; Hypothyroidism, unspecified type E03.9 and Hyperlipidemia, unspecified hyperlipidemia type E78.5 [facility] [id number] [id number] Dec, Sciatica, unspecified laterality M54.30 [facility] [place] [address] [address] Dec, Essential hypertension I10 [facility] [id number] [id number] Dec, Essential hypertension I10 ; Sciatica, unspecified laterality M54.30 and Encounter for immunization Z23 [facility] [address], [place] [address] Nov, [facility] [id number] [place] [address] [id number] Sep, Sciatica, unspecified laterality M54.30 ; Essential hypertension I10 and Chronic obstructive pulmonary disease, unspecified COPD type J44.9 [facility] [id number] [id number] Sep, [facility] [id number] [place] [address] [id number] July, [facility] [id number], [place] [id number] Jun, Sciatica, unspecified laterality M54.30 [facility] [id number], [place] [id number] May, Sciatica, unspecified laterality M54.30 [facility] [id number] [id number] May, [facility] [id number] [place] [address] [id number] Apr, Sciatica, unspecified laterality M54.30 [facility] [id number], [place] [id number] Apr, [facility] [id number] [id number] Mar, Sciatica, left M54.32 [facility] [id number], [place] [id number] Jan, Sciatica, left M54.32 and Encounter for immunization Z23 [address] [place] [address] [id number] Dec, Sciatica, left side M54.32 [id number] [id number] Dec, [address] [id number] [place] [address] [id number] Nov, Sciatica 724.[address] [place] [address] [id number] Nov, [address] [id number] [place] [address] [id number] Nov, Sciatica 724.3 and Visual acuity reduced 369.9 [address] [place] [address] [id number] Oct, Sciatica 724.3 and Nausea 787.02 [address] [place] [address] [place] [address] [id number] Oct, Coronary atherosclerosis of unspecified type of vessel, [place] or graft 414.00 [address] [place] [place] [address] [id number] Sep, Sciatica 724.3 and Coronary atherosclerosis of unspecified type of vessel, [place] or graft 414.00 [address] [place] [place] [address] [id number] Sep, Coronary atherosclerosis of unspecified type of vessel, [place] or graft 414.00 and Unspecified essential hypertension 401.9 [address] [id number] [place] [address] [id number] Aug, Sciatica 724.3 ; Dyspepsia and other specified disorders of function of stomach 536.8 and Other abnormal blood chemistry 790.6 [address] [place] [place] [address] [id number] Aug, Sciatica 724.3 ; Coronary atherosclerosis of unspecified type of vessel, [place] or graft 414.00 ; Unspecified essential hypertension 401.9 ; Palpitations 785.1 and Other abnormal blood chemistry 790.6 [place] [address] [id number] July, Sciatica 724.3 and Other abnormal blood chemistry 790.6 [facility] [id number] [place] [address] [id number] July, [facility] [id number] [place] [address] [id number] July, Hyperlipidemia 272.4 [facility] [id number] [place] [address] Jun, [facility] [id number] [place] [address] Jun, [facility] [id number] [place] [address] May, [facility] [id number], [place] [id number] May, [facility] [id number] [place] [address] Apr, [facility] [id number] [id number] Apr, [facility] [id number] [place] [address] [id number] Apr, [facility] [address]00565100[place], [place] [address] Apr, [facility] [id number], [place] [id number] Apr, [facility] [address]100[place], [place] [address] Apr, [facility] [address] [place] [address] Apr, [facility] [place] [facility] [address]00565100[place], [place] [address] Apr, [facility] [id number], [place] [id number] Apr, [facility] [address] [id number] [id number] Apr, 2014 [facility] [address] [id number] [place] [id number] Apr, 2014 [facility] [place] [facility] [address] [facility] [id number] [address] Apr, 2014 [facility] [address] [facility] [id number] [place] [id number] Jan, [facility] [place] [facility] [address] [facility] [id number], [place] [address] Jan, [facility] [place] [facility] [address] [facility] [id number] [place] [address] Dec, [facility] [address] [facility] [id number] [place] [address] Dec, [facility] [address] [facility] [id number] [place] [id number] Dec, [facility] [address] [facility] [id number] [id number] Dec, [facility] [place] [facility] [address] [facility] [id number][place] [address] Dec, [facility] [place] [facility] [address]00565100[place], [place] [address] Dec, [facility] [place] [facility] [address] [facility] [id number], [place] [address] Nov, [facility] [address] [facility] [id number] [id number] Nov, [facility] [place] [facility] [address] [facility] [id number], [place] [address] Nov, [facility] [place] [facility] [address] [facility] [id number] [place] [address] Nov, [facility] [place] [facility] [address] [facility] [id number], [place] [address] Nov, [facility] [place] [facility] [address]005[address]100[place], [place] [address] Nov, [facility] [address] [id number] [place] [id number] Nov, [facility] [place] [facility] [address] [id number] [place] [address] Nov, [facility] [place] [facility] [address] [id number] [place] [address] Sep, [facility] [address] [id number] [place] [id number] Sep, [facility] [place] [facility] [address] [id number] [place] [address] Sep, [facility] [place] [facility] [address] [id number] [place] [address] Sep, [facility] [place] [facility] [address] [facility] [id number] [place] [address] Sep, [facility] [place] [facility] [address] [facility] [id number] [place] [address] Sep, [facility] [place] [facility] [address] [facility] [id number] [place] [address] Sep, [facility] [address] [facility] [id number] [place] [address] Aug, [facility] [place] [facility] [address] [facility] [id number] [place] [address] Aug, [facility] [place] [facility] [address] [facility] [id number] [place] [address] Aug, [facility] [place] [facility] [address] [facility] [id number] [place] [address] Aug, [facility] [address] [id number] [place] [id number] Aug, [facility] [place] [facility] [address] [id number] [place] [address] Aug, [facility] [address] [facility] [id number] [place] [id number] July, [facility] [place] [facility] [address] [facility] [id number] [place] [address] July, [facility] [address] [facility] [id number] [place] [address] July, [facility] [place] [facility] [address] [id number] [place] [address] July, [facility] [place] [facility] [address] [id number] [place] [address] Jun, [facility] [place] [facility] [address] [facility] [id number] [place] [address] Jun, [facility] [place] [facility] [address] [facility] [id number] [place] [address] Jun, [facility] [address] [facility] [id number] [place] [address] Jun, [facility] [address] [id number] [place] [address] Jun, [facility] [place] [facility] [id number] [address] Jun, [facility] [address] [facility] [id number] [place] 7836[address] Apr, [facility] [place] [facility] [address]005[address]100[place], [place] [address] Apr, [facility] [address] [id number] [address] Sep, [facility] [address] [facility] [id number] [address] May, [facility] [place] [facility] [address] [id number], [place] [address] Apr, [facility] [place] [facility] [address]100[facility] [place] [address] Jan, [facility] [place] [facility] [address] [facility] [id number] [place] [address] Jan, [facility] [place] [facility] [address] [id number] [address] Sep, [facility] [address] [id number] [place] 4[address] Sep, [facility] [address] [id number] [address] Sep, [facility] [place] [facility] [address] [id number] [place] [address] Sep, [facility] [id number] [place] [address], [place] [address] Sep, [facility] [address] [id number] [place] [address] Jun, [facility] [address] [id number] [id number] Jun, [facility] [address] [id number][place] [address] May, [facility] [address] [id number][place] 6[address] May, [facility] [address] [id number], [place] 118[address] May, [facility] [address] [id number] [place] [address]40[address] May, [facility] [address] [id number], [place] [address] 24 May, 2011 [facility] [address] [id number][place] 42[address] May, [facility] [address] [id number], [place] [address] May, [facility] [address] [id number], [place] [id number] 19 May, 2011 [facility] [address] [id number] [place] 734[address]678 15 May, 2011 [facility] [address] [id number][place] [id number] 14 May, 2011 [facility] [address] [id number] [address]88[address] 06 May, 2011 [facility] [address] [id number] [place] [address] May, [facility] [address] [id number] [place] [address] Apr, [facility] [address] [id number] [place] [address] Apr, [facility] [address] [id number] [place] [address] Mar, [facility] [address] [id number] [place] [address] Feb, [facility] [address] [id number] [place] [address] Feb, [facility] [address] [id number] [place] [address] Feb, [facility] [address] [facility] [id number] [place] [address] Feb, [facility] [address] [facility] [id number] [place] [address] Feb, [facility] [address] [facility] [id number] [place] [address] Feb, [facility] [address] [facility] [id number] [place] [address] Jan, [facility] [address] [id number] [place] [address] Feb, [facility] [address] [id number] [place] [address] Feb, [facility] [address] [id number] [place] [address] Feb, [facility] [address] [facility] [id number] [place] [address] Jan, [facility] [address] [id number] [place] [address] Dec, [facility] [address] [id number] [address] Dec, [facility] [address] [id number], [place] [address] Jun, [facility] [address] [id number] [address] Jun, [facility] [address]00565100[place], [place] [address] Feb, [facility] [address] [id number], [place] [address] Dec, [facility] [address]00565100[place], [place] [address] July, [facility] [address] [id number], [place] [address] Dec, IMMUNIZATIONS No Known Immunizations SOCIAL HISTORY Never Assessed REASON FOR VISIT med refill PLAN OF CARE VITAL SIGNS MEDICATIONS Medication Instructions Dosage Frequency Start Date End Date Duration Status Tramadol HCl 50 mg Orally 3 times a day as needed must last 1 m. 1 tablet July, Aug, 0 days Active RESULTS No Results PROCEDURES [...]
--- OUTSIDE RECORDS SUMMARY | 2018-09-20 13:53 | XMS REPORT ---
Author Author ALEXANDRO BELLE [facility] Address [address] [place] [address] Care Team Providers Care Heel Shaper Name Role Phone ALEXANDRO BELLE Unavailable PROBLEMS Type Condition ICD9-CM Code CKL22-RB Code Onset Dates Condition Status SNOMED Code Problem Dyspepsia and other specified disorders of function of stomach 536.8 Active 236750430 Problem Sciatica, left M54.32 Active 56242655 Problem Sciatica, left side M54.32 Active 09585947 Problem Atherosclerosis of [place]hoe coronary artery of [place]hoe heart, angina presence unspecified I25.10 Active 7922260366817 Problem Hyperlipidemia, unspecified hyperlipidemia type E78.5 Active 79684703 Problem Chronic obstructive pulmonary disease, unspecified COPD type J44.9 Active 31083098 Problem Sciatica, unspecified laterality M54.30 Active 82215982 Problem Hypothyroidism, unspecified type E03.9 Active 40132251 Problem Essential hypertension I10 Active 15390724 ALLERGIES No Information SOCIAL HISTORY Never Assessed PLAN OF CARE VITAL SIGNS MEDICATIONS Medication Instructions Dosage Frequency Start Date End Date Duration Status Amlodipine Besylate 2.5 MG Orally Once a day 1 tablet 24h Apr, 0 days Active RESULTS No Results PROCEDURES No Known procedures IMMUNIZATIONS No Known Immunizations MEDICAL (GENERAL) HISTORY Type Description Date Medical History hypertension Medical History hyperlipidemia Medical History CAD w/ coronary stenting Medical History obesity Medical History pulmonary hypertension Medical History carotid artery narrowing Surgical History partial hysterectomy 1985 Surgical History coronary artery bypass graft-double 03/2011 Surgical History heart cath 03/2011, 2013, 04/2016 Hospitalization History surgeries
--- OUTSIDE RECORDS SUMMARY | 2018-09-20 13:54 | XMS REPORT | Continuity of Care Document ---
Author Organization Unknown Address Unknown Allergies Active Description Code Type Severity Reaction Onset Reported/Identified Relationship to Patient Clinical Status Yes No Known Drug Allergies [id number] Drug Allergy Unknown N/A 04/06/2011 Medications There is no data. Problems Date Dx Coded Attending Type Code Diagnosis Diagnosed By 01/02/2008 840.9 SPRAIN/STRAIN SHOULDER/ARM 01/02/2008 LV FRIAS APRN 840.9 SPRAIN/STRAIN SHOULDER/ARM 01/02/2008 BOYLE DO, DAHIANA K 840.9 SPRAIN/STRAIN SHOULDER/ARM 01/02/2008 BOYLE DO, DAHIANA K 840.9 SPRAIN/STRAIN SHOULDER/ARM 01/02/2008 BOYLE DO, DAHIANA K 840.9 SPRAIN/STRAIN SHOULDER/ARM 01/02/2008 BOYLE DO, DAHIANA K 840.9 SPRAIN/STRAIN SHOULDER/ARM 01/02/2008 ALEXANDRO BELLE APRN 840.9 SPRAIN/STRAIN SHOULDER/ARM 01/02/2008 BOYLE DO, DAHIANA K 840.9 SPRAIN/STRAIN SHOULDER/ARM 01/02/2008 BOYLE DO, DAHIANA K 840.9 SPRAIN/STRAIN SHOULDER/ARM 01/02/2008 BOYLE DO, DAHIANA K 840.9 SPRAIN/STRAIN SHOULDER/ARM 01/02/2008 LB FLROES APRN 840.9 SPRAIN/STRAIN SHOULDER/ARM 01/02/2008 BOYLE DO, DAHIANA K 840.9 SPRAIN/STRAIN SHOULDER/ARM 01/02/2008 BOYLE DO, DAHIANA K 840.9 SPRAIN/STRAIN SHOULDER/ARM 01/02/2008 BOYLE DO, DAHIANA K 840.9 SPRAIN/STRAIN SHOULDER/ARM 01/02/2008 ALEXANDRO BELLE APRN 840.9 SPRAIN/STRAIN SHOULDER/ARM 01/02/2008 ALEXANDRO BELLE APRN 840.9 SPRAIN/STRAIN SHOULDER/ARM 01/02/2008 BOYLE DO, DAHIANA K 840.9 SPRAIN/STRAIN SHOULDER/ARM 01/09/[address] AGENT EXAM, ROUTINE 01/09/2008 LV FRIAS APRN V72.[address] AGENT EXAM, ROUTINE 01/09/2008 BOYLE DO, DAHIANA K V72.[address] AGENT EXAM, ROUTINE 01/09/2008 BOYLE DO, DAHIANA K V72.[address] AGENT EXAM, ROUTINE 01/09/2008 BOYLE DO, DAHIANA K V72.[address] AGENT EXAM, ROUTINE 01/09/2008 BOYLE DO, DAHIANA K V72.[address] AGENT EXAM, ROUTINE 01/09/2008 ALEXANDRO BELLE APRN V72.[address] AGENT EXAM, ROUTINE 01/09/2008 BOYLE DO, DAHIANA K V72.[address] AGENT EXAM, ROUTINE 01/09/2008 BOYLE DO, DAHIANA K V72.[address] AGENT EXAM, ROUTINE 01/09/2008 BOYLE DO, DAHIANA K V72.[address] AGENT EXAM, ROUTINE 01/09/2008 LB FLORES APRN V72.[address] AGENT EXAM, ROUTINE 01/09/2008 BOYLE DO, DAHIANA K V72.[address] AGENT EXAM, ROUTINE 01/09/2008 BOYLE DO, DAHIANA K V72.[address] AGENT EXAM, ROUTINE 01/09/2008 BOYLE DO, DAHIANA K V72.[address] AGENT EXAM, ROUTINE 01/09/2008 ALEXANDRO BELLE APRN V72.[address] AGENT EXAM, ROUTINE 01/09/2008 ALEXANDRO BELLE APRN V72.[address] AGENT EXAM, ROUTINE 01/09/2008 BOYLE DO, DAHIANA K V72.[address] AGENT EXAM, ROUTINE 08/01/2008 NODX NO DIAGNOSIS 08/01/2008 LV FRIAS APRN NODX NO DIAGNOSIS 08/01/2008 BOYLE DO, DAHIANA K NODX NO DIAGNOSIS 08/01/2008 BOYLE DO, DAHIANA K NODX NO DIAGNOSIS 08/01/2008 BOYLE DO, DAHIANA K NODX NO DIAGNOSIS 08/01/2008 BOYLE DO, DAHIANA K NODX NO DIAGNOSIS 08/01/2008 ALEXANDRO BELLE APRN NODX NO DIAGNOSIS 08/01/2008 BOYEL DO, DAHIANA K NODX NO DIAGNOSIS 08/01/2008 BOYLE DO, DAHIANA K NODX NO DIAGNOSIS 08/01/2008 BOYLE DO, DAHIANA K NODX NO DIAGNOSIS 08/01/2008 SANDRA HOP FARMER, LB L NODX NO DIAGNOSIS 08/01/2008 BOYLE DO, DAHIANA K NODX NO DIAGNOSIS 08/01/2008 BOYLE DO, DAHIANA K NODX NO DIAGNOSIS 08/01/2008 BOYLE DO, DAHIANA K NODX NO DIAGNOSIS 08/01/2008 BARBRA OG ALEXANDRO R NODX NO DIAGNOSIS 08/01/2008 BARBRA OG, ALEXANDRO R NODX NO DIAGNOSIS 08/01/2008 BOYLE DO, DAHIANA K NODX NO DIAGNOSIS 08/07/2008 401.1 ESSENTIAL HYPERTENSION BENIGN 08/07/2008 729.5 forearm bone pain 08/07/2008 RODRIGUEZ ANGULONLV L 401.1 ESSENTIAL HYPERTENSION BENIGN 08/07/2008 RODRIGUEZ ANGULON, LV L 729.5 forearm bone pain 08/07/2008 BOYLE DO, DAHIANA K 401.1 ESSENTIAL HYPERTENSION BENIGN 08/07/2008 BOYLE DO, DAHIANA K 729.5 forearm bone pain 08/07/2008 BOYLE DO, DAHIANA K 401.1 ESSENTIAL HYPERTENSION BENIGN 08/07/2008 BOYLE DO, DAHIANA K 729.5 forearm bone pain 08/07/2008 BOYLE DO, DAHIANA K 401.1 ESSENTIAL HYPERTENSION BENIGN 08/07/2008 BOYLE DO, DAHIANA K 729.5 forearm bone pain 08/07/2008 BOYLE DO, DAHIANA K 401.1 ESSENTIAL HYPERTENSION BENIGN 08/07/2008 BOYLE DO, DAHIANA K 729.5 forearm bone pain 08/07/2008 BARBRA ANGULOALEXANDRO Fernandez R 401.1 ESSENTIAL HYPERTENSION BENIGN 08/07/2008 BARBRA OGALEXANDRO R 729.5 forearm bone pain 08/07/2008 BOYLE DO, DAHIANA K 401.1 ESSENTIAL HYPERTENSION BENIGN 08/07/2008 BOYLE DO, DAHIANA K 729.5 forearm bone pain 08/07/2008 BOYLE DO, DAHIANA K 401.1 ESSENTIAL HYPERTENSION BENIGN 08/07/2008 BOYLE DO, DAHIANA K 729.5 forearm bone pain 08/07/2008 BOYLE DO, DAHIANA K 401.1 ESSENTIAL HYPERTENSION BENIGN 08/07/2008 BOYLE DO, DAHIANA K 729.5 forearm bone pain 08/07/2008 SANDRA HOP FARMERLB L 401.1 ESSENTIAL HYPERTENSION BENIGN 08/07/2008 SANDRA HOP FARMERLB L 729.5 forearm bone pain 08/07/2008 BOYLE DO, DAHIANA K 401.1 ESSENTIAL HYPERTENSION BENIGN 08/07/2008 BOYLE DO, DAHIANA K 729.5 forearm bone pain 08/07/2008 BOYLE DO, DAHIANA K 401.1 ESSENTIAL HYPERTENSION BENIGN 08/07/2008 BOYLE DO, DAHIANA K 729.5 forearm bone pain 08/07/2008 BOYLE DO, DAHIANA K 401.1 ESSENTIAL HYPERTENSION BENIGN 08/07/2008 BOYLE DO, DAHIANA K 729.5 forearm bone pain 08/07/2008 BELLE HOP FARMER, ALEXANDRO R 401.1 ESSENTIAL HYPERTENSION BENIGN 08/07/2008 BELLE HOP FARMER, ALEXANDRO R 729.5 forearm bone pain 08/07/2008 BELLE HOP FARMER, ALEXANDRO R 401.1 ESSENTIAL HYPERTENSION BENIGN 08/07/2008 EBLLE HOP FARMER, ALEXANDRO R 729.5 forearm bone pain 08/07/2008 BOYLE DO, DAHIANA K 401.1 ESSENTIAL HYPERTENSION BENIGN 08/07/2008 BOYLE DO, DAHIANA K 729.5 forearm bone pain 01/21/2009 780.60 FEVER, UNSPECIFIED 01/21/2009 780.79 MALAISE AND FATIGUE 01/21/2009 786.2 COUGH 01/21/2009 EATON HOP FARMER, LV L 780.60 FEVER, UNSPECIFIED 01/21/2009 EATON HOP FARMER, LV L 780.79 MALAISE AND FATIGUE 01/21/2009 EATON HOP FARMER, LV L 786.2 COUGH 01/21/2009 BOYLE DO, DAHIANA K 780.60 FEVER, UNSPECIFIED 01/21/2009 BOYLE DO, DAHIANA K 780.79 MALAISE AND FATIGUE 01/21/2009 BOYLE DO, DAHIANA K 786.2 COUGH 01/21/2009 BOYLE DO, DAHIANA K 780.60 FEVER, UNSPECIFIED 01/21/2009 BOYLE DO, DAHIANA K 780.79 MALAISE AND FATIGUE 01/21/2009 BOYLE DO, DAHIANA K 786.2 COUGH 01/21/2009 BOYLE DO, DAHIANA K 780.60 FEVER, UNSPECIFIED 01/21/2009 BOYLE DO, DAHIANA K 780.79 MALAISE AND FATIGUE 01/21/2009 BOYLE DO, DAHIANA K 786.2 COUGH 01/21/2009 BOYLE DO, DAHIANA K 780.60 FEVER, UNSPECIFIED 01/21/2009 BOYLE DO, DAHIANA K 780.79 MALAISE AND FATIGUE 01/21/2009 BOYLE DO, DAHIANA K 786.2 COUGH 01/21/2009 BELLE HOP FARMER, ALEXANDRO R 780.60 FEVER, UNSPECIFIED 01/21/2009 BELLE HOP FARMER, ALEXANDRO R 780.79 MALAISE AND FATIGUE 01/21/2009 BELLE HOP FARMER, ALEXANDRO R 786.2 COUGH 01/21/2009 BOYLE DO, DAHIANA K 780.60 FEVER, UNSPECIFIED 01/21/2009 BOYLE DO, DAHIANA K 780.79 MALAISE AND FATIGUE 01/21/2009 BOYLE DO, DAHIANA K 786.2 COUGH 01/21/2009 BOYLE DO, DAHIANA K 780.60 FEVER, UNSPECIFIED 01/21/2009 BOYLE DO, DAHIANA K 780.79 MALAISE AND FATIGUE 01/21/2009 BOYLE DO, DAHIANA K 786.2 COUGH 01/21/2009 BOYLE DO, DAHIANA K 780.60 FEVER, UNSPECIFIED 01/21/2009 BOYLE DO, DAHIANA K 780.79 MALAISE AND FATIGUE 01/21/2009 BOYLE DO, DAHIANA K 786.2 COUGH 01/21/2009 SANDRA HOP FARMER, LB L 780.60 FEVER, UNSPECIFIED 01/21/2009 SANDRA HOP FARMER, LB L 780.79 MALAISE AND FATIGUE 01/21/2009 SANDRA HOP FARMER, LB L 786.2 COUGH 01/21/2009 BOYLE DO, DAHIANA K 780.60 FEVER, UNSPECIFIED 01/21/2009 BOYLE DO, DAHIANA K 780.79 MALAISE AND FATIGUE 01/21/2009 BOYLE DO, DAHIANA K 786.2 COUGH 01/21/2009 BOYLE DO, DAHIANA K 780.60 FEVER, UNSPECIFIED 01/21/2009 BOYLE DO, DAHIANA K 780.79 MALAISE AND FATIGUE 01/21/2009 BOYLE DO, DAHIANA K 786.2 COUGH 01/21/2009 BOYLE DO, DAHIANA K 780.60 FEVER, UNSPECIFIED 01/21/2009 BOYLE DO, DAHIAAN K 780.79 MALAISE AND FATIGUE 01/21/2009 BOYLE DO, DAHIANA K 786.2 COUGH 01/21/2009 BELLE HOP FARMER, ALEXANDRO R 780.60 FEVER, UNSPECIFIED 01/21/2009 BELLE HOP FARMER, ALEXANDRO R 780.79 MALAISE AND FATIGUE 01/21/2009 BELLE HOP FARMER, ALEXANDRO Gastelum 786.2 COUGH 01/21/2009 BELLE HOP FARMER, ALEXANDRO R 780.60 FEVER, UNSPECIFIED 01/21/2009 ALEXANDRO BELLE APRN 780.79 MALAISE AND FATIGUE 01/21/2009 ALEXANDRO BELLE APRN 786.2 COUGH 01/21/2009 BOYLE DO, DAHIANA K 780.60 FEVER, UNSPECIFIED 01/21/2009 BOYLE DO, DAHIANA K 780.79 MALAISE AND FATIGUE 01/21/2009 BOYLE DO, DAHIANA K 786.2 COUGH 07/08/2009 724.5 BACKACHE, UNSPECIFIED 07/08/2009 LV FRIAS APRN 724.5 BACKACHE, UNSPECIFIED 07/08/2009 BOYLE DO, DAHIANA K 724.5 BACKACHE, UNSPECIFIED 07/08/2009 BOYLE DO, DAHIANA K 724.5 BACKACHE, UNSPECIFIED 07/08/2009 BOYLE DO, DAHIANA K 724.5 BACKACHE, UNSPECIFIED 07/08/2009 BOYLE DO, DAHIANA K 724.5 BACKACHE, UNSPECIFIED 07/08/2009 ALEXANDRO BELLE APRN 724.5 BACKACHE, UNSPECIFIED 07/08/2009 BOYLE DO, DAHIANA K 724.5 BACKACHE, UNSPECIFIED 07/08/2009 BOYLE DO, DAHIANA K 724.5 BACKACHE, UNSPECIFIED 07/08/2009 OBYLE DO, DAHIANA K 724.5 BACKACHE, UNSPECIFIED 07/08/2009 LB FLORES APRN 724.5 BACKACHE, UNSPECIFIED 07/08/2009 BOYLE DO, DAHIANA K 724.5 BACKACHE, UNSPECIFIED 07/08/2009 BOYLE DO, DAHIANA K 724.5 BACKACHE, UNSPECIFIED 07/08/2009 BOYLE DO, DAHIANA K 724.5 BACKACHE, UNSPECIFIED 07/08/2009 ALEXANDRO BELLE APRN 724.5 BACKACHE, UNSPECIFIED 07/08/2009 BELLE ALEXANDRO OG 724.5 BACKACHE, UNSPECIFIED 07/08/2009 BOYLE DO, DAHIANA K 724.5 BACKACHE, UNSPECIFIED 07/16/2009 414.01 CORONARY ARTERY STENOSIS MULTI-VESSEL 07/16/2009 EATLV SAHU APRN 414.01 CORONARY ARTERY STENOSIS MULTI-VESSEL 07/16/2009 BOYLE DO, DAHIANA K 414.01 CORONARY ARTERY STENOSIS MULTI-VESSEL 07/16/2009 BOYLE DO, DAHIANA K 414.01 CORONARY ARTERY STENOSIS MULTI-VESSEL 07/16/2009 BOYLE DO, DAHIANA K 414.01 CORONARY ARTERY STENOSIS MULTI-VESSEL 07/16/2009 BOYLE DO, DAHIANA K 414.01 CORONARY ARTERY STENOSIS MULTI-VESSEL 07/16/2009 BELLE HOP FARMER, ALEXANDRO R 414.01 CORONARY ARTERY STENOSIS MULTI-VESSEL 07/16/2009 BOYLE DO, DAHIANA K 414.01 CORONARY ARTERY STENOSIS MULTI-VESSEL 07/16/2009 BOYLE DO, DAHIANA K 414.01 CORONARY ARTERY STENOSIS MULTI-VESSEL 07/16/2009 BOYLE DO, DAHIANA K 414.01 CORONARY ARTERY STENOSIS MULTI-VESSEL 07/16/2009 SANDRA HOP FARMER, LB L 414.01 CORONARY ARTERY STENOSIS MULTI-VESSEL 07/16/2009 BOYLE DO, DAHIANA K 414.01 CORONARY ARTERY STENOSIS MULTI-VESSEL 07/16/2009 BOYLE DO, DAHIANA K 414.01 CORONARY ARTERY STENOSIS MULTI-VESSEL 07/16/2009 BOYLE DO, DAHIANA K 414.01 CORONARY ARTERY STENOSIS MULTI-VESSEL 07/16/2009 BELLE HOP FARMER, ALEXANDRO R 414.01 CORONARY ARTERY STENOSIS MULTI-VESSEL 07/16/2009 BELLE HOP FARMER, ALEXANDRO R 414.01 CORONARY ARTERY STENOSIS MULTI-VESSEL 07/16/2009 BOYLE DO, DAHIANA K 414.01 CORONARY ARTERY STENOSIS MULTI-VESSEL 12/03/2009 272.0 PURE HYPERCHOLESTEROLEMIA 12/03/2009 EATON HOP FARMERRADHALV L 272.0 PURE HYPERCHOLESTEROLEMIA 12/03/2009 BOYLE DO, DAHIANA K 272.0 PURE HYPERCHOLESTEROLEMIA 12/03/2009 BOYLE DO, DAHIANA K 272.0 PURE HYPERCHOLESTEROLEMIA 12/03/2009 BOYLE DO, DAHIANA K 272.0 PURE HYPERCHOLESTEROLEMIA 12/03/2009 BOYLE DO, DAHIANA K 272.0 PURE HYPERCHOLESTEROLEMIA 12/03/2009 BELLE HOP FARMER, ALEXANDRO R 272.0 PURE HYPERCHOLESTEROLEMIA 12/03/2009 BOYLE DO, DAHIANA K 272.0 PURE HYPERCHOLESTEROLEMIA 12/03/2009 BOYLE DO, DAHIANA K 272.0 PURE HYPERCHOLESTEROLEMIA 12/03/2009 BOYLE DO, DAHIANA K 272.0 PURE HYPERCHOLESTEROLEMIA 12/03/2009 SANDRA HOP FARMER, LB L 272.0 PURE HYPERCHOLESTEROLEMIA 12/03/2009 BOYLE DO, DAHIANA K 272.0 PURE HYPERCHOLESTEROLEMIA 12/03/2009 BOYLE DO, DAHIANA K 272.0 PURE HYPERCHOLESTEROLEMIA 12/03/2009 BOYLE DO, DAHIANA K 272.0 PURE HYPERCHOLESTEROLEMIA 12/03/2009 BELLE HOP FARMER, ALEXANDRO R 272.0 PURE HYPERCHOLESTEROLEMIA 12/03/2009 BELLE HOP FARMER, ALEXANDRO R 272.0 PURE HYPERCHOLESTEROLEMIA 12/03/2009 BOYLE DO, DAHIANA K 272.0 PURE HYPERCHOLESTEROLEMIA 01/30/2010 412 MYOCARDIAL INFARCTION OLD 01/30/2010 786.52 CHEST WALL PAIN 01/30/2010 EATADELINA HOP FARMER, LV L 412 MYOCARDIAL INFARCTION OLD 01/30/2010 EATON HOP FARMER, LV L 786.52 CHEST WALL PAIN 01/30/2010 BOYLE DO, DAHIANA K 412 MYOCARDIAL INFARCTION OLD 01/30/2010 BOYLE DO, DAHIANA K 786.52 CHEST WALL PAIN 01/30/2010 BOYLE DO, DAHIANA K 412 MYOCARDIAL INFARCTION OLD 01/30/2010 BOYLE DO, DAHIANA K 786.52 CHEST WALL PAIN 01/30/2010 BOYLE DO, DAHIANA K 412 MYOCARDIAL INFARCTION OLD 01/30/2010 BOYLE DO, DAHIANA K 786.52 CHEST WALL PAIN 01/30/2010 BOYLE DO, DAHIANA K 412 MYOCARDIAL INFARCTION OLD 01/30/2010 BOYLE DO, DAHIANA K 786.52 CHEST WALL PAIN 01/30/2010 BELLEMARA ANGULONALEXANDRO R 412 MYOCARDIAL INFARCTION OLD 01/30/2010 BELLE HOP FARMER, ALEXANDRO R 786.52 CHEST WALL PAIN 01/30/2010 BOYLE DO, DAHIANA K 412 MYOCARDIAL INFARCTION OLD 01/30/2010 BOYLE DO, DAHIANA K 786.52 CHEST WALL PAIN 01/30/2010 BOYLE DO, DAHIANA K 412 MYOCARDIAL INFARCTION OLD 01/30/2010 BOYLE DO, DAHIANA K 786.52 CHEST WALL PAIN 01/30/2010 BOYLE DO, DAHIANA K 412 MYOCARDIAL INFARCTION OLD 01/30/2010 BOYLE DO, DAHIANA K 786.52 CHEST WALL PAIN 01/30/2010 SANDRA HOP FARMER, LB L 412 MYOCARDIAL INFARCTION OLD 01/30/2010 SANDRA HOP FARMER, LB L 786.52 CHEST WALL PAIN 01/30/2010 BOYLE DO, DAHIANA K 412 MYOCARDIAL INFARCTION OLD 01/30/2010 BOYLE DO, DAHIANA K 786.52 CHEST WALL PAIN 01/30/2010 BOYLE DO, DAHIANA K 412 MYOCARDIAL INFARCTION OLD 01/30/2010 BOYLE DO, DAHIANA K 786.52 CHEST WALL PAIN 01/30/2010 BOYLE DO, DAHIANA K 412 MYOCARDIAL INFARCTION OLD 01/30/2010 BOYLE DO, DAHIANA K 786.52 CHEST WALL PAIN 01/30/2010 ALEXANDRO BELLE APRN R 412 MYOCARDIAL INFARCTION OLD 01/30/2010 BARBRA OG ALEXANDRO R 786.52 CHEST WALL PAIN 01/30/2010 ALEXANDRO BELLE APRN R 412 MYOCARDIAL INFARCTION OLD 01/30/2010 BARBRA OG ALEXANDRO R 786.52 CHEST WALL PAIN 01/30/2010 BOYLE DO, DAHIANA K 412 MYOCARDIAL INFARCTION OLD 01/30/2010 BOYLE DO, DAHIANA K 786.52 CHEST WALL PAIN 02/26/2011 272.4 DYSLIPIDEMIA 02/26/2011 278.00 OBESITY 02/26/2011 EATON HOP FARMER, LV L 272.4 DYSLIPIDEMIA 02/26/2011 EATON HOP FARMER, LV L 278.00 OBESITY 02/26/2011 BOYLE DO, DAHIANA K 272.4 DYSLIPIDEMIA 02/26/2011 BOYLE DO, DAHIANA K 278.00 OBESITY 02/26/2011 BOYLE DO, DAHIANA K 272.4 DYSLIPIDEMIA 02/26/2011 BOYLE DO, DAHIANA K 278.00 OBESITY 02/26/2011 BOYLE DO, DAHIANA K 272.4 DYSLIPIDEMIA 02/26/2011 BOYLE DO, DAHIANA K 278.00 OBESITY 02/26/2011 BOYLE DO, DAHIANA K 272.4 DYSLIPIDEMIA 02/26/2011 BOYLE DO, DAHIANA K 278.00 OBESITY 02/26/2011 BARBRA OG ALEXANDRO R 272.4 DYSLIPIDEMIA 02/26/2011 BARBRA OGALEXANDRO R 278.00 OBESITY 02/26/2011 BOYLE DO, DAHIANA K 272.4 DYSLIPIDEMIA 02/26/2011 BOYLE DO, DAHIANA K 278.00 OBESITY 02/26/2011 BOYLE DO, DAHIANA K 272.4 DYSLIPIDEMIA 02/26/2011 BOYLE DO, DAHIANA K 278.00 OBESITY 02/26/2011 BOYLE DO, DAHIANA K 272.4 DYSLIPIDEMIA 02/26/2011 BOYLE DO, DAHIANA K 278.00 OBESITY 02/26/2011 SANDRA HOP FARMER, LB L 272.4 DYSLIPIDEMIA 02/26/2011 SANDRA HOP FARMER, LB L 278.00 OBESITY 02/26/2011 BOYLE DO, DAHIANA K 272.4 DYSLIPIDEMIA 02/26/2011 BOYLE DO, DAHIANA K 278.00 OBESITY 02/26/2011 BOYLE DO, DAHIANA K 272.4 DYSLIPIDEMIA 02/26/2011 BOYLE DO, DAHIANA K 278.00 OBESITY 02/26/2011 BOYLE DO, DAHIANA K 272.4 DYSLIPIDEMIA 02/26/2011 BOYLE DO, DAHIANA K 278.00 OBESITY 02/26/2011 ALEXANDRO BELLE APRN R 272.4 DYSLIPIDEMIA 02/26/2011 BELLEMARA OG, ALEXANDRO R 278.00 OBESITY 02/26/2011 BELLE LENKA, ALEXANDRO R 272.4 DYSLIPIDEMIA 02/26/2011 BELLEMARA OG, ALEXANDRO R 278.00 OBESITY 02/26/2011 BOYLE DO, DAHIANA K 272.4 DYSLIPIDEMIA 02/26/2011 BOYLE DO, DAHIANA K 278.00 OBESITY 04/06/2011 Ot 414.01 CORONARY ATHEROSCLEROSIS OF [place] CORON 04/06/2011 Ot V45.82 PERCUTANEOUS TRANSLUM CORON ANGIOPLASTY 04/30/2011 785.1 PALPITATIONS 04/30/2011 LV FRIAS APRN 785.1 PALPITATIONS 04/30/2011 BOYLE DO, DAHIANA K 785.1 PALPITATIONS 04/30/2011 BOYLE DO, DAHIANA K 785.1 PALPITATIONS 04/30/2011 BOYLE DO, DAHIANA K 785.1 PALPITATIONS 04/30/2011 BOYLE DO, DAHIANA K 785.1 PALPITATIONS 04/30/2011 BELLEALEXANDRO TERRY APRN R 785.1 PALPITATIONS 04/30/2011 BOYLE DO, DAHIANA K 785.1 PALPITATIONS 04/30/2011 BOYLE DO, DAHIANA K 785.1 PALPITATIONS 04/30/2011 BOYLE DO, DAHIANA K 785.1 PALPITATIONS 04/30/2011 LB FLORES APRN 785.1 PALPITATIONS 04/30/2011 BOYLE DO, DAHIANA K 785.1 PALPITATIONS 04/30/2011 BOYLE DO, DAHIANA K 785.1 PALPITATIONS 04/30/2011 BOYLE DO, DAHIANA K 785.1 PALPITATIONS 04/30/2011 BELLEALEXANDRO TERRY APRN R 785.1 PALPITATIONS 04/30/2011 BELLEALEXANDRO TERRY APRN 785.1 PALPITATIONS 04/30/2011 BOYLE DO, DAHIANA K 785.1 PALPITATIONS 06/10/2011 414.00 CORONARY ARTERY DISEASE 06/10/2011 790.29 PREDIABETES (IMPAIRED GLUCOSE TOLERANCE) 06/10/2011 796.2 Blood Pressure Isolated Elevated 06/10/2011 RODRIGUEZ OG LV L 414.00 CORONARY ARTERY DISEASE 06/10/2011 RODRIGUEZ OG LV L 790.29 PREDIABETES (IMPAIRED GLUCOSE TOLERANCE) 06/10/2011 RODRIGUEZ OG LV L 796.2 Blood Pressure Isolated Elevated 06/10/2011 BOYLE DO, DAHIANA K 414.00 CORONARY ARTERY DISEASE 06/10/2011 BOYLE DO, DAHIANA K 790.29 PREDIABETES (IMPAIRED GLUCOSE TOLERANCE) 06/10/2011 BOYLE DO, DAHIANA K 796.2 Blood Pressure Isolated Elevated 06/10/2011 BOYLE DO, DAHIANA K 414.00 CORONARY ARTERY DISEASE 06/10/2011 BOYLE DO, DAHIANA K 790.29 PREDIABETES (IMPAIRED GLUCOSE TOLERANCE) 06/10/2011 BOYLE DO, DAHIANA K 796.2 Blood Pressure Isolated Elevated 06/10/2011 BOYLE DO, DAHIANA K 414.00 CORONARY ARTERY DISEASE 06/10/2011 BOYLE DO, DAHIANA K 790.29 PREDIABETES (IMPAIRED GLUCOSE TOLERANCE) 06/10/2011 BOYLE DO, DAHIANA K 796.2 Blood Pressure Isolated Elevated 06/10/2011 BOYLE DO, DAHIANA K 414.00 CORONARY ARTERY DISEASE 06/10/2011 BOYLE DO, DAHIANA K 790.29 PREDIABETES (IMPAIRED GLUCOSE TOLERANCE) 06/10/2011 BOYLE DO, DAHIANA K 796.2 Blood Pressure Isolated Elevated 06/10/2011 BELLEALEXANDRO TERRY APRN R 414.00 CORONARY ARTERY DISEASE 06/10/2011 ALEXANDRO BELLE APRN R 790.29 PREDIABETES (IMPAIRED GLUCOSE TOLERANCE) 06/10/2011 ALEXANDRO BELLE APRN R 796.2 Blood Pressure Isolated Elevated 06/10/2011 BOYLE DO, DAHIANA K 414.00 CORONARY ARTERY DISEASE 06/10/2011 BOYLE DO, DAHIANA K 790.29 PREDIABETES (IMPAIRED GLUCOSE TOLERANCE) 06/10/2011 BOYLE DO, DAHIANA K 796.2 Blood Pressure Isolated Elevated 06/10/2011 BOYLE DO, DAHIANA K 414.00 CORONARY ARTERY DISEASE 06/10/2011 BOYLE DO, DAHIANA K 790.29 PREDIABETES (IMPAIRED GLUCOSE TOLERANCE) 06/10/2011 BOYLE DO, DAHIANA K 796.2 Blood Pressure Isolated Elevated 06/10/2011 BOYLE DO, DAHIANA K 414.00 CORONARY ARTERY DISEASE 06/10/2011 BOYLE DO, DAHIANA K 790.29 PREDIABETES (IMPAIRED GLUCOSE TOLERANCE) 06/10/2011 BOYLE DO, DAHIANA K 796.2 Blood Pressure Isolated Elevated 06/10/2011 SANDRAAFUA ANGULON, LB L 414.00 CORONARY ARTERY DISEASE 06/10/2011 SANDRA HOP FARMER, LB L 790.29 PREDIABETES (IMPAIRED GLUCOSE TOLERANCE) 06/10/2011 SANDRA HOP FARMER, LB L 796.2 Blood Pressure Isolated Elevated 06/10/2011 BOYLE DO, DAHIANA K 414.00 CORONARY ARTERY DISEASE 06/10/2011 BOYLE DO, DAHIANA K 790.29 PREDIABETES (IMPAIRED GLUCOSE TOLERANCE) 06/10/2011 BOLYE DO, DAHIANA K 796.2 Blood Pressure Isolated Elevated 06/10/2011 BOYLE DO, DAHIANA K 414.00 CORONARY ARTERY DISEASE 06/10/2011 BOYLE DO, DAHIANA K 790.29 PREDIABETES (IMPAIRED GLUCOSE TOLERANCE) 06/10/2011 BOYLE DO, DAHIANA K 796.2 Blood Pressure Isolated Elevated 06/10/2011 BOYLE DO, DAHIANA K 414.00 CORONARY ARTERY DISEASE 06/10/2011 BOYLE DO, DAHIANA K 790.29 PREDIABETES (IMPAIRED GLUCOSE TOLERANCE) 06/10/2011 BOYLE DO, DAHIANA K 796.2 Blood Pressure Isolated Elevated 06/10/2011 ALEXANDRO BELLE APRN R 414.00 CORONARY ARTERY DISEASE 06/10/2011 ALEXANDRO BELLE APRN 790.29 PREDIABETES (IMPAIRED GLUCOSE TOLERANCE) 06/10/2011 ALEXANDRO BELLE APRN 796.2 Blood Pressure Isolated Elevated 06/10/2011 ALEXANDRO BELLE APRN R 414.00 CORONARY ARTERY DISEASE 06/10/2011 ALEXANDRO BELLE APRN 790.29 PREDIABETES (IMPAIRED GLUCOSE TOLERANCE) 06/10/2011 ALEXANRDO BELLE APRN R 796.2 Blood Pressure Isolated Elevated 06/10/2011 BOYLE DO, DAHIANA K 414.00 CORONARY ARTERY DISEASE 06/10/2011 BOYLE DO DAHIANA K 790.29 PREDIABETES (IMPAIRED GLUCOSE TOLERANCE) 06/10/2011 BOYLE DO DAHIANA K 796.2 Blood Pressure Isolated Elevated 08/09/2011 Ot 785.1 PALPITATIONS 05/19/2013 BOYLE DO DAHIANA K 466.0 ACUTE BRONCHITIS 05/19/2013 BOYLE DO, DAHIANA K 466.0 ACUTE BRONCHITIS 05/19/2013 BOYLE DO, DAHIANA K 466.0 ACUTE BRONCHITIS 05/19/2013 BOYLE DO, DAHIANA K 466.0 ACUTE BRONCHITIS 05/19/2013 ALEXANDRO BELLE APRN 466.0 ACUTE BRONCHITIS 05/19/2013 BOYLE DO, DAHIANA K 466.0 ACUTE BRONCHITIS 05/19/2013 BOYLE DO, DAHIANA K 466.0 ACUTE BRONCHITIS 05/19/2013 BOYLE DO, DAHIANA K 466.0 ACUTE BRONCHITIS 05/19/2013 LB FLORES APRN 466.0 ACUTE BRONCHITIS 05/19/2013 BOYLE DO, DAHIANA K 466.0 ACUTE BRONCHITIS 05/19/2013 BOYLE DO, DAHIANA K 466.0 ACUTE BRONCHITIS 05/19/2013 BOYLE DO, DAHIANA K 466.0 ACUTE BRONCHITIS 05/19/2013 ALEXANDRO BELLE APRN 466.0 ACUTE BRONCHITIS 05/19/2013 ALEXANDRO BELLE APRN 466.0 ACUTE BRONCHITIS 05/19/2013 BOYLE DO, DAHIANA K 466.0 ACUTE BRONCHITIS 06/29/2013 BOYLE DO, DAHIANA K 496 COPD 06/29/2013 BOYLE DO, DAHIANA K 496 COPD 06/29/2013 BOYLE DO, DAHIANA K 496 COPD 06/29/2013 LAEXANDRO BELLE APRN 496 COPD 06/29/2013 BOYLE DO, DAHIANA K 496 COPD 06/29/2013 BOYLE DO, DAHIANA K 496 COPD 06/29/2013 BOYLE DO, DAHIANA K 496 COPD 06/29/2013 LB FLORES APRN 496 COPD 06/29/2013 BOYLE DO, ADHIANA K 496 COPD 06/29/2013 BOYLE DO, DAHIANA K 496 COPD 06/29/2013 BOYLE DO, DAHIANA K 496 COPD 06/29/2013 ALEXANDRO BELLE APRN 496 COPD 06/29/2013 ALEXANDRO BELLE APRN 496 COPD 06/29/2013 BOYLE DO, DAHIANA K 496 COPD 07/27/2013 BOYLE DO, DAHIANA K 724.3 SCIATICA 07/27/2013 BOYLE DO, DAHIANA K 724.3 SCIATICA 07/27/2013 ALEXANDRO BELLE APRN 724.3 SCIATICA 07/27/2013 BOYLE DO, DAHIANA K 724.3 SCIATICA 07/27/2013 BOYLE DO, DAHIANA K 724.3 SCIATICA 07/27/2013 BOYLE DO, DAHIANA K 724.3 SCIATICA 07/27/2013 LB FLORES APRN L 724.3 SCIATICA 07/27/2013 BOYLE DO, DAHIANA K 724.3 SCIATICA 07/27/2013 BOYLE DO, DAHIANA K 724.3 SCIATICA 07/27/2013 BOYLE DO, DAHIANA K 724.3 SCIATICA 07/27/2013 ALEXANDRO BELLE APRN 724.3 SCIATICA 07/27/2013 BELLE ALEXANDRO OG 724.3 SCIATICA 07/27/2013 BOYLE DO, DAHIANA K 724.3 SCIATICA 08/28/2013 BOYLE DO, DAHIANA K 465.9 UPPER RESPIRATORY INFECTION 08/28/2013 ALEXANDRO BELLE APRN 465.9 UPPER RESPIRATORY INFECTION 08/28/2013 BOYLE DO, DAHIANA K 465.9 UPPER RESPIRATORY INFECTION 08/28/2013 BOYLE DO, DAHIANA K 465.9 UPPER RESPIRATORY INFECTION 08/28/2013 BOYLE DO, DAHIANA K 465.9 UPPER RESPIRATORY INFECTION 08/28/2013 LB FLORES APRN 465.9 UPPER RESPIRATORY INFECTION 08/28/2013 BOYLE DO, DAHIANA K 465.9 UPPER RESPIRATORY INFECTION 08/28/2013 BOYLE DO, DAHIANA K 465.9 UPPER RESPIRATORY INFECTION 08/28/2013 BOYLE DO, DAHIANA K 465.9 UPPER RESPIRATORY INFECTION 08/28/2013 ALEXANDRO BELLE APRN R 465.9 UPPER RESPIRATORY INFECTION 08/28/2013 BELLE ALEXANDRO OG R 465.9 UPPER RESPIRATORY INFECTION 08/28/2013 BOYLE DO, DAHIANA K 465.9 UPPER RESPIRATORY INFECTION 10/23/2013 BOYLE DO, DAHIANA K 536.8 DYSPEPSIA 10/23/2013 BOYLE DO, DAHIANA K 536.8 DYSPEPSIA 10/23/2013 LB FLORES APRN L 536.8 DYSPEPSIA 10/23/2013 BOYLE DO, DAHIANA K 536.8 DYSPEPSIA 10/23/2013 BOYLE DO, DAHIANA K 536.8 DYSPEPSIA 10/23/2013 BOYLE DO, DAHIANA K 536.8 DYSPEPSIA 10/23/2013 BELLEALEXANDRO TERRY APRN 536.8 DYSPEPSIA 10/23/2013 BELLE HOP FARMERALEXANDRO Fernandez 536.8 DYSPEPSIA 10/23/2013 BOYLE DO, DAHIANA K 536.8 DYSPEPSIA 11/28/2013 BOYLE DO, DAHIANA K 787.1 HEARTBURN 11/28/2013 CORINNA FLORES APRNASCENCION Hughes 787.1 HEARTBURN 11/28/2013 BOYLE DO, DAHIANA K 787.1 HEARTBURN 11/28/2013 BOYLE DO, DAHIANA K 787.1 HEARTBURN 11/28/2013 BOYLE DO, DAHIANA K 787.1 HEARTBURN 11/28/2013 BELLE ALEXANDRO OG R 787.1 HEARTBURN 11/28/2013 BELLE ALEXANDRO OG 787.1 HEARTBURN 11/28/2013 BOYLE DO, DAHIANA K 787.1 HEARTBURN 12/20/2013 BOYLE DO, DAHIANA K 401.9 HYPERTENSION, UNSPECIFIED ESSENTIAL 12/20/2013 BOYLE DO, DAHIANA K 786.50 CHEST PAIN 12/20/2013 BOYLE DO, DAHIANA K 401.9 HYPERTENSION, UNSPECIFIED ESSENTIAL 12/20/2013 BOYLE DO, DAHIANA K 786.50 CHEST PAIN 12/20/2013 BOYLE DO, DAHIANA K 401.9 HYPERTENSION, UNSPECIFIED ESSENTIAL 12/20/2013 BOYLE DO, DAHIANA K 786.50 CHEST PAIN 12/20/2013 BELLE ALEXANDRO OG R 401.9 HYPERTENSION, UNSPECIFIED ESSENTIAL 12/20/2013 BELLE ALEXANDRO OG R 786.50 CHEST PAIN 12/20/2013 BELLE ALEXANDRO OG R 401.9 HYPERTENSION, UNSPECIFIED ESSENTIAL 12/20/2013 BELLE HOP FARMERALEXNADRO Fernandez R 786.50 CHEST PAIN 12/20/2013 BOYLE DO, DAHIANA K 401.9 HYPERTENSION, UNSPECIFIED ESSENTIAL 12/20/2013 BOYLE DO, DAHIANA K 786.50 CHEST PAIN 12/25/2013 BOYLE DO, DAHIANA K 790.6 OTHER ABNORMAL BLOOD CHEMISTRY 12/25/2013 BOYLE DO, DAHIANA K 790.6 OTHER ABNORMAL BLOOD CHEMISTRY 12/25/2013 BOYLE DO, DAHIANA K 790.6 OTHER ABNORMAL BLOOD CHEMISTRY 12/25/2013 BELLE ALEXANDRO OG 790.6 OTHER ABNORMAL BLOOD CHEMISTRY 12/25/2013 BELLE HOP FARMERALEXANDRO Fernandez 790.6 OTHER ABNORMAL BLOOD CHEMISTRY 12/25/2013 DAHIANA BOYLE DO K 790.6 OTHER ABNORMAL BLOOD CHEMISTRY 01/09/2014 LESLYE TREVIÑO FACC, ALI FACP CCDS Ot 272.4 HYPERLIPIDEMIA NEC/NOS 01/09/2014 LESLYE TREVIÑO FACC, ALI FACP CCDS Ot 401.9 HYPERTENSION NOS 01/09/2014 LESLYE TREVIÑO FACC, ALI FACP CCDS Ot 414.01 CORONARY ATHEROSCLEROSIS OF [place] CORON 01/09/2014 LESLYE TREVIÑO FACC, ALI FACP CCDS Ot 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 01/09/2014 LESLYE TREVIÑO FACC, ALI FACP CCDS Ot 530.81 ESOPHAGEAL REFLUX 01/09/2014 LESLYE TREVIÑO FACC, ALI FACP CCDS Ot 786.59 CHEST PAIN NEC 01/09/2014 LESLYE TREVIÑO FACC, ALI FACP CCDS Ot V45.81 AORTOCORONARY BYPASS 01/09/2014 LESLYE TREVIÑO FACC, ALI FACP CCDS Ot V58.69 OT MED,LT,CURRENT USE 02/20/2014 Ot V76.12 03/27/2014 Ot V76.12 05/14/2014 BAIMA, [place] Ot 272.4 05/14/2014 BAIMA, [place] Ot 401.9 05/14/2014 [place]A, [place] Ot 414.00 05/14/2014 BAIMA, [place] Ot 785.1 05/14/2014 BAIMA, [place] Ot V45.81 08/09/2014 BAIMA, [place] Ot 272.4 HYPERLIPIDEMIA NEC/NOS 08/09/2014 BAIMA, [place] Ot 401.9 HYPERTENSION NOS 08/09/2014 BAIMA, [place] Ot 414.00 CORON ATHEROSCLER NOS TYPE VESSEL, NATIV 08/09/2014 BAIMA, [place] Ot 785.1 PALPITATIONS 08/09/2014 BAIMA, [place] Ot V45.81 AORTOCORONARY BYPASS 01/17/2016 BAIMA, [place] Ot 272.4 HYPERLIPIDEMIA NEC/NOS 01/17/2016 BAIMA, [place] Ot 401.9 HYPERTENSION NOS 01/17/2016 BAIMA, [place] Ot 414.00 CORON ATHEROSCLER NOS TYPE VESSEL, NATIV 01/17/2016 BAIMA, [place] Ot 427.1 PAROX VENTRIC TACHYCARD 01/17/2016 BAIMA, [place] Ot 433.10 CAROTID ARTERY OCCLUSION W O CEREBRAL IN 01/17/2016 BAIMA, [place] Ot 272.4 HYPERLIPIDEMIA NEC/NOS 01/17/2016 BAIMA, [place] Ot 401.9 HYPERTENSION NOS 01/17/2016 BAIMA, [place] Ot 414.00 CORON ATHEROSCLER NOS TYPE VESSEL, NATIV 01/17/2016 BAIMA, [place] Ot 785.1 PALPITATIONS 01/17/2016 BAIMA, [place] Ot V45.81 AORTOCORONARY BYPASS 01/17/2016 BAIMA, [place] Ot 272.4 HYPERLIPIDEMIA NEC/NOS 01/17/2016 BAIMA, [place] Ot 401.9 HYPERTENSION NOS 01/17/2016 BAIMA, [place] Ot 414.00 CORON ATHEROSCLER NOS TYPE VESSEL, NATIV 01/17/2016 BAIMA, [place] Ot 427.1 PAROX VENTRIC TACHYCARD 01/17/2016 BAIMA, [place] Ot 433.10 CAROTID ARTERY OCCLUSION W O CEREBRAL IN 01/17/2016 BAIMA, [place] Ot 272.4 HYPERLIPIDEMIA NEC/NOS 01/17/2016 BAIMA, [place] Ot 401.9 HYPERTENSION NOS 01/17/2016 BAIMA, [place] Ot 414.00 CORON ATHEROSCLER NOS TYPE VESSEL, NATIV 01/17/2016 BAIMA, [place] Ot 785.1 PALPITATIONS 01/17/2016 BAIMA, [place] Ot V45.81 AORTOCORONARY BYPASS 01/20/2016 ALEXANDRO BELLE CFNP Ot M51.17 INTVRT DISC DISORDERS W RADICULOPATHY, L 01/30/2016 ALEXANDRO BELLE CFNP Ot M51.17 INTVRT DISC DISORDERS W RADICULOPATHY, L 05/12/2016 LESLYE TREVIÑO FACC, RAHDA FACP CCDS Ot E78.5 HYPERLIPIDEMIA, UNSPECIFIED 05/12/2016 LESLYE TREVIÑO FACC, ALI FACP CCDS Ot I10 ESSENTIAL (PRIMARY) HYPERTENSION 05/12/2016 LESLYE TREVIÑO FACC, ALI FACP CCDS Ot I25.10 ATHSCL HEART DISEASE OF [place] CORONARY 05/12/2016 LESLYE TREVIÑO FACC, ALI FACP CCDS Ot I25.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 DUE TO CALCIFIE 05/12/2016 LESLYE TREVIÑO FACC, ALI FACP CCDS Ot I27.2 OTHER SECONDARY PULMONARY HYPERTENSION 05/12/2016 LESLYE TREVÑIO FACC, ALI FACP CCDS Ot K21.9 GASTRO-ESOPHAGEAL REFLUX DISEASE WITHOUT 05/12/2016 LESLYE TREVIÑO FACC, ALI FACP CCDS Ot R00.0 TACHYCARDIA, UNSPECIFIED 05/12/2016 LESLYE TREVIÑO FACC, ALI FACP CCDS Ot R07.89 OTHER CHEST PAIN 05/12/2016 LESLYE TREVIÑO FACC, ALI FACP CCDS Ot R73.09 OTHER ABNORMAL GLUCOSE 05/12/2016 LESLYE TREVIÑO FACC, ALI FACP CCDS Ot Z79.899 OTHER FOLDER MACHINE (CURRENT) DRUG THERAPY 05/12/2016 LESLYE TREVIÑO FACC, ALI FACP CCDS Ot Z87.891 PERSONAL HISTORY OF NICOTINE DEPENDENCE 05/12/2016 LESLYE TREVIÑO FACC, ALI FACP CCDS Ot Z95.1 PRESENCE OF AORTOCORONARY BYPASS GRAFT 05/12/2016 LESLYE TREVIÑO FACC, RADHA FACP CCDS Ot Z95.5 PRESENCE OF CORONARY ANGIOPLASTY IMPLANT 05/19/2016 LESLYE TREVIÑO FACC, RADHA FACP CCDS Ot E78.5 HYPERLIPIDEMIA, UNSPECIFIED 05/19/2016 LESLYE TREVIÑO FACC, ALI FACP CCDS Ot I10 ESSENTIAL (PRIMARY) HYPERTENSION 05/19/2016 LESLYE TREVIÑO FACC, RADHA FACP CCDS Ot I25.10 ATHSCL HEART DISEASE OF [place] CORONARY 05/19/2016 LESLYE TREVIÑO FACC, ALI FACP CCDS Ot I25.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 DUE TO CALCIFIE 05/19/2016 LESLYE TREVIÑO FACC, ALI FACP CCDS Ot I27.2 OTHER SECONDARY PULMONARY HYPERTENSION 05/19/2016 LESLYE TREVIÑO FACC, ALI FACP CCDS Ot K21.9 GASTRO-ESOPHAGEAL REFLUX DISEASE WITHOUT 05/19/2016 LESLYE TREVIÑO FACC, ALI FACP CCDS Ot R00.0 TACHYCARDIA, UNSPECIFIED 05/19/2016 LESLYE TREVIÑO FACC, ALI FACP CCDS Ot R07.89 OTHER CHEST PAIN 05/19/2016 LESLYE TREVIÑO FACC, ALI FACP CCDS Ot R73.09 OTHER ABNORMAL GLUCOSE 05/19/2016 LESYLE TREVIÑO FACC, ALI FACP CCDS Ot Z79.899 OTHER CARE HOME (CURRENT) DRUG THERAPY 05/19/2016 LESLYE TREVIÑO FACC, ALI FACP CCDS Ot Z87.891 PERSONAL HISTORY OF NICOTINE DEPENDENCE 05/19/2016 LESLYE TREVIÑO FACC, ALI FACP CCDS Ot Z95.1 PRESENCE OF AORTOCORONARY BYPASS GRAFT 05/19/2016 LESLYE TREVIÑO FACC, ALI FACP CCDS Ot Z95.5 PRESENCE OF CORONARY ANGIOPLASTY IMPLANT 05/27/2016 LESLYE TREVIÑO FACC, ALI FACP CCDS Ot E78.5 HYPERLIPIDEMIA, UNSPECIFIED 05/27/2016 LESLYE TREVIÑO FACC, ALI FACP CCDS Ot I10 ESSENTIAL (PRIMARY) HYPERTENSION 05/27/2016 LESLYE TREVIÑO FACC, ALI FACP CCDS Ot I25.10 ATHSCL HEART DISEASE OF [place] CORONARY 05/27/2016 LESLYE TREVIÑO FACC, ALI FACP CCDS Ot I25.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 DUE TO CALCIFIE 05/27/2016 LESLYE TREVIÑO FACC, ALI FACP CCDS Ot I27.2 OTHER SECONDARY PULMONARY HYPERTENSION 05/27/2016 LESLYE TREVIÑO FACC, ALI FACP CCDS Ot K21.9 GASTRO-ESOPHAGEAL REFLUX DISEASE WITHOUT 05/27/2016 LESLYE TREVIÑO FACC, ALI FACP CCDS Ot R00.0 TACHYCARDIA, UNSPECIFIED 05/27/2016 LESLYE TREVIÑO FACC, ALI FACP CCDS Ot R07.89 OTHER CHEST PAIN 05/27/2016 LESLYE TREVIÑO FACC, RADHA FACP CCDS Ot R73.09 OTHER ABNORMAL GLUCOSE 05/27/2016 LESLYE TREVIÑO FACC, ALI FACP CCDS Ot Z79.899 OTHER CARE HOME (CURRENT) DRUG THERAPY 05/27/2016 LESLYE TREVIÑO FACC, ALI FACP CCDS Ot Z87.891 PERSONAL HISTORY OF NICOTINE DEPENDENCE 05/27/2016 LESLYE TREVIÑO FACC, ALI FACP CCDS Ot Z95.1 PRESENCE OF AORTOCORONARY BYPASS GRAFT 05/27/2016 LESLYE TREVIÑO FACC, ALI FACP CCDS Ot Z95.5 PRESENCE OF CORONARY ANGIOPLASTY IMPLANT 06/18/2016 VANESSA MCKEON DO Ot I27.2 OTHER SECONDARY PULMONARY HYPERTENSION 06/18/2016 VANESSA MCKEON DO Ot R06.00 DYSPNEA, UNSPECIFIED 06/26/2016 LINDA DOVANESSA Ot G47.10 HYPERSOMNIA, UNSPECIFIED 06/27/2016 VANESSA MCKEON DO Ot G47.10 HYPERSOMNIA, UNSPECIFIED 06/27/2016 VANESSA MCKEON DO Ot G47.33 OBSTRUCTIVE SLEEP APNEA (ADULT) (PEDIATR 06/27/2016 LINDA DOVANESSA M Ot I27.2 OTHER SECONDARY PULMONARY HYPERTENSION 06/27/2016 VANESSA MCKEON DO Ot R06.00 DYSPNEA, UNSPECIFIED 06/29/2016 LINDA DOVANESSA Ot G47.33 OBSTRUCTIVE SLEEP APNEA (ADULT) (PEDIATR 06/29/2016 LINDA DOVANESSA M Ot I27.2 OTHER SECONDARY PULMONARY HYPERTENSION 06/29/2016 VANESSA MCKEON DO Ot R06.00 DYSPNEA, UNSPECIFIED 07/09/2016 VANESSA MCKEON DO Ot I27.2 OTHER SECONDARY PULMONARY HYPERTENSION 07/09/2016 VANESSA MCKEON DO Ot R06.00 DYSPNEA, UNSPECIFIED 08/03/2017 [place], [place] Ot 272.4 HYPERLIPIDEMIA NEC/NOS 08/03/2017 [place], [place] Ot 401.9 HYPERTENSION NOS 08/03/2017 [place], [place] Ot 414.00 CORON ATHEROSCLER NOS TYPE VESSEL, NATIV 08/03/2017 BAIMA, [place] Ot 427.1 PAROX VENTRIC TACHYCARD 08/03/2017 BAIMA, [place] Ot 433.10 CAROTID ARTERY OCCLUSION W O CEREBRAL IN 08/03/2017 BAIMA, [place] Ot 272.4 HYPERLIPIDEMIA NEC/NOS 08/03/2017 BAIMA, [place] Ot 401.9 HYPERTENSION NOS 08/03/2017 BAIMA, [place] Ot 414.00 CORON ATHEROSCLER NOS TYPE VESSEL, NATIV 08/03/2017 BAIMA, [place] Ot 785.1 PALPITATIONS 08/03/2017 BAIMA, [place] Ot V45.81 AORTOCORONARY BYPASS 08/03/2017 ALEXANDRO BELLE CFNP Ot M51.17 INTVRT DISC DISORDERS W RADICULOPATHY, L 08/03/2017 VANESSA MCKEON DO Ot I27.2 OTHER SECONDARY PULMONARY HYPERTENSION 08/03/2017 VANESSA MCKEON DO Ot R06.00 DYSPNEA, UNSPECIFIED 08/03/2017 [place], [place] Ot 272.4 HYPERLIPIDEMIA NEC/NOS 08/03/2017 BAIMA, [place] Ot 401.9 HYPERTENSION NOS 08/03/2017 BAIMA, [place] Ot 414.00 CORON ATHEROSCLER NOS TYPE VESSEL, NATIV 08/03/2017 BAIMA, [place] Ot 427.1 PAROX VENTRIC TACHYCARD 08/03/2017 BAIMA, [place] Ot 433.10 CAROTID ARTERY OCCLUSION W O CEREBRAL IN 08/03/2017 BAIMA, [place] Ot 272.4 HYPERLIPIDEMIA NEC/NOS 08/03/2017 BAIMA, [place] Ot 401.9 HYPERTENSION NOS 08/03/2017 BAIMA, [place] Ot 414.00 CORON ATHEROSCLER NOS TYPE VESSEL, NATIV 08/03/2017 BAIMA, [place] Ot 785.1 PALPITATIONS 08/03/2017 BAIMA, [place] Ot V45.81 AORTOCORONARY BYPASS 08/03/2017 ALEXANDRO BELLE Ot M51.17 INTVRT DISC DISORDERS W RADICULOPATHY, L 08/03/2017 VANESSA MCKEON DO Ot I27.2 OTHER SECONDARY PULMONARY HYPERTENSION 08/03/2017 VANESSA MCKEON DO Ot R06.00 DYSPNEA, UNSPECIFIED 08/05/2017 BA[place], [place] Ot 272.4 HYPERLIPIDEMIA NEC/NOS 08/05/2017 BAIMA, [place] Ot 401.9 HYPERTENSION NOS 08/05/2017 BAIMA, [place] Ot 414.00 CORON ATHEROSCLER NOS TYPE VESSEL, NATIV 08/05/2017 BAIMA, [place] Ot 427.1 PAROX VENTRIC TACHYCARD 08/05/2017 BAIMA, [place] Ot 433.10 CAROTID ARTERY OCCLUSION W O CEREBRAL IN 08/05/2017 BAIMA, [place] Ot 272.4 HYPERLIPIDEMIA NEC/NOS 08/05/2017 BAIMA, [place] Ot 401.9 HYPERTENSION NOS 08/05/2017 BAIMA, [place] Ot 414.00 CORON ATHEROSCLER NOS TYPE VESSEL, NATIV 08/05/2017 BAIMA, [place] Ot 785.1 PALPITATIONS 08/05/2017 BAIMA, [place] Ot V45.81 AORTOCORONARY BYPASS 08/05/2017 ALEXANDRO BELLE CFNP Ot M51.17 INTVRT DISC DISORDERS W RADICULOPATHY, L 08/05/2017 LINDA PEREZ VANESSA M Ot I27.2 OTHER SECONDARY PULMONARY HYPERTENSION 08/05/2017 LINDA PEREZ VANESSA Bueno Ot R06.00 DYSPNEA, UNSPECIFIED 08/11/2017 BA[place], [place] Ot 272.4 HYPERLIPIDEMIA NEC/NOS 08/11/2017 BAIMA, [place] Ot 401.9 HYPERTENSION NOS 08/11/2017 BAIMA, [place] Ot 414.00 CORON ATHEROSCLER NOS TYPE VESSEL, NATIV 08/11/2017 BAIMA, [place] Ot 427.1 PAROX VENTRIC TACHYCARD 08/11/2017 BAIMA, [place] Ot 433.10 CAROTID ARTERY OCCLUSION W O CEREBRAL IN 08/11/2017 BAIMA, [place] Ot 272.4 HYPERLIPIDEMIA NEC/NOS 08/11/2017 BAIMA, [place] Ot 401.9 HYPERTENSION NOS 08/11/2017 BAIMA, [place] Ot 414.00 CORON ATHEROSCLER NOS TYPE VESSEL, NATIV 08/11/2017 BAIMA, [place] Ot 785.1 PALPITATIONS 08/11/2017 BA[place], [place] Ot V45.81 AORTOCORONARY BYPASS 08/11/2017 ALEXANDRO BELLE CFROGER Ot M51.17 INTVRT DISC DISORDERS W RADICULOPATHY, L 08/11/2017 VANESSA MCKEON DO Ot I27.2 OTHER SECONDARY PULMONARY HYPERTENSION 08/11/2017 VANESSA MCKEON DO Ot R06.00 DYSPNEA, UNSPECIFIED 08/13/2017 LESLYE TREVIÑO FACC, RADHA FACP CCDS Ot E78.5 HYPERLIPIDEMIA, UNSPECIFIED 08/13/2017 LESLYE TREVIÑO FACC, RADHA FACP CCDS Ot I08.1 RHEUMATIC DISORDERS OF BOTH [place] AND T 08/13/2017 LESLYE TREVIÑO FACC, RADHA FACP CCDS Ot I10 ESSENTIAL (PRIMARY) HYPERTENSION 08/13/2017 LESLYE TREVIÑO FACC, ALI FACP CCDS Ot I27.21 SECONDARY PULMONARY ARTERIAL HYPERTENSIO 08/13/2017 LESLYE TREVIÑO FACC, ALI FACP CCDS Ot R00.2 PALPITATIONS 08/13/2017 LESLYE TREVIÑO FACC, ALI FACP CCDS Ot R06.09 OTHER FORMS OF DYSPNEA 08/30/2017 LESLYE TREVIÑO FACC, ALI FACP CCDS Ot E78.5 HYPERLIPIDEMIA, UNSPECIFIED 08/30/2017 LESLYE TREVIÑO FACC, ALI FACP CCDS Ot I08.1 RHEUMATIC DISORDERS OF BOTH [place] AND T 08/30/2017 LESLYE TREVIÑO FACC, ALI FACP CCDS Ot I10 ESSENTIAL (PRIMARY) HYPERTENSION 08/30/2017 LESLYE TREVIÑO FACC, ALI FACP CCDS Ot I27.21 SECONDARY PULMONARY ARTERIAL HYPERTENSIO 08/30/2017 LESLYE TREVIÑO FACC, ALI FACP CCDS Ot R00.2 PALPITATIONS 08/30/2017 LESLYE TREVIÑO FACC, ALI FACP CCDS Ot R06.09 OTHER FORMS OF DYSPNEA 11/14/2017 PRITESH LATHAM E HOP FARMER Ot G47.34 IDIO SLEEP RELATED NONOBSTRUCTIVE ALVEOL 11/14/2017 ANGEL LATHAMINE E HOP FARMER Ot J43.9 EMPHYSEMA, UNSPECIFIED 11/14/2017 ANGEL LATHAMINE E HOP FARMER Ot R06.09 OTHER FORMS OF DYSPNEA 11/16/2017 ANGEL LATHAMINE E HOP FARMER Ot G47.34 IDIO SLEEP RELATED NONOBSTRUCTIVE ALVEOL 11/16/2017 ANGEL LATHAMINE E HOP FARMER Ot J43.9 EMPHYSEMA, UNSPECIFIED 11/16/2017 YEISON PRITESH E HOP FARMER Ot R06.09 OTHER FORMS OF DYSPNEA 01/03/2018 [place] Ot 272.4 HYPERLIPIDEMIA NEC/NOS 01/03/2018 [place]IMA [place] Ot 401.9 HYPERTENSION NOS 01/03/2018 SMITH [place] Ot 414.00 CORON ATHEROSCLER NOS TYPE VESSEL, NATIV 01/03/2018 SMITH [place] Ot 427.1 PAROX VENTRIC TACHYCARD 01/03/2018 SMITH [place] Ot 433.10 CAROTID ARTERY OCCLUSION W O CEREBRAL IN 01/03/2018 SMITH [place] Ot 272.4 HYPERLIPIDEMIA NEC/NOS 01/03/2018 SMITH [place] Ot 401.9 HYPERTENSION NOS 01/03/2018 BAIDEEPAK [place] Ot 414.00 CORON ATHEROSCLER NOS TYPE VESSEL, NATIV 01/03/2018 BAIYUKO [place] Ot 785.1 PALPITATIONS 01/03/2018 BAIYUKO [place] Ot V45.81 AORTOCORONARY BYPASS 01/03/2018 ALEXANDRO BELLE CFNP Ot M51.17 INTVRT DISC DISORDERS W RADICULOPATHY, L 01/03/2018 VANESSA MCKEON DO Ot I27.2 OTHER SECONDARY PULMONARY HYPERTENSION 01/03/2018 VANESSA MCKEON DO Ot R06.00 DYSPNEA, UNSPECIFIED 01/03/2018 LESLYE TREVIÑO FACC, ALI FACP CCDS Ot E78.5 HYPERLIPIDEMIA, UNSPECIFIED 01/03/2018 LESLYE TREVIÑO FACC, ALI FACP CCDS Ot I08.1 RHEUMATIC DISORDERS OF BOTH [place] AND T 01/03/2018 LESLYE TREVIÑO FACC, ALI FACP CCDS Ot I10 ESSENTIAL (PRIMARY) HYPERTENSION 01/03/2018 LESLYE TREVIÑO FACC, ALI FACP CCDS Ot I27.21 SECONDARY PULMONARY ARTERIAL HYPERTENSIO 01/03/2018 LESLYE TREVIÑO FACC, ALI FACP CCDS Ot R00.2 PALPITATIONS 01/03/2018 LESLYE TREVIÑO FACC, ALI FACP CCDS Ot R06.09 OTHER FORMS OF DYSPNEA 01/03/2018 PRITESH LATHAM APRN Ot G47.34 IDIO SLEEP RELATED NONOBSTRUCTIVE ALVEOL 01/03/2018 PRITESH LATHAM APRN Ot J43.9 EMPHYSEMA, UNSPECIFIED 01/03/2018 PRITESH LATHAM APRN Ot R06.09 OTHER FORMS OF DYSPNEA 07/27/2018 SMITH [place] Ot 272.4 HYPERLIPIDEMIA NEC/NOS 07/27/2018 SMITH [place] Ot 401.9 HYPERTENSION NOS 07/27/2018 BAIYUKO [place] Ot 414.00 CORON ATHEROSCLER NOS TYPE VESSEL, NATIV 07/27/2018 SMITH [place] Ot 427.1 PAROX VENTRIC TACHYCARD 07/27/2018 SMITH [place] Ot 433.10 CAROTID ARTERY OCCLUSION W O CEREBRAL IN 07/27/2018 SMITH [place] Ot 272.4 HYPERLIPIDEMIA NEC/NOS 07/27/2018 [place]K [place] Ot 401.9 HYPERTENSION NOS 07/27/2018 DEE[place]K [place] Ot 414.00 CORON ATHEROSCLER NOS TYPE VESSEL, NATIV 07/27/2018 [place]EE[place]K [place] Ot 785.1 PALPITATIONS 07/27/2018 [place] Ot V45.81 AORTOCORONARY BYPASS 07/27/2018 ALEXANDRO BELLE CFROGER Ot M51.17 INTVRT DISC DISORDERS W RADICULOPATHY, L 07/27/2018 VANESSA MCKEON DO Ot I27.2 OTHER SECONDARY PULMONARY HYPERTENSION 07/27/2018 VANESSA MCKEON DO Ot R06.00 DYSPNEA, UNSPECIFIED 07/27/2018 LESLYE TREVIÑO FACC, ALI FACP CCDS Ot E78.5 HYPERLIPIDEMIA, UNSPECIFIED 07/27/2018 LESLYE TREVIÑO FACC, ALI FACP CCDS Ot I08.1 RHEUMATIC DISORDERS OF BOTH [place] AND T 07/27/2018 LESLYE TREVIÑO FACMylene, ALI FACP CCDS Ot I10 ESSENTIAL (PRIMARY) HYPERTENSION 07/27/2018 LESLYE TREVIÑO FACC, ALI FACP CCDS Ot I27.21 SECONDARY PULMONARY ARTERIAL HYPERTENSIO 07/27/2018 LESLYE RAHMANC, ALI FACP CCDS Ot R00.2 PALPITATIONS 07/27/2018 LESLYE TREVIÑO FACC, ALI FACP CCDS Ot R06.09 OTHER FORMS OF DYSPNEA 07/27/2018 PRITESH LATHAM APRN Ot G47.34 IDIO SLEEP RELATED NONOBSTRUCTIVE ALVEOL 07/27/2018 PRITESH LATHAM HOP FARMER Ot J43.9 EMPHYSEMA, UNSPECIFIED 07/27/2018 PRITESH LATHAM HOP FARMER Ot R06.09 OTHER FORMS OF DYSPNEA 07/31/2018 PRITESH LATHAM HOP FARMER Ot G47.34 IDIO SLEEP RELATED NONOBSTRUCTIVE ALVEOL 07/31/2018 PRITESH LATHAM HOP FARMER Ot I25.10 ATHSCL HEART DISEASE OF [place] CORONARY 07/31/2018 PRITESH LATHAM HOP FARMER Ot I51.7 CARDIOMEGALY 07/31/2018 PRITESH LATHAM HOP FARMER Ot J30.9 ALLERGIC RHINITIS, UNSPECIFIED 07/31/2018 PRITESH LATHAM HOP FARMER Ot J40 BRONCHITIS, NOT SPECIFIED ACUTE OR CH 07/31/2018 PRITESH LATHAM HOP FARMER Ot J98.4 OTHER DISORDERS OF LUNG 07/31/2018 PRITESH LATHAM HOP FARMER Ot R59.0 LOCALIZED ENLARGED LYMPH NODES 08/04/2018 ANGEL LATHAMINE Tashia HOP FARMER Ot G47.34 IDIO SLEEP RELATED NONOBSTRUCTIVE ALVEOL 08/04/2018 ANGEL LATHAMINE E HOP FARMER Ot I25.10 ATHSCL HEART DISEASE OF [place] CORONARY 08/04/2018 PRITESH LATHAM HOP FARMER Ot I51.7 CARDIOMEGALY 08/04/2018 ANGEL LATHAMINE E HOP FARMER Ot J30.9 ALLERGIC RHINITIS, UNSPECIFIED 08/04/2018 PRITESH LATHAM HOP FARMER Ot J40 BRONCHITIS, NOT SPECIFIED ACUTE OR CH 08/04/2018 PRITESH LATHAM HOP FARMER Ot J98.4 OTHER DISORDERS OF LUNG 08/04/2018 PRITESH LATHAM HOP FARMER Ot R59.0 LOCALIZED ENLARGED LYMPH NODES 08/12/2018 PRITESH LATHAM HOP FARMER Ot G47.34 IDIO SLEEP RELATED NONOBSTRUCTIVE ALVEOL 08/12/2018 PRITESH LATHAM HOP FARMER Ot I25.10 ATHSCL HEART DISEASE OF [place] CORONARY 08/12/2018 PRITESH LATHAM HOP FARMER Ot I51.7 CARDIOMEGALY 08/12/2018 PRITESH LATHAM HOP FARMER Ot J30.9 ALLERGIC RHINITIS, UNSPECIFIED 08/12/2018 PRITESH LATHAM HOP FARMER Ot J40 BRONCHITIS, NOT SPECIFIED ACUTE OR CH 08/12/2018 PRITESH LATHAM E HOP FARMER Ot J98.4 OTHER DISORDERS OF LUNG 08/12/2018 PRITESH LATHAM HOP FARMER Ot R59.0 LOCALIZED ENLARGED LYMPH NODES 08/12/2018 PRITESH LATHAM HOP FARMER Ot G47.34 IDIO SLEEP RELATED NONOBSTRUCTIVE ALVEOL 08/12/2018 ANGEL LATHAMINE E HOP FARMER Ot I25.10 ATHSCL HEART DISEASE OF [place] CORONARY 08/12/2018 ANGEL LATHAMINE E HOP FARMER Ot I51.7 CARDIOMEGALY 08/12/2018 ANGEL LATHAMINE E HOP FARMER Ot J30.9 ALLERGIC RHINITIS, UNSPECIFIED 08/12/2018 ANGEL LATHAMINE E HOP FARMER Ot J40 BRONCHITIS, NOT SPECIFIED ACUTE OR CH 08/12/2018 PRITESH LATHAM APRN Ot J98.4 OTHER DISORDERS OF LUNG 08/12/2018 PRITESH LATHAM APRN Ot R59.0 LOCALIZED ENLARGED LYMPH NODES 09/05/2018 BAIMA, [place] Ot E78.5 HYPERLIPIDEMIA, UNSPECIFIED 09/05/2018 BAIMA, [place] Ot 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[place], AORTIC 09/05/2018 BAIMA, [place] Ot I10 ESSENTIAL (PRIMARY) HYPERTENSION 09/05/2018 BAIMA, [place] Ot I25.10 ATHSCL HEART DISEASE OF [place] CORONARY 09/05/2018 BAIMA, [place] Ot I27.20 PULMONARY HYPERTENSION, UNSPECIFIED 09/05/2018 BAIMA, [place] Ot I77.89 OTHER SPECIFIED DISORDERS OF ARTERIES AN 09/05/2018 BAIMA, [place] Ot R07.9 CHEST PAIN, UNSPECIFIED 09/14/2018 BAIMA, [place] Ot E78.5 HYPERLIPIDEMIA, UNSPECIFIED 09/14/2018 BAIMA, [place] Ot 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, AORTIC 09/14/2018 BAIMA, [place] Ot I10 ESSENTIAL (PRIMARY) HYPERTENSION 09/14/2018 BAIMA, [place] Ot I25.10 ATHSCL HEART DISEASE OF [place] CORONARY 09/14/2018 BAIMA, [place] Ot I27.20 PULMONARY HYPERTENSION, UNSPECIFIED 09/14/2018 BAIMA, [place] Ot I77.89 OTHER SPECIFIED DISORDERS OF ARTERIES AN 09/14/2018 BAIMA, [place] Ot R07.9 CHEST PAIN, UNSPECIFIED Procedures Code Description [place] [address] OXIMETRY 05/19/2013 16244 OXIMETRY 06/29/2013 42507 XRAY LUMBAR SPINE 2 OR 3 VIEWS 09/27/2013 89780 EKG, TRACING (IN-HOUSE) 11/28/2013 CARDIOLOG RADHA GAVIN 11/28/2013 66998 ROUTINE VENIPUNCTURE 11/29/2013 02942 LIPID PANEL 11/29/2013 46241 MAGNESIUM 11/29/2013 84989 CBC 11/29/2013 2453792 GFR CALC (RESULT ONLY) 11/29/2013 61295 CMP 11/29/2013 34562 CRP HS (CARDIO) 11/29/2013 39150 TSH 11/29/2013 46536 ROUTINE VENIPUNCTURE 12/25/20132013292 GFR CALC (RESULT ONLY) 12/25/2013 67813 [facility] 12/25/2013 55615 HEPATITIS PROFILE 12/25/2013 05950 OXIMETRY 02/14/2014 70223 ROUTINE VENIPUNCTURE 05/10/2014 29925 CMP 05/10/2014 93280 LIPID PANEL 05/10/[id number] GFR CALC (RESULT ONLY) 06/21/2014 15972 CMP 06/21/2014 27600 LIPID PANEL 06/21/2014 Results Test Result Range Automated blood complete blood count (hemogram) panel - 05/12/16 10:20 Blood leukocytes automated count (number/volume) 9.1 10*3/uL 4.3-11.0 Blood erythrocytes automated count (number/volume) 4.83 10*6/uL 4.35-5.85 Venous blood hemoglobin measurement (mass/volume) 13.5 g/dL 11.5-16.0 Blood hematocrit (volume fraction) 41 % 35-52 Automated erythrocyte mean corpuscular volume 85 [foz_us] 80-99 Automated erythrocyte mean corpuscular hemoglobin (mass per erythrocyte) 28 pg 25-34 Automated erythrocyte mean corpuscular hemoglobin concentration measurement (mass/volume) 33 g/dL 32-36 Automated erythrocyte distribution width ratio 13.6 % 10.0- 14.5 Automated blood platelet count (count/volume) 255 10*3/uL 130-400 Automated blood platelet mean volume measurement 10.2 [foz_us] 7.4-10.4 PT panel in platelet poor plasma by coagulation assay - 05/12/16 10:20 Prothrombin time (PT) in platelet poor plasma by coagulation assay 12.4 s 12.2-14.7 INR in platelet poor plasma or blood by coagulation assay 1.0 0.8-1.4 Activated partial thromboplastin time (aPTT) in platelet poor plasma bycoagulation assay - 05/12/16 10:20 Activated partial thromboplastin time (aPTT) in platelet poor plasma bycoagulation assay 33 s 24-35 Comprehensive metabolic panel - 05/12/16 10:20 Serum or plasma sodium measurement (moles/volume) 139 mmol/L 135-145 Serum or plasma potassium measurement (moles/volume) 4.3 mmol/L 3.6-5.0 Serum or plasma chloride measurement (moles/volume) 101 mmol/L 98-107 Carbon dioxide 28 mmol/L 21-32 Serum or plasma anion gap determination (moles/volume) 10 mmol/L 5-14 Serum or plasma urea nitrogen measurement (mass/volume) 20 mg/dL 7-18 Serum or plasma creatinine measurement (mass/volume) 0.76 mg/dL 0.60-1.30 Serum or plasma urea nitrogen/creatinine mass ratio 26 NRG Serum or plasma creatinine measurement with calculation of estimated glomerular filtration rate > NRG Serum or plasma glucose measurement (mass/volume) 98 mg/dL 70-105 Serum or plasma calcium measurement (mass/volume) 9.1 mg/dL 8.5-10.1 Serum or plasma total bilirubin measurement (mass/volume) 0.6 mg/dL 0.1-1.0 Serum or plasma alkaline phosphatase measurement (enzymatic activity/volume) 112 U/L 40-136 Serum or plasma aspartate aminotransferase measurement (enzymatic activity/volume) 15 U/L 5-34 Serum or plasma alanine aminotransferase measurement (enzymatic activity/volume) 12 U/L 0-55 Serum or plasma protein measurement (mass/volume) 7.0 g/dL 6.4-8.2 Serum or plasma albumin measurement (mass/volume) 4.1 g/dL 3.2-4.5 Lipid 1996 panel - 05/12/16 10:20 Serum or plasma triglyceride measurement (mass/volume) 154 mg/dL <150 Serum or plasma cholesterol measurement (mass/volume) 176 mg/dL < 200 Serum or plasma cholesterol in HDL measurement (mass/volume) 38 mg/dL 40-60 Cholesterol in LDL [mass/volume] in serum or plasma by direct assay 120 mg/dL 1-129 Serum or plasma cholesterol in VLDL measurement (mass/volume) 31 mg/dL 5-40 Methicillin resistant Staphylococcus aureus (MRSA) screening culture - 05/12/16 10:20 Methicillin resistant Staphylococcus aureus (MRSA) screening culture NEG NRG THYROID ANALYZER - 12/29/16 09:10 TSH 2.58 mIU/L 0.40-4.50 BMP - 05/31/17 08:47 GLUCOSE 108 mg/dL 65-99 UREA NITROGEN (BUN) 17 mg/dL 7-25 CREATININE 0.72 mg/dL 0.50-0.99 eGFR NON-AFR. DOMINICAN 90 mL/min/1.73m2 > OR=60 eGFR 104 mL/min/1.73m2 > OR=60 BUN/CREATININE RATIO NOT APPLICABLE (calc) 6-22 SODIUM 140 mmol/L 135-146 POTASSIUM 4.1 mmol/L 3.5-5.3 CHLORIDE 103 mmol/L 98-110 CARBON DIOXIDE 29 mmol/L 20-31 CALCIUM 9.4 mg/dL 8.6-10.4 TSH - 08/04/18 10:11 TSH 4.56 mIU/L 0.40-4.50 Encounters ACCT No. Visit Date/Time Discharge Status Pt. Type Provider Facility Loc./Unit Complaint [id number] 07/10/2014 08:01:00 07/10/2014 23:59:59 CLS Outpatient DAHIANA BOYLE DO [id number] 05/10/2014 07:45:00 05/10/2014 23:59:59 CLS Outpatient ALEXANDRO BELLE APRN [id number] 02/14/2014 09:18:00 02/14/2014 23:59:59 CLS Outpatient ALEXANDRO BELLE APRN [id number] 01/17/2014 08:54:00 01/17/2014 23:59:59 CLS Outpatient DAHIANA BOYLE DO [id number] 01/01/2014 15:03:00 01/01/2014 23:59:59 CLS Outpatient DAHIANA BOYLE DO [id number] 12/25/2013 08:17:00 12/25/2013 23:59:59 CLS Outpatient DAHIANA BOYLE DO [id number] 11/29/2013 08:08:00 11/29/2013 23:59:59 CLS Outpatient LB FLORES APRN [id number] 11/28/2013 13:40:00 11/28/2013 23:59:59 CLS Outpatient DAHIANA BOYLE DO [id number] 10/23/2013 11:16:00 10/23/2013 23:59:59 CLS Outpatient DAHIANA BOYLE DO [id number] 10/14/2013 09:22:00 10/14/2013 23:59:59 CLS Outpatient DAHIANA BOYLE DO [id number] 09/26/2013 09:58:00 09/26/2013 23:59:59 CLS Outpatient ALEXANDRO BELLE APRN [id number] 08/28/2013 17:07:00 08/28/2013 23:59:59 CLS Outpatient DAHIANA BOYLE DO [id number] 07/27/2013 10:25:00 07/27/2013 23:59:59 CLS Outpatient DAHIANA BOYLE DO [id number] 06/29/2013 10:39:00 06/29/2013 23:59:59 CLS Outpatient DAHIANA BOYLE DO [id number] 05/19/2013 09:30:00 05/19/2013 23:59:59 [place] [id number] 10/14/2011 07:50:00 10/14/2011 23:59:59 CLS Outpatient [id number] 10/14/2011 07:50:00 10/14/2011 23:59:59 CLS Outpatient LV FRIAS APRN [id number] 09/13/2018 15:00:00 09/13/2018 23:59:59 CLS Preadmit LESLYE TREVIÑO FACCRADHA FACP CCDS [facility] CATH CAD, ANGINA, FATIGUE, HTN, SOB [id number] 08/30/2018 06:45:00 08/30/2018 23:59:59 CLS Outpatient DEEPAK MTZ [facility] CARD OTHER CHEST PAIN [id number] 08/02/2018 09:42:00 08/02/2018 23:59:59 CLS Preadmit PRITESH LATHAM APRN [facility] RAD OTHER NONSPECIFIC ABN FINDING OF LUNG FIELD [id number] 07/29/2018 07:16:00 07/29/2018 23:59:59 CLS Outpatient PRITESH LATHAM APRN [facility] RAD DYSPNEA,EMPHYSEMA,COPD [id number] 07/20/2018 14:38:00 07/20/2018 23:59:59 CLS Preadmit PRITESH LATHAM APRN [facility] RT DYSPNEA,NOCTURNAL HYPOXIA,COUGH [id number] 11/15/2017 14:15:00 11/15/2017 23:59:59 CLS Preadmit PRITESH LATHAM APRN [facility] PULM DYSPNEA,COPD [id number] 08/16/2017 14:02:00 11/14/2017 00:01:00 DIS Outpatient YEISON PRITESHCHRIS Lao APRN [facility] PULM DYSPNEA,COPD [id number] 08/12/2017 12:15:00 08/12/2017 23:59:59 CLS Outpatient LESLYE TREVIÑO FACC, RADHA RAHMANP CCDS [facility] CARD R06.09 WAITE [id number] 06/26/2016 21:03:00 06/27/2016 06:12:00 DIS Outpatient VANESSA MCKEON DO [facility] SLEEP DYSPNEA,PHT [id number] 06/17/2016 08:23:00 06/17/2016 23:59:59 CLS Outpatient VANESSA MCKEON DO [facility] RT DYSPNEA,PHT [id number] 05/12/2016 09:12:00 05/12/2016 16:45:00 DIS Outpatient LESLYE TREVIÑO FACC, RADHA OCHOA CCDS [facility] CATH CAD,ANGINA,SOB,HTN,HYPERLIPIDEMIA [id number] 01/17/2016 17:00:00 01/17/2016 23:59:59 CLS Outpatient ALEXANDRO BELLE CFNP [facility] RAD SCIATICA, UNSPECIFIED LATERALITY [id number] 08/10/2014 09:15:00 08/10/2014 23:59:59 CLS Preadmit DEEPAK MTZ L [place] [facility] CARD PALPITATIONS [id number] 06/04/2014 09:45:00 08/09/2014 00:01:00 DIS Outpatient BAIMA DEEPAK L [place] [facility] CARD PALPITATIONS [id number] 07/18/2014 07:30:00 07/18/2014 23:59:59 CLS Outpatient BAIMA DEEPAK L [place] [facility] CARD TACHYCARDIA,CAD,HTN [id number] 01/09/2014 06:51:00 01/09/2014 21:21:00 DIS Outpatient LESLYE TREVIÑO FACC, RADHA RAHMANP CCDS [facility] CATH CP,CAD,HTN,HLP [id number] 08/30/2013 08:12:00 08/30/2013 23:59:59 CLS Outpatient [id number] 02/20/2014 10:21:00 Document Registration [id number] 05/11/2011 12:59:00 Document Registration [id number] 04/06/2011 11:04:00 Document Registration [id number] 03/04/2009 12:33:00 Document Registration [id number] 08/11/2018 15:40:00 08/11/2018 23:59:59 CLS [facility] [place] [id number] 08/04/2018 09:20:00 Document Registration [id number] 05/31/2017 08:45:00 Document Registration [id number] 12/29/2016 08:20:00 Document Registration
[2018-09-20] MEDS ORDERED: LIDOCAINE 1% INJ 20 ML 20 ML VIAL ONE (13:56)
[2018-09-20] MEDS ORDERED: HEParin (CATH LAB) 2,000 ML IV ONE (13:56)
[2018-09-20] MEDS ORDERED: NS IV 1000 ML 1,000 ML ONE (13:56)
[2018-09-20 14:29] LABS: HEMOGLOBIN 11.7 G/DL (11.5-16.0); RED CELL DISTRIBUTION WIDTH 15.6 % (10.0-14.5); WHITE BLOOD COUNT 9.6 10^3/uL (4.3-11.0)
[2018-09-20] MEDS ORDERED: NS IV 500 ML 500 ML IV SCH (14:30)
[2018-09-20] MEDS ORDERED: NS IV 1000 ML 1,000 ML IV SCH ×2 (14:30→18:54)
[2018-09-20 14:45] LABS: INR 0.9 (0.8-1.4); PROTHROMBIN TIME PATIENT 12.7 SEC (12.2-14.7)
[2018-09-20 14:50] LABS: ALANINE AMINOTRANSFERASE 15 U/L (0-55); ALBUMIN 4.3 GM/DL (3.2-4.5); ALKALINE PHOSPHATASE 126 U/L (40-136); BILIRUBIN,TOTAL 0.6 MG/DL (0.1-1.0); BUN/CREATININE RATIO 19; CALCIUM 9.5 MG/DL (8.5-10.1); CARBON DIOXIDE 29 MMOL/L (21-32); CHLORIDE 103 MMOL/L (98-107); CHOLESTEROL 138 MG/DL (< 200); CREATININE SERUM 0.73 MG/DL (0.60-1.30); GFR ESTIMATED > 60; GLUCOSE 97 MG/DL (70-105); HDL CHOLESTEROL 38 MG/DL (40-60); POTASSIUM 3.7 MMOL/L (3.6-5.0); SODIUM 142 MMOL/L (135-145); TOTAL PROTEIN 7.4 GM/DL (6.4-8.2); TRIGLYCERIDES 108 MG/DL (<150); VLDL CHOLESTEROL 22 MG/DL (5-40)
[2018-09-20] MEDS ORDERED: NAPR-915 PO (15:05)
[2018-09-20] MEDS ORDERED: METO-352 PO (15:05)
[2018-09-20] MEDS ORDERED: FLUT1DIS26 IH (15:05)
[2018-09-20] MEDS ORDERED: ALB0.5V INH (15:05)
[2018-09-20] MEDS ORDERED: MONT10TA21 PO (15:05)
[2018-09-20] MEDS ORDERED: UMEC62.5 IH (15:05)
[2018-09-20] MEDS ORDERED: MIDAZOLAM 5 MG/5 ML (VERSED) VIAL ONE (17:41)
[2018-09-20] MEDS ORDERED: fentaNYL INJECTION 100 MCG/2 ML AMP ONE (17:41)
--- NOTE | 2018-09-20 18:54 | Cardiac Procedure Note-CS/ASA ---
Pre-Procedure Note Pre-Op Procedure Note H&P Reviewed The H&P was reviewed, patient examined and no changes noted. Date H&P Reviewed: Sep 20, 2018 Time H&P Reviewed: 18:00 Conscious Sedation Pre-Proced Time 18:00 ASA Score 3 For ASA 3 and 4: Consider anesthesia and medical clearance. Also, for patients with a history of failed moderate sedation consider anesthesia. Airway Lungs Heart ASA score ASA 1: a normal healthy patient ASA 2: a patient with a mild systemic disease (mid diabetes, controlled hypertension, obesity ASA 3: a patient with a severe systemic disease that limits activity (angina, COPD, prior Myocardial infarction) ASA 4: a patient with an incapacitating disease that is a constant threat to life (CHF, renal failure) ASA 5: a moribund patient not expected to survive 24 hrs. (ruptured aneurysm) ASA 6: a declared brain- patient whose organs are being harvested. For emergent operations, add the letter E after the classification Mallampati Classification Grade 2 Sedation Plan Analgesia, Amnesia, Plan communicated to team members, Discussed options with patient/fam, Discussed risks with patient/fam The patient is an appropriate candidate to undergo the planned procedure, sedation, and anesthesia. The patient immediately re-assessed prior to indication. RADHA GAVIN MD FACP FAC CCDS Sep 20, 2018 18:54
--- NOTE | 2018-09-20 18:58 | Discharge Inst-Cardiology ---
Discharge Inst-Cardiac Discharge Medications Continued Medications: Acetaminophen (Tylenol Extra Strength) 500 Mg Tablet 1000 MG PO Q6H PRN for BACK PAIN, TAB TAKES 2 (500MG) TABLETS Albuterol (Proair Hfa) 8.5 Gm Hfa.aer.ad 2 PUFF IH Q4H PRN for COUGH, INHALER Albuterol Sulfate (Albuterol Sulfate) 2.5 Mg/0.5 Ml Vial.neb 2.5 MG INH Q6H PRN for SHORTNESS OF BREATH, EACH Amlodipine Besylate (Amlodipine Besylate) 2.5 Mg Tablet 2.5 MG PO DAILY, TAB Aspirin (Aspirin) 81 Mg Tab.chew 81 MG PO DAILY, #90 TAB 3 Refills Atorvastatin Calcium (Atorvastatin Calcium) 20 Mg Tablet 20 MG PO HS, TAB Duloxetine HCl (Cymbalta) 60 Mg Capsule.dr 60 MG PO BID, CAP Fluticasone/Salmeterol (Advair 250-50 Diskus) 1 Each Blst.w.dev 1 EACH IH Q12H Gabapentin (Gabapentin) 800 Mg Tablet 400 MG PO HS, TAB TAKES 1/2 (800MG) TABLET Levothyroxine Sodium (Levothyroxine Sodium) 25 Mcg Tablet 25 MCG PO DAILY, TAB Metoprolol Succinate (Toprol Xl) 50 Mg Tab.er.24h 72.5 MG PO BID, TAB Montelukast Sodium (Singulair) 10 Mg Tablet 10 MG PO HS, TAB Naproxen (Naproxen) 500 Mg Tablet 500 MG PO Q12H for Renal Colic for 3 Days, TAB Omeprazole (Omeprazole) 40 Mg Capsule.dr 40 MG PO DAILY, CAP Tramadol HCl (Tramadol HCl) 50 Mg Tablet 50 MG PO TID PRN for BREAKTHROUGH PAIN, TAB Umeclidinium Odell (Incruse Ellipta) 62.5 Mcg Blst.w.dev 62.5 MCG IH DAILY RADHA GAVIN MD FACP FAC CCDS Sep 20, 2018 18:58
--- NOTE | 2018-09-20 18:59 | Discharge Inst-Post CATH ---
Discharge Inst-CATH/EP Post Cardiac Cath/EP D/C Inst Follow Up/Plan F/u with Dr Draper in 1-2 weeks ACTIVITY * Go Home directly and rest. * Limit activity of the leg (or wrist if it was used) for 7 days including aerobics, swimming, jogging, bicycling, etc. * Restrict stair-climbing for 7 days if possible, if not, climb up with your non-cath leg, then bring together on the same step. * Avoid lifting, pushing, pulling or excessive movement of the affected extremity for 7 days. * Customary sexual activity may be resumed after 2 days-use caution not to use a position that strains or causes pain to the affected extremity. * No driving for 24 hours. * NO SMOKING. * Avoid straining for bowel movements for 7 days. * Gentle walking on level ground is allowed. * Returning to work will depend on the type of procedure and the results. Your doctor will discuss this with you. CALL YOUR DOCTOR FOR ANY OF THE FOLLOWING: *If bleeding from the puncture site occurs- Apply gentle pressure to site with clean cloth and call your doctor or EMS. * If a knot or lump forms under the skin, increases in size, or causes pain. * If bruising appears to be worsening or moving further down your leg instead of disappearing. * Temperature above 101 F. CARE OF YOUR GROIN INCISION; * Bruising or purple discoloration of the skin near the puncture site is common. * You may shower only, no bathtub bathing for 5 days. Be careful to avoid slipping as your leg may feel stiff. * If a closure device was used on your femoral artery, please see the attached guide regarding care of the device and your leg. * Leave dressing on FOR 24 hours. CARE OF YOUR WRIST INCISION; * Bruising or purple discoloration of the skin near the puncture site is common. * You may shower. * DO NOT submerge wrist. * Leave dressing on FOR 24 hours. RADHA DRAPER MD FAC FAC CCDS Sep 20, 2018 18:59
[2018-09-20] MEDS ORDERED: PATIENT MAY USE OWN MEDS, ALL PO SCH (19:00)
--- NOTE | 2018-09-20 21:24 | CARDIAC CATHETERIZATION ---
DATE OF SERVICE: 09/20/2018 CARDIAC CATHETERIZATION HISTORY OF PRESENT ILLNESS: The patient is a 62-year-old lady who is known to have coronary artery disease and has had coronary artery bypass surgery and coronary stenting procedures. She has had recurrent chest discomfort and shortness of breath suggestive of recurrent angina. Cardiac catheterization was carried out today after having obtained an informed consent. DESCRIPTION OF PROCEDURE: She was brought to the cardiac catheterization laboratory in a fasting state. Right groin was prepared and draped in the usual sterile fashion. Lidocaine 1% was used for local anesthesia. Modified Seldinger technique was used to advance a 5-Greenlandic sheath in the right femoral artery, 5-Greenlandic JL4 catheter for left coronary angiography, 5-Greenlandic JR4 catheter for right coronary angiography, 5-Greenlandic pigtail catheter was used for left heart catheterization, left ventricular angiography. A 5-Greenlandic pigtail catheter was also used for angiography of the aortic arch. A 5-Greenlandic JR4 catheter was used for angiography of the aortocoronary radial artery graft to a ramus intermedius artery. A 5-Greenlandic JUAN catheter was used for angiography of the left internal mammary artery graft to the left anterior descending. At the end of the procedure, angiography of the right femoral artery was carried out through the sheath and Mynx was used to achieve hemostasis. She tolerated the procedure well. HEMODYNAMICS: Left ventricular end-diastolic pressure following coronary angiography was 19 mmHg. There is no significant pressure gradient on pullback across the aortic valve. Ascending aortic pressure was 154/70 with a mean of 101 mmHg. CORONARY ANGIOGRAPHY: Left main coronary artery has moderate distal disease. There appears to be approximately 40% distal stenosis of the left main coronary artery. Left anterior descending artery has 40% to 50% ostial and 80% mid vessel stenosis. The distal left anterior descending artery is protected by a patent left internal mammary artery graft. The left circumflex artery has mild plaques. The right coronary artery has a patent stent in its proximal to mid portion. The right coronary artery has diffuse mild plaque. Coronary calcification is seen especially of the proximal left coronary arteries. Angiography of the aortocoronary graft, aortocoronary graft to the radial artery graft and it appears to go to ramus intermedius artery. It appears widely patent and free of significant disease and with good distal runoff. LEFT INTERNAL MAMMARY ARTERY GRAFT ANGIOGRAPHY: Left internal mammary artery graft to distal left anterior descending artery and is widely patent with a good runoff. LEFT VENTRICULAR ANGIOGRAPHY: Left ventricular angiography was carried out in the right anterior oblique projection. Global left ventricular systolic function is normal. Left ventricular ejection fraction approximately 65%. AORTIC ARCH ANGIOGRAPHY: Aortic arch angiography was carried out to make sure that there was no disease proximal to the left internal mammary artery graft to the left anterior descending. The angiogram shows no significant thoracic aortic aneurysm or dissection. Some calcification is seen in the aortic knob. The neck arteries, to the extent seen, do not exhibit significant disease. This included the left subclavian, which does not exhibit significant proximal disease. CONCLUSIONS: 1. Coronary artery disease primarily consisting of 80% mid vessel stenosis in the left anterior descending and probable ostial occlusion of the ramus intermedius. The left anterior descending has a widely patent left internal mammary artery graft. The ramus intermedius has a widely patent aortocoronary graft which is known to be a radial artery graft. The left circumflex has mild to moderate disease. The right coronary artery is dominant and has a widely patent stent in its proximal to mid portion. The rest of the right coronary has mild diffuse disease. 2. Elevated left ventricular end-diastolic pressure. 3. Normal global left ventricular systolic function with an ejection fraction of approximately 65%. DISCUSSION AND RECOMMENDATIONS: Based on the results of the study, it appears appropriate to continue a conservative approach. Risk factor modification has been reviewed. Outpatient followup is advised. Job ID: [id number] DocumentID: [id number] Dictated Date: 09/20/2018 18:48:14 Elevated Motorman Date: 09/20/2018 21:23:51 Dictated By: RADHA GAIVN MD, MA, FACP, FACC,
--- NOTE | 2018-09-20 23:00 | NUR ---
DISCHARGE INSTRUCTIONS REVIEWED WITH PATIENT. PATIENT VERBALIZED UNDERSTANDING. PATIENT DENIES PAIN, N/V . PATIENT AMBULATED IN HALLS AND TOLERATED WELL. PATIENT URINATED. IV TO RIGHT AC REMOVED. CATHETER INTACT.
== END 2018-09-20 23:20 | disposition home or self-care (01) ==
LOC: CATH 13:37 → ICU 19:24 → CATH 23:20
PROVIDERS: ATTEND Internal Medicine Cardiovascular Disease
DX: I25.10 Atherosclerotic heart disease of native coronary artery without angina pectoris (principal); I10 Essential (primary) hypertension; E78.5 Hyperlipidemia, unspecified; I27.20 Pulmonary hypertension, unspecified; R09.02 Hypoxemia; J43.9 Emphysema, unspecified; R53.82 Chronic fatigue, unspecified; K21.9 Gastro-esophageal reflux disease without esophagitis; R73.01 Impaired fasting glucose; E66.9 Obesity, unspecified; Z68.33 Body mass index [BMI] 33.0-33.9, adult; Z79.82 Long term (current) use of aspirin; Z79.899 Other long term (current) drug therapy; Z95.1 Presence of aortocoronary bypass graft; Z95.5 Presence of coronary angioplasty implant and graft; Z87.891 Personal history of nicotine dependence
CPT/HCPCS: 36221; 36415; 80053; 80061; 85027; 85610; 85730; 87081; 93459

== ENCOUNTER → 2018-09-30 | Outpatient (CLI) | payer MEDICAID, MEDICARE ==
[~2018-09-30] MED LIST changes: +ALB0.5V INH; +CATHETER FLUSH 10 ML SYR IV PRN; +FLUT1DIS26 IH; +HOLD METFORMIN - RECEIVED CONTRAST 20 ML VIAL IV SCH; +IOHEXOL 350 MG/ML 100 ML (OMNIPAQUE 350) VIAL IV ONE; +METO-352 PO; +MONT10TA21 PO; +NAPR-915 PO; +NS 100 ML (IVPB) BAG IV ONE; +RT-ALBUTEROL SULF 2.5 MG/3 ML PRE-MIX VIAL INH ONE; +UMEC62.5 IH
[2018-09-30 13:20] LABS: BUN/CREATININE RATIO 28; CREATININE SERUM 0.79 MG/DL (0.60-1.30); GFR ESTIMATED > 60
--- NOTE | 2018-09-30 14:40 | Diagnostic Imaging Report ---
PROCEDURE: CT chest with contrast only. TECHNIQUE: Multiple contiguous axial images were obtained through the chest after administration of intravenous contrast. Auto Exposure Controls were utilized during the CT exam to meet ALARA standards for radiation dose reduction. INDICATION: Lung nodule. FINDINGS: Comparison is 07/29/2018. The previously seen right middle and lower lobe interstitial airspace opacities have mostly resolved in keeping with resolution of infectious process. No edema or pneumonia. No pleural effusion or pneumothorax. There is some mild dependent atelectasis. Lungs are mildly emphysematous. No suspicious pulmonary nodules. Heart size is normal. No pericardial effusion. Aorta is normal in caliber. There is a bovine configuration of the arch. No axillary, supraclavicular, or mediastinal lymphadenopathy. No central pulmonary embolism. There has been coronary artery bypass grafting. Limited views of the upper abdomen are normal. There are no suspicious osseous lesions. There is a new mild T6 compression fracture. IMPRESSION: 1. Resolution of previously seen inflammatory-appearing nodules, compatible with resolved infection. 2. New mild T6 compression fracture. Dictated by: Dictated on workstation # [id number]
== END ==
LOC: RAD 12:42
PROVIDERS: ATTEND Nurse Practitioner Family
DX: S22.050A Wedge compression fracture of T5-T6 vertebra, initial encounter for closed fracture (principal); G47.34 Idiopathic sleep related nonobstructive alveolar hypoventilation; J30.9 Allergic rhinitis, unspecified; J40 Bronchitis, not specified as acute or chronic; J98.4 Other disorders of lung
CPT/HCPCS: 36415; 71260; 82565; 84520; 94060; 94726; 94729

== ENCOUNTER → 2019-10-02 | Outpatient (CLI) | payer MEDICARE, MEDICAID ==
[~2019-10-02] MED LIST changes: -CATHETER FLUSH 10 ML SYR IV PRN; -HOLD METFORMIN - RECEIVED CONTRAST 20 ML VIAL IV SCH; -IOHEXOL 350 MG/ML 100 ML (OMNIPAQUE 350) VIAL IV ONE; -METO-370 PO; +METO50TA7 PO; -NS 100 ML (IVPB) BAG IV ONE; -RT-ALBUTEROL SULF 2.5 MG/3 ML PRE-MIX VIAL INH ONE; -TRAM50TA2 PO; +TRM50T PO
--- NOTE | 2019-10-02 09:58 | Diagnostic Imaging Report ---
EXAMINATION: CT CHEST SCREENING WO INDICATION: Lung cancer screening in a former smoker with 34 pack year history smoking. Patient reports having quit 13 years ago. Patient denies any current lung complaints. TECHNIQUE: Low-dose helical CT of the chest without IV contrast (Adult Lung Cancer Screening) protocol was performed. Coronal and sagittal reformats were obtained. All CT scans use one or more of the following dose optimizing techniques: automated exposure control, MA and/or KvP adjustment based on a patient size and exam type, or iterative reconstruction. COMPARISON: Multiple priors, most recent performed on 09/30/2018. FINDINGS: LUNG NODULES, solid unless otherwise specified, axial series 2: Right lung: * 2 mm pulmonary nodule in the superior segment of the right lower lobe (image 80) Left lung: * 4 mm pulmonary nodule in the superior segment of the left lower lobe (image 70) * 4 mm pulmonary nodule, with adjacent smaller micronodules in the superior segment of the left lower lobe (image 98) * 4 mm subpleural nodule in the superior segment of the left lower lobe (image 114) OTHER FINDINGS: Low-dose technique and absence of intravenous contrast decreases sensitivity for detection of lymphadenopathy and vascular pathology. TRACHEA AND MAIN BRONCHI: Patent without evidence of tracheal or endobronchial lesion. LUNGS AND PLEURA: No consolidation or pulmonary mass. No pleural effusion or pneumothorax. MEDIASTINUM AND ANDRE: No mediastinal or hilar lymphadenopathy, within limits of noncontrast technique. Esophagus is nondistended. HEART AND VESSELS: Heart is normal in size. No pericardial effusion. The thoracic aorta is nonaneurysmal. The patient is status post CABG. Coronary artery calcifications are demonstrated. DIAPHRAGM AND UPPER ABDOMEN: Unremarkable. CHEST WALL: Unremarkable. BONES: There is unchanged mild compression deformity involving the superior endplate of the T6 vertebral body, with sclerosis than demonstrated on the prior exam. No acute osseous abnormality is identified. Median sternotomy wires appear intact, without findings to suggest sternal dehiscence. IMPRESSION: 1. Scattered pulmonary nodules measuring up to 4 mm. These are of very low suspicion for a clinically active cancer. Continued annual surveillance is recommended. 2. No acute cardiopulmonary process. Chronic and incidental findings are detailed above. Lung-RADS Category: 2, Benign appearance or behavior. Nodules with a very low likelihood of becoming a clinically active cancer due to size or lack of growth. RECOMMENDATIONS: Continue annual screening with low-dose CT in 12 months. MODIFIER: None Dictated by: Dictated on workstation # [id number]
== END ==
LOC: RAD 07:32
PROVIDERS: ATTEND Nurse Practitioner Family
DX: Z12.2 Encounter for screening for malignant neoplasm of respiratory organs (principal); R91.8 Other nonspecific abnormal finding of lung field; Z87.891 Personal history of nicotine dependence

== ENCOUNTER → 2020-01-26 | Outpatient (CLI) | payer MEDICARE, MEDICAID ==
[~2020-01-26] MED LIST changes: +ASPI-1238 PO; -ASPI-983 PO
== END ==
LOC: CARD 09:07
PROVIDERS: ATTEND Internal Medicine Cardiovascular Disease
DX: I08.2 Rheumatic disorders of both aortic and tricuspid valves (principal); I25.10 Atherosclerotic heart disease of native coronary artery without angina pectoris; E78.2 Mixed hyperlipidemia; I27.20 Pulmonary hypertension, unspecified
CPT/HCPCS: 93306

== ENCOUNTER → 2020-06-18 | Outpatient (CLI) | payer MEDICARE, MEDICAID | LOC: CARD 10:32 | PROVIDERS: ATTEND Internal Medicine Cardiovascular Disease | DX: I08.2 Rheumatic disorders of both aortic and tricuspid valves (principal) | CPT/HCPCS: 93306 ==

== ENCOUNTER → 2020-06-21 | Outpatient (CLI) | payer MEDICARE, MEDICAID ==
[~2020-06-21] VITALS: Ht 152 cm; Wt 72.0 kg
[~2020-06-21] MED LIST changes: +REGADENOSON 0.4 MG/5 ML SYR (LEXISCAN) IV ONE
[2020-06-21] MEDS: CATHETER FLUSH 10 ML SYR IV PRN ×2 (07:23→08:57)
[2020-06-21 08:56] VITALS: BP 141/63
--- NOTE | 2020-06-21 20:00 | STRESS TEST ---
DATE OF SERVICE: 06/21/2020 RESTING AND POST REGADENOSON TECHNETIUM-99M TETROFOSMIN SPECT CT IMAGING ORDERING PHYSICIAN: Dr. Draper. PRIMARY PHYSICIAN: . CLINICAL DIAGNOSES: Coronary artery disease. Baseline images were carried out after injection of 10.51 mCi of technetium-99m Tetrofosmin. This was followed by 0.4 mg regadenoson and 29.6 mCi of technetium-99m Tetrofosmin for stress imaging. The electrocardiogram showed sinus rhythm at baseline. It did not change significantly with the regadenoson infusion. The patient . Review of images at rest and following stress indicates a small to moderate anterior perfusion defect. This appears to be transient. Gated images show normal global left ventricular systolic function with normal regional wall motion. Left ventricular ejection fraction is calculated to be 79%. Left ventricular end diastolic volume is 32 mL. TID is absent (1.03). CONCLUSIONS: 1. This study is indicative of a small to moderate amount of anterior ischemia. 2. Normal to hyperdynamic left ventricular systolic function with an ejection fraction 79%, 3. Normal regional wall motion. Job ID: [id number] DocumentID: [id number] Dictated Date: 06/21/2020 15:51:57 Cover Seamer Date: 06/21/2020 19:59:11 Dictated By: RADHA DRAPER MD, MA, FACP, FACC,
== END ==
LOC: CARD 07:30
PROVIDERS: ATTEND Internal Medicine Cardiovascular Disease
DX: I25.10 Atherosclerotic heart disease of native coronary artery without angina pectoris (principal)
CPT/HCPCS: 78452; 93017; A9502

== ENCOUNTER 2020-07-23 08:00 | Day surgery (SDC) | payer MEDICARE, MEDICAID ==
[2020-07-23] VITALS (12 sets, daily range): BP systolic 103–139; BP diastolic 50–57
[~2020-07-23] VITALS: Ht 152 cm; Wt 73.0 kg
[2020-07-23 07:38] LABS: HEMOGLOBIN 12.1 g/dL (11.5-16.0); MEAN PLATELET VOLUME 9.7 fL (9.0-12.2); WHITE BLOOD COUNT 8.8 10^3/uL (4.3-11.0)
[2020-07-23 07:55] LABS: PROTHROMBIN TIME PATIENT 13.3 SEC (12.2-14.7)
[~2020-07-23 08:00] MED LIST changes: +ATOR40TA70 PO; +FURO40TA4 PO; +HEParin (CATH LAB) 2,000 ML IV ONE; +LIDOCAINE 1% INJ 20 ML 20 ML VIAL ONE; +MELO7.5T46 PO; +NS IV 1000 ML 1,000 ML IV SCH; +NS IV 1000 ML 1,000 ML ONE; +POTA10CA43 PO; -REGADENOSON 0.4 MG/5 ML SYR (LEXISCAN) IV ONE; +UMEC1BLS IH
[2020-07-23] MEDS ORDERED: MIDAZOLAM 5 MG/5 ML (VERSED) VIAL ONE (08:04)
[2020-07-23] MEDS ORDERED: fentaNYL INJ 100 MCG/2 ML AMP ONE (08:05)
[2020-07-23 08:07] LABS: ALBUMIN 4.3 GM/DL (3.2-4.5); BILIRUBIN,TOTAL 0.5 MG/DL (0.1-1.0); CALCIUM 9.5 MG/DL (8.5-10.1); CREATININE SERUM 1.23 MG/DL (0.60-1.30); POTASSIUM 4.2 MMOL/L (3.6-5.0); TOTAL PROTEIN 7.7 GM/DL (6.4-8.2)
--- NOTE | 2020-07-23 09:07 | Cardiac Procedure Note-CS/ASA ---
Pre-Procedure Note Pre-Op Procedure Note H&P Reviewed The H&P was reviewed, patient examined and no changes noted. Date H&P Reviewed: Jul 23, 2020 Time H&P Reviewed: 08:30 Conscious Sedation Pre-Proced Time 08:30 ASA Score 3 For ASA 3 and 4: Consider anesthesia and medical clearance. Also, for patients with a history of failed moderate sedation consider anesthesia. Airway Lungs Heart ASA score ASA 1: a normal healthy patient ASA 2: a patient with a mild systemic disease (mid diabetes, controlled hypertension, obesity ASA 3: a patient with a severe systemic disease that limits activity (angina, COPD, prior Myocardial infarction) ASA 4: a patient with an incapacitating disease that is a constant threat to life (CHF, renal failure) ASA 5: a moribund patient not expected to survive 24 hrs. (ruptured aneurysm) ASA 6: a declared brain- patient whose organs are being harvested. For emergent operations, add the letter E after the classification Mallampati Classification Grade 2 Sedation Plan Analgesia, Amnesia, Plan communicated to team members, Discussed options with patient/fam, Discussed risks with patient/fam The patient is an appropriate candidate to undergo the planned procedure, sedation, and anesthesia. The patient immediately re-assessed prior to indication. RADHA GAVIN MD FACP FAC CCDS Jul 23, 2020 09:07
--- NOTE | 2020-07-23 09:19 | Discharge Inst-Post CATH ---
Discharge Inst-CATH/EP Post Cardiac Cath/EP D/C Inst Follow Up/Plan F/u with Dr Draper in 1-2 weeks ACTIVITY * Go Home directly and rest. * Limit activity of the leg (or wrist if it was used) for 7 days including aerobics, swimming, jogging, bicycling, etc. * Restrict stair-climbing for 7 days if possible, if not, climb up with your non-cath leg, then bring together on the same step. * Avoid lifting, pushing, pulling or excessive movement of the affected extremity for 7 days. * Customary sexual activity may be resumed after 2 days-use caution not to use a position that strains or causes pain to the affected extremity. * No driving for 24 hours. * NO SMOKING. * Avoid straining for bowel movements for 7 days. * Gentle walking on level ground is allowed. * Returning to work will depend on the type of procedure and the results. Your doctor will discuss this with you. CALL YOUR DOCTOR FOR ANY OF THE FOLLOWING: *If bleeding from the puncture site occurs- Apply gentle pressure to site with clean cloth and call your doctor or EMS. * If a knot or lump forms under the skin, increases in size, or causes pain. * If bruising appears to be worsening or moving further down your leg instead of disappearing. * Temperature above 101 F. CARE OF YOUR GROIN INCISION; * Bruising or purple discoloration of the skin near the puncture site is common. * You may shower only, no bathtub bathing for 5 days. Be careful to avoid slipping as your leg may feel stiff. * If a closure device was used on your femoral artery, please see the attached guide regarding care of the device and your leg. * Leave dressing on FOR 24 hours. CARE OF YOUR WRIST INCISION; * Bruising or purple discoloration of the skin near the puncture site is common. * You may shower. * DO NOT submerge wrist. * Leave dressing on FOR 24 hours. RADHA DRAPER MD [facility] CCDS Jul 23, 2020 09:19
--- NOTE | 2020-07-23 09:19 | Discharge Inst-Cardiology ---
Discharge Inst-Cardiac Discharge Medications Continued Medications: Acetaminophen (Tylenol Extra Strength) 500 Mg Tablet 1000 MG PO Q6H PRN for BACK PAIN, TAB TAKES 2 (500MG) TABLETS Albuterol (Proair Hfa) 8.5 Gm Hfa.aer.ad 2 PUFF IH Q4H PRN for COUGH, INHALER Albuterol Sulfate (Albuterol Sulfate) 2.5 Mg/0.5 Ml Vial.neb 2.5 MG INH Q6H PRN for SHORTNESS OF BREATH, EACH Amlodipine Besylate (Amlodipine Besylate) 2.5 Mg Tablet 2.5 MG PO DAILY, TAB Aspirin (Aspirin EC) 81 Mg Tablet.dr 81 MG PO DAILY, TAB Atorvastatin Calcium (Atorvastatin Calcium) 40 Mg Tablet 40 MG PO DAILY, TAB Furosemide (Furosemide) 40 Mg Tablet 40 MG PO DAILY, TAB Gabapentin (Gabapentin) 800 Mg Tablet 400 MG PO HS, TAB TAKES 1/2 (800MG) TABLET DAILY AT BEDTIME Levothyroxine Sodium (Levothyroxine Sodium) 25 Mcg Tablet 37.5 MCG PO DAILY, TAB TAKES 1 1/2 OF THE 25 MCG TABLET DAILY Meloxicam (Meloxicam) 7.5 Mg Tablet 7.5 MG PO BID, TAB Metoprolol Succinate (Toprol Xl) 50 Mg Tab.er.24h 75 MG PO BID, TAB TAKES 1 1/2 OF THE 50 MG TABLET BID Montelukast Sodium (Singulair) 10 Mg Tablet 10 MG PO HS, TAB Omeprazole (Omeprazole) 40 Mg Capsule.dr 40 MG PO DAILY, CAP Potassium Chloride (Potassium Chloride) 10 Meq Capsule.er 10 MEQ PO DAILY, CAP Tramadol HCl (Tramadol HCl) 50 Mg Tablet 50 MG PO TID PRN for BREAKTHROUGH PAIN, TAB Umeclidinium Brm/Vilanterol Tr (Anoro Ellipta 62.5-25 Mcg INH) 1 Each Blst.w.dev 1 EACH IH DAILY RADHA GAVIN MD [facility] CCDS Jul 23, 2020 09:19
[2020-07-23] MEDS ORDERED: PATIENT MAY USE OWN MEDS, ALL PO SCH (09:30)
[2020-07-23] MEDS ORDERED: NS IV 1000 ML 1,000 ML IV SCH (09:30)
--- NOTE | 2020-07-23 10:23 | CARDIAC CATHETERIZATION ---
DATE OF SERVICE: 07/23/2020 CARDIAC CATHETERIZATION The patient is a 64-year-old lady who is known to have had coronary artery bypass surgery in 2011. She received a left internal mammary artery graft to the left anterior descending and a radial artery graft to a ramus intermedius. She is also known to have had stenting of the mid right coronary artery. Lately, myocardial perfusion imaging study was indicative of anterior ischemia. Cardiac catheterization was carried out after having obtained informed consent. DESCRIPTION OF PROCEDURE: She was brought to the cardiac catheterization laboratory in a fasting state. Right groin was prepared and draped in the usual sterile fashion. Lidocaine 1% was used for local anesthesia. Modified Seldinger technique was used to advance a 5-Estonian sheath in the right femoral artery. A 5-Estonian JL4 catheter was used for left coronary angiography, 5-Estonian JR4 catheter was used for right coronary angiography, 5-Estonian JUAN catheter was used for angiography of the left internal mammary artery graft to the left anterior descending artery. A 5-Estonian pigtail catheter was used for left heart catheterization and left ventricular angiography. Upon the second injection into the aortocoronary graft to the ramus intermedius artery, the patient developed ventricular fibrillation. She was promptly shocked with a 360 joule desynchronized shock, which restored sinus rhythm immediately. At the end of the procedure, following sheath removal, Mynx was used to achieve hemostasis. We had carried out angiography of the right femoral artery through the sheath at the beginning of the procedure. HEMODYNAMICS: Left ventricular end-diastolic pressure following coronary angiography was 16 mmHg. There was no significant pressure gradient on pullback across the aortic valve. CORONARY ANGIOGRAPHY: Coronary calcification is seen. Left main coronary artery does not exhibit significant obstructive disease. Left anterior descending artery has 80% mid vessel stenosis. Ramus intermedius is occluded at its ostium. Left circumflex artery has diffuse mild to moderate disease. Right coronary artery is large and dominant. There is a widely patent stent in its mid portion. There is mild plaque in the right coronary. LEFT INTERNAL MAMMARY ARTERY GRAFT TO LEFT ANTERIOR DESCENDING: Left internal mammary artery graft to distal left anterior descending artery is widely patent and has a good distal runoff. AORTOCORONARY GRAFT TO RAMUS INTERMEDIUS: Aortocoronary graft to ramus intermedius is widely patent and has a good distal runoff. LEFT VENTRICULAR ANGIOGRAPHY: Left ventricular angiography was carried out in the right anterior oblique projection. Global left ventricular systolic function normal. No regional wall motion abnormalities are seen. Left ventricular ejection fraction is approximately 65%. CONCLUSIONS: 1. [place] coronary artery disease consisting of 80% mid vessel stenosis in the left anterior descending, which has been bypassed with a patent left internal mammary artery graft and ostial occlusion of the ramus intermedius, which has been bypassed by an aortocoronary graft. The right coronary artery has a widely patent stent in its mid portion. There is diffuse npvj-el-epxymdcg disease of all coronary vessels. 2. Patent left internal mammary artery graft to distal left anterior descending. 3. Patent aortocoronary graft to a ramus intermedius. 4. Mild elevation of left ventricular end-diastolic pressure. 5. Normal global left ventricular systolic function with an ejection fraction approximately 65%. DISCUSSION AND RECOMMENDATIONS: Based on results of the study, it appears appropriate to continue a conservative approach. Risk factor modification has been reviewed. Outpatient followup is advised. Job ID: [id number] DocumentID: [id number] Dictated Date: 07/23/2020 09:14:06 Printer Maintainer Date: 07/23/2020 10:22:34 Dictated By: RADHA GAVIN MD, MA, FACP, FACC,
== END 2020-07-23 14:20 | disposition home or self-care (01) ==
LOC: CATH 08:00 → SDC 09:27 → CATH 14:20
PROVIDERS: ATTEND Internal Medicine Cardiovascular Disease
DX: I25.10 Atherosclerotic heart disease of native coronary artery without angina pectoris (principal); I10 Essential (primary) hypertension; I27.20 Pulmonary hypertension, unspecified; J30.9 Allergic rhinitis, unspecified; J43.9 Emphysema, unspecified; K21.9 Gastro-esophageal reflux disease without esophagitis; I65.23 Occlusion and stenosis of bilateral carotid arteries; E78.2 Mixed hyperlipidemia; E66.9 Obesity, unspecified; Z68.31 Body mass index [BMI] 31.0-31.9, adult; Z79.51 Long term (current) use of inhaled steroids; Z79.899 Other long term (current) drug therapy; Z79.82 Long term (current) use of aspirin; Z87.891 Personal history of nicotine dependence; Z95.1 Presence of aortocoronary bypass graft; Z83.3 Family history of diabetes mellitus; Z80.9 Family history of malignant neoplasm, unspecified
CPT/HCPCS: 80053; 80061; 85027; 85610; 85730; 87081; 93459; C1760; C1894; 36415

== ENCOUNTER → 2020-12-16 | Outpatient (CLI) | payer MEDICARE, MEDICAID ==
[~2020-12-16] MED LIST changes: +CATHETER FLUSH 10 ML SYR IV PRN; -HEParin (CATH LAB) 2,000 ML IV ONE; +HOLD METFORMIN - RECEIVED CONTRAST 20 ML VIAL IV SCH; +IOHEXOL 350 MG/ML 100 ML (OMNIPAQUE 350) VIAL IV ONE; -LIDOCAINE 1% INJ 20 ML 20 ML VIAL ONE; +NS 100 ML (IVPB) BAG IV ONE; -NS IV 1000 ML 1,000 ML IV SCH; -NS IV 1000 ML 1,000 ML ONE; +RT-ALBUTEROL SULF 2.5 MG/3 ML PRE-MIX VIAL INH ONE
[2020-12-16 08:08] LABS: CREATININE SERUM 0.82 MG/DL (0.60-1.30)
--- NOTE | 2020-12-16 11:13 | Diagnostic Imaging Report ---
PROCEDURE: CT chest with contrast only. TECHNIQUE: Multiple contiguous axial images were obtained through the chest after administration of intravenous contrast. Auto Exposure Controls were utilized during the CT exam to meet ALARA standards for radiation dose reduction. INDICATION: COPD. COMPARISON: Exam compared with study of 10/02/2019. FINDINGS: Some air trapping and linear zones of subpleural scarring bilaterally showed mild increase. No suspicious lung mass or dominant pulmonary nodule. No findings of thoracic malignancy. No lymphadenopathy. No effusion or pneumothorax. No findings of pneumonia or edema. Midline sternal wires appeared unremarkable. No acute chest wall pathology. There is extensive coronary artery atherosclerotic vascular disease. The visualized upper abdomen is nonacute. IMPRESSION: Chronic air trapping. Some mild increased zones of linear subpleural scarring. No suspicious mass or evidence for neoplasm. No acute-appearing abnormality. Dictated by: Dictated on workstation # [id number]
== END ==
LOC: RT 08:00
PROVIDERS: ATTEND Nurse Practitioner Family
DX: J44.9 Chronic obstructive pulmonary disease, unspecified (principal)
CPT/HCPCS: 36415; 71260; 82565; 84520; 94060; 94726; 94729

== ENCOUNTER → 2021-03-13 | Outpatient (CLI) | payer MEDICARE, MEDICAID ==
[~2021-03-13] MED LIST changes: -CATHETER FLUSH 10 ML SYR IV PRN; -DULO60CA6 PO; +DULO60CA7 PO; -HOLD METFORMIN - RECEIVED CONTRAST 20 ML VIAL IV SCH; -IOHEXOL 350 MG/ML 100 ML (OMNIPAQUE 350) VIAL IV ONE; -NS 100 ML (IVPB) BAG IV ONE; -RT-ALBUTEROL SULF 2.5 MG/3 ML PRE-MIX VIAL INH ONE
[2021-03-13 09:38] LABS: HEMATOCRIT 43 % (35-52); HEMOGLOBIN 12.8 g/dL (11.5-16.0); MEAN CORPUSCULAR HEMOGLOBIN 24 pg (25-34); MEAN CORPUSCULAR HGB CONC 30 g/dL (32-36); MEAN CORPUSCULAR VOLUME 80 fL (80-99); MEAN PLATELET VOLUME 9.6 fL (9.0-12.2); PLATELET COUNT 345 10^3/uL (130-400); WHITE BLOOD COUNT 8.1 10^3/uL (4.3-11.0)
[2021-03-13 09:57] LABS: POTASSIUM 3.6 MMOL/L (3.6-5.0)
[2021-03-13 09:58] LABS: CALCIUM 9.4 MG/DL (8.5-10.1)
[2021-03-13 10:03] LABS: CREATININE SERUM 0.8 MG/DL (0.60-1.30)
[2021-03-13 10:05] LABS: MAGNESIUM 1.9 MG/DL (1.6-2.4)
== END ==
LOC: CARD 10:30
PROVIDERS: ATTEND Nurse Practitioner Family
DX: R00.2 Palpitations (principal)
CPT/HCPCS: 36415; 80048; 83735; 84443; 85027; 93225; 93226

== ENCOUNTER → 2021-12-16 | Outpatient (CLI) | payer MEDICARE, MEDICAID ==
--- NOTE | 2021-12-16 09:35 | Diagnostic Imaging Report ---
EXAMINATION: CT chest without contrast (lung screening). TECHNIQUE: Multiple contiguous axial images were obtained through the chest without the use of intravenous contrast according to lung cancer screening protocol. All CT scans use one or more of the following dose optimizing techniques: automated exposure control, MA and/or KvP adjustment based on patient size and exam type or iterative reconstruction. HISTORY: 38 pack year history of smoking. COMPARISON: 12/16/2020 FINDINGS: Thyroid: The thyroid is normal. Mediastinum: Heart size is normal without significant pericardial effusion. Calcifications of the aorta and coronary vessels. Thoracic aorta is normal in caliber. No suspicious lymphadenopathy. Lungs and airways: Mild background emphysematous changes of lungs with scattered areas of atelectasis or scarring. No pleural effusion, pneumothorax, or focal consolidation. No suspicious pulmonary nodule. The airways are normal. Upper abdomen: The subphrenic structures are normal. Musculoskeletal: No suspicious osseous lesion or compression fracture. IMPRESSION: 1. No suspicious pulmonary nodules. Recommend continued annual low-dose CT screening. LUNG-RADS CATEGORY: 1 MODIFIER: None Dictated by: Dictated on workstation # [id number]
== END ==
LOC: RAD 09:15
PROVIDERS: ATTEND Nurse Practitioner Family
DX: Z12.2 Encounter for screening for malignant neoplasm of respiratory organs (principal); Z87.891 Personal history of nicotine dependence
CPT/HCPCS: 71271

== ENCOUNTER → 2021-12-25 | Outpatient (CLI) | payer MEDICARE, MEDICAID | LOC: CARD 11:30 | PROVIDERS: ATTEND Internal Medicine Cardiovascular Disease | DX: I08.3 Combined rheumatic disorders of mitral, aortic and tricuspid valves (principal) | CPT/HCPCS: 93306 ==

== ENCOUNTER → 2022-01-02 | Outpatient (CLI) | payer MEDICARE, MEDICAID ==
[~2022-01-02] VITALS: Ht 152 cm; Wt 73.0 kg
[~2022-01-02] MED LIST changes: +CATHETER FLUSH 10 ML SYR IVP PRN; +REGADENOSON 0.4 MG/5 ML SYR (LEXISCAN) IV ONE
[2022-01-02 09:15] VITALS: BP 173/70
--- NOTE | 2022-01-05 10:52 | STRESS TEST ---
DATE OF SERVICE: 01/02/2022 RESTING AND POST REGADENOSON TECHNETIUM-99M TETROFOSMIN SPECT CT IMAGING ORDERING PHYSICIAN: Dr. Draper. PRIMARY PHYSICIAN: Dr. Rogers. OTHER PHYSICIAN: BRANDEN Asif. CLINICAL DIAGNOSIS: Coronary artery disease. Baseline images were carried out after injection of 10.41 mCi of technetium-99m Tetrofosmin. This was followed by 0.4 mg regadenoson and 29.1 mCi of technetium-99m Tetrofosmin for stress imaging. The electrocardiogram showed sinus rhythm at baseline. There was subtle, nonspecific ST abnormality. The electrocardiogram did not change significantly with the regadenoson infusion. The patient noted some nausea and headache. The symptoms resolved in a few minutes. Review of images at rest and following stress indicates a small to moderate amount of reversible anterior wall perfusion defect. Gated images show normal global left ventricular systolic function with normal regional wall motion. Left ventricular ejection fraction is calculated to be 77%. CONCLUSIONS: 1. The study is indicative of a small to moderate amount of anterior ischemia. 2. Normal regional wall motion. 3. Normal global left ventricular systolic function with a calculated ejection fraction of 77%. Job ID: [id number] DocumentID: [id number] Dictated Date: 01/05/2022 09:08:49 Bulkhead Carpenter Date: 01/05/2022 10:52:08 Dictated By: RADHA DRAPER MD, MA, FACP, FACC,
== END ==
LOC: CARD 07:30
PROVIDERS: ATTEND Internal Medicine Cardiovascular Disease
DX: I25.10 Atherosclerotic heart disease of native coronary artery without angina pectoris (principal)
CPT/HCPCS: 78452; 93017; A9502

== ENCOUNTER → 2022-02-10 | Outpatient (CLI) | payer MEDICARE, MEDICAID ==
[~2022-02-10] MED LIST changes: -CATHETER FLUSH 10 ML SYR IVP PRN; -REGADENOSON 0.4 MG/5 ML SYR (LEXISCAN) IV ONE
--- NOTE | 2022-02-10 16:16 | Diagnostic Imaging Report ---
INDICATION: Postmenopausal state. COMPARISON: None available. FINDINGS: AP Spine L1-L4: [BMD (g/cm2): 0.911] [T-Score: -2.4] [Z-Score: -1.0] [BMD Previous: NA] [BMD % Change: NA] LT Hip Neck: [BMD (g/cm2): 0.696] [T-Score: -2.5] [Z-Score: -1.1] LT Hip Total: [BMD (g/cm2):0.712] [T-Score:-2.3] [Z-Score: -1.2] [BMD Previous: NA] [BMD % Change: NA] RT Hip Neck: [BMD (g/cm2):0.699] [T-Score:-2.4] [Z-Score:-1.0] RT Hip Total: [BMD (g/cm2):0.715] [T-score:-2.3] [Z-Score:-1.2] [BMD Previous:NA] [BMD % Change:NA] *Indicates significant change from prior examination based on 95% confidence level. World Health Organization criteria for BMD interpretation classify patients as Normal (T-score at or above -1.0), Osteopenic (T-score between -1.0 and -2.5) or Osteoporotic (T-score at or below -2.5). LIMITATIONS AND MODIFICATION: None. FRACTURE RISK (FRAX SCORE): The ten year probability of (%): Major Osteoporotic Fracture: [13.2] Hip Fracture: [2.9] IMPRESSION: 1. Osteoporosis. 2. Baseline examination. 3. See below National Osteoporosis Foundation guidelines on when to potentially initiate pharmacologic therapy. Based on the National Osteoporosis Foundation Guidelines, pharmacologic treatment should be initiated in any of the following, unless clinical conditions suggest otherwise: * Any patient with prior fragility fracture of the hip or vertebrae. A spine fracture indicates 5X risk for subsequent spine fracture and 2X risk for subsequent hip fracture. * Osteoporosis (T-score <-2.5). * Postmenopausal women and men age 50 and older with low bone mass/osteopenia (T-score between -1.0 and -2.5) by DXA and 10-year major osteoporotic fracture greater than 20% or a 10-year probability of hip fracture greater than 3%. These fracture risks are supplied above in the FRAX score, if applicable. * Clinician judgement and/or patient preferences may indicate treatment for people with 10-year fracture probabilities above or below these levels. Dictated by: Dictated on workstation # [id number]
== END ==
LOC: RAD 10:28
PROVIDERS: ATTEND Nurse Practitioner Family
DX: Z01.89 Encounter for other specified special examinations (principal); Z79.899 Other long term (current) drug therapy; M81.0 Age-related osteoporosis without current pathological fracture; Z78.0 Asymptomatic menopausal state
CPT/HCPCS: 77080

== ENCOUNTER 2022-02-11 09:42 | Outpatient (CLI) | payer MEDICARE, MEDICAID | END 2022-02-11 10:05 | LOC: SLEEP 09:42 | PROVIDERS: ATTEND Otolaryngology Otolaryngology/Facial Plastic Surgery | DX: G47.33 Obstructive sleep apnea (adult) (pediatric) (principal); G47.10 Hypersomnia, unspecified; I25.9 Chronic ischemic heart disease, unspecified; Z95.5 Presence of coronary angioplasty implant and graft | CPT/HCPCS: G0399 ==

== ENCOUNTER → 2022-03-17 | Outpatient (CLI) | payer MEDICARE, MEDICAID ==
[~2022-03-17] MED LIST changes: +RT-ALBUTEROL SULF 2.5 MG/3 ML PRE-MIX VIAL INH ONE
== END ==
LOC: RT 10:19
PROVIDERS: ATTEND Internal Medicine Critical Care Medicine
DX: J44.9 Chronic obstructive pulmonary disease, unspecified (principal)
CPT/HCPCS: 94060; 94621; 94726; 94729

== ENCOUNTER 2022-04-07 07:30 | Day surgery (SDC) | payer MEDICARE, MEDICAID ==
[2022-04-07] VITALS (19 sets, daily range): BP systolic 113–162; BP diastolic 42–93
[~2022-04-07] VITALS: Ht 152.4 cm; Wt 78.8 kg
[~2022-04-07 07:30] MED LIST changes: +NS IV 1000 ML 1,000 ML IV SCH; -RT-ALBUTEROL SULF 2.5 MG/3 ML PRE-MIX VIAL INH ONE
[2022-04-07 08:02] LABS: HEMATOCRIT 44 % (35-52); HEMOGLOBIN 13.1 g/dL (11.5-16.0); MEAN CORPUSCULAR HEMOGLOBIN 25 pg (25-34); MEAN CORPUSCULAR HGB CONC 30 g/dL (32-36); MEAN CORPUSCULAR VOLUME 84 fL (80-99); MEAN PLATELET VOLUME 9.5 fL (9.0-12.2); PLATELET COUNT 318 10^3/uL (130-400); WHITE BLOOD COUNT 8.5 10^3/uL (4.3-11.0)
[2022-04-07] MEDS ORDERED: LIDOCAINE 1% INJ 30 ML (XYLOCAINE) VIAL ONE ×2 (08:02→10:04)
[2022-04-07] MEDS ORDERED: HEParin (CATH LAB) 2,000 ML IV ONE (08:02)
[2022-04-07] MEDS ORDERED: NS IV 1000 ML 1,000 ML ONE (08:02)
[2022-04-07 08:33] LABS: ALBUMIN 4.1 GM/DL (3.2-4.5); BILIRUBIN,TOTAL 0.4 MG/DL (0.1-1.0); CALCIUM 9.4 MG/DL (8.5-10.1); TOTAL PROTEIN 7.2 GM/DL (6.4-8.2)
[2022-04-07] MEDS ORDERED: TRM50T PO (09:14)
[2022-04-07] MEDS ORDERED: CYAN-41 PO (09:14)
[2022-04-07] MEDS ORDERED: ATOR80TA76 PO (09:14)
[2022-04-07] MEDS ORDERED: OMEP40CA6 PO (09:14)
[2022-04-07] MEDS ORDERED: MTP100TCR PO (09:14)
[2022-04-07] MEDS ORDERED: DICL100G13 TP (09:14)
[2022-04-07] MEDS ORDERED: TRAM50TA3 PO (09:14)
[2022-04-07] MEDS ORDERED: MELO7.5T46 PO (09:14)
[2022-04-07] MEDS ORDERED: BENZ100C18 PO (09:14)
[2022-04-07] MEDS ORDERED: FURO40TA4 PO (09:14)
[2022-04-07] MEDS ORDERED: GABA800T10 PO (09:14)
[2022-04-07] MEDS ORDERED: FLUT1BLS3 IH (09:14)
[2022-04-07] MEDS ORDERED: RT-ALBUINH INH (09:14)
[2022-04-07] MEDS ORDERED: LEVO25CA4 PO (09:14)
[2022-04-07] MEDS ORDERED: POTA-177 PO (09:14)
[2022-04-07] MEDS ORDERED: MONT-40 PO (09:17)
[2022-04-07] MEDS ORDERED: fentaNYL INJ 100 MCG/2 ML AMP ONE (09:22)
[2022-04-07] MEDS ORDERED: MIDAZOLAM 5 MG/5 ML (VERSED) VIAL ONE (09:23)
--- NOTE | 2022-04-07 11:10 | Cardiac Procedure Note-CS/ASA ---
Pre-Procedure Note Pre-Op Procedure Note Date of Available H&P: Mar 16, 2022 Date H&P Reviewed: Apr 07, 2022 Time H&P Reviewed: 10:00 History & Physical: H&P Reviewed, No changes noted Conscious Sedation Pre-Proced ASA Score 4 For ASA 3 and 4: Consider anesthesia and medical clearance. Also, for patients with a history of failed moderate sedation consider anesthesia. Airway Lungs Heart ASA score ASA 1: a normal healthy patient ASA 2: a patient with a mild systemic disease (mid diabetes, controlled hypertension, obesity ASA 3: a patient with a severe systemic disease that limits activity (angina, COPD, prior Myocardial infarction) ASA 4: a patient with an incapacitating disease that is a constant threat to life (CHF, renal failure) ASA 5: a moribund patient not expected to survive 24 hrs. (ruptured aneurysm) ASA 6: a declared brain- patient whose organs are being harvested. For emergent operations, add the letter E after the classification Mallampati Classification Grade 2 Sedation Plan Analgesia, Plan communicated to team members The patient is an appropriate candidate to undergo the planned procedure, sedation, and anesthesia. The patient immediately re-assessed prior to indication. RADHA GAVIN MD FACP FAC CCDS Apr 07, 2022 11:10
[2022-04-07] MEDS ORDERED: PATIENT MAY USE OWN MEDS, ALL PO SCH (11:15)
[2022-04-07] MEDS ORDERED: NS IV 1000 ML 1,000 ML IV SCH (11:15)
--- NOTE | 2022-04-07 11:16 | Discharge Inst-Cardiology ---
Discharge Inst-Cardiac Discharge Medications Continued Medications: Acetaminophen (Tylenol Extra Strength) 500 Mg Tablet 1000 MG PO Q6H PRN for PAIN-MILD (1-4), TAB TAKES 2 (500MG) TABLETS Albuterol Sulfate (Albuterol Sulfate) 2.5 Mg/0.5 Ml Vial.neb 2.5 MG INH Q6H PRN for SHORTNESS OF BREATH, EACH Albuterol Sulfate (Ventolin Hfa) 1 Puff Puff 1 PUFF INH Q4H PRN for SHORTNESS OF BREATH, EA Aspirin (Aspirin EC) 81 Mg Tablet.dr 81 MG PO DAILY, TAB Atorvastatin Calcium (Atorvastatin Calcium) 80 Mg Tablet 80 MG PO HS, TAB Benzonatate (Tessalon Perles) 100 Mg Capsule 100 MG PO Q6H PRN for COUGH, CAP Cyanocobalamin (Vitamin B-12) (Vitamin B-12) 1,000 Mcg Tablet 1000 MCG PO DAILY, TAB Diclofenac Sodium (Diclofenac Sodium) 1 % Gel..gram. 1 APPLIC TP HS, TUBE Fluticasone/Umeclidin/Vilanter (Trelegy Ellipta 100-62.5-25) 100-62.5 Blst.w.dev 1 EACH IH DAILY Furosemide (Furosemide) 40 Mg Tablet 40 MG PO DAILY, TAB Gabapentin (Gabapentin) 800 Mg Tablet 800 MG PO HS, TAB Levothyroxine Sodium (Levothyroxine) 25 Mcg Capsule 37.5 MCG PO DAILY, CAP TAKES 1 (25MG) TABLETS Meloxicam (Meloxicam) 7.5 Mg Tablet 7.5 MG PO BID, TAB Metoprolol Succinate (Metoprolol Succinate) 100 Mg Tab.er.24h 100 MG PO BID, TAB Montelukast Sodium (Montelukast Sodium) 10 Mg Tablet 10 MG PO DAILY, TAB Omeprazole (Omeprazole) 40 Mg Capsule.dr 40 MG PO DAILY, CAP Potassium Chloride (Potassium Chloride) 10 Meq Tab.er.prt 10 MEQ PO HS RADHA GAVIN MD [facility] CCDS Apr 07, 2022 11:16
--- NOTE | 2022-04-07 11:18 | Discharge Inst-Post CATH ---
Discharge Inst-CATH/EP Post Cardiac Cath/EP D/C Inst Follow Up/Plan F/u with Dr Draper next week ACTIVITY * Go Home directly and rest. * Limit activity of the leg (or wrist if it was used) for 7 days including aerobics, swimming, jogging, bicycling, etc. * Restrict stair-climbing for 7 days if possible, if not, climb up with your no n-cath leg, then bring together on the same step. * Avoid lifting, pushing, pulling or excessive movement of the affected ext remity for 7 days. * Customary sexual activity may be resumed after 2 days-use caution not to use a position that strains or causes pain to the affected extremity. * No driving for 24 hours. * NO SMOKING. * Avoid straining for bowel movements for 7 days. * Gentle walking on level ground is allowed. * Returning to work will depend on the type of procedure and the results. Your doctor will discuss this with you. CALL YOUR DOCTOR FOR ANY OF THE FOLLOWING: *If bleeding from the puncture site occurs- Apply gentle pressure to site with clean cloth and call your doctor or EMS. * If a knot or lump forms under the skin, increases in size, or causes pain. * If bruising appears to be worsening or moving further down your leg instead of disappearing. * Temperature above 101 F. CARE OF YOUR GROIN INCISION; * Bruising or purple discoloration of the skin near the puncture site is common. * You may shower only, no bathtub bathing for 5 days. Be careful to avoid slipping as your leg may feel stiff. * If a closure device was used on your femoral artery, please see the attached guide regarding care of the device and your leg. * Leave dressing on FOR 24 hours. CARE OF YOUR WRIST INCISION; * Bruising or purple discoloration of the skin near the puncture site is common. * You may shower. * DO NOT submerge wrist. * Leave dressing on FOR 24 hours. RADHA DRAPER MD FACP FAC CCDS Apr 07, 2022 11:18
[2022-04-07 12:02] LABS: INR 0.9 (0.8-1.4); PROTHROMBIN TIME PATIENT 12.7 SEC (12.2-14.7)
[2022-04-07 12:05] LABS: CHOLESTEROL 183 MG/DL (< 200); HDL CHOLESTEROL 33 MG/DL (40-60); TRIGLYCERIDES 243 MG/DL (<150); VLDL CHOLESTEROL 49 MG/DL (5-40)
--- NOTE | 2022-04-07 12:19 | CARDIAC CATHETERIZATION ---
DATE OF SERVICE: 04/07/2022 COMPLETE HEART CATHETERIZATION INDICATION: The patient is a 66-year-old lady who has a history of pulmonary hypertension and coronary artery disease. She has had coronary artery bypass surgery. She is currently undergoing pulmonary evaluation by Dr. Bedoya, her jinriksha driver. Given the increasing shortness of breath and pulmonary hypertension, complete heart catheterization was recommended. Informed consent was obtained. DESCRIPTION OF PROCEDURE: She was brought to the cardiac catheterization laboratory in a fasting state. Right groin was prepared and draped in the usual sterile fashion. A 1% lidocaine used for local anesthesia. Modified Seldinger technique was used to advance a 5-[place]uvian sheath in the right femoral artery and a 7-[place]uvian sheath into the right femoral vein. We used a 7-[place]ian [place] catheter to carry out right heart catheterization and to measure oxygen saturation in various right heart chambers. The [place] catheter was then removed. We used a 5-[place]uvian pigtail catheter to carry out oxygen saturation measurement from the ascending aorta. The pigtail catheter was then advanced into the left ventricle. Left heart pressures were measured. Left ventricular angiography was performed. The catheter was then pulled back and removed. We used a 5-[place]uvian JL4 catheter for left coronary angiography and a 5-[place]uvian JR4 catheter for right coronary angiography. We used 5-[place]uvian JR4 catheter for angiography of the aortocoronary graft to the left circumflex artery. We used a 5-[place]uvian JUAN catheter to carry out angiography of the left internal mammary artery graft to the left anterior descending. The catheters were removed. Angiography of the right femoral artery was carried out with a sheath. Mynx was used to achieve hemostasis. She tolerated the procedure well. HEMODYNAMICS: Pulmonary artery pressure was 65/23 with a mean of 40 mmHg. Mean pulmonary wedge pressure was 14 mmHg with A waves of 13 and V waves of 17 mmHg. Right ventricular pressure was 81/12. Mean right atrial pressure was 10 mmHg. Left ventricular end-diastolic pressure was 15 mmHg. There is no significant pressure gradient on pullback across the aortic valve. The ascending aortic pressure was 158/60 with a mean of 94 mmHg. There was no significant oxygen saturation difference in the various right heart chambers. Cardiac output by thermodilution was 3.13 with a cardiac index of 1.85. Pulmonary vascular resistance was 7.36 Wood units. CORONARY ANGIOGRAPHY: Diffuse coronary calcification is present. Left main coronary artery has moderate distal stenosis of less than 50%. The left anterior descending coronary artery has 80-90% ostial proximal stenosis. Left circumflex artery has diffuse moderate disease. There is ostial occlusion of the ramus intermedius. Right coronary artery has a widely patent stent in its mid portion and has diffuse mild to moderate disease. An aortocoronary graft to the ramus intermedius is intact and does not significant disease. A left internal mammary artery graft to this left anterior descending artery is patent and does not significant disease. There is good distal runoff. LEFT VENTRICULAR CORONARY ANGIOGRAPHY: Left ventricular angiography was carried out in the right anterior oblique projection. Global left ventricular systolic function is normal. Left ventricular ejection fraction is approximately 60%. There appears to be mild mitral regurgitation. CONCLUSION: 1. Moderate to moderately severe pulmonary hypertension with mean pulmonary artery systolic pressure of 40 mmHg and the pulmonary vascular resistance of 7.36 Wood units. 2. Left ventricular end-diastolic pressure is at the upper end of normal to mildly elevated (14 mmHg). 3. Well preserved global left ventricular systolic function with ejection fraction approximately 60%. 4. Multivessel coronary artery disease that includes moderate distal disease in the left main, severe ostial and proximal disease of the left anterior descending, and moderate diffuse disease of the left circumflex. The ramus intermedius artery is occluded at its ostium. The ramus intermedius artery is protected by a patent aortocoronary graft and the distal left anterior descending artery is protected by a patent left internal mammary artery graft. The right coronary artery is dominant. It has a widely patent stent in its proximal portion and has diffuse mild to moderate disease. DISCUSSION RECOMMENDATIONS: Current cardiac regimen is being continued. Outpatient cardiac followup was advised. The results of the study are being forwarded to Dr. Bedoya, the patient's jinriksha driver. Job ID: [id number] DocumentID: [id number] Dictated Date: 04/07/2022 11:08:28 Refrigeration Unit Repairer Date: 04/07/2022 12:17:00 Dictated By: RADHA GAVIN MD; MA; FACP; FACC;
== END 2022-04-07 17:05 | disposition home or self-care (01) ==
LOC: CATH 07:30 → SDC 11:45 → CATH 17:05
PROVIDERS: ATTEND Internal Medicine Cardiovascular Disease
DX: I25.10 Atherosclerotic heart disease of native coronary artery without angina pectoris (principal); E66.9 Obesity, unspecified; Z87.891 Personal history of nicotine dependence; I10 Essential (primary) hypertension; E78.5 Hyperlipidemia, unspecified; R74.8 Abnormal levels of other serum enzymes; I65.23 Occlusion and stenosis of bilateral carotid arteries; K21.9 Gastro-esophageal reflux disease without esophagitis; R53.81 Other malaise; I27.21 Secondary pulmonary arterial hypertension; Z68.33 Body mass index [BMI] 33.0-33.9, adult
CPT/HCPCS: 80053; 80061; 85027; 85610; 85730; 87081; 93005; 93461; C1760; C1769; C1894 ×2; 36415

== ENCOUNTER → 2022-08-27 | Outpatient (CLI) | payer MEDICARE, MEDICAID ==
[~2022-08-27] MED LIST changes: +ATOR80TA76 PO; +BENZ100C18 PO; +CYAN-41 PO; +DICL100G13 TP; +FLUT1BLS3 IH; +LEVO25CA4 PO; +MONT-40 PO; +MONT-47 PO; -MONT10TA21 PO; +MTP100TCR PO; -NS IV 1000 ML 1,000 ML IV SCH; +OMEP40CA6 PO; +POTA-177 PO; -POTA10CA43 PO; +POTA10CA44 PO; +RT-ALBUINH INH; +TRAM50TA3 PO
== END ==
LOC: CARD 12:47
PROVIDERS: ATTEND Internal Medicine Critical Care Medicine
DX: I08.3 Combined rheumatic disorders of mitral, aortic and tricuspid valves (principal); I27.23 Pulmonary hypertension due to lung diseases and hypoxia; J44.9 Chronic obstructive pulmonary disease, unspecified; J96.11 Chronic respiratory failure with hypoxia; R76.0 Raised antibody titer; M34.1 CR(E)ST syndrome
CPT/HCPCS: 93306